=== PATIENT | female | born 1990 | race Caucasian/White ===

== ENCOUNTER 2021-12-31 10:28 | Outpatient (REF) | payer MEDICAID, SELFPAY ==
--- NOTE | ~2021-12-31 | FL_ITS ---
EXAMINATION: FL BARIUM SWALLOW CLINICAL INFORMATION: Nausea, vomiting. Rule out obstruction. COMPARISON: None. TECHNIQUE: Barium swallow examination is performed using fluoroscopic evaluation in addition to multiple fluoroscopic spot views. The patient is imaged both upright and prone and using both thick and thin sulfate along with effervescent granules. Fluoroscopy time: 1.0 minutes. DAP: 6.687 Gy-cm2. Images: 43. FINDINGS: Following oral administration of thick barium and gluten free barium-coated bread, there is slow propagation of bolus from the oral cavity through the pharynx and esophagus. There is diffuse mucosal thickening and irregularity throughout the esophagus consistent with severe esophagitis. It is nonspecific esophagitis. There is no hiatal hernia or reflux seen in upright view. Patient has significant difficulty with swallowing liquids and bread. Nondistended stomach is unremarkable. There is evidence of previous cholecystectomy. FL/FL barium swallow IMPRESSION: Diffuse severe esophagitis. Results were immediately called to Dr. Baldo Arreola by phone at 11:59 AM and he was made aware of the findings.
== END 2021-12-31 10:29 | disposition home or self-care (01) ==
LOC: HO.XRAY 10:28
PROVIDERS: Visit Provider Internal Medicine
DX: R11.2 Nausea with vomiting, unspecified (principal)
CPT/HCPCS: 74220

== ENCOUNTER 2022-12-03 12:46 | Inpatient (IN) | payer MEDICAID, SELFPAY ==
[2022-12-03] VITALS (7 sets, daily range): BP systolic 109–129; BP diastolic 69–84; PULSE 89–126; RESP 14–29; TEMP 36.7–37.2; O2SAT 87–95; BMI 30.7; BMI 30.6
--- NOTE | ~2022-12-03 | CT_ITS ---
EXAMINATION: CT ANGIOGRAM OF THE CHEST WITH AND WITHOUT CONTRAST (CT PULMONARY ANGIOGRAM FOR PE) CLINICAL INFORMATION: Reason for Exam coivd 10 days, hypoxic COMPARISON: None available. TECHNIQUE: Prior to contrast administration, noncontrast localization images were obtained. Subsequently, multidetector volumetric imaging was performed from the thoracic inlet to below the diaphragms following the administration of 65 mL Omnipaque 350 intravenous contrast. No contrast reaction reported Sagittal, coronal, and MIP oblique sagittal reformatted images were obtained on the CT workstation, uploaded to PACS, and reviewed. This CT examination was performed using dose optimization techniques as appropriate, variously including the following: *Automated exposure control *Adjustment of mA and/or kV according to patient size (this includes techniques or standardized protocols for targeted exams where dose is matched to indication/reason for exam; i.e. extremities or head) *Use of iterative reconstruction technique Total exam dose-length product 403 mGy-cm FINDINGS: QUALITY OF STUDY/CONTRAST BOLUS: Satisfactory. PULMONARY ARTERIES: No pulmonary emboli. THORACIC AORTA: No aneurysm. LUNG: Multifocal airspace disease with more confluent consolidation in the lower lobes, right greater than left, with air bronchograms. No suspicious pulmonary nodule. Central airways are patent. PLEURA: No pleural effusion or pneumothorax. MEDIASTINUM: Normal heart size. No pericardial effusion. No hilar or mediastinal lymphadenopathy. No evidence of septal bowing or right heart strain. Diffuse esophageal wall thickening. CORONARY ARTERY CALCIFICATION: None visualized on this study. CHEST WALL/AXILLA: No axillary or internal mammary lymphadenopathy. OSSEOUS STRUCTURES: No destructive bone lesions. UPPER ABDOMEN: Status post cholecystectomy. No reflux of contrast into the hepatic veins to suggest elevated right heart pressures. CT/CT angio chest PE protocol IMPRESSION: No evidence of pulmonary embolus. Multifocal pneumonia likely related to COVID-19 infection. Diffuse esophageal wall thickening. Fluoroscopic evaluation previously showed diffuse severe esophagitis. VTE: negative
--- NOTE | ~2022-12-03 | XR_ITS ---
EXAMINATION: XR CHEST CLINICAL INFORMATION: Shortness of breath. COMPARISON: None available. TECHNIQUE: 2 views of the chest were obtained. FINDINGS: Diffuse hazy attenuation of the lungs with more focal patchy and streaky opacities in the mid and lower lungs. No pleural effusion. No pneumothorax. Normal heart size. No acute osseous findings. Visualized upper abdomen is within normal limits. XR/XR chest 2V IMPRESSION: Diffuse hazy attenuation of the lungs with more focal patchy and streaky opacities in the mid and lower lungs. Findings are indeterminate and could be related with a multifocal atypical pneumonia in the appropriate clinical context. Recommend attention on follow-up and reimaging after treatment to ensure resolution.
--- NOTE | 2022-12-03 12:52 | ED_ITS ---
HPI - General Adult General Chief complaint: Dyspnea Stated complaint: covid + low 02 Time Seen by Provider: 12/03/22 13:41 Source: patient Mode of arrival: ambulatory Limitations: no limitations History of Present Illness HPI narrative: Patient comes to the emergency room complaining of shortness of breath, nausea vomiting and diarrhea. Patient states that on November 23, 9 days ago, she tested positive for COVID-19. Patient states that she has gradually become more short of breath, now even with sitting up in bed, patient feels very short of breath. Patient states that she went to see her primary care physician today, at the PCPs office her oxygen saturation was 85% on room air, patient was asked to come to the emergency room here. On arrival to triage, oxygen saturation 87% on room air. Patient states that she constantly has palpitations, patient states that she is being worked up for Brugada syndrome, patient's baseline heart rate goes between 100-120 while on metoprolol. Without metoprolol, heart rate approximately 160. Patient denies any chest pain. No significant abdominal pain. Patient states that over the last week she has been having fevers but over the last couple of days she has not had fever. Related Data Allergies Allergy/AdvReac Type Severity Reaction Status Date / Time gluten Allergy Unknown Verified 12/03/22 12:50 Sulfa (Sulfonamide Allergy Unknown Verified 12/03/22 12:50 Antibiotics) Steroids AdvReac Severe Other Uncoded 12/03/22 14:08 Review of Systems 2 Review of Systems: Constitutional : No Weight loss, No Fever, No Chills, No Night Sweats, No Fatigue, No Malaise ENT/Mouth : No Hearing loss, No Ear Pain, No Nasal Congestion, No Sinus Pain, No Hoarseness, No sore throat, No Rhinorrhea, No Swallowing Difficulty Eyes: No Eye Pain, No Swelling, No Redness, No Foreign Body, No Discharge, No Vision Changes Cardiovascular : No Chest Pain, complaining of dyspnea on exertion, complaining of chronic palpitations Respiratory : No Cough, No Sputum, No Wheezing, No Smoke Exposure, complaining of constant dyspnea worse with exertion Gastrointestinal : No Nausea, No Vomiting, No Diarrhea, No Constipation, No abdominal Pain, No Hematochezia, No Melena Genitourinary : no irregular bleeding, No Dysuria, No Urinary Frequency, No Hematuria, No Urinary Incontinence, No Urgency, No Flank Pain, No Urinary Flow Changes, No Hesitancy Musculoskeletal : No joint pain, No Myalgias, No Joint Swelling Skin : No Skin Lesions, No rash Neuro : No Weakness, No Numbness, No Paresthesias, No Loss of Consciousness, No Dizziness, No Headache Psych : No Anxiety/Panic, No Depression, No SI/HI/AH/VH, No Social Issues, Heme/Lymph: No Bruising, No Bleeding,No Lymphadenopathy Endocrine : No Polyuria, No Polydipsia, No Temperature Intolerance [facility] Past Medical History Medical History Celiac disease Tachycardia Multiple sclerosis Social History Social History Smoked in Last 30 Days: Yes Advance Directives: No Advance Directives Information Provided: No Physical Exam ED Vital Signs: Vital Signs - 24 hr 12/03/22 12:50 12/03/22 14:03 12/03/22 16:11 Temperature 98.8 F Pulse Rate 126 H 113 H 113 H Respiratory Rate 20 14 24 H Blood Pressure 129/69 120/72 109/78 Pulse Oximetry 87 L 92 95 Oxygen Delivery Method Room Air Nasal Cannula Nasal Cannula Oxygen Flow Rate 3 3 12/03/22 17:14 Temperature 98.1 F Pulse Rate 112 H Respiratory Rate 29 H Blood Pressure 109/73 Pulse Oximetry 95 Oxygen Delivery Method Nasal Cannula Oxygen Flow Rate 4 BMI result Body Mass Index 30.7 Const Other: Appearance: Alert. Oriented X3. No acute distress. Eyes: Pupils equal, round and reactive to light ENT: Pharynx normal. Patient has thrush in the mouth Neck: Normal inspection. Neck supple. No lymph nodes noted. No crepitus CVS: Normal heart rate and rhythm. Pulses normal. Normal S1 and S2 Respiratory: Mild respiratory distress, normal breath sounds, mildly tachypneic in the mid 20s, oxygen saturation dropped to 88% while talking on 2 L Abdomen: Soft and nontender. No rigidity. No distention. Skin: Skin warm and dry. Normal skin color. Normal skin turgor. Extremities: No lower extremity edema. No Lacerations. No Rash Neuro: Oriented X 3. No motor deficit. No sensory deficit. Moving all extremities. No slurred speech. CN 2 through 12 grossly intact Psych: calm, cooperative, normal affect Course Course Course Narrative: RME performed by Mara Thomas PA-C. Patient is a 32 year old assigned female at presenting to the emergency department with shortness of breath and feeling generally unwell. Patient is 9 days post COVID-19. Patient has a history of MS and brugada syndrome. Labs and imaging ordered. Patient placed back in the waiting room pending room availability and results. Medications Administered Discontinued Medications Generic Name Dose Route Start Last Admin Trade Name Freq PRN Reason Stop Dose Admin Piperacillin Sod/Tazobactam 50 mls @ 100 mls/hr 12/03/22 15:11 12/03/22 16:15 Sod 3.375 gm/ Sodium Chloride IV 12/03/22 15:40 100 mls/hr ONCE ONE Administration Sodium Chloride 2,000 mls @ 999 mls/hr 12/03/22 15:13 12/03/22 16:15 Ns IVCONT 12/03/22 17:13 999 mls/hr .Q2H1M ONE Administration Iohexol 100 ml 12/03/22 16:00 12/03/22 16:00 Iohexol 350 Mg/Ml 100 Ml Infus..Btl IV 12/03/22 16:01 65 ml ONCE ONE Administration Medical Decision Making Medical Decision Making [facility] Narrative: -patient requesting to not get any steroids. Patient gets severe esophagitis with steroids -patient is requiring oxygen, 2 L to keep the oxygen around 92. Without oxygen, oxygen saturation 85-87 % while sitting/no exertion. -discussed with the patient that she will be admitted. -all of patient's labs and CT scan pending -15:14, milder patient of chest x-ray: Possible bilateral pneumonia. Patient empirically being treated with IV fluids and antibiotics, fluids being given based on an ideal weight of 59 kg, patient is obese. Sepsis is not suspected -my interpretation of CT scan for pulmonary embolism: No obvious pulmonary embolism Differential Diagnosis Differential Diagnoses: The differential diagnosis associated with the presentation includes (COVID, pneumonia, pulmonary embolism) Admission/Observation Consideration of admission/observation: Escalation of care including admission/observation considered Consult Healthcare Provider Management of the patient was discussed with: Hospitalist Lab Data [facility] Lab Attestation statement: I reviewed the patient's lab results. 12/03/22 14:11 12/03/22 14:11 Labs: Lab Results 12/03/22 12/03/22 12/03/22 Range/Units 14:11 14:11 14:11 WBC 9.2 (4.8-10.8) X10*3/uL RBC 3.65 L (4.20-5.50) X10*6/uL Hgb 11.8 L (12.0-16.0) g/dl Hct 35.1 L (37.0-47.0) % MCV 96.2 (80.0-98.0) fL MCH 32.3 (27.0-33.0) pg MCHC 33.6 (31.0-35.0) g/dl RDW 13.7 (11.0-16.0) % Plt Count 483 H (160-400) X10*3/uL MPV 9.4 (9.4-12.3) fL Immature Gran % (Auto) 0.5 H (0.0-0.4) % Neut % (Auto) 82.4 H (45-73) % Lymph % (Auto) 8.7 L (20-40) % [place] % (Auto) 4.4 (2-11) % Eos % (Auto) 3.5 (0-4) % Baso % (Auto) 0.5 (0-2) % Lymph # (Auto) 0.8 L (1.2-4.9) X10*3/uL [place] # (Auto) 0.4 (0.1-1.2) X10*3/uL Eos # (Auto) 0.3 (0.0-0.4) X10*3/uL Baso # (Auto) 0.1 (0.0-0.2) X10*3/uL Abs Immat Gran (auto) 0.05 H (0.00-0.03) X10*3/uL Absolute Neuts (auto) 7.6 (2.0-8.3) x10*3/uL Absolute Nucleated RBC 0.000 (0.0-0.012) X10*3/uL Nucleated RBC % (auto) 0.0 (0.0-0.2) /100WBC PT 12.9 (11.1-13.3) SEC INR 1.1 (0.9-1.1) D-Dimer High Sensitivty 272 NG/ML VBG pH (7.32-7.43) VBG pCO2 mmHg VBG pO2 mmHg VBG HCO3 (22-26) mmol/L VBG O2 Saturation % VBG Base Excess mmol/L Sodium 136 (135-145) mmol/L Potassium 2.9 L (3.3-5.1) mmol/L Chloride 96 (96-108) mmol/L Carbon Dioxide 27 (22-29) mmol/L Anion Gap 16 (12-20) BUN 11 (9-16) mg/dL Creatinine 0.70 (0.5-1.4) mg/dL Estim Creat Clear Calc 134.0 Estimated GFR > 60 Random Glucose 96 (60-115) mg/dL Lactic Acid 0.8 (0.5-2.0) mmol/L Calcium 9.3 (8.4-10.2) mg/dL Magnesium 2.0 (1.6-2.6) mg/dL Total Bilirubin 0.4 0.4 (0.0-1.0) mg/dL Direct Bilirubin 0.2 (0.0-0.5) mg/dL AST 28 27 (5-31) U/L ALT 17 (0-31) U/L Alkaline Phosphatase (39-117) U/L Troponin I High Sens (<3.5-17.0) ng/L B-Natriuretic Peptide (<100) pg/mL Total Protein (6.5-8.0) g/dL Albumin (3.5-5.0) g/dL 12/03/22 12/03/22 12/03/22 Range/Units 14:11 14:11 14:11 WBC (4.8-10.8) X10*3/uL RBC (4.20-5.50) X10*6/uL Hgb (12.0-16.0) g/dl Hct (37.0-47.0) % MCV (80.0-98.0) fL MCH (27.0-33.0) pg MCHC (31.0-35.0) g/dl RDW (11.0-16.0) % Plt Count (160-400) X10*3/uL MPV (9.4-12.3) fL Immature Gran % (Auto) (0.0-0.4) % Neut % (Auto) (45-73) % Lymph % (Auto) (20-40) % [place] % (Auto) (2-11) % Eos % (Auto) (0-4) % Baso % (Auto) (0-2) % Lymph # (Auto) (1.2-4.9) X10*3/uL [place] # (Auto) (0.1-1.2) X10*3/uL Eos # (Auto) (0.0-0.4) X10*3/uL Baso # (Auto) (0.0-0.2) X10*3/uL Abs Immat Gran (auto) (0.00-0.03) X10*3/uL Absolute Neuts (auto) (2.0-8.3) x10*3/uL Absolute Nucleated RBC (0.0-0.012) X10*3/uL Nucleated RBC % (auto) (0.0-0.2) /100WBC PT (11.1-13.3) SEC INR (0.9-1.1) D-Dimer High Sensitivty NG/ML VBG pH (7.32-7.43) VBG pCO2 mmHg VBG pO2 mmHg VBG HCO3 (22-26) mmol/L VBG O2 Saturation % VBG Base Excess mmol/L Sodium (135-145) mmol/L Potassium (3.3-5.1) mmol/L Chloride (96-108) mmol/L Carbon Dioxide (22-29) mmol/L Anion Gap (12-20) BUN (9-16) mg/dL Creatinine (0.5-1.4) mg/dL Estim Creat Clear Calc Estimated GFR Random Glucose (60-115) mg/dL Lactic Acid (0.5-2.0) mmol/L Calcium (8.4-10.2) mg/dL Magnesium (1.6-2.6) mg/dL Total Bilirubin (0.0-1.0) mg/dL Direct Bilirubin (0.0-0.5) mg/dL AST (5-31) U/L ALT 17 (0-31) U/L Alkaline Phosphatase 113 113 (39-117) U/L Troponin I High Sens < 2.7 (<3.5-17.0) ng/L B-Natriuretic Peptide < 10 (<100) pg/mL Total Protein 8.3 H 8.2 H (6.5-8.0) g/dL Albumin 3.7 (3.5-5.0) g/dL 12/03/22 12/03/22 Range/Units 14:11 14:16 WBC (4.8-10.8) X10*3/uL RBC (4.20-5.50) X10*6/uL Hgb (12.0-16.0) g/dl Hct (37.0-47.0) % MCV (80.0-98.0) fL MCH (27.0-33.0) pg MCHC (31.0-35.0) g/dl RDW (11.0-16.0) % Plt Count (160-400) X10*3/uL MPV (9.4-12.3) fL Immature Gran % (Auto) (0.0-0.4) % Neut % (Auto) (45-73) % Lymph % (Auto) (20-40) % [place] % (Auto) (2-11) % Eos % (Auto) (0-4) % Baso % (Auto) (0-2) % Lymph # (Auto) (1.2-4.9) X10*3/uL [place] # (Auto) (0.1-1.2) X10*3/uL Eos # (Auto) (0.0-0.4) X10*3/uL Baso # (Auto) (0.0-0.2) X10*3/uL Abs Immat Gran (auto) (0.00-0.03) X10*3/uL Absolute Neuts (auto) (2.0-8.3) x10*3/uL Absolute Nucleated RBC (0.0-0.012) X10*3/uL Nucleated RBC % (auto) (0.0-0.2) /100WBC PT (11.1-13.3) SEC INR (0.9-1.1) D-Dimer High Sensitivty NG/ML VBG pH 7.47 H (7.32-7.43) VBG pCO2 42 mmHg VBG pO2 39 mmHg VBG HCO3 31 H (22-26) mmol/L VBG O2 Saturation 53.0 % VBG Base Excess 7.6 mmol/L Sodium (135-145) mmol/L Potassium (3.3-5.1) mmol/L Chloride (96-108) mmol/L Carbon Dioxide (22-29) mmol/L Anion Gap (12-20) BUN (9-16) mg/dL Creatinine (0.5-1.4) mg/dL Estim Creat Clear Calc Estimated GFR Random Glucose (60-115) mg/dL Lactic Acid (0.5-2.0) mmol/L Calcium (8.4-10.2) mg/dL Magnesium (1.6-2.6) mg/dL Total Bilirubin (0.0-1.0) mg/dL Direct Bilirubin (0.0-0.5) mg/dL AST (5-31) U/L ALT (0-31) U/L Alkaline Phosphatase (39-117) U/L Troponin I High Sens (<3.5-17.0) ng/L B-Natriuretic Peptide (<100) pg/mL Total Protein (6.5-8.0) g/dL Albumin 3.6 (3.5-5.0) g/dL Independent Interpretation I performed an independent interpretation of an: CT Scan Radiology Impression Discussion of test interpretation with radiology: I have reviewed the radiologist's reading. Radiologist Impression: FINDINGS: QUALITY OF STUDY/CONTRAST BOLUS: Satisfactory. PULMONARY ARTERIES: No pulmonary emboli. THORACIC AORTA: No aneurysm. LUNG: Multifocal airspace disease with more confluent consolidation in the lower lobes, right greater than left, with air bronchograms. No suspicious pulmonary nodule. Central airways are patent. PLEURA: No pleural effusion or pneumothorax. MEDIASTINUM: Normal heart size. No pericardial effusion. No hilar or mediastinal lymphadenopathy. No evidence of septal bowing or right heart strain. Diffuse esophageal wall thickening. CORONARY ARTERY CALCIFICATION: None visualized on this study. CHEST WALL/AXILLA: No axillary or internal mammary lymphadenopathy. OSSEOUS STRUCTURES: No destructive bone lesions. UPPER ABDOMEN: Status post cholecystectomy. No reflux of contrast into the hepatic veins to suggest elevated right heart pressures. CT/CT angio chest PE protocol IMPRESSION: No evidence of pulmonary embolus. Multifocal pneumonia likely related to COVID-19 infection. Diffuse esophageal wall thickening. Fluoroscopic evaluation previously showed diffuse severe esophagitis. VTE: negative Critical Care Time Critical Care Time Critical Care Time: Yes Total Critical Care Time: 75 Attestation: I have personally provided critical care time. Time includes review of lab data, radiology results, discussion with consultants, and monitoring for potential decompensation. Intervention performed as documented. Discharge Plan Discharge Clinical Impression: Pneumonia Patient Disposition: Admitted As Inpatient
--- NOTE | 2022-12-03 12:53 | ECG_ITS ---
Test Reason : SOB Blood Pressure : / mmHG Vent. Rate : 105 BPM Atrial Rate : 105 BPM P-R Int : 132 ms QRS Dur : 086 ms QT Int : 336 ms P-R-T Axes : 040 025 021 degrees QTc Int : 444 ms Sinus tachycardia Nonspecific T wave abnormality Inferior leads Abnormal ECG When compared with ECG of 03-DEC-2022 13:58, No significant change was found Referred By: Neda Van Electronically Signed By:NIURKA MARIA MD
--- OUTSIDE RECORDS SUMMARY | 2022-12-03 13:31 | XMS_ITS | Continuity of Care Document ---
Author Name Unknown Organization [facility] Address [address] [place] [address]- Care Team Providers Care Mine Administrator Supervisor Name Role Phone Not on Staff, PCP Primary Care Physician Unavail able Encounter [facility] [place] Date(s): 09/09/21 - 10/09/21 [facility] [address] [place], [place] [address] Attending Physician: Asad Scales Admitting Physician: Admtr, Asad Referring Physician: Admtr, Ar8 Allergies, Adverse Reactions, Alerts Substance Reaction Severity Status Glutens Active Medications Valtrex 1 gm oral tablet 1 tablet = 1 Gm, By Mouth, 3 times a day, for 7 days, # 21 tablet, 0 Refills, Acute 10/12/21 11:23:00 EDT, 10/05/21 11:23:00 EDT, Tablet, [id number], Partial fill upon patient request if the prescription is for a schedule II opioid drug. Start Date: 10/05/21 Stop Date: 10/12/21 Status: Ordered Care Team Personnel Name: Not on Staff, PCP
--- OUTSIDE RECORDS SUMMARY | 2022-12-03 13:31 | XMS_ITS | Continuity of Care Document ---
Author Name Unknown Organization [facility] Address [address] [place] [address]- Care Team Providers Care Lining Closer Name Role Phone Not on Staff, PCP Primary Care Physician Unavail able Encounter [facility] Date(s): 10/05/21 - 11/04/21 [facility] [address] [place] [address]- Attending Physician: Admtr Ar8 Admitting Physician: Admtr, Ar8 Referring Physician: Admtr, Ar8 Allergies, Adverse Reactions, Alerts Substance Reaction Severity Status Glutens Active Care Team Personnel Name: Not on Staff, PCP
--- OUTSIDE RECORDS SUMMARY | 2022-12-03 13:31 | XMS_ITS | Continuity of Care Document ---
Author Name Unknown Organization [facility] Address [address] [place], [place] [id number]- Care Team Providers Care Pumping Supervisor Name Role Phone Not on Staff, PCP Primary Care Physician Unavail able Encounter [facility] [id number] Date(s): 05/11/21 - 10/08/21 [facility] [place] [address]- Attending Physician: Edmond Montemayor MD Allergies, Adverse Reactions, Alerts Substance Reaction Severity Status Glutens Active Medications Valtrex 1 gm oral tablet 1 tablet = 1 Gm, By Mouth, 3 times a day, for 7 days, # 21 tablet, 0 Refills, Acute 10/12/21 11:23:00 EDT, 10/05/21 11:23:00 EDT, Tablet, [facility] #[id number], Partial fill upon patient request if the prescription is for a schedule II opioid drug. Start Date: 10/05/21 Stop Date: 10/12/21 Status: Ordered Care Team Personnel Name: Not on Staff, PCP
--- OUTSIDE RECORDS SUMMARY | 2022-12-03 13:31 | XMS_ITS | Patient Health Record ---
Author Name Unknown Organization [facility] Address [address] [place] [id number] Care Team Providers Care Asphalt Mixer Name Role Phone Elba CUETO, Baldo Primary Care Provider Jose E Joya Jr Unavailable ALLERGIES Allergen (clinical drug ingredient) Drug/Non Drug Allergy documented on EMR Reaction Allergy Type Onset Date Status Substance with sulfonamide structure and antibacterial mechanism of action (substance) Sulfa Antibiotics Unknown Drug Allergy Active WHEAT GLUTON (uncoded) Unknown Allergy Active REASON FOR REFERRAL No Information MEDICATIONS Medication SIG (Take, Route, Frequency, Duration) Notes Start Date End Date Status Metoprolol Succinate ER 25 MG TAKE 1 TABLET BY MOUTH EVERY DAY Oral for 90 Active Remeron 30 MG 1 tablet at bedtime Orally Once a day for 30 day(s) Active Ondansetron HCl 4 MG 1 tablet Orally Onc e a day for 30 day(s) 11/26/2021 Active Cymbalta 60 MG 1 capsule Orally Twi ce a day Active Methocarbamol 750 MG TAKE 1 TABLET BY MO UTH EVERY DAY Oral for 90 Active Pantoprazole Sodium 40 MG 1 tablet Orall y Once a day for 30 day(s) 11/26/2021 Active Adderall 20 MG 1 tablet Orally thre e times a day Active IMMUNIZATIONS Vaccine Route Administration Date Status Comme nts Influenza Unknown 11/26/2021 Refused allergies to g luten SOCIAL HISTORY Tobacco Use: Social History Observation Description Date Details (start date - stop date) Former Smoker NA - NA Sex Assigned At : Social History Observation Description Sex Assigned At Unknown Tobacco Use/Smoking Question Answer Notes Patient is a former smoker How long has it been since you last smoked? 5-10 years Alcohol Screen Question Answer Notes Did you have a drink containing alcohol in the p ast year? No Points 0 Interpretation Negative PROBLEMS Problem Type ICD Code Onset Dates Problem Status W/U Status Risk SNOMED Code Notes Problem Celiac disease (K90.0) Active confirmed 642976296 Problem Diarrhea, unspecified type (R19.7) Active confirmed 04288152 Problem Gastroesophageal reflux disease, unspecified whether esophagitis present (K21.9) Active confirmed 705404161 PLAN OF TREATMENT Pending Test Test Name Order Date STOOL WBC 11/26/2021 OVA & PARASITES (O&P) 11/26/2021 CALPROTECTIN, STOOL 11/26/2021 GI PANEL 11/26/2021 Insurance Providers Payer Name Payer Address Payer Phone Subscriber Number Group Number Insured Name Patient Relationship to Insured Coverage Start Date Coverage End Date [facility] [address] [place] [phone] [id number] VANIA Fox NEHA Self - patient is the insured MEDICAL (GENERAL) HISTORY Medical History History ICD Code Celiac disease Migraines GERD Neuropathy EDT 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
--- OUTSIDE RECORDS SUMMARY | 2022-12-03 13:31 | XMS_ITS | Continuity of Care Document ---
Author Name Unknown Organization [facility] Address [address] [place] [address]- Care Team Providers Care Cut Out Machine Operator Name Role Phone Not on Staff, PCP Primary Care Physician Unavail able Encounter [facility] Date(s): 10/05/21 - 10/12/21 [facility] [address] [place] [address]- Encounter Diagnosis Shingles(Discharge Diagnosis) - 10/05/21 Attending Physician: Chris Garcia DO Allergies, Adverse Reactions, Alerts Substance Reaction Severity Status Glutens Active Problem List Diagnosis Diagnosis Type Effective Dates Health Status Clini laura Service Informant Shingles Discharge Diagnosis 10/05/21 Vital Signs Most recent to oldest [Reference Range]: 1 Pulse Rate [55-90 bpm] 120 bpm *H* (10/05/21 11:13 AM) Blood Pressure [90-138/55-84 mm Hg] 125/ 90mm Hg (10/05/21 11:13 AM) Temperature [96.8-100.4 DegF] 97.6 DegF (10/05/21 11:13 AM) Mode of Delivery (Oxygen) Room air (10/05/21 11:13 AM) Blood pressure sites Arm, left (10/05/21 11:13 AM) Temperature Route Temporal (10/05/21 11:13 AM) Care Team Personnel Name: Not on Staff, PCP
--- OUTSIDE RECORDS SUMMARY | 2022-12-03 13:31 | XMS_ITS | Continuity of Care Document ---
Author Name Unknown Organization [facility] Address [address] [place] [address]- Care Team Providers Care Furniture Mover Driver Name Role Phone Not on Staff, PCP Primary Care Physician Unavail able Encounter [facility] [place] Date(s): 07/10/21 - 10/09/21 [facility] [address] [place], [place] [address] Attending Physician: George Porter Allergies, Adverse Reactions, Alerts Substance Reaction Severity Status Glutens Active Medications Valtrex 1 gm oral tablet 1 tablet = 1 Gm, By Mouth, 3 times a day, for 7 days, # 21 tablet, 0 Refills, Acute 10/12/21 11:23:00 EDT, 10/05/21 11:23:00 EDT, Tablet, [facility] #[id number], Partial fill upon patient request if the prescription is for a schedule II opioid drug. Start Date: 10/05/21 Stop Date: 10/12/21 Status: Ordered Care Team Personnel Name: Not on Staff, PCP
--- OUTSIDE RECORDS SUMMARY | 2022-12-03 13:31 | XMS_ITS | Continuity of Care Document ---
Author Name Unknown Organization [facility] Address [address] [place] [address]- Care Team Providers Care Cyber Security Instructor Name Role Phone Not on Staff, PCP Primary Care Physician Unavail able Encounter [facility] Date(s): 07/03/21 - 08/07/21 [facility] [address] [place] [address]- Attending Physician: Galindo CUETO, Charly
--- OUTSIDE RECORDS SUMMARY | 2022-12-03 13:31 | XMS_ITS | Continuity of Care Document ---
Author Name Unknown Organization [facility] Address [address] [place] [address] Care Team Providers Care Director Of Conservation Name Role Phone Not on Staff, PCP Primary Care Physician Unavail able Encounter [facility] [id number] Date(s): 07/07/21 - 08/06/21 [facility] [address] [address]
--- OUTSIDE RECORDS SUMMARY | 2022-12-03 13:31 | XMS_ITS | Continuity of Care Document ---
Author Name Unknown Organization [facility] Address [address] [place] [address]- Care Team Providers Care Counter Weigher Name Role Phone Not on Staff, PCP Primary Care Physician Unavail able [facility]counter [facility] Date(s[facility] 07/10/21 - 08/09/21 [facility] [address] [place], [place] [address]
--- OUTSIDE RECORDS SUMMARY | 2022-12-03 13:31 | XMS_ITS | Continuity of Care Document ---
Author Name Unknown Organization [facility] Address [address] [place] [address]- Care Team Providers Care Automotive Service Director Name Role Phone Not on Staff, PCP Primary Care Physician Unavail able Encounter [facility] Date(s): 07/03/21 - 08/02/21 [facility] [address] [place], [place] [address]
--- NOTE | 2022-12-03 13:43 | ECG_ITS ---
Test Reason : HYPOXIC Blood Pressure : / mmHG Vent. Rate : 112 BPM Atrial Rate : 112 BPM P-R Int : 114 ms QRS Dur : 086 ms QT Int : 330 ms P-R-T Axes : 039 026 016 degrees QTc Int : 450 ms Sinus tachycardia Possible Left atrial enlargement Nonspecific T wave abnormality Inferior leads Abnormal ECG No previous ECGs available Referred By: Neda Van Electronically Signed By:NIURKA MARIA MD
[2022-12-03 14:16] LABS: MANUAL DIFF FLAG NO
[2022-12-03 14:21] LABS: Venous Blood Gas Refer to POC result
[2022-12-03 14:21] LABS: Basophils Absolute Auto 0.1 X10*3/uL (0.0-0.2); Basophils Percent Auto 0.5 % (0-2); Eosinophils Absolute Auto 0.3 X10*3/uL (0.0-0.4); Eosinophils Percent Auto 3.5 % (0-4); Hematocrit 35.1 % (37.0-47.0); Hemoglobin 11.8 g/dl (12.0-16.0); Imm Gran Abs Auto 0.05 X10*3/uL (0.00-0.03); Imm Gran Pct Auto 0.5 % (0.0-0.4); Lymphocytes Absolute Auto 0.8 X10*3/uL (1.2-4.9); Lymphocytes Percent Auto 8.7 % (20-40); Mean Corpuscular HGB Conc 33.6 g/dl (31.0-35.0); Mean Corpuscular Hemoglobin 32.3 pg (27.0-33.0); Mean Corpuscular Volume 96.2 fL (80.0-98.0); Mean Platelet Volume 9.4 fL (9.4-12.3); Monocytes Absolute Auto 0.4 X10*3/uL (0.1-1.2); Monocytes Percent Auto 4.4 % (2-11); Neutrophils Absolute Auto 7.6 x10*3/uL (2.0-8.3); Neutrophils Percent Auto 82.4 % (45-73); Platelet Count 483 X10*3/uL (160-400); Red Blood Count 3.65 X10*6/uL (4.20-5.50); Red Cell Distribution Width 13.7 % (11.0-16.0); White Blood Count 9.2 X10*3/uL (4.8-10.8)
[2022-12-03 14:22] LABS: VBG Base Excess 7.6 mmol/L; VBG HCO3 31 mmol/L (22-26); VBG pCO2 42 mmHg; VBG pH 7.47 (7.32-7.43); VBG pO2 39 mmHg
[2022-12-03 14:27] LABS: INTERNATIONAL NORM RATIO 1.1 (0.9-1.1); Prothrombin Time 12.9 SEC (11.1-13.3)
--- NOTE | 2022-12-03 14:28 | PC.NURSE ---
iv established, labs drawn and sent. pt placed on 2L nasal cannula, reporting improvement in breathing with oxygen. awaiting ct scan at this time, call glass within reach.
[2022-12-03 14:29] LABS: D Dimer High Sensitivity 272 NG/ML; Lactic Acid 0.8 mmol/L (0.5-2.0)
[2022-12-03 14:34] LABS: Alanine Aminotransferase 17 U/L (0-31); Albumin Level 3.7 g/dL (3.5-5.0); Alkaline Phosphatase 113 U/L (39-117); Anion Gap 16 (12-20); Aspartate Amino Transferase 28 U/L (5-31); Bilirubin Total 0.4 mg/dL (0.0-1.0); Blood Urea Nitrogen 11 mg/dL (9-16); Calcium 9.3 mg/dL (8.4-10.2); Carbon Dioxide 27 mmol/L (22-29); Chloride 96 mmol/L (96-108); Estimated Glomerular Filt Rate > 60; Glucose Random 96 mg/dL (60-115); Potassium 2.9 mmol/L (3.3-5.1); Sodium 136 mmol/L (135-145); Total Protein 8.3 g/dL (6.5-8.0)
[2022-12-03 14:35] LABS: Alanine Aminotransferase 17 U/L (0-31); Albumin Level 3.6 g/dL (3.5-5.0); Alkaline Phosphatase 113 U/L (39-117); Aspartate Amino Transferase 27 U/L (5-31); Bilirubin Direct 0.2 mg/dL (0.0-0.5); Bilirubin Total 0.4 mg/dL (0.0-1.0); Total Protein 8.2 g/dL (6.5-8.0)
[2022-12-03 14:40] LABS: B Type Natriuretic Peptide < 10 pg/mL (<100)
[2022-12-03 14:41] LABS: Troponin-I High Sensitivity < 2.7 ng/L (<3.5-17.0)
[2022-12-03] MEDS: iohexoL 350 MG/ML 100 ML INFUS..BTL IV (16:00)
[2022-12-03] MEDS: Piperacillin Sodium/Tazobactam 3.375 GM in 0.9 % Sodium Chloride 50 ML IV (16:15)
[2022-12-03] MEDS: 0.9 % Sodium Chloride 2,000 ML 999 ML IVCONT (16:15)
--- NOTE | 2022-12-03 16:20 | PC.NURSE ---
fluids hung/antibiotics infusing. patient reporting dyspnea - 87-92% on 4L nasal cannula at this time, tachypneic.
--- NOTE | 2022-12-03 17:46 | P.HPHOSP_ITS ---
History of Present Illness Date of Service: 12/03/22 Attending physician on admission: Sharad Plascencia Chief Complaint: shortness of breath this is a 32-year-old female who presents to the emergency department with shortness of breath. Patient states that on November 23 she began feeling short of breath. She tested positive for covid 19 on November 24. She has been having fever up to 103, last fever yesterday. she was seen in the emergency emergency department on TuesdayNovember 29 for ongoing shortness of breath and decreased p.o. intake. She was told during that visit that she was dehydrated but her oxygen level is stable. she has had associated dry cough, decreased p.o. intake. She had follow-up appointment with her PCP today who sent her to the emergency due to shortness of breath and hypoxia in the office. In the ED her initial oxygen saturation was 87% on room air, she was placed on 4 L of supplemental oxygen and is currently saturating in the mid 90s. She continues to report shortness of breath. CTA showed multifocal pneumonia consistent with COVID 19. she was afebrile, lab work revealed no leukocytosis. Chemistries did reveal hypokalemia with a potassium of 2.9. She received IV fluid a dose of nystatin and IV Zosyn and the decision was made to admit her to the hospital for further management of COVID associated pneumonia. Review of Systems 2 Review of Systems: Yes all other systems are reviewed and are negative Constitutional: Constitutional: Denies chills and Denies fever(s) Cardiovascular: Cardiovascular: Denies chest pain, Denies palpitations and Reports dyspnea Respiratory: Respiratory: Reports cough and Reports dyspnea Gastrointestinal: Gastrointestinal: Denies abdominal pain and Reports nausea Endocrine: Endocrine: Denies palpitations [facility] Medical History Vasovagal syncope Esophagitis Celiac disease Tachycardia Multiple sclerosis Functional capacity: independent ambulation Pertinent family history: Two family members being investigated for Brugada syndrome (one cousin in sleep at age 17) Social History (Updated 12/03/22 @ 17:51 by ANTONELLA Crandall) Household Members: Children Household Members Other:: son Housing: Apartment Do you presently have visiting nurse or other home services: No Alcohol intake: former Patient Tobacco Use Status: Former Tobacco user Quit Date: 11/24/2022 Smoked in Last 30 Days: Yes e-Cigarette/Vaping Use: Former Use Patient Interested in Nicotine Replacement: No Patient Given Instructions on How to Stop Smoking: No (pt states she's 'done smoking/vaping') Second Hand Smoke Exposure: No Use of substances other than those prescribed or required for medical reasons: Yes Substance Use Type: Marijuana Last Used Substance Other:: 12/02/22 Currently Displaying Signs/Symptoms of Drug Intoxication Withdrawal: No Have you been hit, kicked, punched, or otherwise hurt by someone within the past year? If so, by whom?: No Do you feel safe in your current relationship?: No Current Relationship Is there a partner from a previous relationship who is making you feel unsafe now?: No Are you made to feel afraid or neglected: No Advance Directives: No Advance Directives Information Provided: No Advance Directives on File: No Do you have thoughts of harming others: None Do you have a plan to hurt others: No Plan Recently lost weight without trying: No How much weight loss: Unsure Eating poorly because of decreased appetite: No Nutrition screen score: 2 Nutrition Risks: No Nutritional Risk Patient : No : No Poor oral hygiene: No service: No Meds Allergies Allergy/AdvReac Type Severity Reaction Status Date / Time gluten Allergy Unknown Verified 12/03/22 12:50 Sulfa (Sulfonamide Allergy Unknown Verified 12/03/22 12:50 Antibiotics) Steroids AdvReac Severe Other Uncoded 12/03/22 14:08 Active Medications: Current Medications Acetaminophen (Acetaminophen 325 Mg Tablet) 650 mg PO Q6H PRN PRN Reason: Pain, Mild (Pain Scale 1-3) Dexamethasone Sodium Phosphate (Dexamethasone Sod Phosphate 4 Mg/Ml Vial) 6 mg IVPUSH DAILY NUBIA Docusate Sodium (Docusate Sodium 100 Mg Capsule) 100 mg PO DAILY PRN PRN Reason: Constipation Enoxaparin Sodium (Enoxaparin Sodium 40 Mg/0.4 Ml Syringe) 40 mg SUBCUT Q24H NUBIA Potassium Chloride (Potassium Chloride/H20) 10 meq in 100 mls @ 100 mls/hr IV ONCE ONE Stop: 12/03/22 18:43 Potassium Chloride (Potassium Chloride Packet 20 Meq Packet) 40 meq PO ONCE ONE Stop: 12/03/22 17:44 Sodium Chloride (0.9 % Sodium Chloride Flush 3 Ml Syringe) 3 ml IVFLUSH QSHIFT [facility] Home Medications Medication Instructions Recorded Confirmed Last Taken Type baclofen 10 mg tablet 10 mg PO TID PRN Spasms 12/03/22 12/03/22 12/03/22 History buspirone 10 mg tablet 10 mg PO BID 12/03/22 12/03/22 12/02/22 History cephalexin 500 mg capsule 500 mg PO DAILY 12/03/22 12/03/22 12/02/22 History dextroamphetamine-amphetamine 30 1 tab PO BID 12/03/22 12/03/22 Unknown History mg tablet duloxetine 60 mg capsule,delayed 60 mg PO BID 12/03/22 12/03/22 12/02/22 History release hydrochlorothiazide 25 mg tablet 25 mg PO DAILY 12/03/22 12/03/22 12/02/22 History metoprolol succinate 50 mg 50 mg PO DAILY 12/03/22 12/03/22 12/03/22 History tablet,extended release 24 hr mirtazapine 30 mg tablet 30 mg PO DAILY 12/03/22 12/03/22 12/02/22 History pantoprazole 40 mg tablet,delayed 40 mg PO DAILY 12/03/22 12/03/22 12/02/22 History release Physical Exam 2 Vital Signs and Narrative: Vital Signs: Last Vital Signs Temp 98.1 F 12/03/22 17:14 Pulse 112 H 12/03/22 17:14 Resp 29 H 12/03/22 17:14 BP 109/73 12/03/22 17:14 Pulse Ox 95 12/03/22 17:14 O2 Del Method Nasal Cannula 12/03/22 17:14 O2 Flow Rate 4 12/03/22 17:14 BMI result Body Mass Index 30.7 Const: General: cooperative, alert and awake Nutritional Appearance: o verweight Orientation/consciousness: patient oriented x3 Resp: Other: tachypnic, speaks in short sentences Cardio: Rate: tachycardic GI: Inspection: No distended Palpation (GI): Soft to palpation and nontender Neuro: General: patient oriented x3, moves all extremities and CN's II-XI intact bilaterally Extrem: General: Yes no pedal edema Results Labs 12/04/22 09:05 12/04/22 09:05 Labs: Laboratory Results - last 24 hr 12/03/22 12/03/22 12/03/22 14:11 14:11 14:11 MCV 96.2 MCH 32.3 MCHC 33.6 RDW 13.7 Plt Count 483 H MPV 9.4 Immature Gran % (Auto) 0.5 H Neut % (Auto) 82.4 H Lymph % (Auto) 8.7 L Mcnairy % (Auto) 4.4 Eos % (Auto) 3.5 Baso % (Auto) 0.5 Lymph # (Auto) 0.8 L Mcnairy # (Auto) 0.4 Eos # (Auto) 0.3 Baso # (Auto) 0.1 Abs Immat Gran (auto) 0.05 H Absolute Neuts (auto) 7.6 Absolute Nucleated RBC 0.000 Nucleated RBC % (auto) 0.0 PT 12.9 INR 1.1 D-Dimer High Sensitivty 272 VBG pH VBG pCO2 VBG pO2 VBG HCO3 VBG O2 Saturation VBG Base Excess Anion Gap 16 Estim Creat Clear Calc 134.0 Estimated GFR > 60 Random Glucose 96 Lactic Acid 0.8 Calcium 9.3 Magnesium 2.0 Total Bilirubin 0.4 0.4 Direct Bilirubin 0.2 AST 28 27 ALT 17 Alkaline Phosphatase B-Natriuretic Peptide Total Protein Albumin 12/03/22 12/03/22 12/03/22 14:11 14:11 14:11 MCV MCH MCHC RDW Plt Count MPV Immature Gran % (Auto) Neut % (Auto) Lymph % (Auto) Mcnairy % (Auto) Eos % (Auto) Baso % (Auto) Lymph # (Auto) Mcnairy # (Auto) Eos # (Auto) Baso # (Auto) Abs Immat Gran (auto) Absolute Neuts (auto) Absolute Nucleated RBC Nucleated RBC % (auto) PT INR D-Dimer High Sensitivty VBG pH VBG pCO2 VBG pO2 VBG HCO3 VBG O2 Saturation VBG Base Excess Anion Gap Estim Creat Clear Calc Estimated GFR Random Glucose Lactic Acid Calcium Magnesium Total Bilirubin Direct Bilirubin AST ALT 17 Alkaline Phosphatase 113 113 B-Natriuretic Peptide < 10 Total Protein 8.3 H 8.2 H Albumin 3.7 12/03/22 12/03/22 14:11 14:16 MCV MCH MCHC RDW Plt Count MPV Immature Gran % (Auto) Neut % (Auto) Lymph % (Auto) Mcnairy % (Auto) Eos % (Auto) Baso % (Auto) Lymph # (Auto) Mcnairy # (Auto) Eos # (Auto) Baso # (Auto) Abs Immat Gran (auto) Absolute Neuts (auto) Absolute Nucleated RBC Nucleated RBC % (auto) PT INR D-Dimer High Sensitivty VBG pH 7.47 H VBG pCO2 42 VBG pO2 39 VBG HCO3 31 H VBG O2 Saturation 53.0 VBG Base Excess 7.6 Anion Gap Estim Creat Clear Calc Estimated GFR Random Glucose Lactic Acid Calcium Magnesium Total Bilirubin Direct Bilirubin AST ALT Alkaline Phosphatase B-Natriuretic Peptide Total Protein Albumin 3.6 Imaging Radiologist's Impressions: Impressions Chest X-Ray 12/03/22 13:50 IMPRESSION: Diffuse hazy attenuation of the lungs with more focal patchy and streaky opacities in the mid and lower lungs. Findings are indeterminate and could be related with a multifocal atypical pneumonia in the appropriate clinical context. Recommend attention on follow-up and reimaging after treatment to ensure resolution. Chest CTA 12/03/22 16:01 IMPRESSION: No evidence of pulmonary embolus. Multifocal pneumonia likely related to COVID-19 infection. Diffuse esophageal wall thickening. Fluoroscopic evaluation previously showed diffuse severe esophagitis. VTE: negative Assessment and Plan (1) COVID-19: Status: Acute Plan This is a 32 year old female with history of MS (not on medication), Celiac disease, vasovagal syncope, being worked up for possible Brugada syndrome, esophagitis who tested positive for COVID 19 on November 24 and presents to the ED with shortness of breath found to have hypoxia and multifocal pneumonia Acute respiratory failure with hypoxia secondary to multifocal pneumonia due to COVID-19 CTA negative for PE not a candidate for remdesivir given onset of symptoms >7days ago -IV decadron, breathing treatments -continue supplemental oxygen, tritrate prn -will check procalcitonin, if elevated will cover with antibiotics -full respiratory pathogen panel pending Hypokalemia replace and follow levels sinus tachycardia pt reports chronic sinus tach with HR 110-120s despite use of betablocker Brugada syndrome states she is being worked up for brugada syndrome but has not had formal diagnosis EKG showing sinus tachycardia MS not on meds celiac dz gluten free diet esophagitis h/o steroid related esophagitis recently started on fluconazole by PCP - will continue med rec pending at the time of admission dvt ppx - lovenox code status - full code attending - dr. plascencia Patient will likely require two midnight stay in the hospital for mangement of respiratory failure/covid 19 pneumonia and hypoxia, Time Spent With Patient Time: Total time managing care of this patient today ____ minutes. Quality Stroke Does the patient have a stroke diagnosis?: No VTE Prior VTE?: No VTE Risk Level:: Medical - moderate - high VTE Device Contraindication: N/A - Device Ordered VTE Drug Contraindication: N/A - Med Ordered
[2022-12-03 18:24] LABS: Procalcitonin 0.07 ng/mL
[2022-12-03] MEDS: Albuterol/Iprat 2.5/0.5MG 3 ML AMPUL.NEB INHALE (19:16)
[2022-12-03] MEDS: Enoxaparin Sodium 40 MG/0.4 ML SYRINGE SUBCUT (19:36)
[2022-12-03] MEDS: Nystatin Oral Susp 500,000 UNIT/5 ML ORAL.SUSP 200000 UNIT BUCCAL (19:36)
[2022-12-03] MEDS: Potassium Chloride/H20 10 MEQ/100 ML PIGGYBACK 100 MEQ IV (19:37)
[2022-12-03] MEDS: Potassium Chloride Packet 20 MEQ PACKET 40 MEQ PO (19:37)
[2022-12-03] MEDS: dexAMETHasone sod phosphate 4 MG/ML VIAL 6 MG IVPUSH (19:37)
--- NOTE | 2022-12-03 20:05 | PHA.MEDREC ---
Pharmacy Consult ? Medication Reconciliation Pharmacy has completed the medication reconciliation. Pt states she no longer takes robaxin
[2022-12-03 20:22] LABS: COVID-19 Test Negative (Negative); IDNOW Serial# 08D9AD1C
[2022-12-03 20:25] LABS: IDNOW Serial# BCCEAD1C; Influenza A Negative (Negative); Influenza B2 Negative (Negative)
--- NOTE | 2022-12-03 20:42 | PC.NURSE ---
Nurse to nurse report given to SAM Aldridge RN. Patient to be transported to [facility] by customer support technician.
[2022-12-03] MEDS: DULoxetine HCl 60 MG CAPSULE.DR PO (23:48)
[2022-12-03] MEDS: Mirtazapine 30 MG TABLET PO (23:48)
[2022-12-03] MEDS: 0.9 % Sodium Chloride Flush 3 ML SYRINGE IVFLUSH (23:48)
[2022-12-03] MEDS: Baclofen 10 MG TABLET PO (23:48)
[2022-12-03] MEDS: busPIRone HCl 10 MG TABLET PO (23:48)
[2022-12-04] VITALS (8 sets, daily range): BP systolic 98–116; BP diastolic 54–74; PULSE 70–88; RESP 16–20; TEMP 36.1–37.1; O2SAT 90–92
[2022-12-04] MEDS: Pantoprazole Sodium 40 MG/10 ML VIAL IVPUSH (06:11)
[2022-12-04] MEDS: 0.9 % Sodium Chloride Flush 3 ML SYRINGE IVFLUSH ×3 (08:45→22:07)
[2022-12-04] MEDS: Metoprolol Succinate ER 50 MG TAB.ER.24H PO (08:45)
[2022-12-04] MEDS: busPIRone HCl 10 MG TABLET PO ×2 (08:45→22:07)
[2022-12-04] MEDS: DULoxetine HCl 60 MG CAPSULE.DR PO ×2 (08:45→22:07)
[2022-12-04] MEDS: Mirtazapine 30 MG TABLET PO ×2 (08:45→22:06)
[2022-12-04] MEDS: dexAMETHasone sod phosphate 4 MG/ML VIAL 6 MG IVPUSH (08:45)
[2022-12-04 09:26] LABS: Hematocrit 33.8 % (37.0-47.0); Mean Corpuscular HGB Conc 32.5 g/dl (31.0-35.0); Mean Corpuscular Hemoglobin 31.3 pg (27.0-33.0); Mean Corpuscular Volume 96.3 fL (80.0-98.0); Mean Platelet Volume 9.3 fL (9.4-12.3); Platelet Count 459 X10*3/uL (160-400); Red Blood Count 3.51 X10*6/uL (4.20-5.50); Red Cell Distribution Width 13.5 % (11.0-16.0); White Blood Count 6.8 X10*3/uL (4.8-10.8)
[2022-12-04 10:02] LABS: Anion Gap 15 (12-20); Blood Urea Nitrogen 11 mg/dL (9-16); Carbon Dioxide 22 mmol/L (22-29); Chloride 105 mmol/L (96-108); Creatinine Clr Calc Pharmacy 146.3; Estimated Glomerular Filt Rate > 60; Glucose Random 141 mg/dL (60-115); Potassium 3.6 mmol/L (3.3-5.1); Sodium 138 mmol/L (135-145)
--- NOTE | 2022-12-04 10:10 | MHC.CM.PN ---
Pt lives at home with her son is self-care. Return home self-care is the goal. Pt will transport herself home (car is in lot). No HCP on file, declines making one at this time. PCP: Dr. Baldo Arreola
--- NOTE | 2022-12-04 11:02 | P.PNIM_ITS ---
Subjective Subjective Date of Service: 12/04/22 Interval History: seen and examined this morning follow up for respiratory failure breathing easier today, feeling better still with sob with movement or ambulation; hasn't been up to bathroom, only to commode denies fever/chills Review of Systems Review of Systems: Yes all other systems are reviewed and are negative Constitutional Constitutional: Denies chills and Denies fever(s) Cardiovascular Cardiovascular: Denies chest pain, Denies palpitations, Reports dyspnea and Reports dyspnea on exertion Respiratory Respiratory: Reports dyspnea and Reports dyspnea on exertion Gastrointestinal Gastrointestinal: Denies abdominal pain Endocrine Endocrine: Denies palpitations Physical Exam 2 Vital Signs: Vital Signs: Last Vital Signs Temp 97.1 F 12/04/22 07:09 Pulse 74 12/04/22 07:09 Resp 20 12/04/22 07:09 BP 103/74 12/04/22 07:09 Pulse Ox 92 12/04/22 07:09 O2 Del Method Nasal Cannula 12/04/22 07:09 O2 Flow Rate 6 12/04/22 07:09 BMI result Body Mass Index 30.6 Const: General: cooperative, comfortable, alert and awake Nutritional Appearance: overweight Orientation/consciousness: patient oriented x3 Resp: Effort & Inspection: normal respiratory effort, able to speak in complete sentences, no respiratory distress and no use of accessory muscles Cardio: Rate: regular rate GI: Inspection: No distended Palpation (GI): Soft to palpation and nontender Neuro: General: patient oriented x3, moves all extremities and CN's II-XI intact bilaterally Extrem: General: Yes no pedal edema Objective Data Active Medications Acetaminophen (Acetaminophen 325 Mg Tablet) 650 mg PO Q6H PRN PRN Reason: Pain, Mild (Pain Scale 1-3) Albuterol Sulfate (Albuterol Sulfate 90 Mcg 8 Gm Inhaler) 2 puff INHALE RQ4H PRN PRN Reason: Shortness of Breath/Wheezing Albuterol/Ipratropium (Albuterol/Iprat 2.5/0.5mg 3 Ml Ampul.Neb) 3 ml INHALE RQ6H WHILE AWAKE [facility] Last Admin: 12/04/22 07:55 Dose: Not Given Documented By: BENI Non-Admin Reason: Patient Asleep Baclofen (Baclofen 10 Mg Tablet) 10 mg PO TID PRN PRN Reason: Spasms Buspirone HCl (Buspirone Hcl 10 Mg Tablet) 10 mg PO BID [facility] Last Admin: 12/04/22 08:45 Dose: 10 mg Documented By: JEIMY Dexamethasone Sodium Phosphate (Dexamethasone Sod Phosphate 4 Mg/Ml Vial) 6 mg IVPUSH DAILY [facility] Last Admin: 12/04/22 08:45 Dose: 6 mg Documented By: JEIMY Docusate Sodium (Docusate Sodium 100 Mg Capsule) 100 mg PO DAILY PRN PRN Reason: Constipation Duloxetine HCl (Duloxetine Hcl 60 Mg Capsule.) 60 mg PO BID [facility] Last Admin: 12/04/22 08:45 Dose: 60 mg Documented By: JEIMY Enoxaparin Sodium (Enoxaparin Sodium 40 Mg/0.4 Ml Syringe) 40 mg SUBCUT Q24H [facility] Last Admin: 12/03/22 19:36 Dose: 40 mg Documented By: VIDHI Metoprolol Succinate (Metoprolol Succinate Er 50 Mg Tab.Er.24h) 50 mg PO DAILY [facility]; Protocol Last Admin: 12/04/22 08:45 Dose: 50 mg Documented By: JEIMY Mirtazapine (Mirtazapine 30 Mg Tablet) 30 mg PO DAILY [facility] Last Admin: 12/04/22 08:45 Dose: 30 mg Documented By: JEIMY Omeprazole (Omeprazole 20 Mg Capsule.) 20 mg PO DAILY@0630 [facility] Sodium Chloride (0.9 % Sodium Chloride Flush 3 Ml Syringe) 3 ml IVFLUSH QSHIFT [facility] Last Admin: 12/04/22 08:45 Dose: 3 ml Documented By: JEIMY Labs 12/04/22 09:05 12/04/22 09:05 Labs: Laboratory Results - last 24 hr 12/03/22 12/03/22 12/03/22 14:11 14:11 14:11 MCV 96.2 MCH 32.3 MCHC 33.6 RDW 13.7 Plt Count 483 H MPV 9.4 Immature Gran % (Auto) 0.5 H Neut % (Auto) 82.4 H Lymph % (Auto) 8.7 L [place] % (Auto) 4.4 Eos % (Auto) 3.5 Baso % (Auto) 0.5 Lymph # (Auto) 0.8 L [place] # (Auto) 0.4 Eos # (Auto) 0.3 Baso # (Auto) 0.1 Abs Immat Gran (auto) 0.05 H Absolute Neuts (auto) 7.6 Absolute Nucleated RBC 0.000 Nucleated RBC % (auto) 0.0 PT 12.9 INR 1.1 D-Dimer High Sensitivty 272 VBG pH VBG pCO2 VBG pO2 VBG HCO3 VBG O2 Saturation VBG Base Excess Anion Gap 16 Estim Creat Clear Calc 134.0 Estimated GFR > 60 Random Glucose 96 Lactic Acid 0.8 Calcium 9.3 Magnesium 2.0 Total Bilirubin 0.4 0.4 Direct Bilirubin 0.2 AST 28 27 ALT 17 Alkaline Phosphatase B-Natriuretic Peptide Total Protein Albumin Procalcitonin COVID-19 ([facility]NANDO) COVID-19 Clin Com Influenza Type A (SAAD) Influenza Type B (SAAD) Influenza A & B Note 12/03/22 12/03/22 12/03/22 14:11 14:11 14:11 MCV MCH MCHC RDW Plt Count MPV Immature Gran % (Auto) Neut % (Auto) Lymph % (Auto) [place] % (Auto) Eos % (Auto) Baso % (Auto) Lymph # (Auto) [place] # (Auto) Eos # (Auto) Baso # (Auto) Abs Immat Gran (auto) Absolute Neuts (auto) Absolute Nucleated RBC Nucleated RBC % (auto) PT INR D-Dimer High Sensitivty VBG pH VBG pCO2 VBG pO2 VBG HCO3 VBG O2 Saturation VBG Base Excess Anion Gap Estim Creat Clear Calc Estimated GFR Random Glucose Lactic Acid Calcium Magnesium Total Bilirubin Direct Bilirubin AST ALT 17 Alkaline Phosphatase 113 113 B-Natriuretic Peptide < 10 Total Protein 8.3 H 8.2 H Albumin 3.7 Procalcitonin COVID-19 ([facility]NDO) COVID-19 Clin Com Influenza Type A (SAAD) Influenza Type B (SAAD) Influenza A & B Note 12/03/22 12/03/22 12/03/22 14:11 14:16 19:58 MCV MCH MCHC RDW Plt Count MPV Immature Gran % (Auto) Neut % (Auto) Lymph % (Auto) [place] % (Auto) Eos % (Auto) Baso % (Auto) Lymph # (Auto) [place] # (Auto) Eos # (Auto) Baso # (Auto) Abs Immat Gran (auto) Absolute Neuts (auto) Absolute Nucleated RBC Nucleated RBC % (auto) PT INR D-Dimer High Sensitivty VBG pH 7.47 H VBG pCO2 42 VBG pO2 39 VBG HCO3 31 H VBG O2 Saturation 53.0 VBG Base Excess 7.6 Anion Gap Estim Creat Clear Calc Estimated GFR Random Glucose Lactic Acid Calcium Magnesium Total Bilirubin Direct Bilirubin AST ALT Alkaline Phosphatase B-Natriuretic Peptide Total Protein Albumin 3.6 Procalcitonin 0.07 COVID-19 (HERNANDO) Negative COVID-19 Clin Com See Note Influenza Type A (SAAD) Negative Influenza Type B (SAAD) Negative Influenza A & B Note See Note 12/04/22 09:05 MCV 96.3 MCH 31.3 MCHC 32.5 RDW 13.5 Plt Count 459 H MPV 9.3 L Immature Gran % (Auto) Neut % (Auto) Lymph % (Auto) [place] % (Auto) Eos % (Auto) Baso % (Auto) Lymph # (Auto) [place] # (Auto) Eos # (Auto) Baso # (Auto) Abs Immat Gran (auto) Absolute Neuts (auto) Absolute Nucleated RBC 0.000 Nucleated RBC % (auto) 0.0 PT INR D-Dimer High Sensitivty VBG pH VBG pCO2 VBG pO2 VBG HCO3 VBG O2 Saturation VBG Base Excess Anion Gap 15 Estim Creat Clear Calc 146.3 Estimated GFR > 60 Random Glucose 141 H Lactic Acid Calcium 9.0 Magnesium Total Bilirubin Direct Bilirubin AST ALT Alkaline Phosphatase B-Natriuretic Peptide Total Protein Albumin Procalcitonin COVID-19 ([facility]NANDO) COVID-19 Clin Com Influenza Type A (SAAD) Influenza Type B (SAAD) Influenza A & B Note Assessment and Plan (1) Pneumonia: Status: Acute (2) COVID-19: Status: Acute Plan This is a 32 year old female with history of MS (not on medication), Celiac disease, vasovagal syncope, being worked up for possible Brugada syndrome, esophagitis who tested positive for COVID 19 on November 24 and presents to the ED with shortness of breath found to have hypoxia and multifocal pneumonia Acute respiratory failure with hypoxia secondary to multifocal pneumonia probably due to COVID-19 tested positive for COVID 19 11/24 CTA negative for PE not a candidate for remdesivir given onset of symptoms >7days ago procalcitonin low 0.07 c/w viral infection -Continue IV decadron, breathing treatments -continue supplemental oxygen, currently on 6L [place] -full respiratory pathogen panel pending Hypokalemia resolved with replacement sinus tachycardia HR improved continue baseline metoprolol HTN bp soft hold HCTZ Mood continue buspirone, duloxetine, mirtazapine Brugada syndrome states she is being worked up for brugada syndrome but has not had formal diagnosis EKG showing sinus tachycardia MS not on meds celiac dz gluten free diet esophagitis h/o steroid related esophagitis recently started on fluconazole by PCP - will continue continue PPI dvt ppx - lovenox code status - full code attending - dr. Rand Requires ongoing inpatient hospitalization for management of respiratory failure/covid 19 pneumonia and hypoxia, Time Spent With Patient Time: Total time managing care of this patient today ____ minutes. Quality Stroke Does the patient have a stroke diagnosis?: No VTE Prior VTE?: No VTE Risk Level:: Medical - moderate - high VTE Device Contraindication: N/A - Device Ordered VTE Drug Contraindication: N/A - Med Ordered
[2022-12-04] MEDS: Fluconazole 100 MG TABLET PO (12:06)
[2022-12-04 13:26] LABS: Adenovirus PCR Not Detected (Not Detect.); Bordetella parapertussis PCR Not Detected (Not Detect.); Bordetella pertussis PCR Not Detected (Not Detect.); Chlamydia pneumoniae PCR Not Detected (Not Detect.); Coronavirus 229E PCR Not Detected (Not Detect.); Coronavirus HKU1 PCR Not Detected (Not Detect.); Coronavirus NL63 PCR Not Detected (Not Detect.); Coronavirus OC43 PCR Not Detected (Not Detect.); Human metapneumovirus PCR Not Detected (Not Detect.); Influenza A PCR Not Detected (Not Detect.); Influenza B PCR Not Detected (Not Detect.); Mycoplasma pneumoniae PCR Not Detected (Not Detect.); Parainfluenza 1 PCR Not Detected (Not Detect.); Parainfluenza 2 PCR Not Detected (Not Detect.); Parainfluenza 3 PCR Not Detected (Not Detect.); Parainfluenza 4 PCR Not Detected (Not Detect.); RSV PCR Not Detected (Not Detect.); Rhino/Enterovirus PCR Not Detected (Not Detect.)
[2022-12-04 13:33] LABS: SARS-CoV-2 PCR Not Detected (Not Detect.)
[2022-12-04] MEDS: Enoxaparin Sodium 40 MG/0.4 ML SYRINGE SUBCUT (17:59)
[2022-12-04] MEDS: Baclofen 10 MG TABLET PO ×2 (18:00→22:07)
[2022-12-04] MEDS: Albuterol/Iprat 2.5/0.5MG 3 ML AMPUL.NEB INHALE (19:33)
[2022-12-05] VITALS (8 sets, daily range): BP systolic 108–133; BP diastolic 61–79; PULSE 78–106; RESP 16–20; TEMP 36–37.1; O2SAT 90–96
[2022-12-05] MEDS: Metoprolol Succinate ER 50 MG TAB.ER.24H PO (10:09)
[2022-12-05] MEDS: busPIRone HCl 10 MG TABLET PO ×2 (10:09→22:27)
[2022-12-05] MEDS: Omeprazole 20 MG CAPSULE.DR PO (10:09)
[2022-12-05] MEDS: 0.9 % Sodium Chloride Flush 3 ML SYRINGE IVFLUSH ×3 (10:09→22:32)
[2022-12-05] MEDS: Fluconazole 100 MG TABLET PO (10:09)
[2022-12-05] MEDS: DULoxetine HCl 60 MG CAPSULE.DR PO ×2 (10:09→22:27)
[2022-12-05] MEDS: dexAMETHasone sod phosphate 4 MG/ML VIAL 6 MG IVPUSH (10:10)
[2022-12-05] MEDS: Baclofen 10 MG TABLET PO ×2 (13:38→22:31)
--- NOTE | 2022-12-05 13:43 | P.PNIM_ITS ---
Subjective Subjective Date of Service: 12/05/22 Interval History: Feeling better this morning denies chest pain, less shortness of breath, no fevers, no chills tolerating diet with no nausea, no vomiting, no abdominal pain no other acute issues overnight currently on 6 L of oxygen finger oximetry 95%. Review of Systems All other system reviewed and negative. Physical Exam 2 Vital Signs: Vital Signs: Last Vital Signs Temp 96.8 F 12/05/22 11:13 Pulse 101 H 12/05/22 11:13 Resp 20 12/05/22 11:13 BP 133/79 12/05/22 11:13 Pulse Ox 95 12/05/22 11:13 O2 Del Method Nasal Cannula 12/05/22 11:13 O2 Flow Rate 6 12/05/22 11:13 BMI result Body Mass Index 30.6 Const: Other: General sitting comfortably in no acute distress. Neck no JVD. CVS regular rate rhythm, Respiratory lungs coarse breath sound, no respiratory distress, no wheeze, no rhonchi. Gastrointestinal abdomen soft, non tender, bowel sounds audible,no guarding , no rigidity. Extremities no edema. Neuro nonfocal Skin no rash Psych appropriate affect Objective Data Active Medications Acetaminophen (Acetaminophen 325 Mg Tablet) 650 mg PO Q6H PRN PRN Reason: Pain, Mild (Pain Scale 1-3) Albuterol Sulfate (Albuterol Sulfate 90 Mcg 8 Gm Inhaler) 2 puff INHALE RQ4H PRN PRN Reason: Shortness of Breath/Wheezing Albuterol/Ipratropium (Albuterol/Iprat 2.5/0.5mg 3 Ml Ampul.Neb) 3 ml INHALE RQ6H WHILE AWAKE [facility] Last Admin: 12/05/22 08:02 Dose: Not Given Documented By: BENI Non-Admin Reason: Patient Asleep Baclofen (Baclofen 10 Mg Tablet) 10 mg PO TID PRN PRN Reason: Spasms Last Admin: 12/05/22 13:38 Dose: 10 mg Documented By: JEIMY Buspirone HCl (Buspirone Hcl 10 Mg Tablet) 10 mg PO BID [facility] Last Admin: 12/05/22 10:09 Dose: 10 mg Documented By: TOM Dexamethasone Sodium Phosphate (Dexamethasone Sod Phosphate 4 Mg/Ml Vial) 6 mg IVPUSH DAILY [facility] Last Admin: 12/05/22 10:10 Dose: 6 mg Documented By: TOM Docusate Sodium (Docusate Sodium 100 Mg Capsule) 100 mg PO DAILY PRN PRN Reason: Constipation Duloxetine HCl (Duloxetine Hcl 60 Mg Capsule.) 60 mg PO BID [facility] Last Admin: 12/05/22 10:09 Dose: 60 mg Documented By: TOM Enoxaparin Sodium (Enoxaparin Sodium 40 Mg/0.4 Ml Syringe) 40 mg SUBCUT Q24H [facility] Last Admin: 12/04/22 17:59 Dose: 40 mg Documented By: TOM Fluconazole (Fluconazole 100 Mg Tablet) 100 mg PO DAILY [facility] Last Admin: 12/05/22 10:09 Dose: 100 mg Documented By: TOM Metoprolol Succinate (Metoprolol Succinate Er 50 Mg Tab.Er.24h) 50 mg PO DAILY [facility]; Protocol Last Admin: 12/05/22 10:09 Dose: 50 mg Documented By: TOM Mirtazapine (Mirtazapine 30 Mg Tablet) 30 mg PO BEDTIME [facility] Last Admin: 12/04/22 22:06 Dose: 30 mg Documented By: SHEREEN Omeprazole (Omeprazole 20 Mg Capsule.) 20 mg PO DAILY@0630 [facility] Last Admin: 12/05/22 10:09 Dose: 20 mg Documented By: TOM Sodium Chloride (0.9 % Sodium Chloride Flush 3 Ml Syringe) 3 ml IVFLUSH QSHIFT [facility] Last Admin: 12/05/22 10:09 Dose: 3 ml Documented By: TOM Labs 12/04/22 09:05 12/04/22 09:05 Microbiology Microbiology Results: Microbiology 12/03/22 14:11 Blood Culture - Preliminary Blood - Venous No growth after 24 hours. 12/03/22 14:10 Blood Culture - Preliminary Blood - Venous No growth after 24 hours. Assessment and Plan (1) Pneumonia: Status: Acute (2) COVID-19: Status: Acute Plan 32 year old female with history of MS (not on medication), Celiac disease, vasovagal syncope, being worked up for possible Brugada syndrome, esophagitis who tested positive for COVID 19 on November 24 and presents to the ED with shortness of breath found to have hypoxia and multifocal pneumonia Acute respiratory failure with hypoxia secondary to multifocal pneumonia probably due to COVID-19 tested positive for COVID 11/24 CTA negative for PE not a candidate for remdesivir given onset of symptoms >7days ago procalcitonin low 0.07 , respiratory viral pathogen negative on IV decadron d3/10, cont.breathing treatments Wean oxygen as tolerated Hypokalemia resolved with replacement sinus tachycardia Likely due to hypoxia continue metoprolol HTN BP stable continue metoprolol and hold hydrochlorothiazide Mood continue buspirone, duloxetine, mirtazapine Brugada syndrome being worked up for brugada syndrome but has not had formal diagnosis, EKG showing sinus tachycardia MS not on meds celiac dz gluten free diet esophagitis h/o steroid related esophagitis recently started on fluconazole by PCP - will continue continue PPI dvt ppx - lovenox code status - full code Requires ongoing inpatient hospitalization for management of respiratory failure/covid 19 pneumonia and hypoxia, Time Spent With Patient Time: Total time managing care of this patient today ____ minutes. Quality Stroke Does the patient have a stroke diagnosis?: No VTE Prior VTE?: No VTE Risk Level:: Medical - moderate - high VTE Device Contraindication: N/A - Device Ordered VTE Drug Contraindication: N/A - Med Ordered
[2022-12-05] MEDS: Albuterol/Iprat 2.5/0.5MG 3 ML AMPUL.NEB INHALE ×2 (15:37→20:35)
[2022-12-05] MEDS: Enoxaparin Sodium 40 MG/0.4 ML SYRINGE SUBCUT (17:59)
[2022-12-05] MEDS: Mirtazapine 30 MG TABLET PO (22:27)
[2022-12-06 03:27] VITALS: BP 114/65; PULSE 84; RESP 16; TEMP 36.1; O2SAT 94
[2022-12-06] MEDS: Omeprazole 20 MG CAPSULE.DR PO (05:55)
[2022-12-06 07:40] VITALS: BP 120/69; PULSE 82; RESP 18; TEMP 36.4; O2SAT 93
[2022-12-06] MEDS: Fluconazole 100 MG TABLET PO (10:20)
[2022-12-06] MEDS: 0.9 % Sodium Chloride Flush 3 ML SYRINGE IVFLUSH (10:20)
[2022-12-06] MEDS: dexAMETHasone sod phosphate 4 MG/ML VIAL 6 MG IVPUSH (10:20)
[2022-12-06] MEDS: busPIRone HCl 10 MG TABLET PO (10:20)
[2022-12-06] MEDS: Metoprolol Succinate ER 50 MG TAB.ER.24H PO (10:20)
[2022-12-06] MEDS: DULoxetine HCl 60 MG CAPSULE.DR PO (10:20)
[2022-12-06] MEDS: Amphetamine Mixed Salts 10 MG TABLET 30 MG PO (11:01)
[2022-12-06 12:00] VITALS: BP 131/83; PULSE 96; RESP 18; TEMP 36.2; O2SAT 94
--- NOTE | 2022-12-06 12:47 | MHC.CM.PN ---
Patient has been medically cleared for dc to home today, self care.
--- NOTE | 2022-12-06 15:00 | PM.DS ---
DS: Providers Provider Date of Service: 12/06/22 Date of admission: 12/03/22 17:38 Primary care physician: Baldo Arreola MD DS: Diagnosis Discharge Diagnosis (1) Pneumonia: Status: Acute (2) COVID-19: Status: Acute DS: Summary Hospital Course Hospital Course: History of presenting illness: Date of Service: 12/03/22 Attending physician on admission: Sharad Plascencia Chief Complaint: shortness of breath this is a 32-year-old female who presents to the emergency department with shortness of breath. Patient states that on November 23 she began feeling short of breath. She tested positive for covid 19 on November 24. She has been having fever up to 103, last fever yesterday. she was seen in the emergency emergency department on TuesdayNovember 29 for ongoing shortness of breath and decreased p.o. intake. She was told during that visit that she was dehydrated but her oxygen level is stable. she has had associated dry cough, decreased p.o. intake. She had follow-up appointment with her PCP today who sent her to the emergency due to shortness of breath and hypoxia in the office. In the ED her initial oxygen saturation was 87% on room air, she was placed on 4 L of supplemental oxygen and is currently saturating in the mid 90s. She continues to report shortness of breath. CTA showed multifocal pneumonia consistent with COVID 19. she was afebrile, lab work revealed no leukocytosis. Chemistries did reveal hypokalemia with a potassium of 2.9. She received IV fluid a dose of nystatin and IV Zosyn and the decision was made to admit her to the hospital for further management of COVID associated pneumonia. Hospital course: 32 year old female with history of MS (not on medication), Celiac disease, vasovagal syncope, being worked up for possible Brugada syndrome, esophagitis who tested positive for COVID 19 on November 24 and presents to the ED with shortness of breath found to have hypoxia and multifocal pneumonia Acute respiratory failure with hypoxia patient admitted to isolation unit in [facility] with a diagnosis of multifocal pneumonia probably due to COVID-19, tested positive for COVID 11/24 CTA negative for PE, not a candidate for remdesivir given onset of symptoms >7days ago ,procalcitonin low 0.07 , respiratory viral pathogen negative, treated with IV Decadron and breathing treatments oxygenation improved currently on room air with stable finger oximetry ambulating with no worsening shortness of breath therefore will discharge home on total 10 days of Decadron recommend to rest drink plenty of fluids. Hypokalemia resolved with replacement sinus tachycardia was likely due to hypoxia, now in normal sinus rhythm continue metoprolol HTN BP soft recommend to continue metoprolol and DC hydrochlorothiazide . Mood continue buspirone, duloxetine, and mirtazapine. Brugada syndrome being worked up for brugada syndrome but has not had formal diagnosis, EKG showing sinus tachycardia MS not on meds celiac dz continue gluten free diet h/o steroid related esophagitis on protonix and recently started on fluconazole by PCP rec.to continue. Time Spent with Patient Time attestation: Total time managing care of this patient today ____ minutes. Discharge coordination time: Greater than 30 minutes Quality: Safe Use of Opioids Does Pt have an Active Cancer Diagnosis on the Problem List?: No Quality: Stroke Does the patient have a stroke diagnosis?: No Physical Exam Vital Signs: Vital Signs: Last Vital Signs Temp 97.2 F 12/06/22 12:00 Pulse 96 12/06/22 12:00 Resp 18 12/06/22 12:00 BP 131/83 12/06/22 12:00 Pulse Ox 94 12/06/22 12:00 O2 Del Method Room Air 12/06/22 12:00 O2 Flow Rate 2 12/05/22 15:02 BMI result Body Mass Index 30.6 Const: Other: General sitting comfortably in no acute distress. Neck no JVD. CVS regular rate rhythm, Respiratory lungs clear to auscultation, few basilar rhonchi, no respiratory distress, no wheeze. Gastrointestinal abdomen soft, non tender, bowel sounds audible,no guarding , no rigidity. Extremities no edema. Neuro non focal Skin no rash Psych appropriate affect DS: Data Data Completed and Pending Labs on day of discharge: Preliminary micro results at discharge 12/03/22 14:11 Blood Culture - Preliminary Blood - Venous No growth after 48 hours. 12/03/22 14:10 Blood Culture - Preliminary Blood - Venous No growth after 48 hours. Discharge Plan Discharge Anticipated Discharge Date/Time: 12/06/22 10:33 Patient Disposition: Home, Self-Care Discharge Diagnosis: Acute hypoxic respiratory failure due to COVID-19 Referrals: Baldo Arreola MD [Primary Care Provider] - 1 Week Discharge Medications: Continued metoprolol succinate 50 mg tablet extended release 24 hr 50 mg PO DAILY baclofen 10 mg tablet 10 mg PO TID PRN (Reason: Spasms) pantoprazole 40 mg tablet,delayed release (DR/EC) 40 mg PO DAILY mirtazapine 30 mg tablet 30 mg PO DAILY buspirone 10 mg tablet 10 mg PO BID duloxetine 60 mg capsule,delayed release(DR/EC) 60 mg PO BID lisdexamfetamine [Vyvanse] 50 mg capsule 50 mg PO DAILY Discontinued cephalexin 500 mg capsule 500 mg PO DAILY hydrochlorothiazide 25 mg tablet 25 mg PO DAILY Discharge Orders: Discharge Order (Routine); Ordered 12/06/22 Ordered By: Annabelle Rand Diet: Advance to usual diet Activity on Discharge: As tolerated Stand Alone Forms: Patient Portal Discharge page, Work/School Release Care Plan Goals: Use mask with coughing and sneezing Take dexamethasone 1 tablet for 6 more days with food Health Concerns: Continue all home medications as before Plan of Treatment: Outpatient follow-up with with primary care physician Assessment: As above Discharge Date/Time: 12/06/22 12:54
== END 2022-12-06 12:54 | disposition home or self-care (01) | DRG 137 ==
LOC: HO.ED 17:25 → HO.EDOVER 18:05 → HO.IMC 19:00
PROVIDERS: Physician Assistant Medical; Admitting Provider Physician Assistant Medical; Emergency Provider Emergency Medicine; PCP Internal Medicine; Visit Provider Hospitalist
DX: U07.1 COVID-19 (principal); J12.82 Pneumonia due to coronavirus disease 2019; E87.6 Hypokalemia; G35 Multiple sclerosis; R00.0 Tachycardia, unspecified; K90.0 Celiac disease; K20.90 Esophagitis, unspecified without bleeding; I49.8 Other specified cardiac arrhythmias; Z87.891 Personal history of nicotine dependence; Z79.899 Other long term (current) drug therapy
CPT/HCPCS: 36415; 71046; 71275; 80048; 80053; 80076; 82803; 83605; 83735; 83880; 84145; 84484; 85025; 85027; 85379; 85610; 87040; 87502; 87633; 87635; 93005; 94640; 99285; J1100; J1650; J2543; Q9967

== ENCOUNTER → 2022-12-03 17:38 | Outpatient (BNV) | payer MEDICAID, SELFPAY | PROVIDERS: Admitting Provider Physician Assistant Medical; Emergency Provider Emergency Medicine; PCP Internal Medicine; Visit Provider Physician Assistant Medical | DX: J18.9 Pneumonia, unspecified organism (principal); U07.1 COVID-19 | CPT/HCPCS: 99222; 99232; 99233; 99239 ==

== ENCOUNTER 2022-12-13 14:11 | Outpatient (REF) | payer MEDICAID, SELFPAY | END 2022-12-13 14:12 | disposition home or self-care (01) | LOC: HO.XRAY 14:11 | PROVIDERS: PCP Internal Medicine; Visit Provider Internal Medicine | DX: Z13.89 Encounter for screening for other disorder (principal) ==

== ENCOUNTER 2022-12-13 14:27 | Inpatient (IN) | payer MEDICAID, SELFPAY ==
[2022-12-13] VITALS (24 sets, daily range): BP systolic 87–115; BP diastolic 52–86; PULSE 75–159; RESP 18–39; TEMP 37.3–37.9; O2SAT 89–99; BMI 31.5; BMI 31.1
--- NOTE | ~2022-12-13 | CT_ITS ---
EXAMINATION: CT CHEST WITHOUT CONTRAST CLINICAL INFORMATION: Persistent hypoxia following Covid pneumonia. COMPARISON: 12/13/2022 TECHNIQUE: Multidetector volumetric CT imaging of the chest was done. Axial MIP volume rendering provided. Sagittal and coronal reformatted images were obtained. This CT examination was performed using dose optimization techniques as appropriate, variously including the following: *Automated exposure control *Adjustment of mA and/or kV according to patient size (this includes techniques or standardized protocols for targeted exams where dose is matched to indication/reason for exam; i.e. extremities or head) *Use of iterative reconstruction technique DLP: 187 mGy-cm FINDINGS: Motion artifact technically degrades image quality. LUNG: Multifocal airspace disease with more confluent consolidation in the lower lobes, right greater than left, with air bronchograms. Increasing consolidation in the lower lobes. Decreased aeration of the right middle lobe and lingula. Mosaic attenuation of the parenchyma most likely represents air trapping. No suspicious pulmonary nodule. Central airways are patent. PLEURA: Trace left pleural effusion. MEDIASTINUM: Normal heart size. No pericardial effusion. No hilar or mediastinal lymphadenopathy. CORONARY ARTERY CALCIFICATION: None visualized on this study. CHEST WALL/AXILLA: No axillary or internal mammary lymphadenopathy. OSSEOUS STRUCTURES: No destructive bone lesions. UPPER ABDOMEN: Status post cholecystectomy. CT/CT chest wo IV con IMPRESSION: Severe COVID-19 pneumonia.
--- NOTE | ~2022-12-13 | XR_ITS ---
EXAMINATION: PORTABLE CHEST 1 VIEW CLINICAL INFORMATION: hypoxia. COMPARISON: 12/03/2022 chest x-ray and 12/13/2022 CT scan. TECHNIQUE: Portable frontal view of the chest was obtained. FINDINGS: The lungs are hypoexpanded. Worsened bilateral dense airspace disease with air bronchograms compared to prior studies. This diffuse process has been seen on prior studies up to the most recent 12/13/2022 CT scan. I do not appreciate any significant effusion although small effusion would be difficult to exclude with such airspace disease. The dense airspace disease limits evaluation of the central vessels and even the heart border. No acute bony abnormality. XR/XR chest 1V IMPRESSION: Worsened significant bilateral airspace disease and air bronchograms obscuring the mediastinal and diaphragmatic surfaces. This diffuse airspace disease could be seen with worsening infectious etiology, ARDS, or significant volume overload. Clinical correlation would be needed for this nonspecific appearance
--- NOTE | ~2022-12-13 | CT_ITS ---
EXAMINATION: CT ABDOMEN AND PELVIS WITH CONTRAST CLINICAL INFORMATION: Tachycardia. Shortness of breath. COMPARISON: None available. TECHNIQUE: Multidetector volumetric images were obtained from the superior aspect of the liver through the pubic symphysis following administration 85 mL of Omnipaque 350 intravenous contrast. Sagittal and coronal reformatted images were obtained on the technologist's workstation. Oral contrast: No This CT examination was performed using dose optimization techniques as appropriate, variously including the following: *Automated exposure control *Adjustment of mA and/or kV according to patient size (this includes techniques or standardized protocols for targeted exams where dose is matched to indication/reason for exam; i.e. extremities or head) *Use of iterative reconstruction technique DLP: 803 mGy-cm FINDINGS: Motion artifact technically degrades image quality. LIVER, GALLBLADDER, AND BILIARY TREE: The liver is normal in size and contour. No focal hepatic lesion or biliary ductal dilatation is present. The gallbladder is surgically absent. PANCREAS: Unremarkable. SPLEEN: Unremarkable. ADRENAL GLANDS: Unremarkable. KIDNEYS AND URETERS: The kidneys are symmetric in size and enhancement. No hydronephrosis or perinephric stranding. BLADDER: Unremarkable. GASTROINTESTINAL TRACT: No small bowel obstruction. Moderate gas and stool in the colon. ABDOMINAL WALL: No significant hernia is appreciated. LYMPH NODES: No bulky abdominal or pelvic adenopathy. VASCULAR: Normal caliber abdominal aorta. PELVIC VISCERA: Unremarkable. Trace free fluid in the pelvis. OSSEOUS STRUCTURES: No destructive bone lesions. CT/CT abdomen pelvis w IV con IMPRESSION: No acute abnormality in the abdomen and pelvis.
--- NOTE | ~2022-12-13 | CT_ITS ---
EXAMINATION: CT ANGIOGRAM OF THE CHEST WITH AND WITHOUT CONTRAST (CT PULMONARY ANGIOGRAM FOR PE) CLINICAL INFORMATION: Reason for Exam shortness of breath COMPARISON: 12/03/2022 TECHNIQUE: Prior to contrast administration, noncontrast localization images were obtained. Subsequently, multidetector volumetric imaging was performed from the thoracic inlet to below the diaphragms following the administration of 85 mL Omnipaque 350 intravenous contrast. No contrast reaction reported Sagittal, coronal, and MIP oblique sagittal reformatted images were obtained on the CT workstation, uploaded to PACS, and reviewed. This CT examination was performed using dose optimization techniques as appropriate, variously including the following: *Automated exposure control *Adjustment of mA and/or kV according to patient size (this includes techniques or standardized protocols for targeted exams where dose is matched to indication/reason for exam; i.e. extremities or head) *Use of iterative reconstruction technique Total exam dose-length product 1104 mGy-cm FINDINGS: QUALITY OF STUDY/CONTRAST BOLUS: Satisfactory. PULMONARY ARTERIES: No pulmonary emboli. THORACIC AORTA: No aneurysm. LUNG: Progressive multifocal airspace disease with more confluent consolidation in the lower lobes, right greater than left, with air bronchograms. Increasing peribronchial consolidation in the lower lobes. Mosaic attenuation of the parenchyma most likely represents air trapping. No suspicious pulmonary nodule. Central airways are patent. PLEURA: No pleural effusion or pneumothorax. MEDIASTINUM: Normal heart size. No pericardial effusion. No hilar or mediastinal lymphadenopathy. No evidence of septal bowing or right heart strain. Diffuse esophageal wall thickening. CORONARY ARTERY CALCIFICATION: None visualized on this study. CHEST WALL/AXILLA: No axillary or internal mammary lymphadenopathy. OSSEOUS STRUCTURES: No destructive bone lesions. UPPER ABDOMEN: Status post cholecystectomy. No reflux of contrast into the hepatic veins to suggest elevated right heart pressures. CT/CT angio chest PE protocol IMPRESSION: No evidence of pulmonary embolus. Worsening severe pneumonia likely related to COVID-19 infection. Diffuse esophageal wall thickening. Fluoroscopic evaluation previously showed diffuse severe esophagitis. VTE: negative
--- NOTE | 2022-12-13 14:38 | ECG_ITS ---
Test Reason : TACHYCARDIA Blood Pressure : / mmHG Vent. Rate : 148 BPM Atrial Rate : 148 BPM P-R Int : 128 ms QRS Dur : 080 ms QT Int : 264 ms P-R-T Axes : 042 014 004 degrees QTc Int : 414 ms Sinus tachycardia Nonspecific T wave abnormality Abnormal ECG When compared with ECG of 03-DEC-2022 17:03, Heart rate has increased Referred By: Angela Harvey Electronically Signed By:NIURKA MARIA MD
[2022-12-13 14:51] LABS: Glucose, Whole Blood 194 mg/dL (60-115)
--- NOTE | 2022-12-13 14:51 | ED_ITS ---
HPI - General Adult General Chief complaint: General Medical Stated complaint: near syncope Time Seen by Provider: 12/13/22 14:33 Source: patient, RN notes reviewed and old records reviewed Mode of arrival: wheelchair History of Present Illness HPI narrative: 32-year-old female with a past medical history of MS not currently on medication, celiac disease, vasovagal syncope, esophagitis, COVID-19 positive on 11/24, recently discharged from our facility on 12/06 due to acute respiratory failure with hypoxia from multifocal pneumonia related to COVID-19, presenting to the ED today complaining of SOB since yesterday with cough and chest pain. Reports decreased p.o. intake with nausea. Denies pedal edema/calf tenderness, recent travel, fever, sick contacts Onset (ago): day(s) Related Data Home Medications Medication Instructions Recorded Confirmed baclofen 10 mg tablet 10 mg PO TID PRN Spasms 12/03/22 12/03/22 buspirone 10 mg tablet 10 mg PO BID 12/03/22 12/03/22 dextroamphetamine-amphetamine 30 1 tab PO BID 12/03/22 12/03/22 mg tablet duloxetine 60 mg capsule,delayed 60 mg PO BID 12/03/22 12/03/22 release metoprolol succinate 50 mg 50 mg PO DAILY 12/03/22 12/03/22 tablet,extended release 24 hr mirtazapine 30 mg tablet 30 mg PO DAILY 12/03/22 12/03/22 pantoprazole 40 mg tablet,delayed 40 mg PO DAILY 12/03/22 12/03/22 release Previous Rx's Medication Instructions Recorded dexamethasone 6 mg tablet 6 mg PO DAILY #6 tabs 12/06/22 Allergies Allergy/AdvReac Type Severity Reaction Status Date / Time gluten Allergy Unknown Verified 12/03/22 12:50 Sulfa (Sulfonamide Allergy Unknown Verified 12/03/22 12:50 Antibiotics) Steroids AdvReac Severe Other Uncoded 12/03/22 14:08 Review of Systems 2 Review of Systems: Constitutional: No Fever, No Chills, No Fatigue, No Malaise ENT/Mouth: No Ear Pain, No Nasal Congestion, No sore throat, No Rhinorrhea, No Swallowing Difficulty Eyes: No Eye Pain, No Swelling, No Redness,No Vision Changes Cardiovascular: + Chest Pain, + SOB, No Dyspnea on Exertion, No Orthopnea, No Edema, No Palpitations Respiratory: + Cough, No Sputum, No Wheezing, + Dyspnea Gastrointestinal: + Nausea, No Vomiting, No Diarrhea, No Constipation, No Abdominal pain Genitourinary: No Dysuria, No Urinary Frequency, No Hematuria Musculoskeletal: No joint pain, No Myalgias, No Joint Swelling Skin: No Skin Lesions, No rash Neuro: No Weakness, No Loss of Consciousness, No Dizziness, No Headache Yes all other systems are reviewed and are negative Constitutional: Constitutional: Reports as per [facility] Past Medical History Attestation statement: The following information was validated with the patient. Source: old records reviewed Medical History Vasovagal syncope Esophagitis Celiac disease Tachycardia Multiple sclerosis Social History Social History Household Members: Children Household Members Other:: son Housing: Apartment Do you presently have visiting nurse or other home services: No Alcohol intake: never Patient Tobacco Use Status: Former Tobacco user Quit Date: 11/24/2022 Smoked in Last 30 Days: No e-Cigarette/Vaping Use: Former Use Second Hand Smoke Exposure: No Substance Use Type: Marijuana Advance Directives: No service: No Physical Exam ED Vital Signs: Vital Signs - 24 hr 12/13/22 14:28 12/13/22 14:48 12/13/22 15:45 Temperature 99.6 F 99.6 F Pulse Rate 159 H 150 H Respiratory Rate 18 18 18 Blood Pressure 115/56 L Pulse Oximetry Oxygen Delivery Method 12/13/22 16:00 12/13/22 16:24 Temperature Pulse Rate 130 H 128 H Respiratory Rate 18 20 Blood Pressure 109/71 108/78 Pulse Oximetry 99 99 Oxygen Delivery Method High Flow Nasal Cannula High Flow Nasal Cannula BMI result Body Mass Index 31.5 Const General: alert and ill appearing Orientation/consciousness: patient oriented x3 Limitations: no limitations HENMT Head: Yes normal to inspection and Yes atraumatic Ears: hearing grossly normal bilaterally General nose exam: Normal external nose present Face and sinus: Yes normal facial exam Mouth: moist mucous membranes abnormal (dry, cracked lips) Eyes General: appearance normal, both eyes and all related structures EOM: EOMs intact bilaterally Neck Neck: Yes normal visual inspection and Yes no meningeal signs Resp Effort & Inspection: no respiratory distress, no stridor and tachypneic Auscultation: no wheezes and diminished lung sounds Cardio Rate: regular rate and tachycardic Heart sounds: S1 normal heart sound present and S2 normal heart sound present GI Inspection: Yes normal to inspection Palpation (GI): Soft to palpation, nontender, no guarding and not rigid Skin Rashes: no rashes Wounds: no wounds Neuro General: patient oriented x3, tone normal and no meningeal signs Cranial nerves: Yes CN's II-XII intact bilaterally Gait exam (Neuro): Normal gait present Extrem General: Yes normal to inspection, Yes no pedal edema and Yes no calf tenderness Course Course Course Narrative: -ABG with O2 77, CO2 24, bicarb 19 -1522-- lactic acid elevated to 6.8 > likely from hypoxia, d/w Dr. Harvey & reccommended holding on Abx at this time. Still low suspicion for severe sepsis. -1540-- leukocytosis of 16.5 > likely from current dexamethasone use. Glucose 208 > history of diabetes, likely also from steroids. -1543-- Troponin 100.7 > likely demand. Low suspicion for NSTEMI -1610-- case discussed with railroad detective, Dr. Montano, he will evaluate patient in the ED >> patient accepted to the ICU Medications Administered Discontinued Medications Generic Name Dose Route Start Last Admin Trade Name Freq PRN Reason Stop Dose Admin Sodium Chloride 1,000 mls @ 999 mls/hr 12/13/22 15:15 12/13/22 16:27 Ns IV 12/13/22 16:15 Infused .Q1H1M NUBIA Infusion Lactated Ringer's 500 mls @ 999 mls/hr 12/13/22 15:45 12/13/22 16:27 Lr IV 12/13/22 16:15 Infused .Q31M NUBIA Infusion Iohexol 65 ml 12/13/22 15:45 12/13/22 15:46 Iohexol 350 Mg/Ml 100 Ml Infus..Btl IV 12/13/22 15:46 65 ml ONCE ONE Administration Medical Decision Making Medical Decision Making MDM Narrative: 32-year-old female with a past medical history of MS not currently on medication, celiac disease, vasovagal syncope, esophagitis, COVID-19 positive on 10/11, recently discharged from our facility on 12/06 due to acute respiratory failure with hypoxia from multifocal pneumonia related to COVID-19, presenting to the ED today complaining of SOB since yesterday with cough and chest pain. on exam tachypneic, tachycardic, hypoxic initially 50% on RA > 99% on non- rebreather, low-grade temp 99.6 degrees, diminished lung sounds throughout, no pedal edema/calf tenderness. Dry, pale. Concern for pulmonary embolism vs continued COVID-19 pneumonia vs ACS. for suspicion for CHF or dissection. Case discussed with ED attending Dr. Harvey who also evaluated patient Plan: EKG, labs, viral testing, lactic/ blood cultures, IVF, CTA, anticipated admission Low suspicion for severe sepsis at this time as known viral etiology. Please refer to course for remaining clinical decision making, interpretation of labs/imaging results, and discussions with consultants and/or family members. Differential Diagnosis Differential Diagnoses: The differential diagnosis associated with the presentation includes As above Admission/Observation Consideration of admission/observation: Escalation of care including admission/observation considered Consult Healthcare Provider Management of the patient was discussed with: Hospitalist Lab Data MDM Lab Attestation statement: I reviewed the patient's lab results. 12/13/22 14:43 12/13/22 14:43 Labs: Lab Results 12/13/22 12/13/22 12/13/22 Range/Units 14:42 14:43 14:43 WBC 16.5 H (4.8-10.8) X10*3/uL RBC 3.48 L (4.20-5.50) X10*6/uL Hgb 11.0 L (12.0-16.0) g/dl Hct 33.5 L (37.0-47.0) % MCV 96.3 (80.0-98.0) fL MCH 31.6 (27.0-33.0) pg MCHC 32.8 (31.0-35.0) g/dl RDW 15.3 (11.0-16.0) % Plt Count 486 H (160-400) X10*3/uL MPV 9.3 L (9.4-12.3) fL Immature Gran % (Auto) 0.7 H (0.0-0.4) % Neut % (Auto) 91.3 H (45-73) % Lymph % (Auto) 6.5 L (20-40) % Coffee % (Auto) 1.2 L (2-11) % Eos % (Auto) 0.1 (0-4) % Baso % (Auto) 0.2 (0-2) % Lymph # (Auto) 1.1 L (1.2-4.9) X10*3/uL Coffee # (Auto) 0.2 (0.1-1.2) X10*3/uL Eos # (Auto) 0.0 (0.0-0.4) X10*3/uL Baso # (Auto) 0.0 (0.0-0.2) X10*3/uL Abs Immat Gran (auto) 0.11 H (0.00-0.03) X10*3/uL Absolute Neuts (auto) 15.1 H (2.0-8.3) x10*3/uL Absolute Nucleated RBC 0.030 H (0.0-0.012) X10*3/uL Nucleated RBC % (auto) 0.2 (0.0-0.2) /100WBC Smear Tech's Comments VERIFIED PT 16.3 H D (11.1-13.3) SEC INR 1.3 H (0.9-1.1) O2 Saturation % ABG pH at Pt Temp (7.35-7.45) ABG pCO2 at Pt Temp (32-45) mmHg ABG pO2 at Pt Temp (83-108) mmHg ABG HCO3 (22-26) mmol/L ABG Base Excess (Actual) mmol/L Sodium 135 (135-145) mmol/L Potassium 3.6 (3.3-5.1) mmol/L Chloride 101 (96-108) mmol/L Carbon Dioxide 18 L (22-29) mmol/L Anion Gap 20 (12-20) BUN 13 (9-16) mg/dL Creatinine 0.95 (0.5-1.4) mg/dL Estim Creat Clear Calc 100.0 Estimated GFR > 60 POC Glucose 194 H (60-115) mg/dL Random Glucose 208 H (60-115) mg/dL Lactic Acid 6.8 H* (0.5-2.0) mmol/L Calcium 8.8 (8.4-10.2) mg/dL Total Bilirubin 0.6 (0.0-1.0) mg/dL AST 27 (5-31) U/L ALT 18 (0-31) U/L Alkaline Phosphatase 96 (39-117) U/L Troponin I High Sens 100.7 H* D (<3.5-17.0) ng/L B-Natriuretic Peptide 146 H (<100) pg/mL Total Protein 7.4 (6.5-8.0) g/dL Albumin 3.3 L (3.5-5.0) g/dL Beta HCG, Quant < 2 Cancelled mIU/mL Hold Green Top See Note Hold Yellow Top See Note Influenza Type A (PCR) (Negative) Influenza Type B (PCR) (Negative) RSV RNA Qual (PCR) (Negative) SARS-CoV-2 RNA (RT-PCR) (Negative) 12/13/22 12/13/22 Range/Units 14:59 15:17 WBC (4.8-10.8) X10*3/uL RBC (4.20-5.50) X10*6/uL Hgb (12.0-16.0) g/dl Hct (37.0-47.0) % MCV (80.0-98.0) fL MCH (27.0-33.0) pg MCHC (31.0-35.0) g/dl RDW (11.0-16.0) % Plt Count (160-400) X10*3/uL MPV (9.4-12.3) fL Immature Gran % (Auto) (0.0-0.4) % Neut % (Auto) (45-73) % Lymph % (Auto) (20-40) % Coffee % (Auto) (2-11) % Eos % (Auto) (0-4) % Baso % (Auto) (0-2) % Lymph # (Auto) (1.2-4.9) X10*3/uL Coffee # (Auto) (0.1-1.2) X10*3/uL Eos # (Auto) (0.0-0.4) X10*3/uL Baso # (Auto) (0.0-0.2) X10*3/uL Abs Immat Gran (auto) (0.00-0.03) X10*3/uL Absolute Neuts (auto) (2.0-8.3) x10*3/uL Absolute Nucleated RBC (0.0-0.012) X10*3/uL Nucleated RBC % (auto) (0.0-0.2) /100WBC Smear Tech's Comments PT (11.1-13.3) SEC INR (0.9-1.1) O2 Saturation 96.0 % ABG pH at Pt Temp 7.51 H (7.35-7.45) ABG pCO2 at Pt Temp 24 L (32-45) mmHg ABG pO2 at Pt Temp 77 L (83-108) mmHg ABG HCO3 19 L (22-26) mmol/L ABG Base Excess (Actual) -1.7 mmol/L Sodium (135-145) mmol/L Potassium (3.3-5.1) mmol/L Chloride (96-108) mmol/L Carbon Dioxide (22-29) mmol/L Anion Gap (12-20) BUN (9-16) mg/dL Creatinine (0.5-1.4) mg/dL Estim Creat Clear Calc Estimated GFR POC Glucose (60-115) mg/dL Random Glucose (60-115) mg/dL Lactic Acid (0.5-2.0) mmol/L Calcium (8.4-10.2) mg/dL Total Bilirubin (0.0-1.0) mg/dL AST (5-31) U/L ALT (0-31) U/L Alkaline Phosphatase (39-117) U/L Troponin I High Sens (<3.5-17.0) ng/L B-Natriuretic Peptide (<100) pg/mL Total Protein (6.5-8.0) g/dL Albumin (3.5-5.0) g/dL Beta HCG, Quant mIU/mL Hold Green Top Hold Yellow Top Influenza Type A (PCR) NEGATIVE (Negative) Influenza Type B (PCR) NEGATIVE (Negative) RSV RNA Qual (PCR) NEGATIVE (Negative) SARS-CoV-2 RNA (RT-PCR) NEGATIVE (Negative) Independent Interpretation I performed an independent interpretation of an: EKG ( My interpretation: EKG sinus tachycardia at a rate of 148. TN interval 128. QTC 414. No STEMI. No significant change when compared to prior) Radiology Impression Discussion of test interpretation with radiology: I have reviewed the radiologist's reading. External Record Review External record reviewed: Inpatient record, Office record, Outpatient record, Prior outpatient labs, Prior outpatient radiology, Primary care record and Outside ED record Tests considered The following testing was considered but not selected: As above Prescription Management I considered prescription management with: Antiviral and Antibiotic Critical Care Time Critical Care Time Critical Care Time: Yes Total Critical Care Time: 60 Attestation: I have personally provided critical care time exclusive of time spent on separately billable procedures. Time includes review of lab data, radiology results, discussion with consultants, and monitoring for potential decompensation. Intervention performed as documented. Discharge Plan Discharge Clinical Impression: Shortness of breath, Hypoxia, Acute lactic acidosis Patient Disposition: Admitted As Inpatient
--- NOTE | 2022-12-13 14:59 | PC.NURSE ---
Patient arrived to ED after an outpatient response. Patient reports has not been able to breath for the last few days and was here to have a chest x ray and lab work. Patient reports walked across parking lot and became dizzy and lightheaded thinking she was going to pass out. Patient reports was lowered into wheelchair by staff and brought to ED. Patient using accessory muscle to breath, unable to obtain 02 sat. Respiratory called. Sinus tachy at 160 on monitor. Patient placed on non rebreath at 15l with improvement to 100%. Lab work obtained per order. Patients mouth dry with crusted lips, stating she has been unable to eat or drink .
[2022-12-13 15:02] LABS: Basophils Percent Auto 0.2 % (0-2); Eosinophils Percent Auto 0.1 % (0-4); Hematocrit 33.5 % (37.0-47.0); Imm Gran Abs Auto 0.11 X10*3/uL (0.00-0.03); Imm Gran Pct Auto 0.7 % (0.0-0.4); Lymphocytes Absolute Auto 1.1 X10*3/uL (1.2-4.9); Lymphocytes Percent Auto 6.5 % (20-40); MANUAL DIFF FLAG SCAN; Mean Corpuscular HGB Conc 32.8 g/dl (31.0-35.0); Mean Corpuscular Hemoglobin 31.6 pg (27.0-33.0); Mean Corpuscular Volume 96.3 fL (80.0-98.0); Mean Platelet Volume 9.3 fL (9.4-12.3); Monocytes Absolute Auto 0.2 X10*3/uL (0.1-1.2); Monocytes Percent Auto 1.2 % (2-11); NRBC Pct Auto 0.2 /100WBC (0.0-0.2); Neutrophils Absolute Auto 15.1 x10*3/uL (2.0-8.3); Neutrophils Percent Auto 91.3 % (45-73); Platelet Count 486 X10*3/uL (160-400); Red Blood Count 3.48 X10*6/uL (4.20-5.50); Red Cell Distribution Width 15.3 % (11.0-16.0); SCAN SMEAR FLAG 1; White Blood Count 16.5 X10*3/uL (4.8-10.8)
[2022-12-13 15:08] LABS: ABG Refer to POC result
[2022-12-13 15:08] LABS: ABG Base Excess -1.7 mmol/L; ABG HCO3 19 mmol/L (22-26); ABG pCO2 24 mmHg (32-45); ABG pH 7.51 (7.35-7.45); ABG pO2 77 mmHg (83-108)
[2022-12-13] MEDS: 0.9 % Sodium Chloride 1,000 ML 999 ML IV (15:10)
[2022-12-13 15:12] LABS: INTERNATIONAL NORM RATIO 1.3 (0.9-1.1); Prothrombin Time 16.3 SEC (11.1-13.3)
[2022-12-13 15:21] LABS: Lactic Acid 6.8 mmol/L (0.5-2.0)
[2022-12-13 15:29] LABS: SLIDE REVIEW VERIFIED
[2022-12-13 15:36] LABS: Alanine Aminotransferase 18 U/L (0-31); Albumin Level 3.3 g/dL (3.5-5.0); Alkaline Phosphatase 96 U/L (39-117); Anion Gap 20 (12-20); Aspartate Amino Transferase 27 U/L (5-31); Bilirubin Total 0.6 mg/dL (0.0-1.0); Blood Urea Nitrogen 13 mg/dL (9-16); Calcium 8.8 mg/dL (8.4-10.2); Carbon Dioxide 18 mmol/L (22-29); Chloride 101 mmol/L (96-108); Estimated Glomerular Filt Rate > 60; Glucose Random 208 mg/dL (60-115); HCG Quantitative < 2 mIU/mL; Potassium 3.6 mmol/L (3.3-5.1); Sodium 135 mmol/L (135-145); Total Protein 7.4 g/dL (6.5-8.0)
[2022-12-13 15:38] LABS: B Type Natriuretic Peptide 146 pg/mL (<100)
[2022-12-13 15:43] LABS: Troponin-I High Sensitivity 100.7 ng/L (<3.5-17.0)
[2022-12-13] MEDS: iohexoL 350 MG/ML 100 ML INFUS..BTL 65 ML IV (15:46)
--- NOTE | 2022-12-13 16:05 | PC.NURSE ---
Patient sating 99% on high flow NC. Reports improvement in breathing.Sinus tacy on monitor pulse down to 130. Fluids running per order
[2022-12-13] MEDS: Lactated Ringers 500 ML 999 ML IV (16:07)
[2022-12-13 16:37] LABS: Influenza A PCR NEGATIVE (Negative); Influenza B PCR NEGATIVE (Negative); Resp Syncy Virus RNA Qual PCR NEGATIVE (Negative); SARS COV2 PCR INHOUSE NEGATIVE (Negative)
[2022-12-13 16:51] LABS: Reflex Lactate? Lactic Acid Added
[2022-12-13 16:56] LABS: ABG Base Excess -0.4 mmol/L; ABG HCO3 21 mmol/L (22-26); ABG pCO2 28 mmHg (32-45); ABG pH 7.48 (7.35-7.45); ABG pO2 89 mmHg (83-108)
--- NOTE | 2022-12-13 16:58 | PHA.MEDREC ---
Pharmacy Consult ? Medication Reconciliation Pharmacy has completed the medication reconciliation. Patient now on Vyvanse instead of Adderal, reported she does not need Vyvanse while inpatient as she only needs it for work. Patient confirmed she finished the course of dexamethasone. Rina Tapia, PharmD
[2022-12-13] MEDS: Furosemide 20 MG/2 ML VIAL IVPUSH (17:03)
[2022-12-13] MEDS: Piperacillin Sodium/Tazobactam 4.5 GM in 0.9 % Sodium Chloride 100 ML IV (17:03)
[2022-12-13 17:17] LABS: ABG Refer to POC result
--- NOTE | 2022-12-13 17:22 | PC.NURSE ---
Patient with elevated temp 99.8, provider notified, no new orders at this time
--- NOTE | 2022-12-13 17:38 | MHC.EDTECH ---
Patient repositioned and bed linen changed
--- NOTE | 2022-12-13 17:50 | PC.NURSE ---
Patient oob to use commode, iv dislodged, new iv started in top of left hand. Patient de sating tp upper 80`s, respiratory notified
[2022-12-13 17:54] LABS: Appearance Urine Clear; Color Urine Yellow; Glucose Urine UA Negative (Negative); Leukocyte Esterase Urine Negative (Negative); Nitrite Urine Negative (Negative); Specific Gravity - Urine >= 1.030 (1.005-1.025); UMIC TRIGGER UACC YES; Urine Blood Negative (Negative); Urine Ketones Negative (Negative); Urine Protein 30 (1+) mg/dL (Neg-Trace)
[2022-12-13 17:56] LABS: Bacteria Urine None Seen (None Seen); Hyaline Casts Urine 0-2 /LPF (0-2); RBC Urine 0-2 /HPF (0-2); Squamous Epithelial Cell Urine 0-2 /HPF (0-2); WBC Urine 0-5 /HPF (0-5)
[2022-12-13] MEDS: Albumin Human 25 % 100 ML IV (17:57)
--- NOTE | 2022-12-13 18:12 | PC.NURSE ---
Report given to ICU
[2022-12-13 18:18] LABS: ~Lactic Acid-LAB USE ONLY 1.5 mmol/L (0.5-2.0)
--- NOTE | 2022-12-13 18:20 | PC.NURSE ---
mouth care provided, patient sitting up in bed, reports breathing easier. 92% on 10liters NC, sinus tacy on monitor, respiratory called to transport patient to icu
--- NOTE | 2022-12-13 18:36 | PC.NURSE ---
Patient transferred to ICU
[2022-12-13] MEDS: Heparin Sodium,Porcine 5,000 UNIT/ML VIAL 5000 UNIT SUBCUT (18:45)
--- NOTE | 2022-12-13 20:11 | PM.CCHP ---
History of Present Illness Date of Service: 12/13/22 Attending physician on admission: Kristian Montano Chief Complaint: dyspnea The patient is a? 32-year-old female with a past medical history of multiple sclerosis, celiac disease,? esophagitis? with recent COVID-19 positive infection 11/24/22? and recent admission to hospital medicine? for acute respiratory further from multifocal pneumonia related to COVID-19 infection from 12/03/2022-12/06/22? who presented today with worsening shortness of breath since yesterday.? Patient reports since being home,? her shortness of breath was controlled by yesterday it worsened.? ? Today in the emergency room,? patient was tachycardic to 150s,? hypoxic requiring high flow,? tachypnea to 30s? and hypotensive.? ? Laboratory data significant for those BC of 16.5,? hemoglobin 11, ? lymphocytes 6.5, platelets 486,? serum bicarb 18, lactic 6.8, BNP 146,? albumin 3.3 AVBgs? 7./ IMAGING CHEST CTA- ? no PE was noted,? above worsening bilateral pneumonia consistent with ARDS vs? pulmonary edema noted ABD CT-? no acute findings Review of Systems Constitutional: Constitutional: Reports body ache(s), Reports chills, Denies headache(s) and Reports lethargy ENT: Denies headache(s) Cardiovascular: Cardiovascular: Reports chest pain, Denies syncope, Denies rapid heart rate, Denies edema and Reports dyspnea Respiratory: Respiratory: Reports cough, Reports dyspnea and Denies wheezing Gastrointestinal: Gastrointestinal: Denies abdominal pain, Denies nausea and Denies vomiting Genitourinary: Genitourinary: Denies urinary urgency Musculoskeletal: Musculoskeletal: Denies back pain Neurologic: Denies confusion, Denies syncope and Denies headache(s) Psychiatric: Psychiatric: Denies confusion Allergic/Immunologic: Allergic/Immunologic: Denies wheezing PMFSH Past Medical History Medical History Vasovagal syncope Esophagitis Celiac disease Tachycardia Multiple sclerosis Social History Social History Household Members: Children Household Members Other:: son Housing: Apartment Do you presently have visiting nurse or other home services: No Alcohol intake: never Patient Tobacco Use Status: Former Tobacco user Quit Date: 11/24/2022 Smoked in Last 30 Days: No e-Cigarette/Vaping Use: Former Use Second Hand Smoke Exposure: No Use of substances other than those prescribed or required for medical reasons: No Substance Use Type: Marijuana Currently Displaying Signs/Symptoms of Drug Intoxication Withdrawal: No Have you been hit, kicked, punched, or otherwise hurt by someone within the past year? If so, by whom?: No Do you feel safe in your current relationship?: No Current Relationship Is there a partner from a previous relationship who is making you feel unsafe now?: No Are you made to feel afraid or neglected: No Advance Directives: No Do you have thoughts of harming others: None Do you have a plan to hurt others: No Plan Recently lost weight without trying: Yes How much weight loss: 2-13 pounds Eating poorly because of decreased appetite: Yes Nutrition screen score: 4 Nutrition Risks: No Nutritional Risk Patient : No : No Poor oral hygiene: No service: No Meds Allergies Allergy/AdvReac Type Severity Reaction Status Date / Time gluten Allergy Unknown Verified 12/03/22 12:50 Sulfa (Sulfonamide Allergy Unknown Verified 12/03/22 12:50 Antibiotics) Steroids AdvReac Severe Other Uncoded 12/03/22 14:08 Active Medications: Current Medications Heparin Sodium (Porcine) (Heparin Sodium,Porcine 5,000 Unit/Ml Vial) 5,000 unit SUBCUT Q8H [facility] Last Admin: 12/13/22 18:45 Dose: 5,000 unit Piperacillin Sod/Tazobactam (Sod 4.5 gm/ Sodium Chloride) 100 mls @ 200 mls/hr IV Q6H [facility] Vancomycin HCl (Vancomycin/Ns) 2,000 mg in 500 mls @ 250 mls/hr IV ONCE ONE Stop: 12/13/22 21:59 Pharmacy Consult (Consult Rx Vancomycin Dosing) 1 each MISCELLANE DAILY PRN PRN Reason: Consult order Home Medications Medication Instructions Recorded Confirmed Last Taken Type baclofen 10 mg tablet 10 mg PO TID PRN Spasms 12/03/22 12/13/22 12/03/22 History buspirone 10 mg tablet 10 mg PO BID 12/03/22 12/13/22 12/13/22 History duloxetine 60 mg capsule,delayed 60 mg PO BID 12/03/22 12/13/22 12/13/22 History release metoprolol succinate 50 mg 50 mg PO DAILY 12/03/22 12/13/22 12/13/22 History tablet,extended release 24 hr mirtazapine 30 mg tablet 30 mg PO DAILY 12/03/22 12/13/22 12/13/22 History pantoprazole 40 mg tablet,delayed 40 mg PO DAILY 12/03/22 12/13/22 12/13/22 History release lisdexamfetamine 50 mg capsule 50 mg PO DAILY 12/13/22 12/13/22 Unknown History (Raul) Physical Exam Vital Signs: Vital Signs: Last Vital Signs Temp 99.7 F 12/13/22 19:58 Pulse 105 H 12/13/22 19:58 Resp 36 H 12/13/22 19:58 BP 91/55 L 12/13/22 19:58 Pulse Ox 90 L 12/13/22 19:58 O2 Del Method High Flow Nasal C annula 12/13/22 19:58 O2 Flow Rate 35 12/13/22 19:58 FiO2 95 12/13/22 19:58 BMI result Body Mass Index 31.5 focused assessment performed on a 0 ?General:? Alert oriented x3 in mild respiratory distress. Only able to respond in short sentences. ?HEENT:? Head is normocephalic, atraumatic, pupils equal round reactive to light accommodation bilaterally.? Extraocular movements appear intact.? Buccal mucosa is dry, Neck is supple without lymphadenopathy. ?Cardiac:? sinus rhythm, Clear S1-S2, no murmurs rubs or gallops. normal capillary refill ?Pulmonary:? lungs diminished throughout. no wheezing. satting 86% on high-flow. ?Abdomen:? ?Abdomen soft, non-tender, non-distended. Normal bowel sounds. No pulsatile mass. No hepatosplenomegaly. ?Musculoskeletal:?Moving all 4 extremities upon request a major joints, there is no crepitus or tenderness.? The strength is 5/5 bilaterally and throughout all 4 extremities.? Gait not assessed at this point. ?Neurologic:? cranial nerves 2-12 are grossly intact.? No focal deficits noted.Motor strength as above.?? ?Skin:? Intact, no lesions, edema, erythema, clubbing or cyanosis.? No ulcers. Vascular:? 2+ pulses upper and lower extremities distally.? Const: General: No confusion Orientation/consciousness: No confusion Neuro: General: No confusion Results Labs 12/14/22 04:22 12/14/22 04:22 Labs: Laboratory Results - last 24 hr 12/13/22 12/13/22 12/13/22 14:42 14:43 14:43 MCV 96.3 MCH 31.6 MCHC 32.8 RDW 15.3 Plt Count 486 H MPV 9.3 L Immature Gran % (Auto) 0.7 H Neut % (Auto) 91.3 H Lymph % (Auto) 6.5 L [place] % (Auto) 1.2 L Eos % (Auto) 0.1 Baso % (Auto) 0.2 Lymph # (Auto) 1.1 L [place] # (Auto) 0.2 Eos # (Auto) 0.0 Baso # (Auto) 0.0 Abs Immat Gran (auto) 0.11 H Absolute Neuts (auto) 15.1 H Absolute Nucleated RBC 0.030 H Nucleated RBC % (auto) 0.2 Smear Tech's Comments VERIFIED PT 16.3 H D INR 1.3 H O2 Saturation ABG pH at Pt Temp ABG pCO2 at Pt Temp ABG pO2 at Pt Temp ABG HCO3 ABG Base Excess (Actual) Anion Gap 20 Estim Creat Clear Calc 100.0 Estimated GFR > 60 POC Glucose 194 H Random Glucose 208 H Lactic Acid 6.8 H* Lactic Acid F/U @ 2Hr Calcium 8.8 Total Bilirubin 0.6 AST 27 ALT 18 Alkaline Phosphatase 96 B-Natriuretic Peptide 146 H Total Protein 7.4 Albumin 3.3 L Beta HCG, Quant < 2 Cancelled Hold Green Top See Note Hold Yellow Top See Note Urine Color Urine Appearance Urine pH Ur Specific [place] Urine Protein Urine Glucose (UA) Urine Ketones Urine Blood Urine Nitrite Ur Leukocyte Esterase Urine RBC Urine WBC Ur Squamous Epith Cells Urine Bacteria Hyaline Casts Influenza Type A (PCR) Influenza Type B (PCR) RSV RNA Qual (PCR) SARS-CoV-2 RNA (RT-PCR) 12/13/22 12/13/22 12/13/22 14:59 15:17 16:50 MCV MCH MCHC RDW Plt Count MPV Immature Gran % (Auto) Neut % (Auto) Lymph % (Auto) [place] % (Auto) Eos % (Auto) Baso % (Auto) Lymph # (Auto) [place] # (Auto) Eos # (Auto) Baso # (Auto) Abs Immat Gran (auto) Absolute Neuts (auto) Absolute Nucleated RBC Nucleated RBC % (auto) Smear Tech's Comments PT INR O2 Saturation 96.0 99.0 ABG pH at Pt Temp 7.51 H 7.48 H ABG pCO2 at Pt Temp 24 L 28 L ABG pO2 at Pt Temp 77 L 89 ABG HCO3 19 L 21 L ABG Base Excess (Actual) -1.7 -0.4 Anion Gap Estim Creat Clear Calc Estimated GFR POC Glucose Random Glucose Lactic Acid Lactic Acid F/U @ 2Hr Calcium Total Bilirubin AST ALT Alkaline Phosphatase B-Natriuretic Peptide Total Protein Albumin Beta HCG, Quant Hold Green Top Hold Yellow Top Urine Color Urine Appearance Urine pH Ur Specific [place] Urine Protein Urine Glucose (UA) Urine Ketones Urine Blood Urine Nitrite Ur Leukocyte Esterase Urine RBC Urine WBC Ur Squamous Epith Cells Urine Bacteria Hyaline Casts Influenza Type A (PCR) NEGATIVE Influenza Type B (PCR) NEGATIVE RSV RNA Qual (PCR) NEGATIVE SARS-CoV-2 RNA (RT-PCR) NEGATIVE 12/13/22 17:42 MCV MCH MCHC RDW Plt Count MPV Immature Gran % (Auto) Neut % (Auto) Lymph % (Auto) [place] % (Auto) Eos % (Auto) Baso % (Auto) Lymph # (Auto) [place] # (Auto) Eos # (Auto) Baso # (Auto) Abs Immat Gran (auto) Absolute Neuts (auto) Absolute Nucleated RBC Nucleated RBC % (auto) Smear Tech's Comments PT INR O2 Saturation ABG pH at Pt Temp ABG pCO2 at Pt Temp ABG pO2 at Pt Temp ABG HCO3 ABG Base Excess (Actual) Anion Gap Estim Creat Clear Calc Estimated GFR POC Glucose Random Glucose Lactic Acid Lactic Acid F/U @ 2Hr 1.5 Calcium Total Bilirubin AST ALT Alkaline Phosphatase B-Natriuretic Peptide Total Protein Albumin Beta HCG, Quant Hold Green Top Hold Yellow Top Urine Color Yellow Urine Appearance Clear Urine pH 7.0 Ur Specific [place] >= 1.030 H Urine Protein 30 (1+) H Urine Glucose (UA) Negative Urine Ketones Negative Urine Blood Negative Urine Nitrite Negative Ur Leukocyte Esterase Negative Urine RBC 0-2 Urine WBC 0-5 Ur Squamous Epith Cells 0-2 Urine Bacteria None Seen Hyaline Casts 0-2 Influenza Type A (PCR) Influenza Type B (PCR) RSV RNA Qual (PCR) SARS-CoV-2 RNA (RT-PCR) Imaging Radiologist's Impressions: Impressions Abdomen/Pelvis CT 12/13/22 15:55 IMPRESSION: No acute abnormality in the abdomen and pelvis. Chest CTA 12/13/22 15:55 IMPRESSION: No evidence of pulmonary embolus. Worsening severe pneumonia likely related to COVID-19 infection. Diffuse esophageal wall thickening. Fluoroscopic evaluation previously showed diffuse severe esophagitis. VTE: negative Assessment and Plan (1) Septic shock: Status: Acute (2) ARDS (adult respiratory distress syndrome): Status: Acute (3) Pneumonia: Qualifiers: Pneumonia type: due to COVID-19 virus Qualified Code(s): U07.1 - COVID-19; J12.82 - Pneumonia due to coronavirus disease 2019 Status: Acute (4) COVID-19: Status: Acute (5) Pulmonary edema: Qualifiers: Chronicity: acute Qualified Code(s): J81.0 - Acute pulmonary edema Status: Acute Plan Neuro: no acute issues Cardiac:? ??Septic shock-? patient lactate elevated to 6.8,? source is likely? COVID infection with ARDS.? received based on ideal body weight in emergency room.? And was initiated on Zosyn.? Will broaden coverage with vancomycin. ?Pulmonary edema-? ARDS vs pulmonary edema,? elevated BNP,? receive 20 of IV Lasix in the emergency room. ? Will obtain an echo in the morning.?? Pulmonary:? ?COVID infection-? multifocal pneumonia.? Likely ARDS from COVID infection.? Presented with severe hypoxia requiring high-flow. ? Patient has continued to have significant work of breathing. Will initiate BiPAP.? Renal:?? No Acute findings GI:?? ?No acute findings Endo:?? ?No acute findings Heme/Onc:? ?No acute? issues ID:? ?Septic shock,? respiratory? likely the cause. Blood cultures are pending.? Will send MRSA swab and? broaden antibiotic coverage with vanco. Cont? Zosyn Psych:? No acute issues. Misc:? ?I spoke with patient regarding? advanced directive /goals of care.? Patient is ,? has a son but he is only 12 years old.? Patient would like? Martin Barrera (friend)? to be the person of contact if she is not able make decisions for herself. ? Martin was added to the chart Diet: NPO while on BIPAP? Prophylaxis:? ? SUBQ? heparin Code? status: ? ? FULL CODE.?? Critical care time: x 90 min of critical care time? Time Spent With Patient Time: Total time managing care of this patient today ____ minutes.
[2022-12-13] MEDS: fentaNYL citrate/PF 100 MCG/2 ML VIAL 25 MCG IVPUSH (20:24)
[2022-12-13] MEDS: vancomycin/NS 2,000 MG/500 ML PLAST..BAG 250 MG IV (20:25)
--- NOTE | 2022-12-13 21:00 | PHA.PROG ---
Admission Date/Time: December 13, 2022 17:46 Indication: RESP Weight in k.8 kg Adjusted body weight in K.46 [place] body weight in Kg: Obesity Dosing Indication % IBW: Serum Creatinine - Last 168 Hours 12/13/22 14:43 Creatinine 0.95 Estimated CrCl and GFR - Last 168 Hours 12/13/22 14:43 Estim Creat Clear Calc 100.0 Estimated GFR > 60 Vancomycin Loading Dose: 2000 MG Current Vancomycin Dosing Regimen: 1250MG Q12H Vancomycin Monitoring using AUC goal of 400 - 600 range with trough as surrogate marker: AUC 537, TROUGH 16.9 Date and Time for next Vancomycin Level to be drawn: 12/15 @0600 Pharmacist Comments on Vancomycin Plan: Vancomycin dosing will take advantage of Qui[employer]lt as a clinical decision support tool that uses Bayesian modeling to calculate individual patient's pharmacokinetic parameters and forecast the patient's drug concentration time course with the target goal AUC 24 range of 400 - 600 mg/L/hr.
[2022-12-13 21:49] LABS: ABG Base Excess 1.5 mmol/L; ABG HCO3 25 mmol/L (22-26); ABG pCO2 36 mmHg (32-45); ABG pH 7.44 (7.35-7.45); ABG pO2 76 mmHg (83-108)
[2022-12-13 23:29] LABS: ABG Refer to POC result
[2022-12-14] VITALS (31 sets, daily range): BP systolic 90–118; BP diastolic 48–77; PULSE 100–135; RESP 22–40; TEMP 37–39.2; O2SAT 86–99; BMI 31.0
[2022-12-14] MEDS: Piperacillin Sodium/Tazobactam 4.5 GM in 0.9 % Sodium Chloride 100 ML IV ×4 (00:15→17:36)
[2022-12-14] MEDS: Heparin Sodium,Porcine 5,000 UNIT/ML VIAL 5000 UNIT SUBCUT ×3 (02:07→17:35)
[2022-12-14] MEDS: Morphine Sulfate 2 MG/ML CARTRIDGE 1 MG IVPUSH ×3 (03:15→19:50)
[2022-12-14 04:31] LABS: VBG Base Excess 2.7 mmol/L; VBG HCO3 26 mmol/L (22-26); VBG pCO2 35 mmHg; VBG pH 7.47 (7.32-7.43); VBG pO2 54 mmHg
[2022-12-14] MEDS: Furosemide 20 MG/2 ML VIAL IVPUSH (04:33)
[2022-12-14 04:44] LABS: Venous Blood Gas Refer to POC result
[2022-12-14 04:50] LABS: Basophils Percent Auto 0.1 % (0-2); Eosinophils Absolute Auto 0.1 X10*3/uL (0.0-0.4); Eosinophils Percent Auto 1.1 % (0-4); Hematocrit 28.9 % (37.0-47.0); Hemoglobin 9.3 g/dl (12.0-16.0); Imm Gran Abs Auto 0.07 X10*3/uL (0.00-0.03); Imm Gran Pct Auto 0.6 % (0.0-0.4); Lymphocytes Absolute Auto 0.6 X10*3/uL (1.2-4.9); Lymphocytes Percent Auto 5.3 % (20-40); MANUAL DIFF FLAG SCAN; Mean Corpuscular HGB Conc 32.2 g/dl (31.0-35.0); Mean Corpuscular Hemoglobin 31.2 pg (27.0-33.0); Mean Platelet Volume 9.2 fL (9.4-12.3); Monocytes Absolute Auto 0.1 X10*3/uL (0.1-1.2); Monocytes Percent Auto 0.9 % (2-11); Neutrophils Absolute Auto 10.1 x10*3/uL (2.0-8.3); Platelet Count 362 X10*3/uL (160-400); Red Blood Count 2.98 X10*6/uL (4.20-5.50); Red Cell Distribution Width 15.3 % (11.0-16.0); SCAN SMEAR FLAG 1; White Blood Count 10.9 X10*3/uL (4.8-10.8)
[2022-12-14] MEDS: Acetaminophen 325 MG TABLET 650 MG PO (05:05)
[2022-12-14 05:14] LABS: SLIDE REVIEW VERIFIED
[2022-12-14 05:16] LABS: Alanine Aminotransferase 14 U/L (0-31); Albumin Level 3.1 g/dL (3.5-5.0); Alkaline Phosphatase 79 U/L (39-117); Anion Gap 15 (12-20); Aspartate Amino Transferase 23 U/L (5-31); Bilirubin Total 0.7 mg/dL (0.0-1.0); Blood Urea Nitrogen 11 mg/dL (9-16); Calcium 8.3 mg/dL (8.4-10.2); Carbon Dioxide 21 mmol/L (22-29); Chloride 106 mmol/L (96-108); Creatinine Clr Calc Pharmacy 136.9; Estimated Glomerular Filt Rate > 60; Glucose Random 96 mg/dL (60-115); Potassium 3.5 mmol/L (3.3-5.1); Sodium 138 mmol/L (135-145); Total Protein 6.6 g/dL (6.5-8.0)
[2022-12-14] MEDS: Potassium Phosphate/NS 15 MMOL/250 ML PLAST..BAG 62.5 MMOL IV (06:07)
--- NOTE | 2022-12-14 07:00 | CA_ITS ---
Transthoracic Echocardiogram Patient (Last, First, Middle): Linda Lopez, Gender: Female Date of : 1990 Age: 32 Procedure Date: 12/14/2022 Procedure Type: Transthoracic Echocardiogram Location: ICU Height: 172.72 cm Weight: 92.53 kg BSA: 2.06 m2 Heart Rate: 112 bpm BP: 101 / 60 mmHg Outboard System Operator: FRANSISCA Ramos MD: Dk Young NP Symptoms: ARDS/ pulm edema Study Quality: Fair ECG Rhythm: Tachycardia Conclusions: - Normal left ventricular size and systolic function. There is mildly increased left ventricular wall thickness. The visually estimated ejection fraction is between 55-60%. There is no evidence of regional wall motion abnormalities. Diastolic function is normal for age. - Normal right ventricular cavity size and systolic function. - The inferior vena cava is collapsed, consistent with reduced intravascular volume and collapses greater than 50% with inspiration. Findings Left Ventricle Normal left ventricular size and systolic function. There is mildly increased left ventricular wall thickness. The visually estimated ejection fraction is between 55-60%. There is no evidence of regional wall motion abnormalities. Diastolic function is normal for age. Right Ventricle Normal right ventricular cavity size and systolic function. Atria The left atrium is normal in size. The right atrium is normal in size. Aortic Valve Normal aortic valve structure and function. There is no aortic valve stenosis. There is no aortic valve regurgitation. Mitral Valve The mitral valve appears normal. There is no mitral valve regurgitation. There is no mitral valve stenosis. Pulmonic Valve Normal pulmonic valve structure and function. Tricuspid Valve Normal tricuspid valve structure. There is mild to moderate tricuspid valve regurgitation. Low right atrial pressure. There is no evidence of pulmonary hypertension. Great Vessels All visible segments of the aorta are normal in size. The visualized portions of the pulmonary artery and branches are normal. Venous The inferior vena cava is collapsed, consistent with reduced intravascular volume and collapses greater than 50% with inspiration. Pericardium/Pleural There is no evidence of pericardial effusion. Prior Study Comparison No prior study available for comparison. Measurements 2D Linear Measurements IVSd: 1.10 0.6-0.9/0.6-1.0 cm LVIDd: 4.70 3.9-5.3/4.2-5.9 cm LVIDd Index: 2.28 2.4-3.2/2.2-3.1 cm/m2 LVIDs: 2.70 2.0-3.6 cm LVPWd: 1.00 0.7-1.1 cm LA Diam: 3.50 2.7-3.8/3.0-4.0 cm LAIDs Index: 1.70 1.5-2.3 cm/m2 LV Mass: 219.03 67-162/88-224 g LV Mass Index: 106.33 43-95/49-115 g/m2 LVOT Diam: 2.00 3.0+(-)1.3 cm 2D Systolic Function EF 4C: 59.20 >55% EF 2C: 59.10 >55% EF BiP: 56.70 >55% Mitral Valve MV Pk E: 0.91 MV PK A: 0.85 MV Decel Time: 167.00 E/A: 1.10 E'Lateral: 10.00 E'Medial: 9.46 E/E' Med: 9.70 E/E' Lat: 9.10 PHT: 49.00 MVA PHT: 4.49 Decel Benson: 5.46 Aortic Valve AoV Pk Al: 1.53 AoV Mn Al: 1.14 AoV VTI: 0.29 AoV Pk Grad: 9.00 Aov Mn Grad: 6.00 CECILIA Cont.VTI: 2.25 LVOT LVOT Pk Al: 1.22 LVOT Mn Al: 0.87 LVOT VTI: 0.20 LVOT Pk Grad: 6.00 LVOT Mn Grad: 3.00 LVOT Diam: 2.00 LVOT Area: 3.14 Diastolic Function MV Pk E: 0.91 MV Pk A: 0.85 E/A: 1.10 E'Medial: 9.46 E/E' Med: 9.70 E' Laterial: 10.00 E/E' Lat: 9.10 Right Ventricle TAPSE (mm): 20.00 TVS' Al: 9.90 Tricuspid Valve TR Pk Al: 2.26 TR Pk Grad: 20.00 RA Press: 3.00 RVSP: 23.00 Great Vessels Aorta Sinus of Valsalva: 3.10 2.0-3.5 cm Ao Asc: 3.20 2.1-3.4 cm Pulmonary Valve PV Pk Al: 1.14 Peak PV Grad: 5.00 Updated in Other Vendor System with Status of Final Rubens Gilbert MD electronically signed on 12/14/2022 1:56:31 PM with status of Final
[2022-12-14] MEDS: vancomycin HCL 1,250 MG in 0.9 % Sodium Chloride 250 ML 166.67 MG IV ×2 (08:03→19:34)
[2022-12-14] MEDS: Albumin Human 25 % 100 ML IV ×3 (08:03→19:37)
--- NOTE | 2022-12-14 09:54 | MHC.CM.PN ---
Pt receiving care in ICU for bilateral worsening pna in post COVID setting. Attempted to meet w/pt to discuss d/c planning needs however, pt extremely SOB and on high flow O2. Pt was able to complete a HCP naming her s.o. Martin Barrera - copy in chart. Discussed pt w/MD - there is a high liklihood she may require intubation. CM to follow for completion of d/c planning when pt is more stable. EMR notes pt is independent, has no services or DME. CM to follow.
[2022-12-14 10:56] LABS: MRSA Nasal PCR NEGATIVE (Negative); SA Nasal PCR POSITIVE (Negative)
[2022-12-14] MEDS: Furosemide 40 MG/4 ML VIAL IVPUSH (11:04)
[2022-12-14] MEDS: Baclofen 10 MG TABLET PO (11:18)
--- NOTE | 2022-12-14 15:07 | P.PNCC_ITS ---
Subjective Subjective Date of Service: 12/14/22 Interval History: 32-year-old lady with underlying history of multiple sclerosis iliac disease, though for GI does, recent COVID-19 infection, positive on 11/24/2022, requiring brief admission to [facility] on 12/03/2022 through 12/06/2022, readmitted on 12/13/2022 with worsening dyspnea and hypoxia. Requiring high- flow nasal cannula/BiPAP support. CT chest demonstrating bilateral ARDS. Elevated BNP. Patient started on empiric antibiotics and diuretic and admitted to the intensive care unit. Overnight resting on BiPAP, now tolerating high-flow nasal cannula at 75%. Critical Care Time (minutes): 45 Physical Exam 2 Vital Signs: Vital Signs: Last Vital Signs Temp 101.5 F H 12/14/22 14:00 Pulse 122 H 12/14/22 14:00 Resp 36 H 12/14/22 14:00 BP 99/67 12/14/22 14:00 Pulse Ox 89 L 12/14/22 14:00 O2 Del Method Mechanical Ventil ation 12/14/22 14:00 O2 Flow Rate 45 12/14/22 10:00 FiO2 45 12/14/22 14:00 BMI result Body Mass Index 31.0 Const: General: no acute distress and alert HEENT: Head: Yes atraumatic Eyes: General: appearance normal, both eyes and all related structures S clerae: sclerae normal EOM: EOMs intact bilaterally Neck: Neck: Yes supple Lymphatic: no lymphadenopathy noted Resp: Effort & Inspection: normal respiratory effort ( on high-flow) and no use of accessory muscles Auscultation: clear to auscultation bilaterally and crackles ( Diffuse bilateral) Cardio: Rate: tachycardic Rhythm: regular rhythm Heart sounds: no gallops, no murmurs and no rubs Skin: General skin exam: other ( warm) Extrem: General: No clubbing, No cyanosis and Yes edema ( trace bilateral) Objective Data Labs 12/14/22 04:22 12/14/22 04:22 Labs: Laboratory Results - last 24 hr 12/13/22 12/13/22 12/13/22 14:43 14:43 14:59 WBC 16.5 H RBC 3.48 L Hgb 11.0 L Hct 33.5 L MCV 96.3 MCH 31.6 MCHC 32.8 RDW 15.3 Plt Count 486 H MPV 9.3 L Immature Gran % (Auto) 0.7 H Neut % (Auto) 91.3 H Lymph % (Auto) 6.5 L [place] % (Auto) 1.2 L Eos % (Auto) 0.1 Baso % (Auto) 0.2 Lymph # (Auto) 1.1 L [place] # (Auto) 0.2 Eos # (Auto) 0.0 Baso # (Auto) 0.0 Abs Immat Gran (auto) 0.11 H Absolute Neuts (auto) 15.1 H Absolute Nucleated RBC 0.030 H Nucleated RBC % (auto) 0.2 Smear Tech's Comments VERIFIED PT 16.3 H D INR 1.3 H O2 Saturation 96.0 ABG pH at Pt Temp 7.51 H ABG pCO2 at Pt Temp 24 L ABG pO2 at Pt Temp 77 L ABG HCO3 19 L ABG Base Excess (Actual) -1.7 VBG pH VBG pCO2 VBG pO2 VBG HCO3 VBG O2 Saturation VBG Base Excess Sodium 135 Potassium 3.6 Chloride 101 Carbon Dioxide 18 L Anion Gap 20 BUN 13 Creatinine 0.95 Estim Creat Clear Calc 100.0 Estimated GFR > 60 Random Glucose 208 H Lactic Acid 6.8 H* Lactic Acid F/U @ 2Hr Calcium 8.8 Phosphorus Magnesium Total Bilirubin 0.6 AST 27 ALT 18 Alkaline Phosphatase 96 Troponin I High Sens 100.7 H* D B-Natriuretic Peptide 146 H Total Protein 7.4 Albumin 3.3 L Beta HCG, Quant < 2 Cancelled Urine Color Urine Appearance Urine pH Ur Specific [place] Urine Protein Urine Glucose (UA) Urine Ketones Urine Blood Urine Nitrite Ur Leukocyte Esterase Urine RBC Urine WBC Ur Squamous Epith Cells Urine Bacteria Hyaline Casts Nasal Screen MRSA (PCR) Nasal S. aureus Screen Nasal MRSA/S.aureus Interp Influenza Type A (PCR) Influenza Type B (PCR) RSV RNA Qual (PCR) SARS-CoV-2 RNA (RT-PCR) 12/13/22 12/13/22 12/13/22 15:17 16:50 17:42 WBC RBC Hgb Hct MCV MCH MCHC RDW Plt Count MPV Immature Gran % (Auto) Neut % (Auto) Lymph % (Auto) [place] % (Auto) Eos % (Auto) Baso % (Auto) Lymph # (Auto) [place] # (Auto) Eos # (Auto) Baso # (Auto) Abs Immat Gran (auto) Absolute Neuts (auto) Absolute Nucleated RBC Nucleated RBC % (auto) Smear Tech's Comments PT INR O2 Saturation 99.0 ABG pH at Pt Temp 7.48 H ABG pCO2 at Pt Temp 28 L ABG pO2 at Pt Temp 89 ABG HCO3 21 L ABG Base Excess (Actual) -0.4 VBG pH VBG pCO2 VBG pO2 VBG HCO3 VBG O2 Saturation VBG Base Excess Sodium Potassium Chloride Carbon Dioxide Anion Gap BUN Creatinine Estim Creat Clear Calc Estimated GFR Random Glucose Lactic Acid Lactic Acid F/U @ 2Hr 1.5 Calcium Phosphorus Magnesium Total Bilirubin AST ALT Alkaline Phosphatase Troponin I High Sens B-Natriuretic Peptide Total Protein Albumin Beta HCG, Quant Urine Color Yellow Urine Appearance Clear Urine pH 7.0 Ur Specific [place] >= 1.030 H Urine Protein 30 (1+) H Urine Glucose (UA) Negative Urine Ketones Negative Urine Blood Negative Urine Nitrite Negative Ur Leukocyte Esterase Negative Urine RBC 0-2 Urine WBC 0-5 Ur Squamous Epith Cells 0-2 Urine Bacteria None Seen Hyaline Casts 0-2 Nasal Screen MRSA (PCR) Nasal S. aureus Screen Nasal MRSA/S.aureus Interp Influenza Type A (PCR) NEGATIVE Influenza Type B (PCR) NEGATIVE RSV RNA Qual (PCR) NEGATIVE SARS-CoV-2 RNA (RT-PCR) NEGATIVE 12/13/22 12/13/22 12/14/22 20:06 21:43 04:22 WBC 10.9 H RBC 2.98 L Hgb 9.3 L Hct 28.9 L MCV 97.0 MCH 31.2 MCHC 32.2 RDW 15.3 Plt Count 362 D MPV 9.2 L Immature Gran % (Auto) 0.6 H Neut % (Auto) 92.0 H Lymph % (Auto) 5.3 L [place] % (Auto) 0.9 L Eos % (Auto) 1.1 Baso % (Auto) 0.1 Lymph # (Auto) 0.6 L [place] # (Auto) 0.1 Eos # (Auto) 0.1 Baso # (Auto) 0.0 Abs Immat Gran (auto) 0.07 H Absolute Neuts (auto) 10.1 H Absolute Nucleated RBC 0.000 Nucleated RBC % (auto) 0.0 Smear Tech's Comments VERIFIED PT INR O2 Saturation 94.0 ABG pH at Pt Temp 7.44 ABG pCO2 at Pt Temp 36 ABG pO2 at Pt Temp 76 L ABG HCO3 25 ABG Base Excess (Actual) 1.5 VBG pH VBG pCO2 VBG pO2 VBG HCO3 VBG O2 Saturation VBG Base Excess Sodium 138 Potassium 3.5 Chloride 106 Carbon Dioxide 21 L Anion Gap 15 BUN 11 Creatinine 0.69 Estim Creat Clear Calc 136.9 Estimated GFR > 60 Random Glucose 96 Lactic Acid Lactic Acid F/U @ 2Hr Calcium 8.3 L Phosphorus 2.0 L Magnesium 2.0 Total Bilirubin 0.7 AST 23 ALT 14 Alkaline Phosphatase 79 Troponin I High Sens B-Natriuretic Peptide Total Protein 6.6 Albumin 3.1 L Beta HCG, Quant Urine Color Urine Appearance Urine pH Ur Specific [place] Urine Protein Urine Glucose (UA) Urine Ketones Urine Blood Urine Nitrite Ur Leukocyte Esterase Urine RBC Urine WBC Ur Squamous Epith Cells Urine Bacteria Hyaline Casts Nasal Screen MRSA (PCR) NEGATIVE Nasal S. aureus Screen POSITIVE A Nasal MRSA/S.aureus Interp SEE NOTE Influenza Type A (PCR) Influenza Type B (PCR) RSV RNA Qual (PCR) SARS-CoV-2 RNA (RT-PCR) 12/14/22 04:25 WBC RBC Hgb Hct MCV MCH MCHC RDW Plt Count MPV Immature Gran % (Auto) Neut % (Auto) Lymph % (Auto) [place] % (Auto) Eos % (Auto) Baso % (Auto) Lymph # (Auto) [place] # (Auto) Eos # (Auto) Baso # (Auto) Abs Immat Gran (auto) Absolute Neuts (auto) Absolute Nucleated RBC Nucleated RBC % (auto) Smear Tech's Comments PT INR O2 Saturation ABG pH at Pt Temp ABG pCO2 at Pt Temp ABG pO2 at Pt Temp ABG HCO3 ABG Base Excess (Actual) VBG pH 7.47 H VBG pCO2 35 VBG pO2 54 VBG HCO3 26 VBG O2 Saturation 84.0 VBG Base Excess 2.7 Sodium Potassium Chloride Carbon Dioxide Anion Gap BUN Creatinine Estim Creat Clear Calc Estimated GFR Random Glucose Lactic Acid Lactic Acid F/U @ 2Hr Calcium Phosphorus Magnesium Total Bilirubin AST ALT Alkaline Phosphatase Troponin I High Sens B-Natriuretic Peptide Total Protein Albumin Beta HCG, Quant Urine Color Urine Appearance Urine pH Ur Specific [place] Urine Protein Urine Glucose (UA) Urine Ketones Urine Blood Urine Nitrite Ur Leukocyte Esterase Urine RBC Urine WBC Ur Squamous Epith Cells Urine Bacteria Hyaline Casts Nasal Screen MRSA (PCR) Nasal S. aureus Screen Nasal MRSA/S.aureus Interp Influenza Type A (PCR) Influenza Type B (PCR) RSV RNA Qual (PCR) SARS-CoV-2 RNA (RT-PCR) Progress Note: A&P Assessment and plan (1) ARDS (adult respiratory distress syndrome): Status: Acute (2) Acute respiratory failure with hypoxia: Status: Acute Plan Assessment: 32-year-old lady admitted with acute hypoxic respiratory failure on the background of recent COVID-19 infection and possible superinfection with bacterial pneumonia, now requiring noninvasive positive pressure ventilatory support Plan: Neuro: No acute issues. Cardiac: elevated BNP. 2D echocardiogram is pending. Pulmonary edema improving with diuretic. 2D echocardiogram is pending. Pulmonary: Acute respiratory failure with hypoxia, ARDS like picture, unclear if from COVID or bacterial superinfection. Continue to titrate of supplemental oxygen as tolerated. Renal: No acute issues. Endo: No acute issues. GI: No acute issues. ID: Empirically covered with broad-spectrum antibiotics. Cultures are pending. Heme/Onc: No acute issues. Psych: No acute issues. Miscellaneous: No acute issues. Prophylaxis: Heparin Diet: regular Critical care time spent: 45 minutes Quality Stroke Does the patient have a stroke diagnosis?: No VTE Prior VTE?: No VTE Risk Level:: Medical - moderate - high VTE Device Contraindication: Treatment Not Indicated VTE Drug Contraindication: N/A - Med Ordered
[2022-12-14] MEDS: Acetaminophen 1,000 MG/100 ML PIGGYBACK 400 MG IV (18:03)
[2022-12-14] MEDS: LORazepam 2 MG/ML VIAL 0.5 MG IVPUSH (23:16)
[2022-12-15] VITALS (34 sets, daily range): BP systolic 103–127; BP diastolic 56–86; PULSE 92–131; RESP 22–42; TEMP 36.9–38.5; O2SAT 84–97; BMI 31.2
[2022-12-15] MEDS: Piperacillin Sodium/Tazobactam 4.5 GM in 0.9 % Sodium Chloride 100 ML IV ×5 (00:14→23:41)
[2022-12-15] MEDS: Heparin Sodium,Porcine 5,000 UNIT/ML VIAL 5000 UNIT SUBCUT ×3 (01:21→18:33)
[2022-12-15] MEDS: Albumin Human 25 % 100 ML IV (01:22)
[2022-12-15] MEDS: Morphine Sulfate 2 MG/ML CARTRIDGE 1 MG IVPUSH ×4 (02:14→22:14)
[2022-12-15] MEDS: LORazepam 2 MG/ML VIAL 0.5 MG IVPUSH ×2 (03:49→20:28)
[2022-12-15] MEDS: Acetaminophen 1,000 MG/100 ML PIGGYBACK 400 MG IV (06:05)
[2022-12-15 06:09] LABS: VBG Base Excess 3.7 mmol/L; VBG HCO3 26 mmol/L (22-26); VBG pCO2 33 mmHg; VBG pO2 95 mmHg
[2022-12-15 06:21] LABS: MANUAL DIFF FLAG NO
[2022-12-15 06:24] LABS: Basophils Percent Auto 0.1 % (0-2); Eosinophils Absolute Auto 0.4 X10*3/uL (0.0-0.4); Eosinophils Percent Auto 4.9 % (0-4); Hematocrit 26.3 % (37.0-47.0); Hemoglobin 8.5 g/dl (12.0-16.0); Imm Gran Abs Auto 0.03 X10*3/uL (0.00-0.03); Imm Gran Pct Auto 0.4 % (0.0-0.4); Lymphocytes Absolute Auto 0.4 X10*3/uL (1.2-4.9); Lymphocytes Percent Auto 5.2 % (20-40); Mean Corpuscular HGB Conc 32.3 g/dl (31.0-35.0); Mean Corpuscular Hemoglobin 31.1 pg (27.0-33.0); Mean Corpuscular Volume 96.3 fL (80.0-98.0); Mean Platelet Volume 9.3 fL (9.4-12.3); Monocytes Absolute Auto 0.1 X10*3/uL (0.1-1.2); Monocytes Percent Auto 1.1 % (2-11); Neutrophils Absolute Auto 6.4 x10*3/uL (2.0-8.3); Neutrophils Percent Auto 88.3 % (45-73); Platelet Count 301 X10*3/uL (160-400); Red Blood Count 2.73 X10*6/uL (4.20-5.50); Red Cell Distribution Width 14.9 % (11.0-16.0); White Blood Count 7.3 X10*3/uL (4.8-10.8)
[2022-12-15 06:42] LABS: Vancomycin Trough 13.2 mcg/mL (10.0-20.0)
[2022-12-15 06:45] LABS: Alanine Aminotransferase 9 U/L (0-31); Albumin Level 3.9 g/dL (3.5-5.0); Alkaline Phosphatase 99 U/L (39-117); Anion Gap 16 (12-20); Aspartate Amino Transferase 18 U/L (5-31); Blood Urea Nitrogen 10 mg/dL (9-16); Calcium 8.5 mg/dL (8.4-10.2); Carbon Dioxide 22 mmol/L (22-29); Chloride 104 mmol/L (96-108); Creatinine Clr Calc Pharmacy 121.2; Estimated Glomerular Filt Rate > 60; Glucose Random 99 mg/dL (60-115); Magnesium 2.2 mg/dL (1.6-2.6); Phosphorus 1.8 mg/dL (2.7-4.5); Potassium 2.9 mmol/L (3.3-5.1); Sodium 139 mmol/L (135-145); Total Protein 7.1 g/dL (6.5-8.0)
--- NOTE | 2022-12-15 07:08 | HE.PHANOTE ---
Addendum entered by Haroon Angeles RPh 12/15/22 07:14: BECAUSE THE DOSE IS MORE AGGRESSIVE, WILL GET A LEVEL AFTER TWO DOSES, DUE 12/16 @0600 Original Note: RE VANCO TROUGH WAS 13.2 TODAY. WILL INCREASE DOSE TO 1500MG Q12H WITH AN AUC OF 536, TROUGH 15.8 JESUS
[2022-12-15 07:09] LABS: Venous Blood Gas Refer to POC result
[2022-12-15] MEDS: vancomycin HCL 1,500 MG in 0.9 % Sodium Chloride 500 ML 333.33 MG IV ×2 (07:48→19:54)
[2022-12-15] MEDS: methylPREDNISolone Sod Succ 40 MG/ML VIAL IVPUSH (08:31)
[2022-12-15] MEDS: Potassium Phosphate/NS 15 MMOL/250 ML PLAST..BAG 62.5 MMOL IV ×2 (08:32→12:35)
--- NOTE | 2022-12-15 11:07 | PM.CCPN ---
Subjective Subjective Date of Service: 12/15/22 Interval History: 32-year-old lady with underlying history of multiple sclerosis iliac disease, though for GI does, recent COVID-19 infection, positive on 11/24/2022, requiring brief admission to [facility] on 12/03/2022 through 12/06/2022, readmitted on 12/13/2022 with worsening dyspnea and hypoxia. Requiring high-flow nasal cannula/BiPAP support. CT chest demonstrating bilateral ARDS. Elevated BNP. Patient started on empiric antibiotics and diuretic and admitted to the intensive care unit. Overnight resting on BiPAP, now tolerating high-flow nasal cannula at 65%. Critical Care Time (minutes): 30 Physical Exam Vital Signs: Vital Signs: Last Vital Signs Temp 99.5 F 12/15/22 10:00 Pulse 113 H 12/15/22 10:00 Resp 29 H 12/15/22 10:00 BP 114/67 12/15/22 10:00 Pulse Ox 90 L 12/15/22 10:00 O2 Del Method BiPAP 12/15/22 10:00 O2 Flow Rate 55 12/15/22 08:00 FiO2 65 12/15/22 10:00 BMI result Body Mass Index 31.2 Const: General: no acute distress, alert and awake Eyes: Sclerae: sclerae normal EOM: EOMs intact bilaterally Neck: Neck: Yes no lymphadenopathy, Yes trachea midline and Yes supple Resp: Effort & Inspection: normal respiratory effort and no respiratory distress Auscultation: crackles ( Diffuse bilateral) Cardio: Rate: regular rate Rhythm: regular rhythm Heart sounds: no gallops, no murmurs and no rubs GI: Palpation (GI): Soft to palpation and Other GI palpation findings present ( Nontender) Auscultation: normal bowel sounds Extrem: General: Yes no pedal edema, No clubbing and No cyanosis Objective Data Labs 12/15/22 06:00 12/15/22 06:00 Labs: Laboratory Results - last 24 hr 12/15/22 12/15/22 06:00 06:02 WBC 7.3 RBC 2.73 L Hgb 8.5 L Hct 26.3 L MCV 96.3 MCH 31.1 MCHC 32.3 RDW 14.9 Plt Count 301 MPV 9.3 L Immature Gran % (Auto) 0.4 Neut % (Auto) 88.3 H Lymph % (Auto) 5.2 L [place] % (Auto) 1.1 L Eos % (Auto) 4.9 H Baso % (Auto) 0.1 Lymph # (Auto) 0.4 L [place] # (Auto) 0.1 Eos # (Auto) 0.4 Baso # (Auto) 0.0 Abs Immat Gran (auto) 0.03 Absolute Neuts (auto) 6.4 Absolute Nucleated RBC 0.000 Nucleated RBC % (auto) 0.0 VBG pH 7.50 H VBG pCO2 33 VBG pO2 95 VBG HCO3 26 VBG O2 Saturation 99.0 VBG Base Excess 3.7 Sodium 139 Potassium 2.9 L Chloride 104 Carbon Dioxide 22 Anion Gap 16 BUN 10 Creatinine 0.78 Estim Creat Clear Calc 121.2 Estimated GFR > 60 Random Glucose 99 Calcium 8.5 Phosphorus 1.8 L Magnesium 2.2 Total Bilirubin 1.0 AST 18 ALT 9 Alkaline Phosphatase 99 Total Protein 7.1 Albumin 3.9 Vancomycin Trough 13.2 Microbiology Microbiology Results: Microbiology 12/13/22 14:58 Blood - Venous Blood Culture - Preliminary No growth after 24 hours. 12/13/22 14:47 Blood - Venous Blood Culture - Preliminary No growth after 24 hours. Progress Note: A&P Assessment and plan (1) Acute respiratory failure with hypoxia: Status: Acute (2) ARDS (adult respiratory distress syndrome): Status: Acute Plan Assessment: 32-year-old lady admitted with acute hypoxic respiratory failure on the background of recent COVID-19 infection and possible superinfection with bacterial pneumonia, now requiring noninvasive positive pressure ventilatory support Plan: Neuro: No acute issues. Cardiac: elevated BNP. 2D echocardiogram is pending. Pulmonary edema resolved with diuretic. 2D echocardiogram is essentially normal. Pulmonary: Acute respiratory failure with hypoxia, ARDS like picture, unclear if from COVID or bacterial superinfection. Continue to titrate of supplemental oxygen as tolerated. Renal: No acute issues. Endo: No acute issues. GI: No acute issues. ID: Empirically covered with broad-spectrum antibiotics. Cultures are pending. Heme/Onc: No acute issues. Psych: No acute issues. Miscellaneous: No acute issues. Prophylaxis: Heparin Diet: regular Critical care time spent: 30 minutes Quality Stroke Does the patient have a stroke diagnosis?: No VTE Prior VTE?: No VTE Risk Level:: Medical - moderate - high VTE Device Contraindication: Treatment Not Indicated VTE Drug Contraindication: N/A - Med Ordered
--- NOTE | 2022-12-15 13:07 | MHC.CM.PN ---
EMR REVIEWED AND PER MD ROUNDS, PT NOT MEDICALLY CLEARED FOR DC (HYPOXIA REQUIRING HF02 AND BIPAP SUPPORT) CM WILL CONTINUE TO FOLLOW FOR DC NEEDS/PLAN.
[2022-12-15] MEDS: Baclofen 10 MG TABLET PO (20:34)
[2022-12-16] VITALS (33 sets, daily range): BP systolic 110–133; BP diastolic 66–94; PULSE 87–120; RESP 19–39; TEMP 36.4–37.3; O2SAT 88–97; BMI 30.5
[2022-12-16] MEDS: Heparin Sodium,Porcine 5,000 UNIT/ML VIAL 5000 UNIT SUBCUT ×3 (02:55→17:08)
[2022-12-16] MEDS: Piperacillin Sodium/Tazobactam 4.5 GM in 0.9 % Sodium Chloride 100 ML IV ×4 (05:41→23:24)
[2022-12-16 06:13] LABS: VBG Base Excess 2.3 mmol/L; VBG HCO3 25 mmol/L (22-26); VBG pCO2 33 mmHg; VBG pH 7.48 (7.32-7.43); VBG pO2 96 mmHg
[2022-12-16 06:14] LABS: MANUAL DIFF FLAG NO
[2022-12-16 06:17] LABS: Eosinophils Percent Auto 0.1 % (0-4); Hematocrit 27.1 % (37.0-47.0); Hemoglobin 8.8 g/dl (12.0-16.0); Imm Gran Abs Auto 0.04 X10*3/uL (0.00-0.03); Imm Gran Pct Auto 0.6 % (0.0-0.4); Lymphocytes Absolute Auto 0.6 X10*3/uL (1.2-4.9); Lymphocytes Percent Auto 8.8 % (20-40); Mean Corpuscular HGB Conc 32.5 g/dl (31.0-35.0); Mean Corpuscular Hemoglobin 31.7 pg (27.0-33.0); Mean Corpuscular Volume 97.5 fL (80.0-98.0); Mean Platelet Volume 9.6 fL (9.4-12.3); Monocytes Absolute Auto 0.2 X10*3/uL (0.1-1.2); Monocytes Percent Auto 3.4 % (2-11); Neutrophils Percent Auto 87.1 % (45-73); Platelet Count 309 X10*3/uL (160-400); Red Blood Count 2.78 X10*6/uL (4.20-5.50); Red Cell Distribution Width 14.6 % (11.0-16.0); White Blood Count 6.8 X10*3/uL (4.8-10.8)
[2022-12-16 06:35] LABS: Creatinine Clr Calc Pharmacy 121.5; Estimated Glomerular Filt Rate > 60
[2022-12-16 06:38] LABS: Alanine Aminotransferase 7 U/L (0-31); Albumin Level 2.9 g/dL (3.5-5.0); Alkaline Phosphatase 99 U/L (39-117); Anion Gap 12 (12-20); Aspartate Amino Transferase 13 U/L (5-31); Bilirubin Total 0.4 mg/dL (0.0-1.0); Blood Urea Nitrogen 14 mg/dL (9-16); Calcium 8.7 mg/dL (8.4-10.2); Carbon Dioxide 24 mmol/L (22-29); Chloride 109 mmol/L (96-108); Creatinine Clr Calc Pharmacy 124.7; Estimated Glomerular Filt Rate > 60; Glucose Random 134 mg/dL (60-115); Magnesium 2.4 mg/dL (1.6-2.6); Phosphorus 2.7 mg/dL (2.7-4.5); Potassium 3.3 mmol/L (3.3-5.1); Sodium 142 mmol/L (135-145); Total Protein 6.7 g/dL (6.5-8.0)
[2022-12-16 06:39] LABS: Vancomycin Random 16.7 mcg/mL (15-20)
--- NOTE | 2022-12-16 06:44 | HE.PHANOTE ---
Addendum entered by Maya Puckett RPh 12/17/22 07:15: Trough missed, next pull 12/17 @1800 Original Note: RE: VANCO Patients level came back this am at 16.7. [employer] predicted a lower trough, patient running slightly higher than prediction. However, patient has respiratory infection and would benefit from a trough/ AUC in the upper limit. Will continue this dose of 1500 mg Q12H x 2 more doses to see where AUC and trough land. Next level 12/17 @0600. Predicted AUC 538
[2022-12-16 06:54] LABS: Venous Blood Gas Refer to POC result
[2022-12-16] MEDS: Albumin Human 25 % 100 ML IV ×3 (07:45→19:33)
[2022-12-16] MEDS: methylPREDNISolone Sod Succ 40 MG/ML VIAL IVPUSH (07:45)
[2022-12-16] MEDS: vancomycin HCL 1,500 MG in 0.9 % Sodium Chloride 500 ML 333.33 MG IV ×2 (07:45→19:29)
[2022-12-16] MEDS: Potassium Chloride Packet 20 MEQ PACKET 40 MEQ PO (07:46)
[2022-12-16] MEDS: Morphine Sulfate 2 MG/ML CARTRIDGE 1 MG IVPUSH ×3 (10:12→22:15)
--- NOTE | 2022-12-16 10:32 | MHC.CM.PN ---
Pt continues care in ICU on high flow O2 for post covid PNA. D/C planning ongoing but likely a return to home without service needs.
[2022-12-16] MEDS: LORazepam 2 MG/ML VIAL 0.5 MG IVPUSH ×2 (11:42→19:39)
--- NOTE | 2022-12-16 12:20 | PM.CCPN ---
Subjective Subjective Date of Service: 12/16/22 Interval History: 32-year-old lady with underlying history of multiple sclerosis iliac disease, though for GI does, recent COVID-19 infection, positive on 11/24/2022, requiring brief admission to [facility] on 12/03/2022 through 12/06/2022, readmitted on 12/13/2022 with worsening dyspnea and hypoxia. Requiring high-flow nasal cannula/BiPAP support. CT chest demonstrating bilateral ARDS. Elevated BNP. Patient started on empiric antibiotics and diuretic and admitted to the intensive care unit. No events overnight. Critical Care Time (minutes): 30 Physical Exam Vital Signs: Vital Signs: Last Vital Signs Temp 98.8 F 12/16/22 12:00 Pulse 116 H 12/16/22 12:00 Resp 32 H 12/16/22 12:00 BP 124/82 12/16/22 12:00 Pulse Ox 90 L 12/16/22 12:00 O2 Del Method BiPAP 12/16/22 12:00 O2 Flow Rate 50 12/16/22 10:59 FiO2 50 12/16/22 12:00 BMI result Body Mass Index 30.5 Const: General: no acute distress, alert and awake Eyes: Sclerae: sclerae normal EOM: EOMs intact bilaterally Neck: Neck: Yes no lymphadenopathy, Yes trachea midline and Yes supple Resp: Effort & Inspection: normal respiratory effort and no respiratory distress Auscultation: crackles (Bilateral) Cardio: Rate: tachycardic Rhythm: regular rhythm Heart sounds: no gallops, no murmurs and no rubs GI: Palpation (GI): Soft to palpation and Other GI palpation findings present ( Nontender) Auscultation: normal bowel sounds Extrem: General: Yes no pedal edema, No clubbing and No cyanosis Objective Data Labs 12/16/22 06:05 12/16/22 06:05 Labs: Laboratory Results - last 24 hr 12/16/22 12/16/22 12/16/22 06:05 06:05 06:05 WBC 6.8 RBC 2.78 L Hgb 8.8 L Hct 27.1 L MCV 97.5 MCH 31.7 MCHC 32.5 RDW 14.6 Plt Count 309 MPV 9.6 Immature Gran % (Auto) 0.6 H Neut % (Auto) 87.1 H Lymph % (Auto) 8.8 L [place] % (Auto) 3.4 Eos % (Auto) 0.1 Baso % (Auto) 0.0 Lymph # (Auto) 0.6 L [place] # (Auto) 0.2 Eos # (Auto) 0.0 Baso # (Auto) 0.0 Abs Immat Gran (auto) 0.04 H Absolute Neuts (auto) 6.0 Absolute Nucleated RBC 0.000 Nucleated RBC % (auto) 0.0 VBG pH VBG pCO2 VBG pO2 VBG HCO3 VBG O2 Saturation VBG Base Excess Sodium 142 Potassium 3.3 Chloride 109 H Carbon Dioxide 24 Anion Gap 12 BUN 14 Creatinine 0.75 0.77 Estim Creat Clear Calc 124.7 121.5 Estimated GFR > 60 Random Glucose Calcium Phosphorus Magnesium Total Bilirubin AST ALT Alkaline Phosphatase Total Protein Albumin Random Vancomycin 12/16/22 12/16/22 06:05 06:07 WBC RBC Hgb Hct MCV MCH MCHC RDW Plt Count MPV Immature Gran % (Auto) Neut % (Auto) Lymph % (Auto) [place] % (Auto) Eos % (Auto) Baso % (Auto) Lymph # (Auto) [place] # (Auto) Eos # (Auto) Baso # (Auto) Abs Immat Gran (auto) Absolute Neuts (auto) Absolute Nucleated RBC Nucleated RBC % (auto) VBG pH 7.48 H VBG pCO2 33 VBG pO2 96 VBG HCO3 25 VBG O2 Saturation 99.0 VBG Base Excess 2.3 Sodium Potassium Chloride Carbon Dioxide Anion Gap BUN Creatinine Estim Creat Clear Calc Estimated GFR > 60 Random Glucose 134 H Calcium 8.7 Phosphorus 2.7 Magnesium 2.4 Total Bilirubin 0.4 AST 13 ALT 7 Alkaline Phosphatase 99 Total Protein 6.7 Albumin 2.9 L Random Vancomycin 16.7 Microbiology Microbiology Results: Microbiology 12/13/22 14:58 Blood - Venous Blood Culture - Preliminary No growth after 48 hours. 12/13/22 14:47 Blood - Venous Blood Culture - Preliminary No growth after 48 hours. Progress Note: A&P Assessment and plan (1) Acute respiratory failure with hypoxia: Status: Acute (2) ARDS (adult respiratory distress syndrome): Status: Acute (3) Pulmonary edema: Status: Acute Plan Assessment: 32-year-old lady admitted with acute hypoxic respiratory failure on the background of recent COVID-19 infection and possible superinfection with bacterial pneumonia, now requiring noninvasive positive pressure ventilatory support Plan: Neuro: No acute issues. Cardiac: No acute issues. Pulmonary edema resolved with diuretic. 2D echocardiogram is essentially normal. Pulmonary: Acute respiratory failure with hypoxia, ARDS like picture, unclear if from COVID or bacterial superinfection. Continue to titrate off supplemental oxygen as tolerated. Renal: No acute issues. Endo: No acute issues. GI: No acute issues. ID: Empirically covered with broad-spectrum antibiotics. Cultures are negative to date. Heme/Onc: No acute issues. Psych: No acute issues. Miscellaneous: No acute issues. Prophylaxis: Heparin Diet: regular Critical care time spent: 30 minutes Quality Stroke Does the patient have a stroke diagnosis?: No VTE Prior VTE?: No VTE Risk Level:: Medical - moderate - high VTE Device Contraindication: Treatment Not Indicated VTE Drug Contraindication: N/A - Med Ordered
[2022-12-16] MEDS: Furosemide 40 MG/4 ML VIAL IVPUSH (12:31)
[2022-12-16] MEDS: Potassium Chloride Packet 20 MEQ PACKET 60 MEQ PO (12:31)
[2022-12-17] VITALS (32 sets, daily range): BP systolic 103–140; BP diastolic 51–97; PULSE 95–137; RESP 21–42; TEMP 36.1–40.1; O2SAT 88–100; BMI 30.9
[2022-12-17] MEDS: LORazepam 2 MG/ML VIAL 0.5 MG IVPUSH ×3 (02:12→20:03)
[2022-12-17] MEDS: Heparin Sodium,Porcine 5,000 UNIT/ML VIAL 5000 UNIT SUBCUT ×3 (02:15→17:47)
[2022-12-17] MEDS: Albumin Human 25 % 100 ML IV (02:15)
[2022-12-17] MEDS: Acetaminophen 1,000 MG/100 ML PIGGYBACK 400 MG IV ×2 (02:47→21:47)
[2022-12-17 04:59] LABS: VBG Base Excess 3.4 mmol/L; VBG HCO3 26 mmol/L (22-26); VBG pCO2 33 mmHg; VBG pO2 87 mmHg
[2022-12-17 05:00] LABS: Venous Blood Gas Refer to POC result
[2022-12-17 05:08] LABS: MANUAL DIFF FLAG NO
[2022-12-17 05:12] LABS: Basophils Percent Auto 0.1 % (0-2); Eosinophils Absolute Auto 0.2 X10*3/uL (0.0-0.4); Eosinophils Percent Auto 2.2 % (0-4); Hematocrit 25.5 % (37.0-47.0); Hemoglobin 8.3 g/dl (12.0-16.0); Imm Gran Abs Auto 0.07 X10*3/uL (0.00-0.03); Imm Gran Pct Auto 0.8 % (0.0-0.4); Lymphocytes Absolute Auto 0.8 X10*3/uL (1.2-4.9); Lymphocytes Percent Auto 8.5 % (20-40); Mean Corpuscular HGB Conc 32.5 g/dl (31.0-35.0); Mean Corpuscular Hemoglobin 31.7 pg (27.0-33.0); Mean Corpuscular Volume 97.3 fL (80.0-98.0); Mean Platelet Volume 9.6 fL (9.4-12.3); Monocytes Absolute Auto 0.2 X10*3/uL (0.1-1.2); Monocytes Percent Auto 1.9 % (2-11); Neutrophils Absolute Auto 7.7 x10*3/uL (2.0-8.3); Neutrophils Percent Auto 86.5 % (45-73); Platelet Count 302 X10*3/uL (160-400); Red Blood Count 2.62 X10*6/uL (4.20-5.50); Red Cell Distribution Width 14.7 % (11.0-16.0); White Blood Count 8.9 X10*3/uL (4.8-10.8)
[2022-12-17] MEDS: Piperacillin Sodium/Tazobactam 4.5 GM in 0.9 % Sodium Chloride 100 ML IV ×3 (05:31→17:48)
[2022-12-17 05:32] LABS: Albumin Level 4.1 g/dL (3.5-5.0); Anion Gap 14 (12-20); Blood Urea Nitrogen 12 mg/dL (9-16); Calcium 8.9 mg/dL (8.4-10.2); Carbon Dioxide 25 mmol/L (22-29); Chloride 103 mmol/L (96-108); Creatinine Clr Calc Pharmacy 98.4; Estimated Glomerular Filt Rate > 60; Glucose Random 99 mg/dL (60-115); Magnesium 1.8 mg/dL (1.6-2.6); Phosphorus 1.5 mg/dL (2.7-4.5); Potassium 2.6 mmol/L (3.3-5.1); Sodium 139 mmol/L (135-145)
[2022-12-17] MEDS: Potassium Chloride Packet 20 MEQ PACKET 40 MEQ PO (05:51)
[2022-12-17] MEDS: Potassium Phosphate/NS 15 MMOL/250 ML PLAST..BAG 62.5 MMOL IV ×2 (05:52→10:30)
[2022-12-17] MEDS: methylPREDNISolone Sod Succ 40 MG/ML VIAL IVPUSH (08:22)
[2022-12-17] MEDS: Morphine Sulfate 2 MG/ML CARTRIDGE 1 MG IVPUSH ×3 (08:27→21:40)
[2022-12-17 09:06] LABS: Vancomycin Random 20.2 mcg/mL (15-20)
--- NOTE | 2022-12-17 09:28 | HE.PHANOTE ---
RE: SHIRLEY Patients level came back this morning at 20.2. Will decrease patients dose to 1250 mg Q12H and get a level after two doses. Dosing interval was also pushed back by two hours. Predicted AUC 560.
[2022-12-17] MEDS: Acetaminophen 325 MG TABLET 975 MG PO (10:08)
[2022-12-17] MEDS: vancomycin HCL 1,250 MG in 0.9 % Sodium Chloride 250 ML 166.67 MG IV ×2 (10:13→22:07)
--- NOTE | 2022-12-17 11:28 | P.PNCC_ITS ---
Subjective Subjective Date of Service: 12/17/22 Interval History: 32-year-old lady with underlying history of multiple sclerosis iliac disease, though for GI does, recent COVID-19 infection, positive on 11/24/2022, requiring brief admission to [facility] on 12/03/2022 through 12/06/2022, readmitted on 12/13/2022 with worsening dyspnea and hypoxia. Requiring high- flow nasal cannula/BiPAP support. CT chest demonstrating bilateral ARDS. Elevated BNP. Patient started on empiric antibiotics and diuretic and admitted to the intensive care unit. With significant FiO2 requirements high-flow during the day with BiPAP at night. No events overnight. febrile this a.m. blood cultures repeated. Critical Care Time (minutes): 30 Physical Exam 2 Vital Signs: Vital Signs: Last Vital Signs Temp 102.0 F H 12/17/22 11:00 Pulse 123 H 12/17/22 11:00 Resp 39 H 12/17/22 11:00 BP 140/79 H 12/17/22 11:00 Pulse Ox 96 12/17/22 11:00 O2 Del Method High Flow Nasal C annula 12/17/22 11:00 O2 Flow Rate 50 12/17/22 11:00 FiO2 80 12/17/22 11:00 BMI result Body Mass Index 30.9 Const: General: no acute distress, alert and awake Eyes: Sclerae: sclerae normal EOM: EOMs intact bilaterally Neck: Neck: Yes no lymphadenopathy, Yes trachea midline and Yes supple Resp: Effort & Inspection: normal respiratory effort and no respiratory distress Auscultation: crackles ( Bilateral) Cardio: Rate: tachycardic Rhythm: regular rhythm Heart sounds: no gallops, no murmurs and no rubs GI: Palpation (GI): Soft to palpation and Other GI palpation findings present ( Nontender) Auscultation: normal bowel sounds Extrem: General: Yes no pedal edema, No clubbing and No cyanosis Objective Data Labs 12/17/22 04:48 12/17/22 04:48 Labs: Laboratory Results - last 24 hr 12/17/22 12/17/22 12/17/22 04:48 04:54 08:11 WBC 8.9 RBC 2.62 L Hgb 8.3 L Hct 25.5 L MCV 97.3 MCH 31.7 MCHC 32.5 RDW 14.7 Plt Count 302 MPV 9.6 Immature Gran % (Auto) 0.8 H Neut % (Auto) 86.5 H Lymph % (Auto) 8.5 L [place] % (Auto) 1.9 L Eos % (Auto) 2.2 Baso % (Auto) 0.1 Lymph # (Auto) 0.8 L [place] # (Auto) 0.2 Eos # (Auto) 0.2 Baso # (Auto) 0.0 Abs Immat Gran (auto) 0.07 H Absolute Neuts (auto) 7.7 Absolute Nucleated RBC 0.000 Nucleated RBC % (auto) 0.0 VBG pH 7.50 H VBG pCO2 33 VBG pO2 87 VBG HCO3 26 VBG O2 Saturation 98.0 VBG Base Excess 3.4 Sodium 139 Potassium 2.6 L D Chloride 103 Carbon Dioxide 25 Anion Gap 14 BUN 12 Creatinine 0.95 Estim Creat Clear Calc 98.4 Estimated GFR > 60 Random Glucose 99 Calcium 8.9 Phosphorus 1.5 L Magnesium 1.8 Albumin 4.1 Random Vancomycin 20.2 H Microbiology Microbiology Results: Microbiology 12/13/22 14:58 Blood - Venous Blood Culture - Preliminary No growth after 48 hours. 12/13/22 14:47 Blood - Venous Blood Culture - Preliminary No growth after 48 hours. Progress Note: A&P Assessment and plan (1) Acute respiratory failure with hypoxia: Status: Acute (2) ARDS (adult respiratory distress syndrome): Status: Acute Plan Assessment: 32-year-old lady admitted with acute hypoxic respiratory failure on the background of recent COVID-19 infection and possible superinfection with bacterial pneumonia, now requiring noninvasive positive pressure ventilatory support Plan: Neuro: No acute issues. Cardiac: No acute issues. Pulmonary edema resolved with diuretic. 2D echocardiogram is essentially normal. Pulmonary: Acute respiratory failure with hypoxia, ARDS like picture, unclear if from COVID or bacterial superinfection. Continue to titrate off supplemental oxygen as tolerated. Renal: No acute issues. Endo: No acute issues. GI: No acute issues. ID: Empirically covered with broad-spectrum antibiotics. Cultures are negative to date. Heme/Onc: No acute issues. Psych: No acute issues. Miscellaneous: No acute issues. Prophylaxis: Heparin Diet: regular Critical care time spent: 30 minutes Quality Stroke Does the patient have a stroke diagnosis?: No VTE Prior VTE?: No VTE Risk Level:: Medical - moderate - high VTE Device Contraindication: Treatment Not Indicated VTE Drug Contraindication: N/A - Med Ordered
--- NOTE | 2022-12-17 11:31 | P.CDIM_ITS ---
PROVIDER RESPONSE TEXT: To clarify, the appropriate diagnosis supported by the clinical indicators: Acute QUERY TEXT: PHYSICIAN'S DOCUMENTATION REQUEST Date of Query: 12/17/2022 10:04 AM EDT Patient Name: NEHA FITZPATRICK Admit Date: 12/13/2022 Dear Kristian Montaon, A review of the medical record indicates additional documentation may be needed. Please review below and update the documentation accordingly. Clinical Indicators: Per Critical Care Progress Note 12/15/22: Pulmonary edema resolved with diuretic. 2D echocardiogram is essentially normal. Clarify which of the following accurately represents the acuity of the Pulmonary edema. Possible options might include: Acute Acute on chronic Compensated Chronic stable condition Remission Other (explain)Clinically unable to determine (explain)Thank you, Wendy Curry RN Use of terms such as suspected, likely, concern for, or probable (associated with a specific diagnosi s that is being evaluated, monitored, or treated as if it exists) are acceptable and can be coded in the inpatient se tting, when documented at the time of discharge. Please use your independent medical judgment in providing your response. THIS QUERY IS PART OF THE PERMANENT MEDICAL RECORD
--- NOTE | 2022-12-17 12:17 | MHC.CM.PN ---
Pt continues care in ICU: on high O2 support: still febrile on ATB. MD to consider re culture: No plans for d/c. Original plan for a return to home w/family support - this will be revisited once pt is clinically stable.
[2022-12-18] VITALS (33 sets, daily range): BP systolic 103–140; BP diastolic 51–91; PULSE 80–133; RESP 28–102; TEMP 37–39.4; O2SAT 86–96; BMI 32.2
[2022-12-18] MEDS: LORazepam 2 MG/ML VIAL 0.5 MG IVPUSH ×2 (00:15→23:03)
[2022-12-18] MEDS: Piperacillin Sodium/Tazobactam 4.5 GM in 0.9 % Sodium Chloride 100 ML IV ×4 (00:16→18:09)
[2022-12-18] MEDS: Heparin Sodium,Porcine 5,000 UNIT/ML VIAL 5000 UNIT SUBCUT ×3 (01:48→18:05)
[2022-12-18] MEDS: Morphine Sulfate 2 MG/ML CARTRIDGE 1 MG IVPUSH ×2 (03:42→19:27)
[2022-12-18] MEDS: Acetaminophen 1,000 MG/100 ML PIGGYBACK 400 MG IV (04:12)
[2022-12-18 05:24] LABS: VBG Base Excess 1.4 mmol/L; VBG HCO3 22 mmol/L (22-26); VBG pCO2 26 mmHg; VBG pH 7.54 (7.32-7.43); VBG pO2 88 mmHg
[2022-12-18 05:59] LABS: Basophils Percent Auto 0.2 % (0-2); Eosinophils Absolute Auto 0.1 X10*3/uL (0.0-0.4); Eosinophils Percent Auto 1.6 % (0-4); Hematocrit 26.5 % (37.0-47.0); Hemoglobin 8.4 g/dl (12.0-16.0); Imm Gran Abs Auto 0.08 X10*3/uL (0.00-0.03); Lymphocytes Absolute Auto 0.4 X10*3/uL (1.2-4.9); Mean Corpuscular HGB Conc 31.7 g/dl (31.0-35.0); Mean Corpuscular Hemoglobin 30.8 pg (27.0-33.0); Mean Corpuscular Volume 97.1 fL (80.0-98.0); Mean Platelet Volume 9.9 fL (9.4-12.3); Monocytes Absolute Auto 0.1 X10*3/uL (0.1-1.2); Monocytes Percent Auto 1.2 % (2-11); Neutrophils Absolute Auto 7.5 x10*3/uL (2.0-8.3); Platelet Count 302 X10*3/uL (160-400); Red Blood Count 2.73 X10*6/uL (4.20-5.50); Red Cell Distribution Width 15.1 % (11.0-16.0); SCAN SMEAR FLAG 1; White Blood Count 8.3 X10*3/uL (4.8-10.8)
[2022-12-18 06:01] LABS: MANUAL DIFF FLAG SCAN
[2022-12-18 06:06] LABS: Albumin Level 3.5 g/dL (3.5-5.0); Anion Gap 18 (12-20); Blood Urea Nitrogen 12 mg/dL (9-16); Calcium 8.4 mg/dL (8.4-10.2); Carbon Dioxide 17 mmol/L (22-29); Chloride 103 mmol/L (96-108); Creatinine Clr Calc Pharmacy 72.4; Estimated Glomerular Filt Rate 47; Glucose Random 133 mg/dL (60-115); Magnesium 1.8 mg/dL (1.6-2.6); Phosphorus 2.5 mg/dL (2.7-4.5); Potassium 3.8 mmol/L (3.3-5.1); Sodium 134 mmol/L (135-145)
[2022-12-18 06:14] LABS: Venous Blood Gas Refer to POC result
[2022-12-18 06:25] LABS: SLIDE REVIEW VERIFIED
[2022-12-18] MEDS: Sodium,Potassium Phosphates POWD.PACK 1 PACKET PO (07:35)
[2022-12-18] MEDS: methylPREDNISolone Sod Succ 40 MG/ML VIAL IVPUSH (07:36)
[2022-12-18 08:33] LABS: Creatinine Clr Calc Pharmacy 63.6; Estimated Glomerular Filt Rate 39
[2022-12-18 09:06] LABS: Vancomycin Random 27.6 mcg/mL (15-20)
[2022-12-18 10:20] LABS: Acetaminophen LAB 3 mcg/mL (<30)
[2022-12-18 10:25] LABS: C Reactive Protein 11.49 mg/dL (< or = 0.50)
--- NOTE | 2022-12-18 10:40 | P.PNCC_ITS ---
Subjective Subjective Date of Service: 12/18/22 Interval History: 32-year-old lady with underlying history of multiple sclerosis iliac disease, though for GI does, recent COVID-19 infection, positive on 11/24/2022, requiring brief admission to [facility] on 12/03/2022 through 12/06/2022, readmitted on 12/13/2022 with worsening dyspnea and hypoxia. Requiring high- flow nasal cannula/BiPAP support. CT chest demonstrating bilateral ARDS. Elevated BNP. Patient started on empiric antibiotics and diuretic and admitted to the intensive care unit. With significant FiO2 requirements high-flow during the day with BiPAP at night. No events overnight. Continues with recurrent nocturnal fevers. Critical Care Time (minutes): 30 Physical Exam 2 Vital Signs: Vital Signs: Last Vital Signs Temp 102.0 F H 12/18/22 10:00 Pulse 122 H 12/18/22 10:00 Resp 53 H 12/18/22 10:00 BP 128/85 12/18/22 10:00 Pulse Ox 94 12/18/22 10:00 O2 Del Method High Flow Nasal C annula, Non-Rebrea ther Mask 12/18/22 10:00 O2 Flow Rate 55 12/18/22 10:00 FiO2 85 12/18/22 10:00 BMI result Body Mass Index 32.2 Const: General: no acute distress, alert and awake Eyes: Sclerae: sclerae normal EOM: EOMs intact bilaterally Neck: Neck: Yes no lymphadenopathy, Yes trachea midline and Yes supple Resp: Effort & Inspection: normal respiratory effort and no respiratory distress Auscultation: crackles ( Bilateral) Cardio: Rate: tachycardic Rhythm: regular rhythm Heart sounds: no gallops, no murmurs and no rubs GI: Palpation (GI): Soft to palpation and Other GI palpation findings present ( Nontender) Auscultation: normal bowel sounds Extrem: General: Yes no pedal edema, No clubbing and No cyanosis Objective Data Labs 12/18/22 05:53 12/18/22 08:10 Labs: Laboratory Results - last 24 hr 12/17/22 12/18/22 12/18/22 22:07 05:06 05:18 WBC RBC Hgb Hct MCV MCH MCHC RDW Plt Count MPV Immature Gran % (Auto) Neut % (Auto) Lymph % (Auto) Weber % (Auto) Eos % (Auto) Baso % (Auto) Lymph # (Auto) Weber # (Auto) Eos # (Auto) Baso # (Auto) Abs Immat Gran (auto) Absolute Neuts (auto) Absolute Nucleated RBC Nucleated RBC % (auto) Smear Tech's Comments VBG pH 7.54 H VBG pCO2 26 VBG pO2 88 VBG HCO3 22 VBG O2 Saturation 98.0 VBG Base Excess 1.4 Sodium 134 L Potassium 3.8 D Chloride 103 Carbon Dioxide 17 L Anion Gap 18 BUN 12 Creatinine 1.30 Estim Creat Clear Calc 72.4 Estimated GFR 47 Random Glucose 133 H Lactic Acid 2.0 Calcium 8.4 Phosphorus 2.5 L Magnesium 1.8 C-Reactive Protein Albumin 3.5 Random Vancomycin Acetaminophen 12/18/22 12/18/22 12/18/22 05:53 08:10 09:38 WBC 8.3 RBC 2.73 L Hgb 8.4 L Hct 26.5 L MCV 97.1 MCH 30.8 MCHC 31.7 RDW 15.1 Plt Count 302 MPV 9.9 Immature Gran % (Auto) 1.0 H Neut % (Auto) 91.0 H Lymph % (Auto) 5.0 L Weber % (Auto) 1.2 L Eos % (Auto) 1.6 Baso % (Auto) 0.2 Lymph # (Auto) 0.4 L Weber # (Auto) 0.1 Eos # (Auto) 0.1 Baso # (Auto) 0.0 Abs Immat Gran (auto) 0.08 H Absolute Neuts (auto) 7.5 Absolute Nucleated RBC 0.000 Nucleated RBC % (auto) 0.0 Smear Tech's Comments VERIFIED VBG pH VBG pCO2 VBG pO2 VBG HCO3 VBG O2 Saturation VBG Base Excess Sodium Potassium Chloride Carbon Dioxide Anion Gap BUN Creatinine 1.51 H Estim Creat Clear Calc 63.6 Estimated GFR 39 Random Glucose Lactic Acid Calcium Phosphorus Magnesium C-Reactive Protein 11.49 H Albumin Random Vancomycin 27.6 H* Acetaminophen 3 Microbiology Microbiology Results: Microbiology 12/13/22 14:58 Blood - Venous Blood Culture - Preliminary No growth after 48 hours. 12/13/22 14:47 Blood - Venous Blood Culture - Preliminary No growth after 48 hours. Progress Note: A&P Assessment and plan (1) Acute respiratory failure with hypoxia: Status: Acute (2) ARDS (adult respiratory distress syndrome): Status: Acute Plan Assessment: 32-year-old lady admitted with acute hypoxic respiratory failure on the background of recent COVID-19 infection and possible superinfection with bacterial pneumonia, now requiring noninvasive positive pressure ventilatory support Plan: Neuro: No acute issues. Cardiac: No acute issues. Pulmonary edema resolved with diuretic. 2D echocardiogram is essentially normal. Pulmonary: Acute respiratory failure with hypoxia, ARDS like picture, unclear if from COVID or bacterial superinfection. Continue to titrate off supplemental oxygen as tolerated. Renal: No acute issues. Endo: No acute issues. GI: No acute issues. ID: Empirically covered with broad-spectrum antibiotics. Cultures are negative to date. Rheumatologic workup is pending. Heme/Onc: No acute issues. Psych: No acute issues. Miscellaneous: No acute issues. Prophylaxis: Heparin Diet: regular Critical care time spent: 30 minutes Quality Stroke Does the patient have a stroke diagnosis?: No VTE Prior VTE?: No VTE Risk Level:: Medical - moderate - high VTE Device Contraindication: Treatment Not Indicated VTE Drug Contraindication: N/A - Med Ordered
[2022-12-18 10:41] LABS: Procalcitonin 2.75 ng/mL
[2022-12-18] MEDS: Fluconazole 100 MG TABLET PO (13:34)
[2022-12-18] MEDS: Acetaminophen 325 MG TABLET 975 MG PO (18:05)
[2022-12-18] MEDS: dexmedeTOMIDidine HCL/NS 400 MCG/100 ML INFUS..BTL 24 MCG IVCONT (20:29)
[2022-12-19] VITALS (33 sets, daily range): BP systolic 89–147; BP diastolic 51–84; PULSE 75–108; RESP 18–51; TEMP 36.1–39.7; O2SAT 84–99; BMI 32.5
[2022-12-19] MEDS: dexmedeTOMIDidine HCL/NS 400 MCG/100 ML INFUS..BTL 19.2 MCG IVCONT (00:24)
[2022-12-19] MEDS: Piperacillin Sodium/Tazobactam 4.5 GM in 0.9 % Sodium Chloride 100 ML IV ×5 (00:26→23:46)
[2022-12-19] MEDS: Heparin Sodium,Porcine 5,000 UNIT/ML VIAL 5000 UNIT SUBCUT ×3 (01:07→17:48)
[2022-12-19] MEDS: Acetaminophen 1,000 MG/100 ML PIGGYBACK 400 MG IV (01:07)
[2022-12-19] MEDS: LORazepam 2 MG/ML VIAL 0.5 MG IVPUSH ×2 (01:28→06:35)
[2022-12-19] MEDS: dexmedeTOMIDidine HCL/NS 400 MCG/100 ML INFUS..BTL 24 MCG IVCONT (02:54)
[2022-12-19] MEDS: dexmedeTOMIDidine HCL/NS 400 MCG/100 ML INFUS..BTL 36 MCG IVCONT ×2 (05:40→08:33)
[2022-12-19] MEDS: Morphine Sulfate 2 MG/ML CARTRIDGE 1 MG IVPUSH ×3 (06:04→22:44)
[2022-12-19] MEDS: Acetaminophen 325 MG TABLET 975 MG PO (06:10)
[2022-12-19 07:33] LABS: Baso%MD 0.1 %; Eos%MD 5.6 %; Hematocrit 28.1 % (37.0-47.0); Hemoglobin 9.1 g/dl (12.0-16.0); IG%MD 1.2 %; Lymph%MD 6.9 %; Mean Corpuscular HGB Conc 32.4 g/dl (31.0-35.0); Mean Corpuscular Volume 95.6 fL (80.0-98.0); Mean Platelet Volume 9.7 fL (9.4-12.3); Mono%MD 0.7 %; Neut%MD 85.5 %; Platelet Count 316 X10*3/uL (160-400); Red Blood Count 2.94 X10*6/uL (4.20-5.50); Red Cell Distribution Width 14.9 % (11.0-16.0); White Blood Count 9.3 X10*3/uL (4.8-10.8)
[2022-12-19 07:33] LABS: VBG Base Excess 2.3 mmol/L; VBG HCO3 25 mmol/L (22-26); VBG pCO2 34 mmHg; VBG pH 7.47 (7.32-7.43); VBG pO2 48 mmHg
[2022-12-19 07:54] LABS: Albumin Level 3.4 g/dL (3.5-5.0); Anion Gap 15 (12-20); Blood Urea Nitrogen 17 mg/dL (9-16); Carbon Dioxide 22 mmol/L (22-29); Chloride 103 mmol/L (96-108); Creatinine Clr Calc Pharmacy 51.9; Estimated Glomerular Filt Rate 31; Glucose Random 131 mg/dL (60-115); Magnesium 1.8 mg/dL (1.6-2.6); Phosphorus 2.6 mg/dL (2.7-4.5); Potassium 3.7 mmol/L (3.3-5.1); Sodium 136 mmol/L (135-145)
[2022-12-19] MEDS: Fluconazole 100 MG TABLET PO (07:58)
[2022-12-19] MEDS: methylPREDNISolone Sod Succ 40 MG/ML VIAL IVPUSH (07:58)
[2022-12-19] MEDS: LORazepam 2 MG/ML VIAL 1 MG IVPUSH ×2 (08:01→22:44)
[2022-12-19 08:08] LABS: Vancomycin Random 10.9 mcg/mL (15-20)
[2022-12-19 08:47] LABS: Band Neutrophils Percent 1 % (3-5); Eosinophils Absolute Manual 0.4 X10*3/uL (0.0-0.4); Eosinophils Percent Manual 4 % (0-4); Lymphocytes Absolute Manual 0.4 X10*3/uL (1.2-4.9); Lymphocytes Percent Manual 4 % (20-40); Neutrophils Absolute Manual 8.6 X10*3/uL (2.0-8.3); Neutrophils Percent Manual 91 % (45-73)
[2022-12-19 08:48] LABS: Ovalocytes 1+ (5-14) /OIF; Platelet Estimate NORMAL (NORMAL); Platelet Morphology Comment NORMAL; RBC Morphology NOTED
[2022-12-19] MEDS: Furosemide 40 MG/4 ML VIAL IVPUSH (09:24)
--- NOTE | 2022-12-19 10:15 | PM.CCPN ---
Subjective Subjective Date of Service: 12/19/22 Interval History: 32-year-old lady with underlying history of multiple sclerosis iliac disease, though for GI does, recent COVID-19 infection, positive on 11/24/2022, requiring brief admission to [facility] on 12/03/2022 through 12/06/2022, readmitted on 12/13/2022 with worsening dyspnea and hypoxia. Requiring high-flow nasal cannula/BiPAP support. CT chest demonstrating bilateral ARDS. Elevated BNP. Patient started on empiric antibiotics and diuretic and admitted to the intensive care unit. With significant FiO2 requirements high-flow during the day with BiPAP at night. No events overnight.Requirements remain high. Does have significant anxiety component. Critical Care Time (minutes): 45 Physical Exam Vital Signs: Vital Signs: Last Vital Signs Temp 100.8 F H 12/19/22 10:00 Pulse 92 12/19/22 10:00 Resp 40 H 12/19/22 10:00 BP 104/60 12/19/22 10:00 Pulse Ox 91 L 12/19/22 10:00 O2 Del Method High Flow Nasal C annula, Simple Mas k 12/19/22 10:00 O2 Flow Rate 55 12/19/22 10:00 FiO2 100 12/19/22 10:00 BMI result Body Mass Index 32.5 Const: General: no acute distress, alert and awake Eyes: Sclerae: sclerae normal EOM: EOMs intact bilaterally Neck: Neck: Yes no lymphadenopathy, Yes trachea midline and Yes supple Resp: Effort & Inspection: tachypneic Auscultation: crackles bilateral Cardio: Rate: regular rate Rhythm: regular rhythm Heart sounds: no gallops, no murmurs and no rubs GI: Palpation (GI): Soft to palpation and Other GI palpation findings present ( Nontender) Auscultation: normal bowel sounds Extrem: General: Yes no pedal edema, No clubbing and No cyanosis Objective Data Labs 12/19/22 07:20 12/19/22 07:20 Labs: Laboratory Results - last 24 hr 12/19/22 12/19/22 07:20 07:27 WBC 9.3 RBC 2.94 L Hgb 9.1 L Hct 28.1 L MCV 95.6 MCH 31.0 MCHC 32.4 RDW 14.9 Plt Count 316 MPV 9.7 Absolute Nucleated RBC 0.000 Nucleated RBC % (auto) 0.0 Neutrophils % (Manual) 91 H Band Neutrophils % 1 L Lymphocytes % (Manual) 4 L Eosinophils % (Manual) 4 Abs Neuts (Manual) 8.6 H Lymphocytes # (Manual) 0.4 L Eosinophils # (Manual) 0.4 Platelet Estimate NORMAL Plt Morphology Comment NORMAL RBC Morphology NOTED Ovalocytes 1+ (5-14) VBG pH 7.47 H VBG pCO2 34 VBG pO2 48 VBG HCO3 25 VBG O2 Saturation 77.0 VBG Base Excess 2.3 Sodium 136 Potassium 3.7 Chloride 103 Carbon Dioxide 22 Anion Gap 15 BUN 17 H Creatinine 1.86 H Estim Creat Clear Calc 51.9 Estimated GFR 31 Random Glucose 131 H Calcium 9.0 D Phosphorus 2.6 L Magnesium 1.8 Albumin 3.4 L Random Vancomycin 10.9 L Microbiology Microbiology Results: Microbiology 12/17/22 22:07 Blood - Venous Blood Culture - Preliminary No growth after 24 hours. 12/17/22 22:07 Blood - Venous Blood Culture - Preliminary No growth after 24 hours. 12/13/22 14:58 Blood - Venous Blood Culture - Final No growth after 5 days. 12/13/22 14:47 Blood - Venous Blood Culture - Final No growth after 5 days. 12/17/22 10:00 Blood - Venous Blood Culture - Preliminary No growth after 24 hours. 12/17/22 10:00 Blood - Venous Blood Culture - Preliminary No growth after 24 hours. Progress Note: A&P Assessment and plan (1) Acute respiratory failure with hypoxia: Status: Acute (2) Acute kidney injury: Status: Acute (3) ARDS (adult respiratory distress syndrome): Status: Acute Plan Assessment: 32-year-old lady admitted with acute hypoxic respiratory failure on the background of recent COVID-19 infection and possible superinfection with bacterial pneumonia, now requiring noninvasive positive pressure ventilatory support Plan: Neuro: No acute issues. Cardiac: No acute issues. Pulmonary edema resolved with diuretic. 2D echocardiogram is essentially normal. Pulmonary: Acute respiratory failure with hypoxia, ARDS like picture, unclear if from COVID or bacterial superinfection. Continue to titrate off supplemental oxygen as tolerated. Renal: acute kidney injury, non oliguric. Continue to monitor renal indices and urine output. Nephrology evaluation requested. Endo: No acute issues. GI: No acute issues. ID: Empirically covered with broad-spectrum antibiotics. Cultures are negative to date. Rheumatologic workup is pending. Heme/Onc: No acute issues. Psych: No acute issues. Miscellaneous: No acute issues. Prophylaxis: Heparin Diet: regular Critical care time spent: 30 minutes Quality Stroke Does the patient have a stroke diagnosis?: No VTE Prior VTE?: No VTE Risk Level:: Medical - moderate - high VTE Device Contraindication: Treatment Not Indicated VTE Drug Contraindication: N/A - Med Ordered
--- NOTE | 2022-12-19 11:25 | PM.EVENT ---
Event Note Date of Service: 12/19/22 Event Note: Events noted Chart reveiwed 32 yr old woman with MS, recent COVID-19 , Pneumonia with baseline normal renal function with a creatinine of 0.8 has sustained SOFIYA Vanco level was elevated at 27. IV contrast on 12/13 but creatinine has been stable until 12/17/22 making BRUNO less likely Urine on 12/13 was reported bland with a high SG -suggestive of volume depletion Suggest Repeat UA Urine Pro: cr Avoid nephrotoxins including Vanco Continue to avoid hypotension Watch Urine output and Keep I > O No indication for dialysis Full consult to follow Thank you Available by Alexys Time Spent With Patient Time: Total time managing care of this patient today ____ minutes.
[2022-12-19] MEDS: methylPREDNISolone Sod Succ 125 MG/2 ML VIAL 250 MG IVPUSH ×3 (11:43→22:26)
[2022-12-19 12:51] LABS: Appearance Urine Clear; Color Urine Yellow; Glucose Urine UA Negative (Negative); Leukocyte Esterase Urine Negative (Negative); Nitrite Urine Negative (Negative); PH 5.5 (5.0-9.0); Specific Gravity - Urine 1.015 (1.005-1.025); UMIC TRIGGER UA YES; Urine Blood Trace (Negative); Urine Ketones Negative (Negative); Urine Protein 30 (1+) mg/dL (Neg-Trace)
[2022-12-19 13:09] LABS: Bacteria Urine None Seen (None Seen); Squamous Epithelial Cell Urine 0-2 /HPF (0-2); WBC Urine 0-5 /HPF (0-5)
[2022-12-19 13:22] LABS: Venous Blood Gas Refer to POC result
[2022-12-19 22:01] LABS: Total Protein Urine Random 41 mg/dL (<12)
[2022-12-19] MEDS: OLANZapine 2.5 MG TABLET PO (22:45)
[2022-12-20] VITALS (31 sets, daily range): BP systolic 121–146; BP diastolic 60–98; PULSE 90–120; RESP 25–48; TEMP 36.4–37.2; O2SAT 86–97; BMI 31.9
[2022-12-20] MEDS: OLANZapine 2.5 MG TABLET PO (00:10)
[2022-12-20] MEDS: Heparin Sodium,Porcine 5,000 UNIT/ML VIAL 5000 UNIT SUBCUT ×3 (02:11→16:49)
[2022-12-20 04:48] LABS: VBG Base Excess 1.4 mmol/L; VBG HCO3 24 mmol/L (22-26); VBG pCO2 34 mmHg; VBG pH 7.46 (7.32-7.43); VBG pO2 74 mmHg
[2022-12-20 04:54] LABS: Venous Blood Gas Refer to POC result
[2022-12-20 04:55] LABS: Basophils Percent Auto 0.1 % (0-2); Eosinophils Percent Auto 0.1 % (0-4); Hematocrit 27.3 % (37.0-47.0); Hemoglobin 8.8 g/dl (12.0-16.0); Imm Gran Abs Auto 0.19 X10*3/uL (0.00-0.03); Imm Gran Pct Auto 1.3 % (0.0-0.4); Lymphocytes Absolute Auto 0.7 X10*3/uL (1.2-4.9); Lymphocytes Percent Auto 4.7 % (20-40); MANUAL DIFF FLAG SCAN; Mean Corpuscular HGB Conc 32.2 g/dl (31.0-35.0); Mean Corpuscular Hemoglobin 30.3 pg (27.0-33.0); Mean Corpuscular Volume 94.1 fL (80.0-98.0); Mean Platelet Volume 9.9 fL (9.4-12.3); Monocytes Absolute Auto 0.2 X10*3/uL (0.1-1.2); Monocytes Percent Auto 1.3 % (2-11); Neutrophils Absolute Auto 13.5 x10*3/uL (2.0-8.3); Neutrophils Percent Auto 92.5 % (45-73); Platelet Count 334 X10*3/uL (160-400); Red Cell Distribution Width 14.6 % (11.0-16.0); SCAN SMEAR FLAG 1; White Blood Count 14.6 X10*3/uL (4.8-10.8)
[2022-12-20] MEDS: Piperacillin Sodium/Tazobactam 4.5 GM in 0.9 % Sodium Chloride 100 ML IV ×4 (05:03→23:00)
[2022-12-20] MEDS: methylPREDNISolone Sod Succ 125 MG/2 ML VIAL 250 MG IVPUSH ×4 (05:04→22:06)
[2022-12-20] MEDS: Morphine Sulfate 2 MG/ML CARTRIDGE 1 MG IVPUSH ×4 (05:10→22:55)
[2022-12-20 05:11] LABS: Albumin Level 3.5 g/dL (3.5-5.0); Anion Gap 15 (12-20); Blood Urea Nitrogen 22 mg/dL (9-16); Calcium 9.4 mg/dL (8.4-10.2); Carbon Dioxide 23 mmol/L (22-29); Chloride 103 mmol/L (96-108); Creatinine Clr Calc Pharmacy 51.9; Estimated Glomerular Filt Rate 31; Glucose Random 162 mg/dL (60-115); Phosphorus 4.6 mg/dL (2.7-4.5); Potassium 3.4 mmol/L (3.3-5.1); Sodium 138 mmol/L (135-145)
[2022-12-20 05:48] LABS: SLIDE REVIEW VERIFIED
--- NOTE | 2022-12-20 07:20 | PM.CCPN ---
Subjective Subjective Date of Service: 12/20/22 Critical Care Time (minutes): 90 Physical Exam Vital Signs: Vital Signs: Last Vital Signs Temp 98.6 F 12/20/22 07:00 Pulse 96 12/20/22 07:00 Resp 27 H 12/20/22 07:00 BP 121/78 12/20/22 07:00 Pulse Ox 95 12/20/22 07:00 O2 Del Method High Flow Nasal C annula, Simple Mas k 12/20/22 07:00 O2 Flow Rate 55 12/20/22 07:00 FiO2 90 12/20/22 07:00 BMI result Body Mass Index 31.9 Objective Data Labs 12/20/22 04:39 12/20/22 04:39 Labs: Laboratory Results - last 24 hr 12/19/22 12/19/22 12/19/22 07:20 07:27 12:42 WBC 9.3 RBC 2.94 L Hgb 9.1 L Hct 28.1 L MCV 95.6 MCH 31.0 MCHC 32.4 RDW 14.9 Plt Count 316 MPV 9.7 Immature Gran % (Auto) Neut % (Auto) Lymph % (Auto) Holmes % (Auto) Eos % (Auto) Baso % (Auto) Lymph # (Auto) Holmes # (Auto) Eos # (Auto) Baso # (Auto) Abs Immat Gran (auto) Absolute Neuts (auto) Absolute Nucleated RBC 0.000 Nucleated RBC % (auto) 0.0 Neutrophils % (Manual) 91 H Band Neutrophils % 1 L Lymphocytes % (Manual) 4 L Eosinophils % (Manual) 4 Abs Neuts (Manual) 8.6 H Lymphocytes # (Manual) 0.4 L Eosinophils # (Manual) 0.4 Platelet Estimate NORMAL Plt Morphology Comment NORMAL RBC Morphology NOTED Ovalocytes 1+ (5-14) Smear Tech's Comments VBG pH 7.47 H VBG pCO2 34 VBG pO2 48 VBG HCO3 25 VBG O2 Saturation 77.0 VBG Base Excess 2.3 Sodium 136 Potassium 3.7 Chloride 103 Carbon Dioxide 22 Anion Gap 15 BUN 17 H Creatinine 1.86 H Estim Creat Clear Calc 51.9 Estimated GFR 31 Random Glucose 131 H Calcium 9.0 D Phosphorus 2.6 L Magnesium 1.8 Albumin 3.4 L Urine Color Yellow Urine Appearance Clear Urine pH 5.5 Ur Specific [place] 1.015 Urine Protein 30 (1+) H Urine Glucose (UA) Negative Urine Ketones Negative Urine Blood Trace H Urine Nitrite Negative Ur Leukocyte Esterase Negative Urine RBC 6-10 H Urine WBC 0-5 Ur Squamous Epith Cells 0-2 Urine Bacteria None Seen Hyaline Casts 3-5 U Random Total Protein 41 H Ur Random Sodium 72.0 Urine Creatinine 48.40 Random Vancomycin 10.9 L 12/20/22 12/20/22 04:39 04:42 WBC 14.6 H RBC 2.90 L Hgb 8.8 L Hct 27.3 L MCV 94.1 MCH 30.3 MCHC 32.2 RDW 14.6 Plt Count 334 MPV 9.9 Immature Gran % (Auto) 1.3 H Neut % (Auto) 92.5 H Lymph % (Auto) 4.7 L Holmes % (Auto) 1.3 L Eos % (Auto) 0.1 Baso % (Auto) 0.1 Lymph # (Auto) 0.7 L Holmes # (Auto) 0.2 Eos # (Auto) 0.0 Baso # (Auto) 0.0 Abs Immat Gran (auto) 0.19 H Absolute Neuts (auto) 13.5 H Absolute Nucleated RBC 0.000 Nucleated RBC % (auto) 0.0 Neutrophils % (Manual) Band Neutrophils % Lymphocytes % (Manual) Eosinophils % (Manual) Abs Neuts (Manual) Lymphocytes # (Manual) Eosinophils # (Manual) Platelet Estimate Plt Morphology Comment RBC Morphology Ovalocytes Smear Tech's Comments VERIFIED VBG pH 7.46 H VBG pCO2 34 VBG pO2 74 VBG HCO3 24 VBG O2 Saturation 94.0 VBG Base Excess 1.4 Sodium 138 Potassium 3.4 Chloride 103 Carbon Dioxide 23 Anion Gap 15 BUN 22 H Creatinine 1.86 H Estim Creat Clear Calc 51.9 Estimated GFR 31 Random Glucose 162 H Calcium 9.4 Phosphorus 4.6 H Magnesium 2.0 Albumin 3.5 Urine Color Urine Appearance Urine pH Ur Specific [place] Urine Protein Urine Glucose (UA) Urine Ketones Urine Blood Urine Nitrite Ur Leukocyte Esterase Urine RBC Urine WBC Ur Squamous Epith Cells Urine Bacteria Hyaline Casts U Random Total Protein Ur Random Sodium Urine Creatinine Random Vancomycin Microbiology Microbiology Results: Microbiology 12/17/22 22:07 Blood - Venous Blood Culture - Preliminary No growth after 48 hours. 12/17/22 22:07 Blood - Venous Blood Culture - Preliminary No growth after 48 hours. 12/17/22 10:00 Blood - Venous Blood Culture - Preliminary No growth after 48 hours. 12/17/22 10:00 Blood - Venous Blood Culture - Preliminary No growth after 48 hours. 12/13/22 14:58 Blood - Venous Blood Culture - Final No growth after 5 days. 12/13/22 14:47 Blood - Venous Blood Culture - Final No growth after 5 days. Progress Note: A&P Assessment and plan (1) Acute respiratory failure with hypoxia: Status: Acute Plan Patient is a 32 Y F with multiple sclerosis, recent COVID-19 infection on 11/24/2022, necessitating admission , readmitted 12/13 d/t worsening pneumonia; hospital course c/b ARDS, c/f superimposed bacterial infection, on HFNC AM, BiPAP PM N: no acute issues CV: no acute issues R: COVID pneumonia, c/b superimposed bacterial infection, ARDS; also c/f rheumatological etiolog of respiratory failure; on HFNC AM, BiPAP PM; wean as tolerated GI: no acute issues; diet as tolerated : non-oligouric SOFIYA; appreciate nephrology recommendations H: no acute issues ID: COVID pneumonia, c/b superimposed bacterial infection; on empiric vancomycin, zosyn P: anxiety; previously on dexmedetomidine gtt; resolved Quality Stroke Does the patient have a stroke diagnosis?: No VTE Prior VTE?: No VTE Risk Level:: Medical - moderate - high VTE Device Contraindication: Treatment Not Indicated VTE Drug Contraindication: N/A - Med Ordered
[2022-12-20] MEDS: LORazepam 2 MG/ML VIAL 1 MG IVPUSH ×4 (08:26→22:55)
[2022-12-20] MEDS: Fluconazole 100 MG TABLET PO (08:26)
[2022-12-20 09:19] LABS: Procalcitonin 5.77 ng/mL
--- NOTE | 2022-12-20 18:41 | P.CONNP_ITS ---
History of Present Illness Reason for Consult Consult date: 12/20/22 Reason for consult: SOFIYA Chief Complaint Chief complaint: Acute hypoxic respiratory failure History of Present Illness Narrative: 32-year-old female with history of multiple sclerosis and recent COVID-19 positive infection 11/24/22?. She recently had admission to hospital medicine? for acute respiratory further from multifocal pneumonia related to COVID-19 infection from 12/03/2022-12/06/22?. She presented to hospital again with worsening shortness of breath. In the emergency room,? patient was tachycardic to 150s,? hypoxic requiring high flow,? tachypnea to 30s? and hypotensive.. She was not known to have renal dysfunction. During the course of hospital stay, currently in ICU, she developed SOFIYA. Nephrology has been consulted to assist in her clinical care during her current hospital stay.? Review of Systems Review of Systems Yes all other systems are reviewed and are negative PMFSH Past Medical History Medical History Vasovagal syncope Esophagitis Celiac disease Tachycardia Multiple sclerosis Social History Social History Household Members: Children Household Members Other:: son Housing: Apartment Do you presently have visiting nurse or other home services: No Alcohol intake: never Patient Tobacco Use Status: Former Tobacco user Quit Date: 11/24/2022 Smoked in Last 30 Days: No e-Cigarette/Vaping Use: Former Use Second Hand Smoke Exposure: No Use of substances other than those prescribed or required for medical reasons: No Substance Use Type: Marijuana Currently Displaying Signs/Symptoms of Drug Intoxication Withdrawal: No Have you been hit, kicked, punched, or otherwise hurt by someone within the past year? If so, by whom?: No Do you feel safe in your current relationship?: No Current Relationship Is there a partner from a previous relationship who is making you feel unsafe now?: No Are you made to feel afraid or neglected: No Advance Directives: No Do you have thoughts of harming others: None Do you have a plan to hurt others: No Plan Recently lost weight without trying: Yes How much weight loss: 2-13 pounds Eating poorly because of decreased appetite: Yes Nutrition screen score: 4 Nutrition Risks: No Nutritional Risk Patient : No : No Poor oral hygiene: No service: No Meds Allergies Allergy/AdvReac Type Severity Reaction Status Date / Time gluten Allergy Unknown Verified 12/03/22 12:50 Sulfa (Sulfonamide Allergy Unknown Verified 12/03/22 12:50 Antibiotics) Steroids AdvReac Severe Other Uncoded 12/03/22 14:08 Active Medications: Current Medications Acetaminophen (Acetaminophen 325 Mg Tablet) 975 mg PO Q6H PRN PRN Reason: fever >103F Last Admin: 12/19/22 06:10 Dose: 975 mg Baclofen (Baclofen 10 Mg Tablet) 10 mg PO TID PRN PRN Reason: muscle spasm Last Admin: 12/15/22 20:34 Dose: 10 mg Heparin Sodium (Porcine) (Heparin Sodium,Porcine 5,000 Unit/Ml Vial) 5,000 unit SUBCUT Q8H [facility] Last Admin: 12/20/22 16:49 Dose: 5,000 unit Piperacillin Sod/Tazobactam (Sod 4.5 gm/ Sodium Chloride) 100 mls @ 200 mls/hr IV Q6H [facility] Last Infusion: 12/20/22 17:37 Dose: Infused Lorazepam (Lorazepam 2 Mg/Ml Vial) 1 mg IVPUSH TID PRN PRN Reason: Anxiety Last Admin: 12/20/22 18:28 Dose: 1 mg Methylprednisolone Sodium Succinate (Methylprednisolone Sod Succ 125 Mg/2 Ml Vial) 250 mg IVPUSH Q6H [facility] Stop: 12/22/22 10:59 Last Admin: 12/20/22 16:49 Dose: 250 mg Morphine Sulfate (Morphine Sulfate 2 Mg/Ml Cartridge) 1 mg IVPUSH Q6H PRN; Protocol PRN Reason: Pain, Severe (Pain Scale 7-10) Last Admin: 12/20/22 17:14 Dose: 1 mg Olanzapine (Olanzapine 2.5 Mg Tablet) 2.5 mg PO BEDTIME [facility] Home Medications Medication Instructions Recorded Confirmed Last Taken Type baclofen 10 mg tablet 10 mg PO TID PRN Spasms 12/03/22 12/13/22 12/03/22 History buspirone 10 mg tablet 10 mg PO BID 12/03/22 12/13/22 12/13/22 History duloxetine 60 mg capsule,delayed 60 mg PO BID 12/03/22 12/13/22 12/13/22 History release metoprolol succinate 50 mg 50 mg PO DAILY 12/03/22 12/13/22 12/13/22 History tablet,extended release 24 hr mirtazapine 30 mg tablet 30 mg PO DAILY 12/03/22 12/13/22 12/13/22 History pantoprazole 40 mg tablet,delayed 40 mg PO DAILY 12/03/22 12/13/22 12/13/22 History release lisdexamfetamine 50 mg capsule 50 mg PO DAILY 12/13/22 12/13/22 Unknown History (Raul) Physical Exam Vital Signs: Last Vital Signs Temp 97.5 F 12/20/22 12:00 Pulse 36 L 12/20/22 18:00 Resp 39 H 12/20/22 18:00 BP 134/76 12/20/22 18:00 Pulse Ox 92 12/20/22 18:00 O2 Del Method High Flow Nasal Cannula 12/20/22 18:00 O2 Flow Rate 45 12/20/22 18:00 FiO2 80 12/20/22 18:00 BMI result Body Mass Index 31.9 Const General: no acute distress Orientation/consciousness: patient oriented x3 HEENT Head: Yes normocephalic Mouth: moist mucous membranes Eyes EOM: EOMs intact bilaterally Neck Neck: Yes supple Resp Auscultation: diminished lung sounds Cardio Jugular venous distension: no JVD Rate: regular rate GI Palpation (GI): Soft to palpation Skin General skin exam: no rashes or lesions noted Neuro General: patient oriented x3 and moves all extremities Extrem General: Yes no pedal edema Results Lab Results 12/20/22 04:39 12/20/22 04:39 Lab results: Chemistry 12/18/22 12/18/22 12/19/22 05:06 08:10 07:20 Sodium 134 L 136 Potassium 3.8 D 3.7 Carbon Dioxide 17 L 22 BUN 12 17 H Creatinine 1.30 1.51 H 1.86 H Calcium 8.4 9.0 D Phosphorus 2.5 L 2.6 L 12/20/22 04:39 Sodium 138 Potassium 3.4 Carbon Dioxide 23 BUN 22 H Creatinine 1.86 H Calcium 9.4 Phosphorus 4.6 H Hematology 12/18/22 12/19/22 12/20/22 05:53 07:20 04:39 WBC 8.3 9.3 14.6 H Hgb 8.4 L 9.1 L 8.8 L Plt Count 302 316 334 Urinalysis 12/19/22 12:42 Urine Color Yellow Urine Appearance Clear Urine pH 5.5 Ur Specific [place] 1.015 Urine Protein 30 (1+) H Urine Glucose (UA) Negative Urine Ketones Negative Urine Blood Trace H Urine Nitrite Negative Ur Leukocyte Esterase Negative Urine RBC 6-10 H Urine WBC 0-5 Ur Squamous Epith Cells 0-2 Hyaline Casts 3-5 Urine Studies 12/19/22 12:42 Urine Creatinine 48.40 Assessment and Plan (1) Acute kidney injury: Status: Acute Plan SOFIYA due to tubular injury Non oliguric. Hemodynamics better Serum creatinine plateauing Has proteinuria- needs eval once current acute issues are resolved No reason to suspect obstructive uropathy/AIN/GN Shall check C3/C4 if creatinine rises along with ANCA C/W current supportive care for now; Labs AM; Shall F/U closely Procedures Date of Service Date of Service: 12/20/22
[2022-12-20] MEDS: OLANZapine 5 MG TABLET PO (22:06)
[2022-12-21] VITALS (32 sets, daily range): BP systolic 110–141; BP diastolic 70–96; PULSE 79–106; RESP 21–44; TEMP 36.8–36.9; O2SAT 87–97; BMI 31.7
[2022-12-21] MEDS: Heparin Sodium,Porcine 5,000 UNIT/ML VIAL 5000 UNIT SUBCUT ×3 (02:22→17:14)
[2022-12-21 04:42] LABS: VBG Base Excess 0.9 mmol/L; VBG HCO3 23 mmol/L (22-26); VBG pCO2 32 mmHg; VBG pH 7.47 (7.32-7.43); VBG pO2 90 mmHg
[2022-12-21 04:49] LABS: Venous Blood Gas Refer to POC result
[2022-12-21 05:06] LABS: Basophils Percent Auto 0.1 % (0-2); Hematocrit 26.3 % (37.0-47.0); Hemoglobin 8.4 g/dl (12.0-16.0); Imm Gran Abs Auto 0.18 X10*3/uL (0.00-0.03); Imm Gran Pct Auto 1.3 % (0.0-0.4); Lymphocytes Absolute Auto 0.8 X10*3/uL (1.2-4.9); Lymphocytes Percent Auto 5.6 % (20-40); MANUAL DIFF FLAG SCAN; Mean Corpuscular HGB Conc 31.9 g/dl (31.0-35.0); Mean Corpuscular Hemoglobin 29.9 pg (27.0-33.0); Mean Corpuscular Volume 93.6 fL (80.0-98.0); Monocytes Absolute Auto 0.2 X10*3/uL (0.1-1.2); Monocytes Percent Auto 1.4 % (2-11); Neutrophils Absolute Auto 12.7 x10*3/uL (2.0-8.3); Neutrophils Percent Auto 91.6 % (45-73); Platelet Count 366 X10*3/uL (160-400); Red Blood Count 2.81 X10*6/uL (4.20-5.50); Red Cell Distribution Width 14.7 % (11.0-16.0); SCAN SMEAR FLAG 1; White Blood Count 13.8 X10*3/uL (4.8-10.8)
[2022-12-21] MEDS: methylPREDNISolone Sod Succ 125 MG/2 ML VIAL 250 MG IVPUSH ×4 (05:07→23:13)
[2022-12-21] MEDS: Morphine Sulfate 2 MG/ML CARTRIDGE 1 MG IVPUSH ×4 (05:07→23:21)
[2022-12-21 05:22] LABS: Alanine Aminotransferase 12 U/L (0-31); Albumin Level 3.3 g/dL (3.5-5.0); Alkaline Phosphatase 83 U/L (39-117); Anion Gap 16 (12-20); Aspartate Amino Transferase 12 U/L (5-31); Bilirubin Total 0.2 mg/dL (0.0-1.0); Blood Urea Nitrogen 29 mg/dL (9-16); Calcium 9.2 mg/dL (8.4-10.2); Carbon Dioxide 23 mmol/L (22-29); Chloride 105 mmol/L (96-108); Estimated Glomerular Filt Rate 41; Glucose Random 173 mg/dL (60-115); Magnesium 2.3 mg/dL (1.6-2.6); Phosphorus 3.8 mg/dL (2.7-4.5); Potassium 3.4 mmol/L (3.3-5.1); Sodium 141 mmol/L (135-145); Total Protein 6.5 g/dL (6.5-8.0)
[2022-12-21] MEDS: Piperacillin Sodium/Tazobactam 4.5 GM in 0.9 % Sodium Chloride 100 ML IV ×4 (05:27→23:14)
[2022-12-21 05:29] LABS: SLIDE REVIEW VERIFIED
--- NOTE | 2022-12-21 07:21 | P.PNCC_ITS ---
Subjective Subjective Date of Service: 12/21/22 Interval History: no significant overnight events Critical Care Time (minutes): 60 Physical Exam 2 Vital Signs: Vital Signs: Last Vital Signs Temp 98.2 F 12/21/22 05:00 Pulse 90 12/21/22 07:00 Resp 22 H 12/21/22 07:00 BP 125/81 12/21/22 07:00 Pulse Ox 95 12/21/22 07:00 O2 Del Method High Flow Nasal C annula 12/21/22 07:00 O2 Flow Rate 50 12/21/22 07:00 FiO2 90 12/21/22 07:00 BMI result Body Mass Index 31.7 Const: General: cooperative, comfortable, no acute distress, alert, awake and Physically active Orientation/consciousness: patient oriented x3 HEENT: Head: Yes normal to inspection, Yes normocephalic and Yes atraumatic Eyes: General: appearance normal, both eyes and all related structures Neck: Neck: Yes normal visual inspection and Yes supple Chest: Chest palpation & inspection: normal inspection of the chest Resp: Other: appreciable mild rales L lower lung field; no appreciable overt rhonchi, wheezing Cardio: Rate: regular rate Rhythm: regular rhythm GI: Inspection: Yes normal to inspection, No Abdominal wall edema and No distended Palpation (GI): Soft to palpation, not firm, nontender, no guarding and not rigid Skin: General skin exam: no rashes or lesions noted Neuro: General: patient oriented x3 and moves all extremities Extrem: General: Yes normal to inspection, Yes capillary refill normal and Yes no clubbing, cyanosis or edema Psych: Appearance: grossly normal Objective Data Labs 12/21/22 04:31 12/21/22 04:31 Labs: Laboratory Results - last 24 hr 12/19/22 12/20/22 12/21/22 07:20 08:35 04:31 WBC 13.8 H RBC 2.81 L Hgb 8.4 L Hct 26.3 L MCV 93.6 MCH 29.9 MCHC 31.9 RDW 14.7 Plt Count 366 MPV 10.0 Immature Gran % (Auto) 1.3 H Neut % (Auto) 91.6 H Lymph % (Auto) 5.6 L [place] % (Auto) 1.4 L Eos % (Auto) 0.0 Baso % (Auto) 0.1 Lymph # (Auto) 0.8 L [place] # (Auto) 0.2 Eos # (Auto) 0.0 Baso # (Auto) 0.0 Abs Immat Gran (auto) 0.18 H Absolute Neuts (auto) 12.7 H Absolute Nucleated RBC 0.000 Nucleated RBC % (auto) 0.0 Smear Tech's Comments VERIFIED VBG pH VBG pCO2 VBG pO2 VBG HCO3 VBG O2 Saturation VBG Base Excess Sodium 141 Potassium 3.4 Chloride 105 Carbon Dioxide 23 Anion Gap 16 BUN 29 H Creatinine 1.47 H Estim Creat Clear Calc 65.0 Estimated GFR 41 Random Glucose 173 H Calcium 9.2 Phosphorus 3.8 Magnesium 2.3 Total Bilirubin 0.2 AST 12 ALT 12 Alkaline Phosphatase 83 Total Protein 6.5 Albumin 3.3 L Procalcitonin 5.77 Malaria/Babesia Smear SEE NOTE 12/21/22 04:36 WBC RBC Hgb Hct MCV MCH MCHC RDW Plt Count MPV Immature Gran % (Auto) Neut % (Auto) Lymph % (Auto) [place] % (Auto) Eos % (Auto) Baso % (Auto) Lymph # (Auto) [place] # (Auto) Eos # (Auto) Baso # (Auto) Abs Immat Gran (auto) Absolute Neuts (auto) Absolute Nucleated RBC Nucleated RBC % (auto) Smear Tech's Comments VBG pH 7.47 H VBG pCO2 32 VBG pO2 90 VBG HCO3 23 VBG O2 Saturation 98.0 VBG Base Excess 0.9 Sodium Potassium Chloride Carbon Dioxide Anion Gap BUN Creatinine Estim Creat Clear Calc Estimated GFR Random Glucose Calcium Phosphorus Magnesium Total Bilirubin AST ALT Alkaline Phosphatase Total Protein Albumin Procalcitonin Malaria/Babesia Smear Microbiology Microbiology Results: Microbiology 12/17/22 22:07 Blood - Venous Blood Culture - Preliminary No growth after 48 hours. 12/17/22 22:07 Blood - Venous Blood Culture - Preliminary No growth after 48 hours. 12/17/22 10:00 Blood - Venous Blood Culture - Preliminary No growth after 48 hours. 12/17/22 10:00 Blood - Venous Blood Culture - Preliminary No growth after 48 hours. 12/13/22 14:58 Blood - Venous Blood Culture - Final No growth after 5 days. 12/13/22 14:47 Blood - Venous Blood Culture - Final No growth after 5 days. Progress Note: A&P Assessment and plan (1) Acute kidney injury: Status: Acute (2) Acute respiratory failure with hypoxia: Status: Acute Plan Patient is a 32 Y F with multiple sclerosis, recent COVID-19 infection on 11/24/2022, necessitating admission 12/03-, readmitted 12/13 d/t worsening pneumonia; hospital course c/b ARDS, c/f superimposed bacterial infection, on HFNC AM, BiPAP PM N: no acute issues CV: no acute issues R: COVID pneumonia, c/b superimposed bacterial infection, ARDS; also c/f rheumatological etiology of respiratory failure given patient age and cyclic nature of fever, on pulse-dose steroids x3 days; on HFNC AM, BiPAP PM; wean as tolerated GI: no acute issues; diet as tolerated : non-oligouric SOFIYA, improving; appreciate nephrology recommendations H: no acute issues ID: COVID pneumonia, c/b superimposed bacterial infection; on empiric vancomycin, zosyn P: anxiety, well-controlled w/ olanzapine QHS Quality Stroke Does the patient have a stroke diagnosis?: No VTE Prior VTE?: No VTE Risk Level:: Medical - moderate - high VTE Device Contraindication: Treatment Not Indicated VTE Drug Contraindication: N/A - Med Ordered
[2022-12-21] MEDS: Nystatin Oral Susp 500,000 UNIT/5 ML ORAL.SUSP 200000 UNIT BUCCAL ×4 (09:28→20:18)
[2022-12-21] MEDS: Pantoprazole Sodium 40 MG/10 ML VIAL IVPUSH (13:32)
[2022-12-21] MEDS: Baclofen 10 MG TABLET PO (15:16)
--- NOTE | 2022-12-21 19:29 | PM.PNNEP ---
Subjective Subjective Date of Service: 12/21/22 Interval history: No significant overnight events Physical Exam Vital Signs: Vital Signs: Last Vital Signs Temp 98.5 F 12/21/22 12:00 Pulse 95 12/21/22 18:00 Resp 39 H 12/21/22 19:24 BP 125/72 12/21/22 18:00 Pulse Ox 92 12/21/22 18:00 O2 Del Method High Flow Nasal C annula 12/21/22 18:00 O2 Flow Rate 50 12/21/22 18:00 FiO2 75 12/21/22 18:00 BMI result Body Mass Index 31.7 Const: General: cooperative Orientation/consciousness: patient oriented x3 HEENT: Head: Yes normocephalic Eyes: EOM: EOMs intact bilaterally Neck: Neck: Yes supple Resp: Auscultation: diminished lung sounds Cardio: Jugular venous distension: no JVD Rate: regular rate GI: Palpation (GI): Soft to palpation Skin: General skin exam: no rashes or lesions noted Neuro: General: patient oriented x3 and moves all extremities Extrem: General: Yes no pedal edema Objective Data Labs 12/21/22 04:31 12/21/22 04:31 Labs: Laboratory Results - last 24 hr 12/21/22 12/21/22 04:31 04:36 WBC 13.8 H RBC 2.81 L Hgb 8.4 L Hct 26.3 L MCV 93.6 MCH 29.9 MCHC 31.9 RDW 14.7 Plt Count 366 MPV 10.0 Immature Gran % (Auto) 1.3 H Neut % (Auto) 91.6 H Lymph % (Auto) 5.6 L [place] % (Auto) 1.4 L Eos % (Auto) 0.0 Baso % (Auto) 0.1 Lymph # (Auto) 0.8 L [place] # (Auto) 0.2 Eos # (Auto) 0.0 Baso # (Auto) 0.0 Abs Immat Gran (auto) 0.18 H Absolute Neuts (auto) 12.7 H Absolute Nucleated RBC 0.000 Nucleated RBC % (auto) 0.0 Smear Tech's Comments VERIFIED VBG pH 7.47 H VBG pCO2 32 VBG pO2 90 VBG HCO3 23 VBG O2 Saturation 98.0 VBG Base Excess 0.9 Sodium 141 Potassium 3.4 Chloride 105 Carbon Dioxide 23 Anion Gap 16 BUN 29 H Creatinine 1.47 H Estim Creat Clear Calc 65.0 Estimated GFR 41 Random Glucose 173 H Calcium 9.2 Phosphorus 3.8 Magnesium 2.3 Total Bilirubin 0.2 AST 12 ALT 12 Alkaline Phosphatase 83 Total Protein 6.5 Albumin 3.3 L Microbiology Microbiology Results: Microbiology 12/17/22 22:07 Blood - Venous Blood Culture - Preliminary No growth after 48 hours. 12/17/22 22:07 Blood - Venous Blood Culture - Preliminary No growth after 48 hours. 12/17/22 10:00 Blood - Venous Blood Culture - Preliminary No growth after 48 hours. 12/17/22 10:00 Blood - Venous Blood Culture - Preliminary No growth after 48 hours. 12/13/22 14:58 Blood - Venous Blood Culture - Final No growth after 5 days. 12/13/22 14:47 Blood - Venous Blood Culture - Final No growth after 5 days. Procedures Date of Service Date of Service: 12/21/22 Assessment & Plan Assessment and plan (1) Acute kidney injury: Status: Acute Assessment and Plan: SOFIYA due to tubular injury Non oliguric. Hemodynamics better Serum creatinine imprved Has proteinuria- needs eval once current acute issues are resolved No reason to suspect obstructive uropathy/AIN/GN C/W current supportive care for now; Labs AM; Shall F/U closely Time Spent With Patient Time: . Progress Note: Quality Stroke Does the patient have a stroke diagnosis?: No
[2022-12-21] MEDS: OLANZapine 5 MG TABLET PO (20:18)
[2022-12-21] MEDS: LORazepam 2 MG/ML VIAL 1 MG IVPUSH (21:11)
[2022-12-22] VITALS (32 sets, daily range): BP systolic 102–136; BP diastolic 49–91; PULSE 60–113; RESP 16–38; TEMP 36.4–36.9; O2SAT 88–98; BMI 31.8
[2022-12-22] MEDS: Heparin Sodium,Porcine 5,000 UNIT/ML VIAL 5000 UNIT SUBCUT ×3 (01:48→18:44)
[2022-12-22 05:18] LABS: VBG Base Excess -1.9 mmol/L; VBG HCO3 21 mmol/L (22-26); VBG pCO2 30 mmHg; VBG pH 7.44 (7.32-7.43); VBG pO2 107 mmHg
[2022-12-22 05:36] LABS: Venous Blood Gas Refer to POC result
[2022-12-22 06:13] LABS: Basophils Percent Auto 0.2 % (0-2); Hematocrit 26.7 % (37.0-47.0); Hemoglobin 8.5 g/dl (12.0-16.0); Imm Gran Abs Auto 0.18 X10*3/uL (0.00-0.03); Imm Gran Pct Auto 1.7 % (0.0-0.4); Lymphocytes Absolute Auto 0.6 X10*3/uL (1.2-4.9); Lymphocytes Percent Auto 5.1 % (20-40); MANUAL DIFF FLAG SCAN; Mean Corpuscular HGB Conc 31.8 g/dl (31.0-35.0); Mean Corpuscular Hemoglobin 30.2 pg (27.0-33.0); Mean Platelet Volume 10.6 fL (9.4-12.3); Monocytes Absolute Auto 0.2 X10*3/uL (0.1-1.2); Monocytes Percent Auto 1.6 % (2-11); Neutrophils Absolute Auto 9.8 x10*3/uL (2.0-8.3); Neutrophils Percent Auto 91.4 % (45-73); Platelet Count 383 X10*3/uL (160-400); Red Blood Count 2.81 X10*6/uL (4.20-5.50); Red Cell Distribution Width 14.6 % (11.0-16.0); SCAN SMEAR FLAG 1; White Blood Count 10.8 X10*3/uL (4.8-10.8)
[2022-12-22] MEDS: methylPREDNISolone Sod Succ 125 MG/2 ML VIAL 250 MG IVPUSH (06:20)
[2022-12-22] MEDS: Piperacillin Sodium/Tazobactam 4.5 GM in 0.9 % Sodium Chloride 100 ML IV ×4 (06:20→23:37)
[2022-12-22] MEDS: Pantoprazole Sodium 40 MG/10 ML VIAL IVPUSH (06:20)
[2022-12-22 06:31] LABS: Albumin Level 3.1 g/dL (3.5-5.0); Anion Gap 18 (12-20); Blood Urea Nitrogen 33 mg/dL (9-16); Calcium 8.7 mg/dL (8.4-10.2); Carbon Dioxide 21 mmol/L (22-29); Chloride 103 mmol/L (96-108); Creatinine Clr Calc Pharmacy 63.1; Estimated Glomerular Filt Rate 39; Glucose Random 252 mg/dL (60-115); Phosphorus 3.2 mg/dL (2.7-4.5); Sodium 139 mmol/L (135-145)
[2022-12-22 07:42] LABS: SLIDE REVIEW VERIFIED
[2022-12-22] MEDS: Nystatin Oral Susp 500,000 UNIT/5 ML ORAL.SUSP 200000 UNIT BUCCAL ×4 (08:19→20:25)
[2022-12-22] MEDS: Morphine Sulfate 2 MG/ML CARTRIDGE 1 MG IVPUSH ×2 (08:20→16:11)
[2022-12-22] MEDS: Baclofen 10 MG TABLET PO ×2 (08:21→16:06)
--- NOTE | 2022-12-22 08:56 | P.PNCC_ITS ---
Subjective Subjective Date of Service: 12/22/22 Interval History: no significant overnight events Critical Care Time (minutes): 60 Physical Exam 2 Vital Signs: Vital Signs: Last Vital Signs Temp 98.3 F 12/22/22 08:00 Pulse 113 H 12/22/22 08:00 Resp 31 H 12/22/22 08:00 BP 127/80 12/22/22 08:00 Pulse Ox 89 L 12/22/22 08:00 O2 Del Method High Flow Nasal C annula 12/22/22 08:00 O2 Flow Rate 50 12/22/22 08:00 FiO2 75 12/22/22 08:00 BMI result Body Mass Index 31.8 Const: General: cooperative, healthy appearing, comfortable, no acute distress, alert, awake and Physically active Orientation/consciousness: p atient oriented x3 HEENT: Head: Yes normal to inspection, Yes normocephalic and Yes atraumatic Eyes: General: appearance normal, both eyes and all related structures Neck: Neck: Yes normal visual inspection, Yes no meningeal signs and Yes supple Chest: Chest palpation & inspection: normal inspection of the chest Resp: Other: no overt rales, rhonchi, wheezing Effort & Inspection: able to speak in complete sentences Cardio: Rate: regular rate Rhythm: regular rhythm GI: Inspection: Yes normal to inspection, No Abdominal wall edema and No distended Palpation (GI): Soft to palpation, not firm, nontender, no guarding and not rigid Skin: General skin exam: no rashes or lesions noted Neuro: General: patient oriented x3, moves all extremities, no meningeal signs and no focal motor deficits Extrem: General: Yes normal to inspection, Yes capillary refill normal and Yes no clubbing, cyanosis or edema Psych: Appearance: grossly normal Objective Data Labs 12/22/22 05:07 12/22/22 05:07 Labs: Laboratory Results - last 24 hr 12/22/22 12/22/22 05:07 05:12 WBC 10.8 RBC 2.81 L Hgb 8.5 L Hct 26.7 L MCV 95.0 MCH 30.2 MCHC 31.8 RDW 14.6 Plt Count 383 MPV 10.6 Immature Gran % (Auto) 1.7 H Neut % (Auto) 91.4 H Lymph % (Auto) 5.1 L [place] % (Auto) 1.6 L Eos % (Auto) 0.0 Baso % (Auto) 0.2 Lymph # (Auto) 0.6 L [place] # (Auto) 0.2 Eos # (Auto) 0.0 Baso # (Auto) 0.0 Abs Immat Gran (auto) 0.18 H Absolute Neuts (auto) 9.8 H Absolute Nucleated RBC 0.000 Nucleated RBC % (auto) 0.0 Smear Tech's Comments VERIFIED VBG pH 7.44 H VBG pCO2 30 VBG pO2 107 VBG HCO3 21 L VBG O2 Saturation 99.0 VBG Base Excess -1.9 Sodium 139 Potassium 3.0 L Chloride 103 Carbon Dioxide 21 L Anion Gap 18 BUN 33 H Creatinine 1.51 H Estim Creat Clear Calc 63.1 Estimated GFR 39 Random Glucose 252 H Calcium 8.7 Phosphorus 3.2 Magnesium 2.0 Albumin 3.1 L Microbiology Microbiology Results: Microbiology 12/17/22 22:07 Blood - Venous Blood Culture - Preliminary No growth after 48 hours. 12/17/22 22:07 Blood - Venous Blood Culture - Preliminary No growth after 48 hours. 12/17/22 10:00 Blood - Venous Blood Culture - Preliminary No growth after 48 hours. 12/17/22 10:00 Blood - Venous Blood Culture - Preliminary No growth after 48 hours. 12/13/22 14:58 Blood - Venous Blood Culture - Final No growth after 5 days. 12/13/22 14:47 Blood - Venous Blood Culture - Final No growth after 5 days. Progress Note: A&P Assessment and plan (1) Acute kidney injury: Status: Acute (2) Acute respiratory failure with hypoxia: Status: Acute Plan Patient is a 32 Y F with multiple sclerosis, recent COVID-19 infection on 11/24/2022, necessitating admission , readmitted 12/13 d/t worsening pneumonia; hospital course c/b ARDS, c/f superimposed bacterial infection, on HFNC AM, BiPAP PM N: no acute issues CV: no acute issues R: COVID pneumonia, c/b superimposed bacterial infection, ARDS; also c/f rheumatological etiology of respiratory failure given patient age and cyclic nature of fever, on pulse-dose steroids x3 days; on HFNC AM, BiPAP PM; wean as tolerated; to perform CT chest today; if no significant clinical improvement, to consider initiating transfer request to lung transplant center GI: no acute issues; diet as tolerated : non-oligouric SOFIYA, improving; appreciate nephrology recommendations H: no acute issues ID: COVID pneumonia, c/b superimposed bacterial infection; on empiric vancomycin, zosyn P: anxiety, well-controlled w/ olanzapine QHS Quality Stroke Does the patient have a stroke diagnosis?: No VTE Prior VTE?: No VTE Risk Level:: Medical - moderate - high VTE Device Contraindication: Treatment Not Indicated VTE Drug Contraindication: N/A - Med Ordered
[2022-12-22] MEDS: Furosemide 20 MG/2 ML VIAL 10 MG IVPUSH (09:49)
[2022-12-22] MEDS: LORazepam 2 MG/ML VIAL 1 MG IVPUSH ×2 (09:49→16:06)
[2022-12-22] MEDS: Potassium Chloride/H20 40 MEQ/100 ML PIGGYBACK 100 MEQ IV (09:51)
[2022-12-22 13:43] LABS: Myeloperoxidase Antibody <1.0 AI; Proteinase 3 PR3 Antibodies <1.0 AI
[2022-12-22 14:06] LABS: HIV AB/AG Reactive (Nonreactive)
--- NOTE | 2022-12-22 14:28 | PM.EVENT ---
Event Note Date of Service: 12/22/22 Event Note: Ms. Lopez gave verbal consent for HIV testing. The initial testing was reactive. Ms. Lopez was made aware of these results, and that definitive tests are pending.
[2022-12-22 17:24] LABS: Anti Glomerular Basement Memb <1.0 AI
[2022-12-22] MEDS: OLANZapine 5 MG TABLET PO (20:25)
--- NOTE | 2022-12-22 20:52 | PM.PNNEP ---
Subjective Subjective Date of Service: 12/22/22 Interval history: No significant overnight events Physical Exam Vital Signs: Vital Signs: Last Vital Signs Temp 98.3 F 12/22/22 20:00 Pulse 86 12/22/22 20:00 Resp 22 H 12/22/22 20:00 BP 132/66 12/22/22 20:00 Pulse Ox 89 L 12/22/22 20:00 O2 Del Method High Flow Nasal C annula 12/22/22 20:00 O2 Flow Rate 50 12/22/22 20:00 FiO2 65 12/22/22 20:00 BMI result Body Mass Index 31.8 Const: General: cooperative Orientation/consciousness: patient oriented x3 HEENT: Head: Yes normocephalic Mouth: moist mucous membranes Eyes: EOM: EOMs intact bilaterally Neck: Neck: Yes supple Resp: Auscultation: diminished lung sounds Cardio: Rate: regular rate GI: Palpation (GI): Soft to palpation Auscultation: normal bowel sounds Neuro: General: patient oriented x3 and moves all extremities Extrem: General: Yes no pedal edema Objective Data Labs 12/22/22 05:07 12/22/22 05:07 Labs: Laboratory Results - last 24 hr 12/18/22 12/19/22 12/22/22 09:38 11:04 05:07 WBC 10.8 RBC 2.81 L Hgb 8.5 L Hct 26.7 L MCV 95.0 MCH 30.2 MCHC 31.8 RDW 14.6 Plt Count 383 MPV 10.6 Immature Gran % (Auto) 1.7 H Neut % (Auto) 91.4 H Lymph % (Auto) 5.1 L [place] % (Auto) 1.6 L Eos % (Auto) 0.0 Baso % (Auto) 0.2 Lymph # (Auto) 0.6 L [place] # (Auto) 0.2 Eos # (Auto) 0.0 Baso # (Auto) 0.0 Abs Immat Gran (auto) 0.18 H Absolute Neuts (auto) 9.8 H Absolute Nucleated RBC 0.000 Nucleated RBC % (auto) 0.0 Smear Tech's Comments VERIFIED VBG pH VBG pCO2 VBG pO2 VBG HCO3 VBG O2 Saturation VBG Base Excess Sodium 139 Potassium 3.0 L Chloride 103 Carbon Dioxide 21 L Anion Gap 18 BUN 33 H Creatinine 1.51 H Estim Creat Clear Calc 63.1 Estimated GFR 39 Random Glucose 252 H Calcium 8.7 Phosphorus 3.2 Magnesium 2.0 Albumin 3.1 L Proteinase 3 (PR3) Ab <1.0 Myeloperoxidase Ab <1.0 Glomerular Base Memb Ab <1.0 HIV 1&2 Ab/P24 Ag 4thGn 12/22/22 12/22/22 05:12 12:23 WBC RBC Hgb Hct MCV MCH MCHC RDW Plt Count MPV Immature Gran % (Auto) Neut % (Auto) Lymph % (Auto) [place] % (Auto) Eos % (Auto) Baso % (Auto) Lymph # (Auto) [place] # (Auto) Eos # (Auto) Baso # (Auto) Abs Immat Gran (auto) Absolute Neuts (auto) Absolute Nucleated RBC Nucleated RBC % (auto) Smear Tech's Comments VBG pH 7.44 H VBG pCO2 30 VBG pO2 107 VBG HCO3 21 L VBG O2 Saturation 99.0 VBG Base Excess -1.9 Sodium Potassium Chloride Carbon Dioxide Anion Gap BUN Creatinine Estim Creat Clear Calc Estimated GFR Random Glucose Calcium Phosphorus Magnesium Albumin Proteinase 3 (PR3) Ab Myeloperoxidase Ab Glomerular Base Memb Ab HIV 1&2 Ab/P24 Ag 4thGn Reactive H Microbiology Microbiology Results: Microbiology 12/17/22 10:00 Blood - Venous Blood Culture - Final No growth after 5 days. 12/17/22 10:00 Blood - Venous Blood Culture - Final No growth after 5 days. 12/17/22 22:07 Blood - Venous Blood Culture - Preliminary No growth after 48 hours. 12/17/22 22:07 Blood - Venous Blood Culture - Preliminary No growth after 48 hours. 12/13/22 14:58 Blood - Venous Blood Culture - Final No growth after 5 days. 12/13/22 14:47 Blood - Venous Blood Culture - Final No growth after 5 days. Procedures Date of Service Date of Service: 12/22/22 Assessment & Plan Assessment and plan (1) Acute kidney injury: Status: Acute Plan SOFIYA due to tubular injury Non oliguric. Hemodynamics stable Serum creatinine fairly stable Had proteinuria- needs eval once current acute issues are resolved No reason to suspect obstructive uropathy/AIN/GN C/W current supportive care for now; Labs AM; Shall F/U closely Progress Note: Quality Stroke Does the patient have a stroke diagnosis?: No
[2022-12-22 21:08] LABS: TS Negative Control Passed; TS Panel A 0; TS Panel B 0; TS Positive Control Passed; TSpotTB Negative (Negative)
[2022-12-23] VITALS (34 sets, daily range): BP systolic 114–145; BP diastolic 66–90; PULSE 74–127; RESP 17–48; TEMP 36.1–38.8; O2SAT 89–100; BMI 31.8
[2022-12-23] MEDS: Morphine Sulfate 2 MG/ML CARTRIDGE 1 MG IVPUSH ×5 (01:07→21:31)
[2022-12-23] MEDS: Heparin Sodium,Porcine 5,000 UNIT/ML VIAL 5000 UNIT SUBCUT ×3 (01:07→16:56)
[2022-12-23] MEDS: Baclofen 10 MG TABLET PO ×3 (05:13→19:38)
[2022-12-23] MEDS: LORazepam 2 MG/ML VIAL 1 MG IVPUSH ×3 (05:14→21:31)
[2022-12-23] MEDS: Piperacillin Sodium/Tazobactam 4.5 GM in 0.9 % Sodium Chloride 100 ML IV ×4 (05:16→23:04)
[2022-12-23] MEDS: Pantoprazole Sodium 40 MG/10 ML VIAL IVPUSH (05:20)
[2022-12-23 05:27] LABS: VBG Base Excess -0.2 mmol/L; VBG HCO3 23 mmol/L (22-26); VBG pCO2 35 mmHg; VBG pH 7.43 (7.32-7.43); VBG pO2 50 mmHg
[2022-12-23 05:28] LABS: Venous Blood Gas Refer to POC result
[2022-12-23 06:01] LABS: MANUAL DIFF FLAG NO
[2022-12-23 06:18] LABS: Basophils Percent Auto 0.3 % (0-2); Eosinophils Percent Auto 0.2 % (0-4); Hematocrit 29.2 % (37.0-47.0); Hemoglobin 9.2 g/dl (12.0-16.0); Imm Gran Abs Auto 0.54 X10*3/uL (0.00-0.03); Imm Gran Pct Auto 4.5 % (0.0-0.4); Lymphocytes Absolute Auto 0.9 X10*3/uL (1.2-4.9); Lymphocytes Percent Auto 7.3 % (20-40); Mean Corpuscular HGB Conc 31.5 g/dl (31.0-35.0); Mean Corpuscular Volume 95.1 fL (80.0-98.0); Mean Platelet Volume 10.4 fL (9.4-12.3); Monocytes Absolute Auto 0.4 X10*3/uL (0.1-1.2); Neutrophils Absolute Auto 10.2 x10*3/uL (2.0-8.3); Neutrophils Percent Auto 84.7 % (45-73); Platelet Count 468 X10*3/uL (160-400); Red Blood Count 3.07 X10*6/uL (4.20-5.50); Red Cell Distribution Width 14.8 % (11.0-16.0)
[2022-12-23 06:22] LABS: Anion Gap 15 (12-20); Blood Urea Nitrogen 30 mg/dL (9-16); Calcium 8.8 mg/dL (8.4-10.2); Carbon Dioxide 23 mmol/L (22-29); Chloride 107 mmol/L (96-108); Creatinine Clr Calc Pharmacy 65.4; Estimated Glomerular Filt Rate 41; Glucose Random 163 mg/dL (60-115); Magnesium 2.1 mg/dL (1.6-2.6); Phosphorus 2.2 mg/dL (2.7-4.5); Potassium 2.6 mmol/L (3.3-5.1); Sodium 142 mmol/L (135-145)
[2022-12-23] MEDS: Potassium Chloride Packet 20 MEQ PACKET 40 MEQ PO ×2 (07:54→22:03)
[2022-12-23] MEDS: Nystatin Oral Susp 500,000 UNIT/5 ML ORAL.SUSP 200000 UNIT BUCCAL ×3 (07:54→16:56)
[2022-12-23] MEDS: Potassium Phosphate/NS 15 MMOL/250 ML PLAST..BAG 62.5 MMOL IV ×2 (07:55→22:05)
--- NOTE | 2022-12-23 08:10 | PM.CCPN ---
Subjective Subjective Date of Service: 12/23/22 Interval History: no significant overnight events Critical Care Time (minutes): 60 Physical Exam Vital Signs: Vital Signs: Last Vital Signs Temp 97.9 F 12/23/22 07:00 Pulse 86 12/23/22 08:00 Resp 29 H 12/23/22 08:00 BP 114/71 12/23/22 08:00 Pulse Ox 100 12/23/22 08:00 O2 Del Method High Flow Nasal C annula 12/23/22 08:00 O2 Flow Rate 50 12/23/22 08:00 FiO2 80 12/23/22 08:00 BMI result Body Mass Index 31.8 Const: General: cooperative, healthy appearing, comfortable, no acute distress, well developed, alert, awake and Physically active Orientation/consciousness: patient oriented x3 HEENT: Head: Yes normal to inspection, Yes normocephalic and Yes atraumatic Eyes: General: appearance normal, both eyes and all related structures Neck: Neck: Yes normal visual inspection, Yes full ROM and Yes supple Chest: Chest palpation & inspection: normal inspection of the chest Resp: Other: no appreciable overt rales, rhonchi, wheezing; some general increased respiratory effort Cardio: Rate: regular rate Rhythm: regular rhythm GI: Inspection: Yes normal to inspection Palpation (GI): Soft to palpation, not firm, nontender, no guarding and not rigid Skin: General skin exam: no rashes or lesions noted Neuro: General: patient oriented x3, moves all extremities and no focal motor deficits Extrem: General: Yes normal to inspection, Yes capillary refill normal and Yes no clubbing, cyanosis or edema Psych: Appearance: grossly normal Objective Data Labs 12/23/22 05:21 12/23/22 05:21 Labs: Laboratory Results - last 24 hr 12/18/22 12/19/22 12/20/22 09:38 11:04 04:39 WBC RBC Hgb Hct MCV MCH MCHC RDW Plt Count MPV Immature Gran % (Auto) Neut % (Auto) Lymph % (Auto) [place] % (Auto) Eos % (Auto) Baso % (Auto) Lymph # (Auto) [place] # (Auto) Eos # (Auto) Baso # (Auto) Abs Immat Gran (auto) Absolute Neuts (auto) Absolute Nucleated RBC Nucleated RBC % (auto) VBG pH VBG pCO2 VBG pO2 VBG HCO3 VBG O2 Saturation VBG Base Excess Sodium Potassium Chloride Carbon Dioxide Anion Gap BUN Creatinine Estim Creat Clear Calc Estimated GFR Random Glucose Calcium Phosphorus Magnesium Proteinase 3 (PR3) Ab <1.0 Myeloperoxidase Ab <1.0 Glomerular Base Memb Ab <1.0 HIV 1&2 Ab/P24 Ag 4thGn TB Test (T-Spot) Com Negative TB Test Nil Control Passed TB Test Panel A 0 TB Test Panel B 0 TB Test Positive Cntrl Passed 12/22/22 12/23/22 12:23 05:21 WBC 12.0 H RBC 3.07 L Hgb 9.2 L Hct 29.2 L MCV 95.1 MCH 30.0 MCHC 31.5 RDW 14.8 Plt Count 468 H MPV 10.4 Immature Gran % (Auto) 4.5 H Neut % (Auto) 84.7 H Lymph % (Auto) 7.3 L [place] % (Auto) 3.0 Eos % (Auto) 0.2 Baso % (Auto) 0.3 Lymph # (Auto) 0.9 L [place] # (Auto) 0.4 Eos # (Auto) 0.0 Baso # (Auto) 0.0 Abs Immat Gran (auto) 0.54 H Absolute Neuts (auto) 10.2 H Absolute Nucleated RBC 0.000 Nucleated RBC % (auto) 0.0 VBG pH 7.43 VBG pCO2 35 VBG pO2 50 VBG HCO3 23 VBG O2 Saturation 81.0 VBG Base Excess -0.2 Sodium 142 Potassium 2.6 L Chloride 107 Carbon Dioxide 23 Anion Gap 15 BUN 30 H Creatinine 1.46 H Estim Creat Clear Calc 65.4 Estimated GFR 41 Random Glucose 163 H Calcium 8.8 Phosphorus 2.2 L Magnesium 2.1 Proteinase 3 (PR3) Ab Myeloperoxidase Ab Glomerular Base Memb Ab HIV 1&2 Ab/P24 Ag 4thGn Reactive H TB Test (T-Spot) Com TB Test Nil Control TB Test Panel A TB Test Panel B TB Test Positive Cntrl Microbiology Microbiology Results: Microbiology 12/17/22 22:07 Blood - Venous Blood Culture - Final No growth after 5 days. 12/17/22 22:07 Blood - Venous Blood Culture - Final No growth after 5 days. 12/17/22 10:00 Blood - Venous Blood Culture - Final No growth after 5 days. 12/17/22 10:00 Blood - Venous Blood Culture - Final No growth after 5 days. 12/13/22 14:58 Blood - Venous Blood Culture - Final No growth after 5 days. 12/13/22 14:47 Blood - Venous Blood Culture - Final No growth after 5 days. Progress Note: A&P Assessment and plan (1) Acute kidney injury: Status: Acute (2) Acute respiratory failure with hypoxia: Status: Acute Plan Patient is a 32 Y F with multiple sclerosis, recent COVID-19 infection on 11/24/2022, necessitating admission , readmitted 12/13 d/t worsening pneumonia; hospital course c/b ARDS, c/f superimposed bacterial infection, on HFNC AM, BiPAP PM N: no acute issues CV: no acute issues R: COVID pneumonia, c/b superimposed bacterial infection, ARDS; also c/f rheumatological etiology of respiratory failure given patient age and cyclic nature of fever, s/p pulse-dose steroids x3 days; on HFNC AM, BiPAP PM; wean as tolerated; no significant clinical improvement, to consider initiating transfer request to lung transplant center GI: no acute issues; diet as tolerated : non-oligouric SOFIYA, improving; appreciate nephrology recommendations H: no acute issues ID: COVID pneumonia, c/b superimposed bacterial infection; on empiric vancomycin, zosyn P: anxiety, well-controlled w/ olanzapine QHS Quality Stroke Does the patient have a stroke diagnosis?: No VTE Prior VTE?: No VTE Risk Level:: Medical - moderate - high VTE Device Contraindication: Treatment Not Indicated VTE Drug Contraindication: N/A - Med Ordered
--- NOTE | 2022-12-23 12:02 | MHC.CM.PN ---
Pt continues care in ICU: on high O2 needs with little improvement: pt has severe post COVID PNA: on pulse steroids and being followed by renal. Pt remains in serious/guarded condition with no plans for d/c. CM to follow.
--- NOTE | 2022-12-23 13:29 | P.PNNP_ITS ---
Subjective Subjective Date of Service: 12/23/22 Interval history: No significant overnight events Physical Exam 2 Vital Signs: Vital Signs: Last Vital Signs Temp 98.5 F 12/23/22 12:00 Pulse 110 H 12/23/22 13:00 Resp 48 H 12/23/22 13:00 BP 140/88 H 12/23/22 13:00 Pulse Ox 93 12/23/22 13:00 O2 Del Method High Flow Nasal C annula 12/23/22 13:00 O2 Flow Rate 50 12/23/22 13:00 FiO2 80 12/23/22 13:00 BMI result Body Mass Index 31.8 Const: Orientation/consciousness: patient oriented x3 Eyes: EOM: EOMs intact bilaterally Resp: Auscultation: diminished lung sounds Cardio: Rate: regular rate GI: Palpation (GI): Soft to palpation Neuro: General: patient oriented x3 and moves all extremities Objective Data Labs 12/23/22 05:21 12/23/22 05:21 Labs: Laboratory Results - last 24 hr 12/18/22 12/19/22 12/20/22 09:38 11:04 04:39 WBC RBC Hgb Hct MCV MCH MCHC RDW Plt Count MPV Immature Gran % (Auto) Neut % (Auto) Lymph % (Auto) [place] % (Auto) Eos % (Auto) Baso % (Auto) Lymph # (Auto) [place] # (Auto) Eos # (Auto) Baso # (Auto) Abs Immat Gran (auto) Absolute Neuts (auto) Absolute Nucleated RBC Nucleated RBC % (auto) VBG pH VBG pCO2 VBG pO2 VBG HCO3 VBG O2 Saturation VBG Base Excess Sodium Potassium Chloride Carbon Dioxide Anion Gap BUN Creatinine Estim Creat Clear Calc Estimated GFR Random Glucose Calcium Phosphorus Magnesium Proteinase 3 (PR3) Ab <1.0 Myeloperoxidase Ab <1.0 Glomerular Base Memb Ab <1.0 HIV 1&2 Ab/P24 Ag 4thGn TB Test (T-Spot) Com Negative TB Test Nil Control Passed TB Test Panel A 0 TB Test Panel B 0 TB Test Positive Cntrl Passed 12/22/22 12/23/22 12:23 05:21 WBC 12.0 H RBC 3.07 L Hgb 9.2 L Hct 29.2 L MCV 95.1 MCH 30.0 MCHC 31.5 RDW 14.8 Plt Count 468 H MPV 10.4 Immature Gran % (Auto) 4.5 H Neut % (Auto) 84.7 H Lymph % (Auto) 7.3 L [place] % (Auto) 3.0 Eos % (Auto) 0.2 Baso % (Auto) 0.3 Lymph # (Auto) 0.9 L [place] # (Auto) 0.4 Eos # (Auto) 0.0 Baso # (Auto) 0.0 Abs Immat Gran (auto) 0.54 H Absolute Neuts (auto) 10.2 H Absolute Nucleated RBC 0.000 Nucleated RBC % (auto) 0.0 VBG pH 7.43 VBG pCO2 35 VBG pO2 50 VBG HCO3 23 VBG O2 Saturation 81.0 VBG Base Excess -0.2 Sodium 142 Potassium 2.6 L Chloride 107 Carbon Dioxide 23 Anion Gap 15 BUN 30 H Creatinine 1.46 H Estim Creat Clear Calc 65.4 Estimated GFR 41 Random Glucose 163 H Calcium 8.8 Phosphorus 2.2 L Magnesium 2.1 Proteinase 3 (PR3) Ab Myeloperoxidase Ab Glomerular Base Memb Ab HIV 1&2 Ab/P24 Ag 4thGn Reactive H TB Test (T-Spot) Com TB Test Nil Control TB Test Panel A TB Test Panel B TB Test Positive [facility] Microbiology Microbiology Results: Microbiology 12/17/22 22:07 Blood - Venous Blood Culture - Final No growth after 5 days. 12/17/22 22:07 Blood - Venous Blood Culture - Final No growth after 5 days. 12/17/22 10:00 Blood - Venous Blood Culture - Final No growth after 5 days. 12/17/22 10:00 Blood - Venous Blood Culture - Final No growth after 5 days. 12/13/22 14:58 Blood - Venous Blood Culture - Final No growth after 5 days. 12/13/22 14:47 Blood - Venous Blood Culture - Final No growth after 5 days. Procedures Date of Service Date of Service: 12/23/22 Assessment & Plan Assessment and plan (1) Acute kidney injury: Status: Acute Assessment and Plan: SOFIYA due to tubular injury Non oliguric. Hemodynamics stable Serum creatinine fairly stable/better Had proteinuria- needs eval once current acute issues are resolved No reason to suspect obstructive uropathy/AIN/GN C/W current supportive care for now; Labs AM; Shall F/U closely Progress Note: Quality Stroke Does the patient have a stroke diagnosis?: No
[2022-12-23] MEDS: Acetaminophen 325 MG TABLET 975 MG PO (16:04)
[2022-12-23] MEDS: OLANZapine 5 MG TABLET PO (21:30)
[2022-12-23 21:35] LABS: Anion Gap 14 (12-20); Blood Urea Nitrogen 22 mg/dL (9-16); Calcium 8.3 mg/dL (8.4-10.2); Carbon Dioxide 23 mmol/L (22-29); Chloride 107 mmol/L (96-108); Creatinine Clr Calc Pharmacy 58.9; Estimated Glomerular Filt Rate 36; Glucose Random 154 mg/dL (60-115); Magnesium 1.8 mg/dL (1.6-2.6); Potassium 2.5 mmol/L (3.3-5.1); Sodium 141 mmol/L (135-145)
[2022-12-24] VITALS (51 sets, daily range): BP systolic 82–155; BP diastolic 35–91; PULSE 18–158; RESP 16–59; TEMP 36.8–40.1; O2SAT 87–100; BMI 32.2
[2022-12-24] MEDS: Heparin Sodium,Porcine 5,000 UNIT/ML VIAL 5000 UNIT SUBCUT ×3 (02:04→17:42)
[2022-12-24] MEDS: Potassium Phosphate/NS 15 MMOL/250 ML PLAST..BAG 62.5 MMOL IV (02:06)
[2022-12-24] MEDS: LORazepam 2 MG/ML VIAL 1 MG IVPUSH ×2 (02:54→05:23)
[2022-12-24] MEDS: Morphine Sulfate 2 MG/ML CARTRIDGE 1 MG IVPUSH ×2 (03:00→16:19)
[2022-12-24] MEDS: Furosemide 20 MG/2 ML VIAL IVPUSH ×2 (03:10→17:43)
--- NOTE | 2022-12-24 03:15 | PC.NURSE ---
Addendum entered by Narciso St RN 12/24/22 06:42: PURWIK CATHETER COLLECTED 800ml URINE...PATIENT INCREASINGLY RESTLESS/AGITATED...HR/RR ELEVATED...BIPAP TITRATED TO 14/6 AND 100%...ANXIOUS/AGITATED WITH URGES TO VOID AND DESAURATES...ATIVAN 1MG IV X1 GIVEN PER STATION INSTALLER AND REPAIRER W/O EFFECT...TEMPERATURE MCPHERSON INSERTED PER STATION INSTALLER AND REPAIRER...600ml DILUTE URINE OBTAINED ON INSERTION...TEMP VIA MCPHERSON MAX 103.8...TYLENOL 1000MG IV X1 GIVEN...PRECIDEX DRIP INITIATED FOR AGITATION/RESTLESSNES...ZOSYN RE-ORDERED BY STATION INSTALLER AND REPAIRER....GRADUAL RESTFUL EFFECT WITH PRECIDEX...MCPHERSON CONTINUES TO DRAIN DILUTE YELLOW URINE...CURRENTLY HR DECREASED TO 115...TEMP 102.2...BP STABLE Original Note: CARE ASSUMED 19:00....AWAKE...ALERT..ORIENTED X3...INTERMITTANTLY ANXIOUS...HI FLOW CANNULA 80% FIO2 AND 50 L/M...SAO2 92-94%....MARKEDLY HOLLIS WHEN OOB TO COMMODE TO VOID...PROLONGED RECOVERY OF WORK OF BREATHING AFTER BACK TO BED...REQUESTED PRN BACLOFEN/MORPHINE AND ATIVAN PER MAR PRIOR TO HS NOCTURNAL BIPAP....BIPAP 12/5 AND 70% FIO2...RESTFUL INITIALLY ON BIPAP...RR 20-24...Ve 11-13 l/m and sao2 96%...3am awake...anxious...rr 40...severe sob...sao2 85-86%...prn morphine and ativan given per mar per [facility] r[facility]...hr 150-160...lungs diffuse fine crackles...2nd bag kpo4 infusing...lasix 20mg iv x1 per [facility] inpatient [facility] rn...purwik catheter in place..collecting yellow urine at present...bipap fio2 titrated to 100% for work
[2022-12-24] MEDS: Acetaminophen 1,000 MG/100 ML PIGGYBACK 400 MG IV ×2 (05:09→18:18)
[2022-12-24] MEDS: dexmedeTOMIDidine HCL/NS 400 MCG/100 ML INFUS..BTL 19 MCG IVCONT (05:24)
[2022-12-24 05:33] LABS: Hemoglobin 9.6 g/dl (12.0-16.0); Mean Corpuscular Hemoglobin 29.9 pg (27.0-33.0); Mean Corpuscular Volume 93.5 fL (80.0-98.0); Mean Platelet Volume 9.9 fL (9.4-12.3); NRBC Pct Auto 0.2 /100WBC (0.0-0.2); Platelet Count 545 X10*3/uL (160-400); Red Blood Count 3.21 X10*6/uL (4.20-5.50); Red Cell Distribution Width 15.2 % (11.0-16.0); White Blood Count 18.6 X10*3/uL (4.8-10.8)
[2022-12-24] MEDS: Piperacillin Sodium/Tazobactam 4.5 GM in 0.9 % Sodium Chloride 100 ML IV ×3 (05:45→17:43)
[2022-12-24 05:53] LABS: Anion Gap 13 (12-20); Blood Urea Nitrogen 20 mg/dL (9-16); Calcium 8.9 mg/dL (8.4-10.2); Carbon Dioxide 27 mmol/L (22-29); Chloride 108 mmol/L (96-108); Estimated Glomerular Filt Rate 33; Glucose Random 119 mg/dL (60-115); Magnesium 1.9 mg/dL (1.6-2.6); Phosphorus 3.9 mg/dL (2.7-4.5); Potassium 3.3 mmol/L (3.3-5.1); Sodium 145 mmol/L (135-145)
[2022-12-24 06:04] LABS: Atypical Lymph Absolute Manual 0.2 x10*3/uL; Atypical Lymphs Percent Manual 1 % (0-6); Band Neutrophils Percent 3 % (3-5); Eosinophils Absolute Manual 0.7 X10*3/uL (0.0-0.4); Eosinophils Percent Manual 4 % (0-4); Lymphocytes Percent Manual 11 % (20-40); Myelocytes Absolute 0.2 X10*/uL; Myelocytes Percent 1 %; Neutrophils Absolute Manual 15.4 X10*3/uL (2.0-8.3); Neutrophils Percent Manual 80 % (45-73); Nucleated Red Blood Cells 1 /100WBC (0-0)
[2022-12-24 06:10] LABS: Large Platelet PRESENT; Macrocytosis 1+ (5-14) /OIF; Microcytosis 1+ (5-14) /OIF; Ovalocytes 1+ (5-14) /OIF; Platelet Estimate SLIGHTLY INCREASED (NORMAL); Platelet Morphology Comment NORMAL; RBC Morphology NOTED
[2022-12-24 06:11] LABS: Basophilic Stippling 1+ (0-2) /OIF; Howell Jolly Bodies PRESENT; Polychromasia 1+ (0-2) /OIF; Smudge Cells PRESENT; Spherocytes 1+ (0-2) /OIF; Toxic Vacuolation PRESENT
[2022-12-24] MEDS: Pantoprazole Sodium 40 MG/10 ML VIAL IVPUSH (06:32)
[2022-12-24] MEDS: Potassium Chloride/H20 10 MEQ/100 ML PIGGYBACK 100 MEQ IV ×4 (06:35→09:57)
[2022-12-24 06:55] LABS: Venous Blood Gas Refer to POC result
[2022-12-24] MEDS: Norepinephrine Bitartrate/D5W 8 MG/250 ML PLAST..BAG 9.01 MG IV (07:42)
--- NOTE | 2022-12-24 07:44 | PM.CCPN ---
Subjective Subjective Date of Service: 12/24/22 Interval History: fevers, antibiotics extended; anxiety overnight, started on dexmedetomidine gtt; found to be hypotensive this AM, started on norepinephrine gtt Critical Care Time (minutes): 60 Physical Exam Vital Signs: Vital Signs: Last Vital Signs Temp 101.7 F H 12/24/22 07:00 Pulse 96 12/24/22 07:42 Resp 20 12/24/22 07:11 BP 82/35 L 12/24/22 07:42 Pulse Ox 98 12/24/22 07:00 O2 Del Method BiPAP 12/24/22 07:00 O2 Flow Rate 50 12/23/22 22:55 FiO2 100 12/24/22 07:00 BMI result Body Mass Index 32.2 Const: Other: somnolent, though arousable to noxious stimulus; no overt acute distress HEENT: Head: Yes normal to inspection, Yes normocephalic and Yes atraumatic Eyes: General: appearance normal, both eyes and all related structures Neck: Neck: Yes normal visual inspection, Yes full ROM and Yes supple Chest: Chest palpation & inspection: normal inspection of the chest Cardio: Rate: regular rate Rhythm: regular rhythm Skin: General skin exam: no rashes or lesions noted Neuro: Other: somnolent, though arousable with noxious stimulus General: no focal motor deficits Extrem: General: Yes normal to inspection, Yes capillary refill normal and Yes no clubbing, cyanosis or edema Objective Data Labs 12/24/22 05:20 12/24/22 05:15 Labs: Laboratory Results - last 24 hr 12/23/22 12/24/22 12/24/22 20:55 05:15 05:20 WBC 18.6 H RBC 3.21 L Hgb 9.6 L Hct 30.0 L MCV 93.5 MCH 29.9 MCHC 32.0 RDW 15.2 Plt Count 545 H MPV 9.9 Immature Gran % (Auto) Cancelled Neut % (Auto) Cancelled Lymph % (Auto) Cancelled [place] % (Auto) Cancelled Eos % (Auto) Cancelled Baso % (Auto) Cancelled Lymph # (Auto) Cancelled [place] # (Auto) Cancelled Eos # (Auto) Cancelled Baso # (Auto) Cancelled Abs Immat Gran (auto) Cancelled Absolute Neuts (auto) Cancelled Absolute Nucleated RBC 0.040 H Nucleated RBC % (auto) 0.2 Neutrophils % (Manual) 80 H Band Neutrophils % 3 Lymphocytes % (Manual) 11 L Atypical Lymphs % (Man) 1 Eosinophils % (Manual) 4 Myelocytes % 1 Abs Neuts (Manual) 15.4 H Lymphocytes # (Manual) 2.0 Atyp Lymphs # (Manual) 0.2 Eosinophils # (Manual) 0.7 H Myelocytes # 0.2 Nucleated RBCs 1 H Smudge Cells PRESENT Toxic Vacuolation PRESENT Platelet Estimate SLIGHTLY INCREASED Large Platelets PRESENT Plt Morphology Comment NORMAL RBC Morphology NOTED Polychromasia 1+ (0-2) Basophilic Stippling 1+ (0-2) Microcytosis 1+ (5-14) Macrocytosis 1+ (5-14) Spherocytes 1+ (0-2) Ovalocytes 1+ (5-14) [place] Bodies PRESENT Sodium 141 145 Potassium 2.5 L* 3.3 D Chloride 107 108 Carbon Dioxide 23 27 Anion Gap 14 13 BUN 22 H 20 H Creatinine 1.62 H 1.78 H Estim Creat Clear Calc 58.9 54.0 Estimated GFR 36 33 Random Glucose 154 H 119 H Calcium 8.3 L 8.9 D Phosphorus 2.0 L 3.9 Magnesium 1.8 1.9 Microbiology Microbiology Results: Microbiology 12/17/22 22:07 Blood - Venous Blood Culture - Final No growth after 5 days. 12/17/22 22:07 Blood - Venous Blood Culture - Final No growth after 5 days. 12/17/22 10:00 Blood - Venous Blood Culture - Final No growth after 5 days. 12/17/22 10:00 Blood - Venous Blood Culture - Final No growth after 5 days. 12/13/22 14:58 Blood - Venous Blood Culture - Final No growth after 5 days. 12/13/22 14:47 Blood - Venous Blood Culture - Final No growth after 5 days. Progress Note: A&P Assessment and plan (1) Acute respiratory failure with hypoxia: Status: Acute (2) Acute kidney injury: Status: Acute (3) Hypotension: Status: Acute Plan Patient is a 32 Y F with multiple sclerosis, recent COVID-19 infection on 11/24/2022, necessitating admission , readmitted 12/13 d/t worsening pneumonia; hospital course c/b ARDS, c/f superimposed bacterial infection, on HFNC AM, BiPAP PM N: no acute issues CV: hypotension, norepinephrine gtt as needed; c/f infectious etiology, antibiotics extended R: COVID pneumonia, c/b superimposed bacterial infection, ARDS; also c/f rheumatological etiology of respiratory failure given patient age and cyclic nature of fever, s/p pulse-dose steroids x3 days; on HFNC AM, BiPAP PM; wean as tolerated; no significant clinical improvement, to consider initiating transfer request to lung transplant center GI: no acute issues; diet as tolerated : non-oligouric SOFIYA, improving; appreciate nephrology recommendations H: no acute issues ID: COVID pneumonia, c/b superimposed bacterial infection; on empiric vancomycin, zosyn; follow-up repeat blood cultures P: anxiety, on dexmedetomidine gtt Quality Stroke Does the patient have a stroke diagnosis?: No VTE Prior VTE?: No VTE Risk Level:: Medical - moderate - high VTE Device Contraindication: Treatment Not Indicated VTE Drug Contraindication: N/A - Med Ordered
[2022-12-24 07:48] LABS: VBG Base Excess 3.1 mmol/L; VBG HCO3 27 mmol/L (22-26); VBG pCO2 44 mmHg; VBG pO2 46 mmHg
[2022-12-24] MEDS: vancomycin/NS 2,000 MG/500 ML PLAST..BAG 250 MG IV (08:27)
[2022-12-24 08:43] LABS: VBG Base Excess 2.5 mmol/L; VBG HCO3 27 mmol/L (22-26); VBG pCO2 41 mmHg; VBG pH 7.42 (7.32-7.43); VBG pO2 163 mmHg
[2022-12-24 08:46] LABS: Venous Blood Gas Refer to POC result
[2022-12-24 08:58] LABS: Lactic Acid 1.8 mmol/L (0.5-2.0)
--- NOTE | 2022-12-24 09:22 | PHA.PROG ---
Admission Date/Time: December 13, 2022 17:46 Indication: OTHER Weight in k.1 kg Adjusted body weight in K.78 [place] body weight in K.9 Obesity Dosing Indication % IBW: 32.2 Serum Creatinine - Last 168 Hours 12/18/22 12/18/22 12/19/22 05:06 08:10 07:20 Creatinine 1.30 1.51 H 1.86 H 12/20/22 12/21/22 12/22/22 04:39 04:31 05:07 Creatinine 1.86 H 1.47 H 1.51 H 12/23/22 12/23/22 12/24/22 05:21 20:55 05:15 Creatinine 1.46 H 1.62 H 1.78 H Estimated CrCl and GFR - Last 168 Hours 12/18/22 12/18/22 12/19/22 05:06 08:10 07:20 Estim Creat Clear Calc 72.4 63.6 51.9 Estimated GFR 47 39 31 12/20/22 12/21/22 12/22/22 04:39 04:31 05:07 Estim Creat Clear Calc 51.9 65.0 63.1 Estimated GFR 31 41 39 12/23/22 12/23/22 12/24/22 05:21 20:55 05:15 Estim Creat Clear Calc 65.4 58.9 54.0 Estimated GFR 41 36 33 Vancomycin Loading Dose: 2000 Current Vancomycin Dosing Regimen: 1250 Q24 Vancomycin Monitoring using AUC goal of 400 - 600 range with trough as surrogate marker: 507/16.7 Date and Time for next Vancomycin Level to be drawn: 12/25/22 @0600 Vancomycin Trough 13.2 mcg/mL (10.0-20.0) 12/15/22 06:00 Pharmacist Comments on Vancomycin Plan: Pt has been on vanco recently from 12/13 to 12/17 and was restarted today. She was stable at 1250 q12 on 12/17 but her renal function has significantly declined with her scr on 12/17 0.95 and today it is 1.78. Proceeding cautiously due to changes in renal function. Will get level before first maintenance dose and after load to see if dosing frequency needs adjustment. Vancomycin dosing will take advantage of [employer] as a clinical decision support tool that uses Bayesian modeling to calculate individual patient's pharmacokinetic parameters and forecast the patient's drug concentration time course with the target goal AUC 24 range of 400 - 600 mg/L/hr.
[2022-12-24] MEDS: Nystatin Oral Susp 500,000 UNIT/5 ML ORAL.SUSP 200000 UNIT BUCCAL ×4 (09:58→20:20)
[2022-12-24 10:28] LABS: Appearance Urine Clear; Color Urine Yellow; Glucose Urine UA Negative (Negative); Leukocyte Esterase Urine Small (1+) (Negative); Nitrite Urine Negative (Negative); PH 5.5 (5.0-9.0); Specific Gravity - Urine 1.015 (1.005-1.025); UMIC TRIGGER UACC YES; Urine Blood Moderate (2+) (Negative); Urine Ketones Negative (Negative); Urine Protein 30 (1+) mg/dL (Neg-Trace)
[2022-12-24 10:31] LABS: Bacteria Urine None Seen (None Seen); Squamous Epithelial Cell Urine 0-2 /HPF (0-2); UACC Culture Trigger YES; WBC Urine 21-50 /HPF (0-5)
--- NOTE | 2022-12-24 11:19 | P.EN_ITS ---
Event Note Date of Service: 12/24/22 Event Note: given no interval improvement of hypoxic respiratory failure, transfer request initiated to [facility]
[2022-12-24] MEDS: Acetaminophen 325 MG TABLET 975 MG PO (12:52)
--- NOTE | 2022-12-24 13:20 | P.DS_ITS ---
DS: Providers Provider Date of Service: 12/26/22 Date of admission: 12/13/22 17:46 Primary care physician: Baldo Arreola MD Attending physician on admission: Kristian Montano Attending physician on discharge: Lucrecia Obrien DS: Transfer Hospital Acceptance Reason for Transfer: COVID Pneumonia, Hypoxic Respiratory Failure Name of Facility: [facility] Accepting Provider: Kieran Montanez MD DS: Diagnosis Discharge Diagnosis (1) Pneumonia due to COVID-19 virus: Status: Acute (2) Acute respiratory failure with hypoxia: Status: Acute (3) Acute kidney injury: Status: Acute DS: Summary Hospital Course Hospital Course: Patient is a 32 Y F with multiple sclerosis and celiac disease, diagnosed with COVID on 11/24/2022 outpatient, p/t [facility] w/ dyspnea on 12/03, CT angiogram chest performed during that admission without PE, but demonstrated multifocal pneumonia, during admission did not receive remdesivir, but treated w/ dexamethasone; discharged on 12/06; re-presented to [facility] on 12/13 with worsening dyspnea, found to be in acute hypoxic respiratory failure, placed on HFNC, admitted to ICU; repeat CT angiogram chest again without PE, but demonstrated worsening multifocal pneumonia; since, patient w/ persistent hypoxic respiratory failure, on HFNC AM and BiPAP PRN and PM for increased work of breathing; CT chest on 12/22 unchanged; procalcitonin elevated, and due to concern for bacterial superinfection, treated empirically w/ vancomycin and zosyn; given age and autoimmune diseases, rheumatological work-up initiated including proteinase 3, myloperoxidase, and GMB antibodies, which were all negative; patient also given methylprednisolone 1 g daily for 3 days; negative for TB; initial HIV screen is reactive and follow-up studies pending; otherwise ICU course c/b non-oligouric SOFIYA, and anxiety, well-controlled on dexmedetomidine gtt Status at Discharge Functional status at discharge: independent ambulation Time Attestation Total time managing care of this patient today: 60 mintues. Discharge coordination time: Less than 30 minutes Quality: Safe Use of Opioids Does Pt have an Active Cancer Diagnosis on the Problem List?: No Quality: Stroke Does the patient have a stroke diagnosis?: No Physical Exam Vital Signs: Vital Signs: Last Vital Signs Temp 98.6 F 12/24/22 11:59 Pulse 139 H 12/24/22 12:55 Resp 18 12/24/22 11:59 BP 133/67 12/24/22 12:55 Pulse Ox 99 12/24/22 11:59 O2 Del Method BiPAP 12/24/22 11:59 O2 Flow Rate 50 12/23/22 22:55 FiO2 100 12/24/22 11:59 BMI result Body Mass Index 32.2 Const: General: cooperative, healthy appearing, alert, awake and Physically active Orientation/consciousness: patient oriented x3 HEENT: Head: Yes normal to inspection, Yes normocephalic and Yes atraumatic Eyes: General: appearance normal, both eyes and all related structures Neck: Neck: Yes normal visual inspection and Yes supple Chest: Other: some appreciable rhonchi; no appreciable rales, wheezing Chest palpation & inspection: normal inspection of the chest Resp: Other: increased respiratory effort characterized by tachypnea and accessory muscle use, though able to speak in complete sentences; no nasal flaring, retractions Cardio: Rate: regular rate Rhythm: regular rhythm GI: Inspection: No Abdominal wall edema and No distended Palpation (GI): Soft to palpation, not firm, nontender, no guarding and not rigid Skin: General skin exam: no rashes or lesions noted Neuro: General: patient oriented x3, moves all extremities and no focal motor deficits Extrem: General: Yes normal to inspection, Yes capillary refill normal and Yes no clubbing, cyanosis or edema Psych: Other: intermittent anxiety Appearance: grossly normal DS: Data Data Completed and Pending Pending studies at discharge: HIV definitive testing, CD4 counts Labs on day of discharge: Laboratory Results - last 24 hr 12/23/22 12/24/22 12/24/22 20:55 05:15 05:20 WBC 18.6 H RBC 3.21 L Hgb 9.6 L Hct 30.0 L MCV 93.5 MCH 29.9 MCHC 32.0 RDW 15.2 Plt Count 545 H MPV 9.9 Immature Gran % (Auto) Cancelled Neut % (Auto) Cancelled Lymph % (Auto) Cancelled [place] % (Auto) Cancelled Eos % (Auto) Cancelled Baso % (Auto) Cancelled Lymph # (Auto) Cancelled [place] # (Auto) Cancelled Eos # (Auto) Cancelled Baso # (Auto) Cancelled Abs Immat Gran (auto) Cancelled Absolute Neuts (auto) Cancelled Absolute Nucleated RBC 0.040 H Nucleated RBC % (auto) 0.2 Neutrophils % (Manual) 80 H Band Neutrophils % 3 Lymphocytes % (Manual) 11 L Atypical Lymphs % (Man) 1 Eosinophils % (Manual) 4 Myelocytes % 1 Abs Neuts (Manual) 15.4 H Lymphocytes # (Manual) 2.0 Atyp Lymphs # (Manual) 0.2 Eosinophils # (Manual) 0.7 H Myelocytes # 0.2 Nucleated RBCs 1 H Smudge Cells PRESENT Toxic Vacuolation PRESENT Platelet Estimate SLIGHTLY INCREASED Large Platelets PRESENT Plt Morphology Comment NORMAL RBC Morphology NOTED Polychromasia 1+ (0-2) Basophilic Stippling 1+ (0-2) Microcytosis 1+ (5-14) Macrocytosis 1+ (5-14) Spherocytes 1+ (0-2) Ovalocytes 1+ (5-14) [place] Bodies PRESENT Hold Purple Top VBG pH 7.40 VBG pCO2 44 VBG pO2 46 VBG HCO3 27 H VBG O2 Saturation 76.0 VBG Base Excess 3.1 Sodium 141 145 Potassium 2.5 L* 3.3 D Chloride 107 108 Carbon Dioxide 23 27 Anion Gap 14 13 BUN 22 H 20 H Creatinine 1.62 H 1.78 H Estim Creat Clear Calc 58.9 54.0 Estimated GFR 36 33 Random Glucose 154 H 119 H Lactic Acid Calcium 8.3 L 8.9 D Phosphorus 2.0 L 3.9 Magnesium 1.8 1.9 Hold Yellow Top Urine Color Urine Appearance Urine pH Ur Specific [place] Urine Protein Urine Glucose (UA) Urine Ketones Urine Blood Urine Nitrite Ur Leukocyte Esterase Urine RBC Urine WBC Ur Squamous Epith Cells Urine Bacteria Hyaline Casts 12/24/22 12/24/22 12/24/22 08:22 08:36 10:15 WBC RBC Hgb Hct MCV MCH MCHC RDW Plt Count MPV Immature Gran % (Auto) Neut % (Auto) Lymph % (Auto) [place] % (Auto) Eos % (Auto) Baso % (Auto) Lymph # (Auto) [place] # (Auto) Eos # (Auto) Baso # (Auto) Abs Immat Gran (auto) Absolute Neuts (auto) Absolute Nucleated RBC Nucleated RBC % (auto) Neutrophils % (Manual) Band Neutrophils % Lymphocytes % (Manual) Atypical Lymphs % (Man) Eosinophils % (Manual) Myelocytes % Abs Neuts (Manual) Lymphocytes # (Manual) Atyp Lymphs # (Manual) Eosinophils # (Manual) Myelocytes # Nucleated RBCs Smudge Cells Toxic Vacuolation Platelet Estimate Large Platelets Plt Morphology Comment RBC Morphology Polychromasia Basophilic Stippling Microcytosis Macrocytosis Spherocytes Ovalocytes [place] Bodies Hold Purple Top SEE NOTE VBG pH 7.42 VBG pCO2 41 VBG pO2 163 VBG HCO3 27 H VBG O2 Saturation 99.0 VBG Base Excess 2.5 Sodium Potassium Chloride Carbon Dioxide Anion Gap BUN Creatinine Estim Creat Clear Calc Estimated GFR Random Glucose Lactic Acid 1.8 Calcium Phosphorus Magnesium Hold Yellow Top See Note Urine Color Yellow Urine Appearance Clear Urine pH 5.5 Ur Specific [place] 1.015 Urine Protein 30 (1+) H Urine Glucose (UA) Negative Urine Ketones Negative Urine Blood Moderate (2+) H Urine Nitrite Negative Ur Leukocyte Esterase Small (1+) H Urine RBC 11-20 H Urine WBC 21-50 H Ur Squamous Epith Cells 0-2 Urine Bacteria None Seen Hyaline Casts 3-[address] scan - chest: Radiologist's impression: ITS Impressions Abdomen/Pelvis CT 12/13/22 15:55 IMPRESSION: No acute abnormality in the abdomen and pelvis. Chest CTA 12/13/22 15:55 IMPRESSION: No evidence of pulmonary embolus. Worsening severe pneumonia likely related to COVID-19 infection. Diffuse esophageal wall thickening. Fluoroscopic evaluation previously showed diffuse severe esophagitis. VTE: negative Chest X-Ray 12/18/22 10:17 IMPRESSION: Worsened significant bilateral airspace disease and air bronchograms obscuring the mediastinal and diaphragmatic surfaces. This diffuse airspace disease could be seen with worsening infectious etiology, ARDS, or significant volume overload. Clinical correlation would be needed for this nonspecific appearance Chest CT 12/22/22 13:45 IMPRESSION: Severe COVID-19 pneumonia. Discharge Plan Discharge Anticipated Discharge Date/Time: 12/25/22 00:00 Patient Disposition: [facility] Acute Care Hospital Discharge Diagnosis: COVID Pneumonia, Acute Hypoxic Respiratory Failure Referrals: Baldo Arreola MD [Primary Care Provider] - 1 Week Discharge Medications: Continued metoprolol succinate 50 mg tablet extended release 24 hr 50 mg PO DAILY baclofen 10 mg tablet 10 mg PO TID PRN (Reason: Spasms) pantoprazole 40 mg tablet,delayed release (DR/EC) 40 mg PO DAILY mirtazapine 30 mg tablet 30 mg PO DAILY buspirone 10 mg tablet 10 mg PO BID duloxetine 60 mg capsule,delayed release(DR/EC) 60 mg PO BID lisdexamfetamine [Vyvanse] 50 mg capsule 50 mg PO DAILY Discharge Orders: Discharge Order (Routine); Ordered 12/26/22 Ordered By: Lucrecia Obrien Activity on Discharge: As tolerated Stand Alone Forms: Patient Portal Discharge page Care Plan Goals: Continued Work-Up of Acute Hypoxic Respiratory Failure at Acute Care Facility Health Concerns: Plan of Treatment: Continued Work-Up of Acute Hypoxic Respiratory Failure at Acute Care Facility Assessment:
--- NOTE | 2022-12-24 14:40 | MHC.CM.PN ---
Pt continues care in ICU: not making clinical progress - [facility] - Jeanette: time to be determined. HCP Martin updated by ICU staff on plan.
[2022-12-24] MEDS: Lidocaine 4 % Patch ADH..PATCH 2 PATCH TRANSDERMA (16:22)
--- NOTE | 2022-12-24 16:53 | P.PNNP_ITS ---
Subjective Subjective Date of Service: 12/24/22 Interval history: fevers, antibiotics extended; anxiety overnight, started on dexmedetomidine gtt; found to be hypotensive this AM, started on norepinephrine gtt Physical Exam 2 Vital Signs: Vital Signs: Last Vital Signs Temp 100.6 F H 12/24/22 14:00 Pulse 112 H 12/24/22 15:00 Resp 44 H 12/24/22 16:17 BP 94/56 L 12/24/22 15:00 Pulse Ox 98 12/24/22 15:00 O2 Del Method High Flow Nasal C annula 12/24/22 15:00 O2 Flow Rate 45 12/24/22 14:00 FiO2 100 12/24/22 15:00 BMI result Body Mass Index 32.2 Const: General: no acute distress Orientation/consciousness: patient oriented x3 Eyes: EOM: EOMs intact bilaterally Resp: Auscultation: diminished lung sounds Cardio: Rate: regular rate GI: Palpation (GI): Soft to palpation Auscultation: normal bowel sounds Neuro: General: patient oriented x3 Objective Data Labs 12/24/22 05:20 12/24/22 05:15 Labs: Laboratory Results - last 24 hr 12/23/22 12/24/22 12/24/22 20:55 05:15 05:20 WBC 18.6 H RBC 3.21 L Hgb 9.6 L Hct 30.0 L MCV 93.5 MCH 29.9 MCHC 32.0 RDW 15.2 Plt Count 545 H MPV 9.9 Immature Gran % (Auto) Cancelled Neut % (Auto) Cancelled Lymph % (Auto) Cancelled [place] % (Auto) Cancelled Eos % (Auto) Cancelled Baso % (Auto) Cancelled Lymph # (Auto) Cancelled [place] # (Auto) Cancelled Eos # (Auto) Cancelled Baso # (Auto) Cancelled Abs Immat Gran (auto) Cancelled Absolute Neuts (auto) Cancelled Absolute Nucleated RBC 0.040 H Nucleated RBC % (auto) 0.2 Neutrophils % (Manual) 80 H Band Neutrophils % 3 Lymphocytes % (Manual) 11 L Atypical Lymphs % (Man) 1 Eosinophils % (Manual) 4 Myelocytes % 1 Abs Neuts (Manual) 15.4 H Lymphocytes # (Manual) 2.0 Atyp Lymphs # (Manual) 0.2 Eosinophils # (Manual) 0.7 H Myelocytes # 0.2 Nucleated RBCs 1 H Smudge Cells PRESENT Toxic Vacuolation PRESENT Platelet Estimate SLIGHTLY INCREASED Large Platelets PRESENT Plt Morphology Comment NORMAL RBC Morphology NOTED Polychromasia 1+ (0-2) Basophilic Stippling 1+ (0-2) Microcytosis 1+ (5-14) Macrocytosis 1+ (5-14) Spherocytes 1+ (0-2) Ovalocytes 1+ (5-14) [place] Bodies PRESENT Hold Purple Top VBG pH 7.40 VBG pCO2 44 VBG pO2 46 VBG HCO3 27 H VBG O2 Saturation 76.0 VBG Base Excess 3.1 Sodium 141 145 Potassium 2.5 L* 3.3 D Chloride 107 108 Carbon Dioxide 23 27 Anion Gap 14 13 BUN 22 H 20 H Creatinine 1.62 H 1.78 H Estim Creat Clear Calc 58.9 54.0 Estimated GFR 36 33 Random Glucose 154 H 119 H Lactic Acid Calcium 8.3 L 8.9 D Phosphorus 2.0 L 3.9 Magnesium 1.8 1.9 Hold Yellow Top Urine Color Urine Appearance Urine pH Ur Specific [place] Urine Protein Urine Glucose (UA) Urine Ketones Urine Blood Urine Nitrite Ur Leukocyte Esterase Urine RBC Urine WBC Ur Squamous Epith Cells Urine Bacteria Hyaline Casts 12/24/22 12/24/22 12/24/22 08:22 08:36 10:15 WBC RBC Hgb Hct MCV MCH MCHC RDW Plt Count MPV Immature Gran % (Auto) Neut % (Auto) Lymph % (Auto) [place] % (Auto) Eos % (Auto) Baso % (Auto) Lymph # (Auto) [place] # (Auto) Eos # (Auto) Baso # (Auto) Abs Immat Gran (auto) Absolute Neuts (auto) Absolute Nucleated RBC Nucleated RBC % (auto) Neutrophils % (Manual) Band Neutrophils % Lymphocytes % (Manual) Atypical Lymphs % (Man) Eosinophils % (Manual) Myelocytes % Abs Neuts (Manual) Lymphocytes # (Manual) Atyp Lymphs # (Manual) Eosinophils # (Manual) Myelocytes # Nucleated RBCs Smudge Cells Toxic Vacuolation Platelet Estimate Large Platelets Plt Morphology Comment RBC Morphology Polychromasia Basophilic Stippling Microcytosis Macrocytosis Spherocytes Ovalocytes [place] Bodies Hold Purple Top SEE NOTE VBG pH 7.42 VBG pCO2 41 VBG pO2 163 VBG HCO3 27 H VBG O2 Saturation 99.0 VBG Base Excess 2.5 Sodium Potassium Chloride Carbon Dioxide Anion Gap BUN Creatinine Estim Creat Clear Calc Estimated GFR Random Glucose Lactic Acid 1.8 Calcium Phosphorus Magnesium Hold Yellow Top See Note Urine Color Yellow Urine Appearance Clear Urine pH 5.5 Ur Specific [place] 1.015 Urine Protein 30 (1+) H Urine Glucose (UA) Negative Urine Ketones Negative Urine Blood Moderate (2+) H Urine Nitrite Negative Ur Leukocyte Esterase Small (1+) H Urine RBC 11-20 H Urine WBC 21-50 H Ur Squamous Epith Cells 0-2 Urine Bacteria None Seen Hyaline Casts 3-5 Microbiology Microbiology Results: Microbiology 12/17/22 22:07 Blood - Venous Blood Culture - Final No growth after 5 days. 12/17/22 22:07 Blood - Venous Blood Culture - Final No growth after 5 days. 12/17/22 10:00 Blood - Venous Blood Culture - Final No growth after 5 days. 12/17/22 10:00 Blood - Venous Blood Culture - Final No growth after 5 days. 12/13/22 14:58 Blood - Venous Blood Culture - Final No growth after 5 days. 12/13/22 14:47 Blood - Venous Blood Culture - Final No growth after 5 days. Procedures Date of Service Date of Service: 12/24/22 Assessment & Plan Assessment and plan (1) Acute kidney injury: Status: Acute Plan SOFIYA due to tubular injury Non oliguric. Hemodynamics stable Serum creatinine fairly stable Had proteinuria- needs eval once current acute issues are resolved No reason to suspect obstructive uropathy/AIN/GN C/W current supportive care for now; Labs AM; Shall F/U closely Progress Note: Quality Stroke Does the patient have a stroke diagnosis?: No
[2022-12-24] MEDS: Furosemide 20 MG/2 ML VIAL 10 MG IVPUSH (17:01)
[2022-12-24 18:57] LABS: VBG Base Excess -0.4 mmol/L; VBG HCO3 21 mmol/L (22-26); VBG pCO2 27 mmHg; VBG pO2 71 mmHg
[2022-12-24] MEDS: Sulfamethox/Trimeth 800/160 TABLET 1 TAB PO (20:20)
[2022-12-24] MEDS: OLANZapine 5 MG TABLET PO (20:20)
[2022-12-24] MEDS: methylPREDNISolone Sod Succ 125 MG/2 ML VIAL 250 MG IVPUSH (20:20)
[2022-12-24 20:48] LABS: Anion Gap 13 (12-20); Blood Urea Nitrogen 20 mg/dL (9-16); Calcium 8.4 mg/dL (8.4-10.2); Carbon Dioxide 25 mmol/L (22-29); Chloride 105 mmol/L (96-108); Creatinine Clr Calc Pharmacy 55.8; Estimated Glomerular Filt Rate 34; Glucose Random 128 mg/dL (60-115); Magnesium 1.8 mg/dL (1.6-2.6); Phosphorus 3.4 mg/dL (2.7-4.5); Sodium 140 mmol/L (135-145)
[2022-12-24 20:59] LABS: Venous Blood Gas Refer to POC result
[2022-12-24] MEDS: dexmedeTOMIDidine HCL/NS 400 MCG/100 ML INFUS..BTL 9.5 MCG IVCONT (21:30)
[2022-12-25] VITALS (34 sets, daily range): BP systolic 92–135; BP diastolic 45–88; PULSE 70–110; RESP 16–35; TEMP 35.7–37.2; O2SAT 92–100; BMI 31.9
[2022-12-25] MEDS: Potassium Chloride Packet 20 MEQ PACKET 40 MEQ PO (00:12)
[2022-12-25] MEDS: Piperacillin Sodium/Tazobactam 4.5 GM in 0.9 % Sodium Chloride 100 ML IV ×5 (00:21→23:03)
[2022-12-25 00:32] LABS: VBG Base Excess 5.8 mmol/L; VBG HCO3 29 mmol/L (22-26); VBG pCO2 37 mmHg; VBG pO2 215 mmHg
[2022-12-25] MEDS: Acetaminophen 1,000 MG/100 ML PIGGYBACK 400 MG IV ×3 (00:35→11:53)
[2022-12-25 00:38] LABS: Venous Blood Gas Refer to POC result
[2022-12-25] MEDS: Heparin Sodium,Porcine 5,000 UNIT/ML VIAL 5000 UNIT SUBCUT ×3 (01:27→17:42)
[2022-12-25] MEDS: methylPREDNISolone Sod Succ 125 MG/2 ML VIAL 250 MG IVPUSH ×4 (01:29→20:11)
--- NOTE | 2022-12-25 04:40 | PC.NURSE ---
ASSUMED CARE OF PT AT 1900. PT ON PRECEDEX DRIP WITH GOOD EFFECT. SHE IS CALM AND COOPERATIVE, ORIENTED X3. BIPAP FACEMASK ON. VBG'S DRAWN AT 0030 AND PO2 215 THUS FIO2 DECREASED FROM 100%TO 80%. FREQUENT MOUTH CARE GIVEN DUE TO DRY MOUTH. ORAL CAVITY/LIP MOISTURIZER USED. PT GETS VERY SHORT OF BREATH WHEN MASK IS OFF AND SATS START TO DROP TO 80'S. MASK ONLY OFF FOR 30-60 SECONDS, ENOUGH TIME FOR PT TO TAKE A DRINK OR HAVE MOUTH SWABBED. BP STABLE, PRESENTLY 111/75. MONITOR SHOWS NSR, RATE 60'S-80'S. U/O GOOD VIA [place] CATH, SEE I/O FLOWSHEET. PT RECEIVING IV ACETAMINOPHEN. TEMP WAS 104. PT WAS DIAPHORETIC AND TEMP NOW NORMAL.
[2022-12-25 05:34] LABS: VBG Base Excess 3.2 mmol/L; VBG HCO3 27 mmol/L (22-26); VBG pCO2 40 mmHg; VBG pH 7.44 (7.32-7.43); VBG pO2 54 mmHg
[2022-12-25 05:36] LABS: Venous Blood Gas Refer to POC result
[2022-12-25 05:45] LABS: Basophils Percent Auto 0.2 % (0-2); Eosinophils Absolute Auto 0.1 X10*3/uL (0.0-0.4); Eosinophils Percent Auto 1.1 % (0-4); Hematocrit 27.5 % (37.0-47.0); Hemoglobin 8.7 g/dl (12.0-16.0); Imm Gran Abs Auto 0.54 X10*3/uL (0.00-0.03); Imm Gran Pct Auto 4.4 % (0.0-0.4); Lymphocytes Absolute Auto 0.4 X10*3/uL (1.2-4.9); Lymphocytes Percent Auto 3.3 % (20-40); MANUAL DIFF FLAG SCAN; Mean Corpuscular HGB Conc 31.6 g/dl (31.0-35.0); Mean Corpuscular Hemoglobin 29.6 pg (27.0-33.0); Mean Corpuscular Volume 93.5 fL (80.0-98.0); Mean Platelet Volume 10.2 fL (9.4-12.3); Monocytes Absolute Auto 0.1 X10*3/uL (0.1-1.2); Monocytes Percent Auto 0.6 % (2-11); Neutrophils Absolute Auto 11.1 x10*3/uL (2.0-8.3); Neutrophils Percent Auto 90.4 % (45-73); Platelet Count 419 X10*3/uL (160-400); Red Blood Count 2.94 X10*6/uL (4.20-5.50); Red Cell Distribution Width 15.6 % (11.0-16.0); SCAN SMEAR FLAG 1; White Blood Count 12.3 X10*3/uL (4.8-10.8)
[2022-12-25] MEDS: Pantoprazole Sodium 40 MG/10 ML VIAL IVPUSH (05:50)
[2022-12-25 05:53] LABS: SLIDE REVIEW VERIFIED; Vancomycin Random 14.2 mcg/mL (15-20)
[2022-12-25 06:01] LABS: Anion Gap 16 (12-20); Blood Urea Nitrogen 25 mg/dL (9-16); Calcium 8.6 mg/dL (8.4-10.2); Carbon Dioxide 24 mmol/L (22-29); Chloride 104 mmol/L (96-108); Creatinine Clr Calc Pharmacy 57.3; Estimated Glomerular Filt Rate 37; Glucose Random 236 mg/dL (60-115); Magnesium 2.1 mg/dL (1.6-2.6); Phosphorus 4.1 mg/dL (2.7-4.5); Potassium 4.5 mmol/L (3.3-5.1); Sodium 139 mmol/L (135-145)
--- NOTE | 2022-12-25 06:26 | HE.PHANOTE ---
RE VANCO DOSING: AFTER LOAD VANCO LEVEL IS 14.2. RENAL FUNCTION VERY SLIGHTLY IMPROVED WITH SCR TODAY 1.61. CONTINUE CURRENT REGIMEN OF 1250 Q24 AND OBTAIN DAILY SCR TO MONITOR RENAL FUNCTION AND NEXT LEVEL ON 12/27 @0600.
--- NOTE | 2022-12-25 07:32 | PM.CCPN ---
Subjective Subjective Date of Service: 12/25/22 Interval History: anxiety improved on dexmedetomidine gtt; tolerated BiPAP Critical Care Time (minutes): 60 Physical Exam Vital Signs: Vital Signs: Last Vital Signs Temp 96.4 F L 12/25/22 06:00 Pulse 74 12/25/22 07:00 Resp 17 12/25/22 07:00 BP 98/57 L 12/25/22 07:00 Pulse Ox 98 12/25/22 07:00 O2 Del Method High Flow Nasal C annula 12/25/22 07:00 O2 Flow Rate 50 12/25/22 07:00 FiO2 75 12/25/22 07:00 BMI result Body Mass Index 31.9 Const: General: cooperative, healthy appearing, no acute distress, alert and awake Orientation/consciousness: patient oriented x3 HEENT: Head: Yes normal to inspection, Yes normocephalic and Yes atraumatic Eyes: General: appearance normal, both eyes and all related structures Neck: Neck: Yes normal visual inspection, Yes full ROM and Yes supple Chest: Chest palpation & inspection: normal inspection of the chest Resp: Other: some rhonchi; no overt rales, wheezing; improved work of breathing today Cardio: Rate: regular rate Rhythm: regular rhythm GI: Inspection: Yes normal to inspection, No Abdominal wall edema and No distended Palpation (GI): Soft to palpation, not firm, nontender, no guarding and not rigid Skin: General skin exam: no rashes or lesions noted Neuro: General: patient oriented x3, moves all extremities and no focal motor deficits Extrem: Other: 1+ pitting edema bilateral shins General: Yes normal to inspection and Yes capillary refill normal Psych: Appearance: grossly normal Objective Data Labs 12/25/22 05:24 12/25/22 05:24 Labs: Laboratory Results - last 24 hr 12/24/22 12/24/22 12/24/22 05:20 08:22 08:36 WBC RBC Hgb Hct MCV MCH MCHC RDW Plt Count MPV Immature Gran % (Auto) Neut % (Auto) Lymph % (Auto) [place] % (Auto) Eos % (Auto) Baso % (Auto) Lymph # (Auto) [place] # (Auto) Eos # (Auto) Baso # (Auto) Abs Immat Gran (auto) Absolute Neuts (auto) Absolute Nucleated RBC Nucleated RBC % (auto) Smear Tech's Comments Hold Purple Top SEE NOTE VBG pH 7.40 7.42 VBG pCO2 44 41 VBG pO2 46 163 VBG HCO3 27 H 27 H VBG O2 Saturation 76.0 99.0 VBG Base Excess 3.1 2.5 Sodium Potassium Chloride Carbon Dioxide Anion Gap BUN Creatinine Estim Creat Clear Calc Estimated GFR Random Glucose Lactic Acid 1.8 Calcium Phosphorus Magnesium Hold Yellow Top See Note Urine Color Urine Appearance Urine pH Ur Specific [place] Urine Protein Urine Glucose (UA) Urine Ketones Urine Blood Urine Nitrite Ur Leukocyte Esterase Urine RBC Urine WBC Ur Squamous Epith Cells Urine Bacteria Hyaline Casts Random Vancomycin 12/24/22 12/24/22 12/24/22 10:15 18:52 20:19 WBC RBC Hgb Hct MCV MCH MCHC RDW Plt Count MPV Immature Gran % (Auto) Neut % (Auto) Lymph % (Auto) [place] % (Auto) Eos % (Auto) Baso % (Auto) Lymph # (Auto) [place] # (Auto) Eos # (Auto) Baso # (Auto) Abs Immat Gran (auto) Absolute Neuts (auto) Absolute Nucleated RBC Nucleated RBC % (auto) Smear Tech's Comments Hold Purple Top VBG pH 7.50 H VBG pCO2 27 VBG pO2 71 VBG HCO3 21 L VBG O2 Saturation 96.0 VBG Base Excess -0.4 Sodium 140 Potassium 3.0 L Chloride 105 Carbon Dioxide 25 Anion Gap 13 BUN 20 H Creatinine 1.72 H Estim Creat Clear Calc 55.8 Estimated GFR 34 Random Glucose 128 H Lactic Acid Calcium 8.4 Phosphorus 3.4 Magnesium 1.8 Hold Yellow Top Urine Color Yellow Urine Appearance Clear Urine pH 5.5 Ur Specific [place] 1.015 Urine Protein 30 (1+) H Urine Glucose (UA) Negative Urine Ketones Negative Urine Blood Moderate (2+) H Urine Nitrite Negative Ur Leukocyte Esterase Small (1+) H Urine RBC 11-20 H Urine WBC 21-50 H Ur Squamous Epith Cells 0-2 Urine Bacteria None Seen Hyaline Casts 3-5 Random Vancomycin 12/25/22 12/25/22 12/25/22 00:26 05:24 05:29 WBC 12.3 H RBC 2.94 L Hgb 8.7 L Hct 27.5 L MCV 93.5 MCH 29.6 MCHC 31.6 RDW 15.6 Plt Count 419 H MPV 10.2 Immature Gran % (Auto) 4.4 H Neut % (Auto) 90.4 H Lymph % (Auto) 3.3 L [place] % (Auto) 0.6 L Eos % (Auto) 1.1 Baso % (Auto) 0.2 Lymph # (Auto) 0.4 L [place] # (Auto) 0.1 Eos # (Auto) 0.1 Baso # (Auto) 0.0 Abs Immat Gran (auto) 0.54 H Absolute Neuts (auto) 11.1 H Absolute Nucleated RBC 0.000 Nucleated RBC % (auto) 0.0 Smear Tech's Comments VERIFIED Hold Purple Top VBG pH 7.50 H 7.44 H VBG pCO2 37 40 VBG pO2 215 54 VBG HCO3 29 H 27 H VBG O2 Saturation 100.0 84.0 VBG Base Excess 5.8 3.2 Sodium 139 Potassium 4.5 D Chloride 104 Carbon Dioxide 24 Anion Gap 16 BUN 25 H Creatinine 1.61 H Estim Creat Clear Calc 57.3 Estimated GFR 37 Random Glucose 236 H Lactic Acid Calcium 8.6 Phosphorus 4.1 Magnesium 2.1 Hold Yellow Top Urine Color Urine Appearance Urine pH Ur Specific [place] Urine Protein Urine Glucose (UA) Urine Ketones Urine Blood Urine Nitrite Ur Leukocyte Esterase Urine RBC Urine WBC Ur Squamous Epith Cells Urine Bacteria Hyaline Casts Random Vancomycin 14.2 L Microbiology Microbiology Results: Microbiology 12/17/22 22:07 Blood - Venous Blood Culture - Final No growth after 5 days. 12/17/22 22:07 Blood - Venous Blood Culture - Final No growth after 5 days. 12/17/22 10:00 Blood - Venous Blood Culture - Final No growth after 5 days. 12/17/22 10:00 Blood - Venous Blood Culture - Final No growth after 5 days. 12/13/22 14:58 Blood - Venous Blood Culture - Final No growth after 5 days. 12/13/22 14:47 Blood - Venous Blood Culture - Final No growth after 5 days. Progress Note: A&P Assessment and plan (1) Pneumonia due to COVID-19 virus: Status: Acute (2) Acute kidney injury: Status: Acute (3) Acute respiratory failure with hypoxia: Status: Acute Plan Patient is a 32 Y F with multiple sclerosis, recent COVID-19 infection on 11/24/2022, necessitating admission , readmitted 12/13 d/t worsening pneumonia; hospital course c/b ARDS, c/f superimposed bacterial infection, on HFNC AM, BiPAP PM N: no acute issues CV: hypotension, appears to be associated w/ dexmedetomidine gtt, sleeping; however, c/f infectious etiology, antibiotics extended R: COVID pneumonia, c/f superimposed bacterial infection, and c/b ARDS; also c/f rheumatological etiology of respiratory failure given patient age and cyclic nature of fever, s/p pulse-dose steroids x3 days w/ improvement; on 12/24 developed worsening hypoxia, may be d/t worsening anxiety, but decision made to extend pulse-dose steroids; on HFNC AM, BiPAP PM; wean as tolerated; given no significant clinical improvement, transfer request initiated 12/24, [facility] GI: no acute issues; diet as tolerated : non-oligouric SOFIYA, improving; appreciate nephrology recommendations H: no acute issues ID: COVID pneumonia, c/f superimposed bacterial infection; on empiric vancomycin, zosyn; follow-up repeat blood cultures; of note, initial HIV screen reactive, awaiting definitive testing; TB testing negative P: anxiety, significantly improved on dexmedetomidine gtt Quality Stroke Does the patient have a stroke diagnosis?: No VTE Prior VTE?: No VTE Risk Level:: Medical - moderate - high VTE Device Contraindication: Treatment Not Indicated VTE Drug Contraindication: N/A - Med Ordered
[2022-12-25 07:41] LABS: Glucose, Whole Blood 188 mg/dL (60-115)
[2022-12-25] MEDS: dexmedeTOMIDidine HCL/NS 400 MCG/100 ML INFUS..BTL 9.5 MCG IVCONT ×2 (08:09→18:34)
[2022-12-25] MEDS: Insulin Lispro 100 UNIT/ML 3 ML VIAL SUBCUT ×4 (08:10→23:01)
[2022-12-25] MEDS: Sulfamethox/Trimeth 800/160 TABLET 1 TAB PO ×2 (08:10→20:13)
[2022-12-25] MEDS: Furosemide 20 MG/2 ML VIAL IVPUSH ×2 (08:11→17:42)
[2022-12-25] MEDS: Lidocaine 4 % Patch ADH..PATCH 2 PATCH TRANSDERMA (08:11)
[2022-12-25] MEDS: vancomycin HCL 1,250 MG in 0.9 % Sodium Chloride 250 ML 166.67 MG IV (08:11)
[2022-12-25] MEDS: Nystatin Oral Susp 500,000 UNIT/5 ML ORAL.SUSP 200000 UNIT BUCCAL ×4 (08:12→20:14)
[2022-12-25] MEDS: Morphine Sulfate 2 MG/ML CARTRIDGE 1 MG IVPUSH ×3 (08:25→20:19)
[2022-12-25 11:46] LABS: Glucose, Whole Blood 240 mg/dL (60-115)
[2022-12-25] MEDS: Baclofen 10 MG TABLET PO ×2 (11:48→17:42)
[2022-12-25] MEDS: Fluconazole in NaCl,Iso-Osm 200 MG/100 ML PIGGYBACK 100 MG IV (12:35)
[2022-12-25 17:29] LABS: Glucose, Whole Blood 232 mg/dL (60-115)
[2022-12-25] MEDS: OLANZapine 5 MG TABLET PO (20:21)
[2022-12-25 21:19] LABS: Glucose, Whole Blood 307 mg/dL (60-115)
[2022-12-26] VITALS (21 sets, daily range): BP systolic 115–158; BP diastolic 62–96; PULSE 72–109; RESP 16–31; TEMP 36.3–37.4; O2SAT 88–100; BMI 32.1
[2022-12-26] MEDS: Morphine Sulfate 2 MG/ML CARTRIDGE 1 MG IVPUSH ×3 (02:12→15:02)
[2022-12-26] MEDS: Heparin Sodium,Porcine 5,000 UNIT/ML VIAL 5000 UNIT SUBCUT ×3 (03:10→17:26)
[2022-12-26] MEDS: methylPREDNISolone Sod Succ 125 MG/2 ML VIAL 250 MG IVPUSH ×3 (03:11→13:47)
[2022-12-26] MEDS: dexmedeTOMIDidine HCL/NS 400 MCG/100 ML INFUS..BTL 9.5 MCG IVCONT ×2 (05:14→15:16)
[2022-12-26] MEDS: Piperacillin Sodium/Tazobactam 4.5 GM in 0.9 % Sodium Chloride 100 ML IV ×2 (05:19→11:30)
[2022-12-26] MEDS: Baclofen 10 MG TABLET PO ×2 (05:42→11:14)
[2022-12-26] MEDS: Pantoprazole Sodium 40 MG/10 ML VIAL IVPUSH (05:43)
[2022-12-26 05:46] LABS: VBG Base Excess 4.6 mmol/L; VBG HCO3 27 mmol/L (22-26); VBG pCO2 31 mmHg; VBG pH 7.53 (7.32-7.43); VBG pO2 69 mmHg
[2022-12-26 05:47] LABS: MANUAL DIFF FLAG NO
[2022-12-26 05:54] LABS: Basophils Percent Auto 0.1 % (0-2); Hemoglobin 8.6 g/dl (12.0-16.0); Imm Gran Abs Auto 0.59 X10*3/uL (0.00-0.03); Imm Gran Pct Auto 2.8 % (0.0-0.4); Lymphocytes Absolute Auto 0.8 X10*3/uL (1.2-4.9); Lymphocytes Percent Auto 3.6 % (20-40); Mean Corpuscular HGB Conc 33.1 g/dl (31.0-35.0); Mean Corpuscular Hemoglobin 30.7 pg (27.0-33.0); Mean Corpuscular Volume 92.9 fL (80.0-98.0); Mean Platelet Volume 10.6 fL (9.4-12.3); Monocytes Absolute Auto 0.3 X10*3/uL (0.1-1.2); Monocytes Percent Auto 1.4 % (2-11); Neutrophils Absolute Auto 19.1 x10*3/uL (2.0-8.3); Neutrophils Percent Auto 92.1 % (45-73); Platelet Count 484 X10*3/uL (160-400); Red Cell Distribution Width 15.2 % (11.0-16.0); SCAN SMEAR FLAG 1; White Blood Count 20.8 X10*3/uL (4.8-10.8)
[2022-12-26 05:56] LABS: Venous Blood Gas Refer to POC result
[2022-12-26 06:06] LABS: Anion Gap 15 (12-20); Blood Urea Nitrogen 28 mg/dL (9-16); Calcium 8.6 mg/dL (8.4-10.2); Carbon Dioxide 27 mmol/L (22-29); Chloride 102 mmol/L (96-108); Creatinine Clr Calc Pharmacy 70.5; Estimated Glomerular Filt Rate 45; Glucose Random 181 mg/dL (60-115); Magnesium 2.1 mg/dL (1.6-2.6); Phosphorus 3.1 mg/dL (2.7-4.5); Potassium 3.6 mmol/L (3.3-5.1); Sodium 140 mmol/L (135-145)
[2022-12-26 07:32] LABS: Glucose, Whole Blood 286 mg/dL (60-115)
--- NOTE | 2022-12-26 07:46 | PM.CCPN ---
Subjective Subjective Date of Service: 12/26/22 Interval History: no significant overnight events Critical Care Time (minutes): 60 Physical Exam Vital Signs: Vital Signs: Last Vital Signs Temp 98.4 F 12/26/22 07:00 Pulse 99 12/26/22 07:00 Resp 26 H 12/26/22 07:16 BP 117/76 12/26/22 07:00 Pulse Ox 95 12/26/22 07:00 O2 Del Method High Flow Nasal C annula 12/26/22 07:00 O2 Flow Rate 45 12/26/22 07:00 FiO2 60 12/26/22 07:00 BMI result Body Mass Index 32.1 Const: General: cooperative, healthy appearing, comfortable, no acute distress, alert, awake and Physically active Orientation/consciousness: patient oriented x3 HEENT: Head: Yes normal to inspection, Yes normocephalic and Yes atraumatic Eyes: General: appearance normal, both eyes and all related structures Neck: Neck: Yes normal visual inspection, Yes full ROM, Yes no meningeal signs and Yes supple Chest: Chest palpation & inspection: normal inspection of the chest Resp: Other: some rhonchi; no overt rales, wheezing; persistent increased work of breathing Cardio: Rate: tachycardic Rhythm: regular rhythm GI: Inspection: Yes normal to inspection, No Abdominal wall edema and No distended Palpation (GI): Soft to palpation, not firm, nontender, no guarding and not rigid Skin: General skin exam: no rashes or lesions noted Neuro: General: patient oriented x3, moves all extremities, no meningeal signs and no focal motor deficits Extrem: General: Yes normal to inspection, Yes capillary refill normal and Yes no clubbing, cyanosis or edema Psych: Appearance: grossly normal Objective Data Labs 12/26/22 05:32 12/26/22 05:32 Labs: Laboratory Results - last 24 hr 12/25/22 12/25/22 12/25/22 11:43 17:25 21:14 WBC RBC Hgb Hct MCV MCH MCHC RDW Plt Count MPV Immature Gran % (Auto) Neut % (Auto) Lymph % (Auto) [place] % (Auto) Eos % (Auto) Baso % (Auto) Lymph # (Auto) [place] # (Auto) Eos # (Auto) Baso # (Auto) Abs Immat Gran (auto) Absolute Neuts (auto) Absolute Nucleated RBC Nucleated RBC % (auto) VBG pH VBG pCO2 VBG pO2 VBG HCO3 VBG O2 Saturation VBG Base Excess Sodium Potassium Chloride Carbon Dioxide Anion Gap BUN Creatinine Estim Creat Clear Calc Estimated GFR POC Glucose 240 H 232 H 307 H Random Glucose Calcium Phosphorus Magnesium 12/26/22 12/26/22 12/26/22 05:32 05:36 07:29 WBC 20.8 H RBC 2.80 L Hgb 8.6 L Hct 26.0 L MCV 92.9 MCH 30.7 MCHC 33.1 RDW 15.2 Plt Count 484 H MPV 10.6 Immature Gran % (Auto) 2.8 H Neut % (Auto) 92.1 H Lymph % (Auto) 3.6 L [place] % (Auto) 1.4 L Eos % (Auto) 0.0 Baso % (Auto) 0.1 Lymph # (Auto) 0.8 L [place] # (Auto) 0.3 Eos # (Auto) 0.0 Baso # (Auto) 0.0 Abs Immat Gran (auto) 0.59 H Absolute Neuts (auto) 19.1 H Absolute Nucleated RBC 0.000 Nucleated RBC % (auto) 0.0 VBG pH 7.53 H VBG pCO2 31 VBG pO2 69 VBG HCO3 27 H VBG O2 Saturation Not Reportable VBG Base Excess 4.6 Sodium 140 Potassium 3.6 Chloride 102 Carbon Dioxide 27 Anion Gap 15 BUN 28 H Creatinine 1.36 Estim Creat Clear Calc 70.5 Estimated GFR 45 POC Glucose 286 H Random Glucose 181 H Calcium 8.6 Phosphorus 3.1 Magnesium 2.1 Microbiology Microbiology Results: Microbiology 12/24/22 Unknown Urine Catheterized - Rausch Catheter Urine Culture - Final No growth. 12/24/22 08:52 Blood - Venous Blood Culture - Preliminary No growth after 24 hours. 12/24/22 08:22 Blood - Venous Blood Culture - Preliminary No growth after 24 hours. 12/17/22 22:07 Blood - Venous Blood Culture - Final No growth after 5 days. 12/17/22 22:07 Blood - Venous Blood Culture - Final No growth after 5 days. 12/17/22 10:00 Blood - Venous Blood Culture - Final No growth after 5 days. 12/17/22 10:00 Blood - Venous Blood Culture - Final No growth after 5 days. 12/13/22 14:58 Blood - Venous Blood Culture - Final No growth after 5 days. 12/13/22 14:47 Blood - Venous Blood Culture - Final No growth after 5 days. Progress Note: A&P Assessment and plan (1) Acute respiratory failure with hypoxia: Status: Acute (2) Acute kidney injury: Status: Acute Plan Patient is a 32 Y F with multiple sclerosis, recent COVID-19 infection on 11/24/2022, necessitating admission , readmitted 12/13 d/t worsening pneumonia; hospital course c/b ARDS, c/f superimposed bacterial infection, on HFNC AM, BiPAP PM N: no acute issues CV: no acute issues R: COVID pneumonia, c/f superimposed bacterial infection, and c/b ARDS; also c/f rheumatological etiology of respiratory failure given patient age and cyclic nature of fever, s/p pulse-dose steroids x3 days w/ improvement; on 12/24 developed worsening hypoxia, may be d/t worsening anxiety, but decision made to re-dose pulse-dose steroids; on HFNC AM, BiPAP PM; wean as tolerated; given no significant clinical improvement, transfer request initiated 12/24, accepted to [facility] available bed GI: no acute issues; diet as tolerated : non-oligouric SOFIYA, improving; appreciate nephrology recommendations H: no acute issues ID: COVID pneumonia, c/f superimposed bacterial infection; on empiric vancomycin, zosyn; follow-up repeat blood cultures; of note, initial HIV screen reactive, awaiting definitive testing; given possible HIV positive, bactrim initiated; TB testing negative P: intermittent anxiety, significantly improved on dexmedetomidine gtt Quality Stroke Does the patient have a stroke diagnosis?: No VTE Prior VTE?: No VTE Risk Level:: Medical - moderate - high VTE Device Contraindication: Treatment Not Indicated VTE Drug Contraindication: N/A - Med Ordered
[2022-12-26] MEDS: Insulin Lispro 100 UNIT/ML 3 ML VIAL SUBCUT ×3 (08:13→17:25)
[2022-12-26] MEDS: Nystatin Oral Susp 500,000 UNIT/5 ML ORAL.SUSP 200000 UNIT BUCCAL ×3 (08:14→17:26)
[2022-12-26] MEDS: vancomycin HCL 1,250 MG in 0.9 % Sodium Chloride 250 ML 166.67 MG IV (08:14)
[2022-12-26] MEDS: Sulfamethox/Trimeth 800/160 TABLET 1 TAB PO (08:14)
[2022-12-26] MEDS: Furosemide 20 MG/2 ML VIAL IVPUSH ×2 (08:15→17:27)
[2022-12-26] MEDS: Lidocaine 4 % Patch ADH..PATCH 2 PATCH TRANSDERMA (08:15)
[2022-12-26 11:20] LABS: Glucose, Whole Blood 244 mg/dL (60-115)
[2022-12-26 17:17] LABS: Glucose, Whole Blood 263 mg/dL (60-115)
[2022-12-26] MEDS: LORazepam 2 MG/ML VIAL 1 MG IVPUSH (17:27)
--- NOTE | 2022-12-26 18:16 | PC.RT ---
Pt being trans to [facility], RT veifiecd current bipap settings with EMS, RN present.
--- NOTE | 2022-12-26 18:23 | PC.NURSE ---
Patient accepted by [facility], room assigned. Report given to QUIANA Rojas on [place] 11C unit at 1430. ALS transport scheduled via [place], EMS arrives at 1540. Patient on Precedex gtt per EMAR, given IVP Ativan for transport. Patient transitioned to bipap by EMS. VS remained stable. Patient left unit accompanied by EMS at 1817.
[2022-12-28 04:28] LABS: Legionella Ag Urine Not Detected (Not Detected)
[2022-12-28 10:18] LABS: Absolute CD3 Count 310 cells/uL (840-3060); Absolute CD4 Count 113 cells/uL (490-1740); Absolute CD8 Count 197 cells/uL (180-1170); Absolute Lymphocytes 394 cells/uL (850-3900); CD4 CD8 Ratio 0.57 (0.86-5.00); Percent CD3 Cells 79 % (57-85); Percent CD4 Cells 29 % (30-61); Percent CD8 Cells 50 % (12-42)
[2022-12-31 08:32] LABS: HIV 2 Antibody NEGATIVE
[2022-12-31 08:33] LABS: HIV 1 Antibody POSITIVE (Abnormal)
--- NOTE | 2023-01-10 09:42 | P.CDIM_ITS ---
PROVIDER RESPONSE TEXT: To clarify, the appropriate diagnosis supported by the clinical indicators: Sepsis is/was present and is a clinical diagnosis based on QUERY TEXT: PHYSICIAN'S DOCUMENTATION REQUEST Date of Query: 01/03/2023 02:04 PM EST Patient Name: NEHA FITZPATRICK Admit Date: 12/13/2022 Dear Lucrecia Obrien, A review of the medical record indicates additional documentation may be needed. Please review below and update the documentation accordingly. Documentation on the H&P dated 12/13/22 included the diagnosis of septic shock, source likely COVID i nfection The patient's infectious clinical indicators include: WBC 16.5 Lactic acid 6.8 Treated with IV Vancomycin and IV Zosyn Sepsis is not documented in the Discharge Summary dated 12/24/22 Recognized standard criteria for this condition and other infectious definitions includes: Bacteremia Abnormal laboratory test - does not indicate a clinically ill patient Sepsis Systemic manifestations of infection, with 2 or more SIRS criteria which include: Fever > 100.4?F or hypothermia < 96.8?F Leukocytosis - WBC > 12,000 or leukopenia, WBC < 4,000, or > 10% bands Tachycardia- > 90 beats/minute Tachypnea- RR > 20 breaths/minute or PaCO2 < 32mmHg Source: [employer]ck Manual 2013 Documentation should include the known or suspected organism, and the underlying infection, such as U TI or pneumonia Severe Sepsis Sepsis with associated acute organ dysfunction, such as renal or respiratory failure Documentation should indicate the association between the sepsis and the organ dysfunction Septic Shock Severe sepsis with associated with circulatory failure, evidenced by hypotension and hypoperfusion Based on the above information and the recognized standard for sepsis, could you please clarify if th is diagnoses is still accurate and reflective of the patient's condition to ensure quality of the medical record. Sepsis is/was present and is a clinical diagnosis based on After study, Sepsis has been ruled out Other (explain) Clinically unable to determine (explain) Thank you, Wendy Curry RN Use of terms such as suspected, likely, concern for, or probable (associated with a specific diagnosi s that is being evaluated, monitored, or treated as if it exists) are acceptable and can be coded in the inpatient se tting, when documented at the time of discharge. Please use your independent medical judgment in providing your response. THIS QUERY IS PART OF THE PERMANENT MEDICAL RECORD
== END 2022-12-26 18:17 | disposition short-term general hospital (02) | DRG 720 ==
LOC: HO.ED 17:22 → HO.EDOVER 17:47 → HO.ICU 17:49
PROVIDERS: Internal Medicine Critical Care Medicine; Internal Medicine Hypertension Specialist; Nurse Practitioner Family; Physician Assistant; Registered Nurse Community Health; Admitting Provider Internal Medicine Pulmonary Disease; Emergency Provider Student in an Organized Health Care Education/Training Program; PCP Internal Medicine; Visit Provider Internal Medicine Pulmonary Disease
DX: A41.9 Sepsis, unspecified organism (principal); J80 Acute respiratory distress syndrome; J12.82 Pneumonia due to coronavirus disease 2019; N17.0 Acute kidney failure with tubular necrosis; R65.21 Severe sepsis with septic shock; J81.0 Acute pulmonary edema; U07.1 COVID-19; E87.21 Acute metabolic acidosis; F41.9 Anxiety disorder, unspecified; J15.9 Unspecified bacterial pneumonia; R75 Inconclusive laboratory evidence of human immunodeficiency virus [HIV]; I95.2 Hypotension due to drugs; T42.6X5A Adverse effect of other antiepileptic and sedative-hypnotic drugs, initial encounter; G35 Multiple sclerosis; K90.0 Celiac disease; Z20.822 Contact with and (suspected) exposure to COVID-19; Z87.891 Personal history of nicotine dependence; Z79.899 Other long term (current) drug therapy
CPT/HCPCS: 0241U; 36415; 36600; 71045; 71250; 71275; 74177; 80048; 80053; 80143; 80202; 81001; 81003; 82040; 82565; 82570; 82803; 82947; 83520; 83605; 83735; 83880; 84100; 84145; 84156; 84300; 84484; 84702; 85007; 85025; 85027; 85610; 86021; 86140; 86359; 86360; 86481; 86701; 86702; 87040; 87086; 87207; 87389; 87449; 87640; 87641; 93005; 93306; 94660; 94799; 99285; C1758; C9113; J0131; J1450; J1643; J1940; J2060; J2270; J2543; J2920; J2930; J3010; J3370; J3371; J3480; P9047; Q9967

== ENCOUNTER 2022-12-13 17:46 | Outpatient (BNV) | payer MEDICAID, SELFPAY | END 2022-12-14 07:00 | PROVIDERS: Admitting Provider Internal Medicine Pulmonary Disease; Emergency Provider Student in an Organized Health Care Education/Training Program; PCP Internal Medicine; Visit Provider Internal Medicine Cardiovascular Disease | DX: I36.1 Nonrheumatic tricuspid (valve) insufficiency (principal) | CPT/HCPCS: 93306 ==

== ENCOUNTER → 2022-12-13 17:46 | Outpatient (BNV) | payer MEDICAID, SELFPAY | PROVIDERS: Admitting Provider Internal Medicine Pulmonary Disease; Emergency Provider Student in an Organized Health Care Education/Training Program; PCP Internal Medicine; Visit Provider Registered Nurse Community Health | DX: J96.01 Acute respiratory failure with hypoxia (principal); N17.9 Acute kidney failure, unspecified; I95.9 Hypotension, unspecified | CPT/HCPCS: 99291; 99499 ==

== ENCOUNTER → 2022-12-13 17:46 | Outpatient (BNV) | payer MEDICAID, SELFPAY | PROVIDERS: Admitting Provider Internal Medicine Pulmonary Disease; Emergency Provider Student in an Organized Health Care Education/Training Program; PCP Internal Medicine; Visit Provider Internal Medicine Hypertension Specialist | DX: N17.9 Acute kidney failure, unspecified (principal) | CPT/HCPCS: 99222; 99232; 99499 ==

== ENCOUNTER → 2022-12-13 17:46 | Outpatient (BNV) | payer MEDICAID, SELFPAY | PROVIDERS: Admitting Provider Internal Medicine Pulmonary Disease; Emergency Provider Student in an Organized Health Care Education/Training Program; PCP Internal Medicine; Visit Provider Internal Medicine Pulmonary Disease | DX: J80 Acute respiratory distress syndrome (principal); N17.9 Acute kidney failure, unspecified; Z86.16 Personal history of COVID-19 | CPT/HCPCS: 99291 ==

== ENCOUNTER 2023-01-11 15:03 | Outpatient (REF) | payer MEDICAID, SELFPAY ==
--- NOTE | ~2023-01-11 | XR_ITS ---
EXAMINATION: XR CHEST CLINICAL INFORMATION: Follow-up pneumonia COMPARISON: 12/18/2022 chest radiograph 12/22/[address] TECHNIQUE: 2 views of the chest were obtained. FINDINGS: Since the prior study, there is been a dramatic improvement in appearance with near resolution of the extensive airspace disease seen previously. Some minimal remaining opacities are present. Heart size normal. No evidence of CHF. No pleural effusions. Surgical clips are present in the gallbladder fossa. XR/XR chest 2V IMPRESSION: Marked improvement in appearances with near resolution of extensive airspace disease.
== END 2023-01-11 15:04 | disposition home or self-care (01) ==
LOC: HO.HMGCX 15:03
PROVIDERS: PCP Internal Medicine; Visit Provider Internal Medicine
DX: Z87.01 Personal history of pneumonia (recurrent) (principal)
CPT/HCPCS: 71046

== ENCOUNTER 2023-01-18 13:01 | Outpatient (REF) | payer MEDICAID, SELFPAY ==
--- NOTE | ~2023-01-18 | XR_ITS ---
EXAMINATION: XR CHEST 2 VIEW CLINICAL INFORMATION: Shortness of breath and fatigue post Covid, pneumonia COMPARISON: 01/11/2023 TECHNIQUE: PA and lateral views of the chest obtained. FINDINGS: There are reticular and groundglass opacities in the right mid and upper lung zone and the left mid and upper lung zone, worse than on 01/11/2023, but less severe than on 12/18/2022. No pleural effusions are evident. The cardiomediastinal silhouette is stable. Right upper paratracheal prominence may reflect adenopathy. XR/XR chest 2V IMPRESSION: 1. Bilateral mid and upper lung zone airspace opacities, worse than on 01/11/2023. 2. Increasing right upper paratracheal soft tissue, suggestive of adenopathy.
[2023-01-18 16:18] LABS: Hematocrit 25.9 % (37.0-47.0); Hemoglobin 8.4 g/dl (12.0-16.0); Mean Corpuscular HGB Conc 32.4 g/dl (31.0-35.0); Mean Corpuscular Hemoglobin 30.2 pg (27.0-33.0); Mean Corpuscular Volume 93.2 fL (80.0-98.0); Platelet Count 168 X10*3/uL (160-400); Red Blood Count 2.78 X10*6/uL (4.20-5.50); Red Cell Distribution Width 19.1 % (11.0-16.0)
[2023-01-18 16:26] LABS: Anion Gap 17 (12-20); Blood Urea Nitrogen 15 mg/dL (9-16); Calcium 9.2 mg/dL (8.4-10.2); Carbon Dioxide 22 mmol/L (22-29); Chloride 97 mmol/L (96-108); Estimated Glomerular Filt Rate 41; Glucose Random 177 mg/dL (60-115); Potassium 4.5 mmol/L (3.3-5.1); Sodium 131 mmol/L (135-145)
[2023-01-18 17:07] LABS: Band Neutrophils Percent 0 % (3-5); Basophils Percent Manual 1 % (0-2); Eosinophils Percent Manual 7 % (0-4); Lymphocytes Percent Manual 11 % (20-40); Metamyelocytes Percent 6 %; Monocytes Percent Manual 5 % (2-11); Neutrophils Percent Manual 67 % (45-73); Platelet Estimate NORMAL (NORMAL); Platelet Morphology Comment NORMAL; Promyelocytes Percent 3 %; RBC Morphology NORMAL
[2023-01-18 17:10] LABS: Eosinophils Absolute Manual 0.2 X10*3/uL (0.0-0.4); Lymphocytes Absolute Manual 0.3 X10*3/uL (1.2-4.9); Metamyelocytes Absolute 0.1 X10*3/uL; Monocytes Absolute Manual 0.1 X10*3/uL (0.1-1.2); Neutrophils Absolute Manual 1.6 X10*3/uL (2.0-8.3); Promyelocytes Absolute 0.1 X10*3/uL; White Blood Count 2.4 X10*3/uL (4.8-10.8)
== END 2023-01-18 13:02 | disposition home or self-care (01) ==
LOC: HO.HMGCX 13:01
PROVIDERS: PCP Internal Medicine; Visit Provider Internal Medicine
DX: B20 Human immunodeficiency virus [HIV] disease (principal); R06.02 Shortness of breath; R53.83 Other fatigue; J18.9 Pneumonia, unspecified organism; Z86.16 Personal history of COVID-19
CPT/HCPCS: 36415; 71046; 80048; 85007; 85027

== ENCOUNTER 2023-01-18 15:58 | Inpatient (IN) | payer MEDICAID, SELFPAY ==
--- NOTE | ~2023-01-18 | XR_ITS ---
EXAMINATION: XR CHEST CLINICAL INFORMATION: Status post biopsy COMPARISON: Chest radiograph from 01/19/2020 TECHNIQUE: Frontal view of the chest was obtained. FINDINGS: When compared to the previous study there is more prominent reticular pattern in both upper lobes consistent with no opportunistic infection associated with HIV. No evidence of pneumothorax. Cardiomediastinal silhouette is normal. XR/XR chest 1V IMPRESSION: Interstitial lung disease bilaterally more prominent than on the previous study
--- NOTE | ~2023-01-18 | NM_ITS ---
EXAMINATION: NM LUNG IMAGE PERFUSION CLINICAL INFORMATION: Tachycardia COMPARISON: Abnormal chest x-ray and CT chest 01/18/2023. TECHNIQUE: Following intravenous administration of 4 mCi of 99m technetium MAA, imaging of both lungs were obtained multiple projections. Ventilation study was not performed. FINDINGS: There is normal perfusion seen in both lower lobe, right middle lobe and lingular segments. Relatively there is diminished perfusion in both upper lobes concordant with CT chest findings of reticular nodular disease bilaterally. There is patchy infiltrates in both upper lobes on CT. NM/NM pul perfusion IMPRESSION: Bilateral upper lobe decreased perfusion but no focal segmental defects seen. Probability of PE is very low. Grossly abnormal CT chest involving reticulonodular interstitial changes with focal infiltrates in both upper lobes. There is some involvement of both lower lobe superior segments. Differential diagnoses in immunocompromised patient includes atypical viral, bacterial, miliary disease or sarcoidosis.
--- NOTE | ~2023-01-18 | XR_ITS ---
EXAMINATION: XR CHEST CLINICAL INFORMATION: Question pneumonia COMPARISON: Previous chest x-ray from earlier the same day and chest a December TECHNIQUE: 2 views of the chest were obtained. FINDINGS: The cardiac and mediastinal contours are normal. There are increased reticular nodular markings in both upper lobes. This is similar to chest x-ray from earlier the same day and increased from most recent chest x-ray 01/11/2023. Differential would include pneumonia and pneumoconiosis. No pleural effusion or pneumothorax. Bony structures are unremarkable. XR/XR chest 2V IMPRESSION: Increased reticular nodular markings in both upper lobes. Differential would include pneumonia and pneumoconiosis.
--- NOTE | ~2023-01-18 | CT_ITS ---
EXAMINATION: CT HEAD WITHOUT CONTRAST CLINICAL INFORMATION: Assess for toxoplasmosis. COMPARISON: There are no prior studies available for comparison. TECHNIQUE: Multidetector CT imaging of the head was obtained without the use of intravenous contrast. Coronal and sagittal reformatted images were generated at the technologist workstation. This CT examination was performed using dose optimization techniques as appropriate, variously including the following: *Automated exposure control *Adjustment of mA and/or kV according to patient size (this includes techniques or standardized protocols for targeted exams where dose is matched to indication/reason for exam; i.e. extremities or head) *Use of iterative reconstruction technique DLP: 699 mGy-cm. FINDINGS: There is no evidence of acute intracranial hemorrhage or territorial infarction. No abnormal mass-effect or midline shift is seen. Donahue to white matter differentiation is well preserved. No extra-axial fluid collections are identified. The ventricles and sulci are normal in size. There is no abnormal attenuation within the brain parenchyma. There are no parenchymal calcifications. The osseous structures and soft tissues are normal. The visualized mastoid air cells and paranasal sinuses are well aerated. CT/CT head/brain w IV con IMPRESSION: There are no acute bleeds or territorial infarcts. No masses are demonstrated. There are no parenchymal calcifications.
--- NOTE | ~2023-01-18 | CT_ITS ---
EXAMINATION: CT CHEST WITHOUT CONTRAST CLINICAL INFORMATION: Shortness of breath and fever with AIDS COMPARISON: Chest radiograph earlier today, CT chest 12/22/2022 TECHNIQUE: Multidetector volumetric CT imaging of the chest was done. Axial MIP volume rendering provided. Sagittal and coronal reformatted images were obtained. This CT examination was performed using dose optimization techniques as appropriate, variously including the following: *Automated exposure control *Adjustment of mA and/or kV according to patient size (this includes techniques or standardized protocols for targeted exams where dose is matched to indication/reason for exam; i.e. extremities or head) *Use of iterative reconstruction technique DLP: 283 mGy-cm FINDINGS: LUNGS: At the time of the 12/22/2022 study, more confluent airspace disease and groundglass changes were present in the upper lobes. The pattern of disease has now changed and is now more reticulonodular, almost miliary in appearance, with diffuse interstitial infiltrates. In some areas, there are larger tree-in-bud type nodules. MEDIASTINUM: Some small mediastinal lymph nodes have increased in size, most likely reactive. No gross mediastinal or hilar lymphadenopathy. CORONARY ARTERY CALCIFICATION: None visualized on this study. PLEURA: There is no pleural effusion. No pleural mass or thickening. AXILLA: No lymphadenopathy. UPPER ABDOMEN: Status post cholecystectomy. OSSEOUS STRUCTURES: Unremarkable. CT/CT chest wo IV con IMPRESSION: The pattern of disease has now changed and is now more reticulonodular, almost miliary in appearance, with diffuse interstitial infiltrates. Differential diagnosis in this immunocompromise patient with AIDS would include atypical infections, including miliary TB Fleischner guidelines were followed.
--- NOTE | 2023-01-18 16:27 | ED.GENADULT ---
HPI - General Adult General Chief complaint: General Medical Stated complaint: CHEST XRAY/PHEMONIA/HEART RATE RAPID Time Seen by Provider: 01/18/23 18:38 Source: patient Mode of arrival: ambulatory History of Present Illness HPI narrative: 32-year-old female presents with increasing shortness of breath over the past week, states her physical therapy has been going well and although she was discharged on supplemental oxygen from [facility] she reports that she was able to go almost the entire day without her supplemental oxygen but starting on Tuesday of last week she progressively was requiring more and more oxygen and was noting that she was beginning to have fevers between 4-5p in the afternoon but no other time of the day, also noted increased coughing. Related Data Home Medications Medication Instructions Recorded Confirmed baclofen 10 mg tablet 10 mg PO TID PRN Spasms 12/03/22 12/13/22 buspirone 10 mg tablet 10 mg PO BID 12/03/22 12/13/22 duloxetine 60 mg capsule,delayed 60 mg PO BID 12/03/22 12/13/22 release metoprolol succinate 50 mg 50 mg PO DAILY 12/03/22 12/13/22 tablet,extended release 24 hr mirtazapine 30 mg tablet 30 mg PO DAILY 12/03/22 12/13/22 pantoprazole 40 mg tablet,delayed 40 mg PO DAILY 12/03/22 12/13/22 release lisdexamfetamine 50 mg capsule 50 mg PO DAILY 12/13/22 12/13/22 (Vyvanse) Allergies Allergy/AdvReac Type Severity Reaction Status Date / Time gluten Allergy Unknown Verified 12/03/22 12:50 Review of Systems Review of Systems: Pertinent positives and negatives as stated in HPI [facility] Past Medical History Source: nursing notes reviewed Medical History Vasovagal syncope Esophagitis Celiac disease Tachycardia Multiple sclerosis Social History Social History Household Members: Children Household Members Other:: son Housing: Apartment Do you presently have visiting nurse or other home services: No Alcohol intake: never Patient Tobacco Use Status: Former Tobacco user Quit Date: 11/24/2022 Smoked in Last 30 Days: No e-Cigarette/Vaping Use: Former Use Second Hand Smoke Exposure: No Use of substances other than those prescribed or required for medical reasons: No Substance Use Type: Marijuana Advance Directives: Yes Advance Directives on File: Yes Advance Directives Date on File: 12/28/22 Patient : No service: No Physical Exam ED Vital Signs: Vital Signs - 24 hr 01/18/23 16:28 01/18/23 18:29 01/18/23 18:52 Temperature 98.8 F 98.9 F 98.9 F Pulse Rate 128 H 119 H 111 H Respiratory Rate 20 19 22 H Blood Pressure 135/53 L 160/94 H Pulse Oximetry 97 99 2 L Oxygen Delivery Method Nasal Cannula Nasal Cannula Room Air Oxygen Flow Rate 2 97 BMI result Body Mass Index 30.0 VITAL SIGNS: Reviewed. GENERAL: Well developed, well nourished, in no acute distress. HEAD: Normocephalic/atraumatic EYES: PERRLA, EOMI EARS: Ext canals without abnormality NOSE: Nares patent bilateral OROPHARYNX: no oral lesions noted, posterior pharynx clear NECK: Supple, no adenopathy LUNGS: Decreased breath sounds, tachypnea is present. SpO2<99> 2 L via nasal cannula CARDIOVASCULAR: Sinus tachycardia rate and rhythm without noted murmurs, no JVD or lower extremity edema. ABDOMEN: Soft, non-tender, non-distended with bowel sounds. MUSCULOSKELETAL: No tenderness, deformities, or effusions noted on gross inspection. EXTREMITIES: No cyanosis, clubbing or edema. SKIN: Inspection of the skin reveals no rashes NEUROLOGIC: Alert and oriented x 4. Strength and sensation to light touch were grossly intact x 4. Course Course Course Narrative: This is a rapid medical exam: Additional HPI, ROS, PE not included below will be deferred to primary provider. Patient is a 32-year-old female with history of MS, recent Covid infection, esophagitis, celiac disease presenting to the emergency department with complaint of fever, cough and shortness of breath. She was recently admitted here for ARDS then transferred to [facility], total inpatient stay of 24 days. Tachycardic in triage. On O2 2lpm at baseline. States she had an appointment with PCP today, and CXR showed recurrence of pna. Also complains of 5/10 chest pain as well and nausea, vomiting, and some diarrhea. Plan: EKG, labs including cultures and lactic, CXR, UA Medications Administered Generic Name Dose Route Start Last Admin Trade Name Freq PRN Reason Stop Dose Admin Sodium Chloride 1,000 mls @ 999 mls/hr 01/18/23 19:30 01/18/23 19:27 Ns IV 01/18/23 20:30 999 mls/hr .Q1H1M NUBIA Administration Discontinued Medications Generic Name Dose Route Start Last Admin Trade Name Freq PRN Reason Stop Dose Admin Cefepime HCl 1 gm/ Sodium 50 mls @ 100 mls/hr 01/18/23 18:57 01/18/23 19:27 Chloride IV 01/18/23 19:26 100 mls/hr ONCE ONE Administration Medical Decision Making Medical Decision Making MDM Narrative: 1839: Patient brought back from waiting room. On arrival to the main ED, patient will receive antibiotics. 1856: 32-year-old female who is immunocompromised and recent diagnosis HIV and suspect course of Bactrim is secondary to low CD4 on 12/25 CD4 count-113. I reviewed all investigations which demonstrates a leukopenia in comparison to prior lab values on 12/26. Patient has a stable normocytic anemia and at this time has a mild thrombocytopenia. Chemistry indices significant for new SOFIYA and with low sodium and chloride suspect a component of dehydration. Lactic acid 3.6 and she will receive 1 L of IV fluids but does not meet criteria for ED sepsis bolus. Otherwise liver enzymes/electrolytes are within normal limits and high sensitivity troponin is detectable mildly elevated but consistent with prior values and likely a reflection of SOIFYA as opposed to primary cardiac etiology. 1917: Consulted Infectious Disease, Dr. Pinto who recommends ceftriaxone and doxycycline but did communicate that patient has already received cefepime and will add doxycycline. Also, recommending MRSA screen which was ordered. 1945: I discussed the case with inpatient hospitalist who accepts admission. Differential Diagnosis Differential Diagnoses: The differential diagnosis associated with the presentation includes Please see the discussion above Admission/Observation Consideration of admission/observation: Escalation of care including admission/observation considered Please see the discussion above Consult Healthcare Provider Management of the patient was discussed with: Hospitalist and Orientor Please see the discussion above Lab Data [facility] Lab Attestation statement: I reviewed the patient's lab results. Please see the discussion above 01/18/23 16:46 01/18/23 16:46 Labs: Lab Results 01/18/23 01/18/23 Range/Units 16:46 19:10 WBC 2.4 L (4.8-10.8) X10*3/uL RBC 2.67 L (4.20-5.50) X10*6/uL Hgb 8.1 L (12.0-16.0) g/dl Hct 24.9 L (37.0-47.0) % MCV 93.3 (80.0-98.0) fL MCH 30.3 (27.0-33.0) pg MCHC 32.5 (31.0-35.0) g/dl RDW 18.9 H (11.0-16.0) % Plt Count 145 L (160-400) X10*3/uL MPV 10.3 (9.4-12.3) fL Immature Gran % (Auto) Cancelled Neut % (Auto) Cancelled Lymph % (Auto) Cancelled [place] % (Auto) Cancelled Eos % (Auto) Cancelled Baso % (Auto) Cancelled Lymph # (Auto) Cancelled [place] # (Auto) Cancelled Eos # (Auto) Cancelled Baso # (Auto) Cancelled Abs Immat Gran (auto) Cancelled Absolute Neuts (auto) Cancelled Absolute Nucleated RBC 0.000 (0.0-0.012) X10*3/uL Nucleated RBC % (auto) 0.0 (0.0-0.2) /100WBC Neutrophils % (Manual) Not Reportable Abs Neuts (Manual) Not Reportable Platelet Estimate Not Reportable Plt Morphology Comment Not Reportable RBC Morphology Not Reportable Sodium 131 L (135-145) mmol/L Potassium 4.8 (3.3-5.1) mmol/L Chloride 99 (96-108) mmol/L Carbon Dioxide 21 L (22-29) mmol/L Anion Gap 16 (12-20) BUN 19 H (9-16) mg/dL Creatinine 1.55 H (0.5-1.4) mg/dL Estim Creat Clear Calc 59.8 Estimated GFR 38 Random Glucose 151 H (60-115) mg/dL Lactic Acid 3.6 H* (0.5-2.0) mmol/L Lactic Acid F/U @ 2Hr 1.6 (0.5-2.0) mmol/L Calcium 9.4 (8.4-10.2) mg/dL Total Bilirubin 0.1 (0.0-1.0) mg/dL AST 14 (5-31) U/L ALT 26 (0-31) U/L Alkaline Phosphatase 111 (39-117) U/L Troponin I High Sens 12.2 D (<3.5-17.0) ng/L Total Protein 7.0 (6.5-8.0) g/dL Albumin 3.6 (3.5-5.0) g/dL Independent Interpretation I performed an independent interpretation of an: EKG Interpretation: Sinus tachycardia, HR-118, no STEMI, MI/QRS/QTC is within normal limits. Radiology Impression Discussion of test interpretation with radiology: I have reviewed the radiologist's reading. Radiologist Impression: Please see the discussion above External Record Review External record reviewed: Inpatient record, Outpatient record, Prior outpatient labs, Prior outpatient radiology and Other I have also requested records from [facility] Patient?s care impacted by: Other AIDS Critical Care Time Critical Care Time Critical Care Time: Yes Total Critical Care Time: 60 Attestation: I personally attest to this time spent taking care of the patient. Discharge Plan Discharge Clinical Impression: AIDS, SOFIYA (acute kidney injury), Pneumonia Patient Disposition: Admitted As Inpatient
[2023-01-18 16:28] VITALS: BP 135/53; PULSE 128; RESP 20; TEMP 37.1; O2SAT 97
--- NOTE | 2023-01-18 16:32 | ECG_ITS ---
Test Reason : CHEST PAIN Blood Pressure : / mmHG Vent. Rate : 118 BPM Atrial Rate : 118 BPM P-R Int : 116 ms QRS Dur : 080 ms QT Int : 300 ms P-R-T Axes : 042 027 035 degrees QTc Int : 420 ms Sinus tachycardia Possible Left atrial enlargement Borderline ECG When compared with ECG of 13-DEC-2022 14:44, Nonspecific T wave abnormality has replaced inverted T waves in Inferior leads T wave amplitude has increased in Anterior leads Referred By: Erin Valdez Electronically Signed By:ROBB ROWLAND
[2023-01-18 16:56] LABS: Hematocrit 24.9 % (37.0-47.0); Hemoglobin 8.1 g/dl (12.0-16.0); Mean Corpuscular HGB Conc 32.5 g/dl (31.0-35.0); Mean Corpuscular Hemoglobin 30.3 pg (27.0-33.0); Mean Corpuscular Volume 93.3 fL (80.0-98.0); Mean Platelet Volume 10.3 fL (9.4-12.3); Platelet Count 145 X10*3/uL (160-400); Red Blood Count 2.67 X10*6/uL (4.20-5.50); Red Cell Distribution Width 18.9 % (11.0-16.0)
[2023-01-18 17:08] LABS: White Blood Count 2.4 X10*3/uL (4.8-10.8)
[2023-01-18 17:11] LABS: Alanine Aminotransferase 26 U/L (0-31); Albumin Level 3.6 g/dL (3.5-5.0); Alkaline Phosphatase 111 U/L (39-117); Anion Gap 16 (12-20); Aspartate Amino Transferase 14 U/L (5-31); Bilirubin Total 0.1 mg/dL (0.0-1.0); Blood Urea Nitrogen 19 mg/dL (9-16); Calcium 9.4 mg/dL (8.4-10.2); Carbon Dioxide 21 mmol/L (22-29); Chloride 99 mmol/L (96-108); Creatinine Clr Calc Pharmacy 59.8; Estimated Glomerular Filt Rate 38; Glucose Random 151 mg/dL (60-115); Lactic Acid 3.6 mmol/L (0.5-2.0); Potassium 4.8 mmol/L (3.3-5.1); Sodium 131 mmol/L (135-145)
[2023-01-18 17:18] LABS: Troponin-I High Sensitivity 12.2 ng/L (<3.5-17.0)
[2023-01-18 18:29] VITALS: BP 160/94; PULSE 119; RESP 19; TEMP 37.2; O2SAT 99
[2023-01-18 18:52] VITALS: PULSE 111; RESP 22; TEMP 37.2; O2SAT 2
[2023-01-18 18:52] LABS: Reflex Lactate? Lactic Acid Added
--- NOTE | 2023-01-18 19:00 | PC.NURSE ---
a&ox3. tachycardic and tachypneic at this time. sinus tachy on the monitoring analyst. pt has extensive hx of being hospitalized recently. pt's chief complaint is chest pain produced w/ inspiration/worsens w/ deep cough/inspiration. pt also verbalizes n/v/fever/chills recently. pt currently afebrile. pt on 2L via NC at this time. baseline 1-2L since last hospitalization. respirations even/slightly labored. productive cough noted. pt speaking w/ ED provider at this time. call glass placed within reach.
[2023-01-18 19:27] LABS: ~Lactic Acid-LAB USE ONLY 1.6 mmol/L (0.5-2.0)
[2023-01-18] MEDS: 0.9 % Sodium Chloride 1,000 ML 999 ML IV (19:27)
[2023-01-18] MEDS: cefEPime HCl 1 GM in 0.9 % Sodium Chloride 50 ML IV (19:27)
--- NOTE | 2023-01-18 19:27 | PC.NURSE ---
20gIV placed in the left AC w/o difficulty - labs drawn and sent to lab. medication administered per provider order.
[2023-01-18 19:52] VITALS: BP 128/82; PULSE 107; RESP 24; TEMP 36.9; O2SAT 98
--- NOTE | 2023-01-18 20:00 | PHA.MEDREC ---
Pharmacy Consult ? Medication Reconciliation Pharmacy has completed the medication reconciliation. Patient had discharge summary from [facility] with updated medications. Rina Tapia, BhavikD
--- NOTE | 2023-01-18 20:02 | MHC.EDTECH ---
This tech assumed care of patient at 1900,hourly rounds and vitals completed. Patient ambulated to bathroom with a steady gait, Urine was collected and MRSA swab obtained and sent to lab.Call glass within reach
[2023-01-18] MEDS: Doxycycline Hyclate 100 MG in 0.9 % Sodium Chloride 250 ML 166.67 MG IV (20:10)
--- NOTE | 2023-01-18 20:12 | MHC.EDTECH ---
Belonging list completed for admission and copy placed in chart.
--- NOTE | 2023-01-18 20:14 | PC.NURSE ---
medication administered per provider order. tech obtaining labs/sending at this time.
[2023-01-18 20:34] LABS: Appearance Urine Clear; Color Urine Yellow; Glucose Urine UA Negative (Negative); Leukocyte Esterase Urine Trace (Negative); Nitrite Urine Negative (Negative); Specific Gravity - Urine 1.025 (1.005-1.025); UMIC TRIGGER UACC YES; Urine Blood Trace (Negative); Urine Ketones Trace mg/dL (Negative); Urine Protein 100 (2+) mg/dL (Neg-Trace)
--- NOTE | 2023-01-18 20:59 | P.HPHOSP_ITS ---
History of Present Illness Date of Service: 01/18/23 Attending physician on admission: Iain Remy Chief Complaint: sob, cough 32-year-old female with history of multiple sclerosis not currently on treatment, history of esophagitis, celiac disease, recently diagnosed HIV/aids on Biktarvy presented to the ED earlier today from PCP office for further evaluation of pneumonia. The patient has had multiple admissions in the last 2 months for pneumonia. She was admitted 12/03- 12/06 for pneumonia associated with COVID-19 and acute hypoxic respiratory failure. She was then again admitted to ICU from 12/13-12/25 for multifocal pneumonia with ARDS requiring HFNC and prn bipap. During admission, was tested fgor HIV given worsening pneumonia which was found to be reactive. TB negative. CD4 count ultimately resulted at 113 (results after dc). She was ultimately transferred to [facility] for further treatment (records requested). There she completed course of antibiotics and was started on bactrim for PCP prophylaxis. She was also treated empirically with an antifungal medication. She was seen by ID and was started on Biktarvy. She was discharged home on Bactrim and fluconazole. Ultimately cultures did reveal a fungal pneumonia. She has follow up with Dr. Nicole in ID at [facility] on Sunday 01/21. Per the patient, following discharge, she was feeling much better. She was discharged on 1-2 L supplemental O2. However, about 6 days ago began developing nocturnal fevers up to 101.4 with associated chills/rigors. There is associated productive cough with yellow sputum production and nausea/vomiting. She reports intermittent shortness of breath palpitations as well as pleuritic chest pain. She reports no issues with p.o. intake. Denies any known sick contacts. He reports compliance with her Biktarvy. On arrival, patient afebrile but tachycardic to 128. She was continued on 2 L supplemental O2 maintaining oximetry around 97%. No hypotension. She has been intermittently tachypneic to 24. She is leukopenic a 2.4. Differential unavailable at this time. Creatinine 1.55, baseline around 1.36, BUN 19. Sodium 131, electrolytes otherwise normal. Glucose 151. Initial lactic acid 3.6, repeat 1.6. Hepatic function within normal limits. Troponin 12.2. Procalcitonin pending. Urinalysis unremarkable. Nasal MRSA screen pending CXR shows increased reticular nodular markings in the bilateral upper lobes, differential to include pneumonia versus pneumoconiosis. In the ED, received 100 mg IV doxycycline, 1 g cefepime, and 1 L IV NS. Case was discussed by ED provider with ID recommending admission with IV ceftriaxone, doxycycline, and Bactrim dose at 15-20 milligrams/kilogram per day. Review of Systems 2 Review of Systems: General: No fevers, malaise, unintentional weight loss HEENT: No blurred vision, diplopia. No sore throat, nasal congestion, rhinorrhea, sinus pain, ear pain Cardiovascular: No chest pressure, palpitations, or leg edema Respiratory: +sob, +cough. No wheezing GI: +nausea, +vomiting. No abdominal pain, diarrhea : No dysuria, hematuria, increased urinary frequency MSK: No myalgia, back pain. +pleuritic chest pain Neuro: No headaches, weakness, paresthesias Skin: No rashes or lesions [facility] Medical History HIV (human immunodeficiency virus infection) AIDS Vasovagal syncope Esophagitis Celiac disease Tachycardia Multiple sclerosis Social History Household Members: Children Household Members Other:: son Housing: Apartment Do you presently have visiting nurse or other home services: No Alcohol intake: never Patient Tobacco Use Status: Former Tobacco user Quit Date: 11/24/2022 Smoked in Last 30 Days: No e-Cigarette/Vaping Use: Former Use Second Hand Smoke Exposure: No Use of substances other than those prescribed or required for medical reasons: No Substance Use Type: Marijuana Advance Directives: Yes Advance Directives on File: Yes Advance Directives Date on File: 12/28/22 Patient : No service: No Meds Allergies Allergy/AdvReac Type Severity Reaction Status Date / Time gluten Allergy Unknown Verified 12/03/22 12:50 Active Medications: Current Medications Acetaminophen (Acetaminophen 325 Mg Tablet) 650 mg PO Q6H PRN PRN Reason: Pain, Mild (Pain Scale 1-3) Enoxaparin Sodium (Enoxaparin Sodium 40 Mg/0.4 Ml Syringe) 40 mg SUBCUT Q24H NUBIA Doxycycline Hyclate 100 mg/ (Sodium Chloride) 250 mls @ 166.67 mls/hr IV ONCE ONE Stop: 01/18/23 21:16 Last Admin: 01/18/23 20:10 Dose: 166.67 mls/hr Melatonin (Melatonin 3 Mg Tablet) 3 mg PO BEDTIME PRN PRN Reason: Insomnia Ondansetron HCl (Ondansetron Hcl 4 Mg/2 Ml Vial) 4 mg IVPUSH Q8H PRN PRN Reason: Nausea and Vomiting Senna (Sennosides 8.6 Mg Tablet) 17.2 mg PO BEDTIME PRN PRN Reason: Constipation Sodium Chloride (0.9 % Sodium Chloride Flush 3 Ml Syringe) 3 ml IVFLUSH QSHIFT [facility] Home Medications Medication Instructions Recorded Confirmed Last Taken Type baclofen 10 mg tablet 10 mg PO BEDTIME Spasms 12/03/22 01/18/23 01/17/23 History buspirone 10 mg tablet 10 mg PO BID 12/03/22 01/18/23 01/18/23 History duloxetine 60 mg capsule,delayed 60 mg PO BID 12/03/22 01/18/23 01/18/23 History release metoprolol succinate 50 mg 50 mg PO BID 12/03/22 01/18/23 01/18/23 History tablet,extended release 24 hr mirtazapine 30 mg tablet 30 mg PO BEDTIME 12/03/22 01/18/23 01/17/23 History pantoprazole 40 mg tablet,delayed 40 mg PO BID 12/03/22 01/18/23 01/18/23 History release lisdexamfetamine 50 mg capsule 50 mg PO DAILY PRN ADHD 12/13/22 01/18/23 Unknown History (Raul) baclofen 10 mg tablet 10 mg PO BID PRN Muscle Spasm 01/18/23 01/18/23 Unknown History bictegravir 50 mg-emtricitabine 1 tab PO DAILY 01/18/23 01/18/23 01/18/23 History 200 mg-tenofovir alafenam 25 mg tablet (Biktarvy) ergocalciferol (vitamin D2) 1,250 1,250 mcg PO TH 01/18/23 01/18/23 01/13/23 History mcg (50,000 unit) capsule fluconazole 200 mg tablet 200 mg PO DAILY 01/18/23 01/18/23 01/18/23 History prednisone 20 mg tablet 20 mg PO DAILY 01/18/23 01/18/23 01/18/23 History sulfamethoxazole 400 1 tab PO DAILY 01/18/23 01/18/23 01/18/23 History mg-trimethoprim 80 mg tablet (Bactrim) Physical Exam 2 Vital Signs and Narrative: Vital Signs: Last Vital Signs Temp 98.5 F 01/18/23 19:52 Pulse 107 H 01/18/23 19:52 Resp 24 H 01/18/23 19:52 BP 128/82 01/18/23 19:52 Pulse Ox 98 01/18/23 19:52 O2 Del Method Nasal Cannula 01/18/23 19:52 O2 Flow Rate 2 01/18/23 19:52 Oxygen Flow Rate 1 01/18/23 16:28 BMI result Body Mass Index 30.0 Constitutional - Awake and Alert, weak appearing, No apparent distress Eyes - PERRLA, EOMI Cardiovascular - S1S2, RRR, No edema Respiratory - Normal lung expansion, Normal respiratory effort, No respiratory distress on 2L supplemental O2, CTA bilaterally Gastrointestinal - NT / ND; +BS; No rebound or guarding Extremities - no calf tenderness bilaterally, no swelling Skin - Warm/Dry Neurological - Alert & oriented x3 Psychological - Appropriate affect Results Labs 01/18/23 16:46 01/18/23 16:46 Labs: Laboratory Results - last 24 hr 01/18/23 01/18/23 01/18/23 16:46 19:10 20:07 MCV 93.3 MCH 30.3 MCHC 32.5 RDW 18.9 H Plt Count 145 L MPV 10.3 Immature Gran % (Auto) Cancelled Neut % (Auto) Cancelled Lymph % (Auto) Cancelled [place] % (Auto) Cancelled Eos % (Auto) Cancelled Baso % (Auto) Cancelled Lymph # (Auto) Cancelled [place] # (Auto) Cancelled Eos # (Auto) Cancelled Baso # (Auto) Cancelled Abs Immat Gran (auto) Cancelled Absolute Neuts (auto) Cancelled Absolute Nucleated RBC 0.000 Nucleated RBC % (auto) 0.0 Neutrophils % (Manual) Not Reportable Abs Neuts (Manual) Not Reportable Platelet Estimate Not Reportable Plt Morphology Comment Not Reportable RBC Morphology Not Reportable Anion Gap 16 Estim Creat Clear Calc 59.8 Estimated GFR 38 Random Glucose 151 H Lactic Acid 3.6 H* Lactic Acid F/U @ 2Hr 1.6 Calcium 9.4 Total Bilirubin 0.1 AST 14 ALT 26 Alkaline Phosphatase 111 Total Protein 7.0 Albumin 3.6 Urine Color Yellow Urine Appearance Clear Urine pH 7.0 Ur Specific [place] 1.025 Urine Protein 100 (2+) H Urine Glucose (UA) Negative Urine Ketones Trace Urine Blood Trace H Urine Nitrite Negative Ur Leukocyte Esterase Trace H Imaging Radiologist's Impressions: Impressions Chest X-Ray 01/18/23 17:10 IMPRESSION: Increased reticular nodular markings in both upper lobes. Differential would include pneumonia and pneumoconiosis. Assessment and Plan (1) Severe sepsis: Status: Acute (2) AIDS: Status: Acute (3) Pneumonia: Status: Acute (4) Acute respiratory failure with hypoxia: Status: Acute Plan 32-year-old female with history of multiple sclerosis not currently on treatment, history of esophagitis, celiac disease, recently diagnosed HIV/aids on Biktarvy admitted for pneumonia with severe sepsis in immunocompromised patient. Pt with multiple admissions for pneumonia resulting in ARDS with recent discharge from [facility] for fungal pneumonia. Also found positive for HIV/AIDS. #Acute pneumonia with severe sepsis -leukopenia 2.4, tachycardic, tachypneic, lactic acid 3.6. No hypotension or other end-organ damage. Lactic acidosis resolved following IVF with repeat 1.6 -CXR showing reticular nodular markings in the bilateral upper lobes. Chest CT pending for further characterization -IV ceftriaxone and doxycycline per ID (initiated 01/18) -Check nasal MRSA swab, sputum culture, legionella ag, strep pneumo ag -symptomatic management -ID consult -Follow CBC, cultures -Monitor on telemetry/cont O2 monitoring #Acute hypoxic respiratory failure -secondary to recurrent pneumonia with ARDS -No worsening hypoxia. Continue 1-2L supplemental O2 to maintain oximetry >92% #HIV/AIDS -Last CD4 count 113, recent fungal pneumonia -Continue biktarvy -Increase bactrim to 1 tab DS BID (per ID 15-20mg/kg/day) -ID consult -complete course fluconazole #MS -stable, no exacerbation #Gerd -continue ppi #Tachycardia -pt reports chronic. on bb -conitinue metoprolol DVT prophylaxis- lovenox Full code Given patient's immunocompromised state with recently diagnosed HIV/AIDS and presentation with acute pneumonia and severe sepsis and given recent hospitalizations for pneumonia with rapid decompensation into ARDS, patient will likely need to be admitted for a minimum of 2 night inpatient stay for IV abx, expert consultations, and close monitoring to prevent cardiopulmonary decompensation and septic shock. Quality Stroke Does the patient have a stroke diagnosis?: No VTE Prior VTE?: No VTE Risk Level:: Medical - moderate - high VTE Device Contraindication: Treatment Not Indicated VTE Drug Contraindication: N/A - Med Ordered
[2023-01-18 21:02] LABS: Bacteria Urine None Seen (None Seen); UACC Culture Trigger YES
[2023-01-18 21:27] LABS: Procalcitonin 0.46 ng/mL
[2023-01-18] MEDS: Enoxaparin Sodium 40 MG/0.4 ML SYRINGE SUBCUT (21:54)
[2023-01-18] MEDS: busPIRone HCl 10 MG TABLET PO (21:54)
[2023-01-18] MEDS: DULoxetine HCl 60 MG CAPSULE.DR PO (21:54)
[2023-01-18] MEDS: Sulfamethox/Trimeth 800/160 TABLET 1 TAB PO (21:54)
[2023-01-18] MEDS: Metoprolol Succinate ER 50 MG TAB.ER.24H PO (21:54)
[2023-01-18] MEDS: Mirtazapine 30 MG TABLET PO (21:54)
[2023-01-18] MEDS: Baclofen 10 MG TABLET PO (21:55)
[2023-01-18 22:13] VITALS: BP 151/99; PULSE 109; RESP 22; TEMP 36.8; O2SAT 98
--- NOTE | 2023-01-18 22:15 | MHC.EDTECH ---
Hourly rounds and vitals completed,call glass within reach
[2023-01-19] VITALS (8 sets, daily range): BP systolic 118–160; BP diastolic 60–100; PULSE 94–135; RESP 16–33; TEMP 36–40; O2SAT 95–97; BMI 28.9
--- NOTE | 2023-01-19 01:14 | MHC.EDTECH ---
Hourly rounds and vitals completed,
[2023-01-19] MEDS: Acetaminophen 325 MG TABLET 650 MG PO ×2 (03:20→10:09)
[2023-01-19] MEDS: ondansetron HCL 4 MG/2 ML VIAL IVPUSH (03:35)
[2023-01-19] MEDS: cefTRIAXone sodium 1 GM in 0.9 % Sodium Chloride 50 ML IV (03:35)
--- NOTE | 2023-01-19 04:20 | MHC.EDTECH ---
Hourly rounds and vitals completed and call glass within reach.
[2023-01-19 05:05] LABS: Hemoglobin 7.2 g/dl (12.0-16.0); Mean Corpuscular HGB Conc 32.7 g/dl (31.0-35.0); Mean Corpuscular Hemoglobin 30.3 pg (27.0-33.0); Mean Corpuscular Volume 92.4 fL (80.0-98.0); Mean Platelet Volume 10.2 fL (9.4-12.3); Platelet Count 141 X10*3/uL (160-400); Red Blood Count 2.38 X10*6/uL (4.20-5.50)
[2023-01-19 05:06] LABS: White Blood Count 2.4 X10*3/uL (4.8-10.8)
[2023-01-19 05:21] LABS: Anion Gap 15 (12-20); Blood Urea Nitrogen 17 mg/dL (9-16); Calcium 8.8 mg/dL (8.4-10.2); Carbon Dioxide 23 mmol/L (22-29); Chloride 102 mmol/L (96-108); Creatinine Clr Calc Pharmacy 69.1; Estimated Glomerular Filt Rate 45; Glucose Random 89 mg/dL (60-115); Sodium 136 mmol/L (135-145)
[2023-01-19] MEDS: Metoprolol Succinate ER 50 MG TAB.ER.24H PO ×2 (07:50→20:15)
[2023-01-19] MEDS: busPIRone HCl 10 MG TABLET PO ×2 (07:51→20:16)
[2023-01-19] MEDS: Sulfamethox/Trimeth 800/160 TABLET 1 TAB PO ×2 (07:51→20:16)
[2023-01-19] MEDS: Fluconazole 100 MG TABLET 200 MG PO (07:51)
[2023-01-19] MEDS: DULoxetine HCl 60 MG CAPSULE.DR PO ×2 (07:52→20:16)
[2023-01-19] MEDS: predniSONE 20 MG TABLET 40 MG PO ×2 (08:10→16:33)
[2023-01-19] MEDS: Bictegrav/Emtricit/Tenofov Ala TABLET 1 TAB PO (08:10)
[2023-01-19] MEDS: Doxycycline Hyclate 100 MG in 0.9 % Sodium Chloride 250 ML 166.67 MG IV ×2 (08:11→20:04)
--- NOTE | 2023-01-19 09:32 | PC.NURSE ---
checked in on pt. pt asking if we can turn heat down, sts she's too hot. took pt oral temp, 98.5. felt pt head and arms, pt very warm to touch. also reporting 8/10 body aches. took rectal temp, 104.0. pt also noted to be tachy on monitor at 135. Opal Brody NP notified and aware. pt to be given prn tylenol for fever/pain. requested fluids for HR. awaiting orders. call glass within pt reach. rr even/unlabored. plan of care ongoing.
[2023-01-19] MEDS: 0.9 % Sodium Chloride 1,000 ML 999 ML IVCONT ×2 (10:10→12:46)
--- NOTE | 2023-01-19 10:15 | PC.NURSE ---
pt medicated per apr. pt reporting difficulty breathing. checked O2 sat. pt sating 90% on 2L NC. pt put in high fowlers and O2 increased to 4L. pt sating 91-04%.
--- NOTE | 2023-01-19 10:17 | PC.NURSE ---
pt encouraged to take sweat pants off to cool down. pt refused, sts she wants to keep them on because she gets intermittent chills. pt provided with ice packs.
--- NOTE | 2023-01-19 10:32 | MHC.CM.PN ---
PT ADMITTED, ON AIRBORNE PRECAUTIONS. CM ATTEMPTED TO REACH PT VIA T/C AT NUMBER LISTED [phone]. VM MESSAGE LEFT REQUESTING RETURN CALL
--- NOTE | 2023-01-19 11:32 | PC.NURSE ---
pt in nuclear medicine. pt to go up to 483 when complete.
[2023-01-19 11:58] LABS: MRSA Nasal PCR NEGATIVE (Negative); SA Nasal PCR NEGATIVE (Negative)
--- NOTE | 2023-01-19 12:01 | P.CONPL_ITS ---
History of Present Illness History of Present Illness Consult date: 01/19/23 Chief complaint: Pneumonia, severe sepsis, AIDS Narrative: This is an inpatient pulmonary consultation. The patient is a 32-year-old female with history of multiple sclerosis not currently on treatment, history of esophagitis, celiac disease, recently diagnosed HIV/aids on Biktarvy presented to the ED earlier today from PCP office for further evaluation of pneumonia. The patient has had multiple admissions in the last 2 months for pneumonia. She was admitted 12/03- 12/06 for pneumonia associated with COVID-19 and acute hypoxic respiratory failure. She was then again admitted to ICU from 12/13- 12/25 for multifocal pneumonia with ARDS requiring HFNC and prn bipap. During admission, was tested fgor HIV given worsening pneumonia which was found to be reactive. TB negative. CD4 count ultimately resulted at 113 (results after dc). She was ultimately transferred to [facility] for further treatment (records requested). There she completed course of antibiotics and was started on bactrim for PCP prophylaxis. She was also treated empirically with an antifungal medication. She was seen by ID and was started on Biktarvy. She was discharged home on Bactrim and fluconazole. Ultimately cultures did reveal a fungal pneumonia. She has follow up with Dr. Nicole in ID at [facility] on Sunday 01/21. Per the patient, following discharge, she was feeling much better. She was discharged on 1-2 L supplemental O2. However, about 6 days ago began developing nocturnal fevers up to 101.4 with associated chills/rigors. There is associated productive cough with yellow sputum production and nausea/vomiting. She reports intermittent shortness of breath palpitations as well as pleuritic chest pain. She reports no issues with p.o. intake. Denies any known sick contacts. He reports compliance with her Biktarvy. On arrival, patient afebrile but tachycardic to 128. She was continued on 2 L supplemental O2 maintaining oximetry around 97%. No hypotension. She has been intermittently tachypneic to 24. She is leukopenic a 2.4. I personally reviewed the CT scan of the chest demonstrating the micronodular densities in a random distribution in addition to treating body. The patient is having rigors and therefore there was suspicious for infectious process. Her TB test did come back negative during the last visit although she was significantly immunocompromised was difficult to assess. Were repeating at this time. Miliary TB is in the differential. The patient is currently in airborne precautions. Will plan for bronchoscopy tomorrow. Review of Systems 2 Review of Systems: General: No fevers, malaise, unintentional weight loss HEENT: No blurred vision, diplopia. No sore throat, nasal congestion, rhinorrhea, sinus pain, ear pain Cardiovascular: No chest pressure, palpitations, or leg edema Respiratory: +sob, +cough. No wheezing GI: +nausea, +vomiting. No abdominal pain, diarrhea : No dysuria, hematuria, increased urinary frequency MSK: No myalgia, back pain. +pleuritic chest pain Neuro: No headaches, weakness, paresthesias Skin: No rashes or lesions PMFSH Past Medical History Medical History HIV (human immunodeficiency virus infection) AIDS Vasovagal syncope Esophagitis Celiac disease Tachycardia Multiple sclerosis Social History Social History Household Members: Children Household Members Other:: son Housing: Apartment Do you presently have visiting nurse or other home services: No Alcohol intake: never Patient Tobacco Use Status: Former Tobacco user Quit Date: 11/24/2022 Smoked in Last 30 Days: No e-Cigarette/Vaping Use: Former Use Second Hand Smoke Exposure: No Use of substances other than those prescribed or required for medical reasons: No Substance Use Type: Marijuana Advance Directives: Yes Advance Directives on File: Yes Advance Directives Date on File: 12/28/22 Nutrition Risks: No Nutritional Risk Patient : No service: No Meds Allergies Allergy/AdvReac Type Severity Reaction Status Date / Time gluten Allergy Unknown Verified 12/03/22 12:50 Active Medications: Current Medications Acetaminophen (Acetaminophen 325 Mg Tablet) 650 mg PO Q6H PRN PRN Reason: Pain, Mild (Pain Scale 1-3) Last Admin: 01/19/23 10:09 Dose: 650 mg Baclofen (Baclofen 10 Mg Tablet) 10 mg PO BEDTIME NUBIA Last Admin: 01/18/23 21:55 Dose: 10 mg Baclofen (Baclofen 10 Mg Tablet) 10 mg PO BID PRN PRN Reason: Muscle Spasm Bictegravir/Emtricitabine/Tenofovir (Bictegrav/Emtricit/Tenofov Ala Tablet) 1 tab PO DAILY [facility] Last Admin: 01/19/23 08:10 Dose: 1 tab Buspirone HCl (Buspirone Hcl 10 Mg Tablet) 10 mg PO BID [facility] Last Admin: 01/19/23 07:51 Dose: 10 mg Duloxetine HCl (Duloxetine Hcl 60 Mg Capsule.) 60 mg PO BID [facility] Last Admin: 01/19/23 07:52 Dose: 60 mg Enoxaparin Sodium (Enoxaparin Sodium 40 Mg/0.4 Ml Syringe) 40 mg SUBCUT Q24H [facility] Last Admin: 01/18/23 21:54 Dose: 40 mg Ergocalciferol (Ergocalciferol (Vitamin D2) 1,250 Mcg Capsule) 1,250 mcg PO [facility] Fluconazole (Fluconazole 100 Mg Tablet) 200 mg PO DAILY [facility] Stop: 01/22/23 09:01 Last Admin: 01/19/23 07:51 Dose: 200 mg Guaifenesin (Guaifenesin 200 Mg/10 Ml 10 Ml Liquid) 10 ml PO Q4H PRN PRN Reason: Cough Ceftriaxone Sodium 1 gm/ (Sodium Chloride) 50 mls @ 100 mls/hr IV Q24H [facility] Last Infusion: 01/19/23 04:05 Dose: Infused Doxycycline Hyclate 100 mg/ (Sodium Chloride) 250 mls @ 166.67 mls/hr IV Q12H [facility] Last Infusion: 01/19/23 11:47 Dose: Infused Melatonin (Melatonin 3 Mg Tablet) 3 mg PO BEDTIME PRN PRN Reason: Insomnia Metoprolol Succinate (Metoprolol Succinate Er 50 Mg Tab.Er.24h) 50 mg PO BID [facility]; Protocol Last Admin: 01/19/23 07:50 Dose: 50 mg Mirtazapine (Mirtazapine 30 Mg Tablet) 30 mg PO BEDTIME [facility] Last Admin: 01/18/23 21:54 Dose: 30 mg Omeprazole (Omeprazole 20 Mg Capsule.) 20 mg PO BID@0630,1630 [facility] Last Admin: 01/19/23 10:13 Dose: Not Given Ondansetron HCl (Ondansetron Hcl 4 Mg/2 Ml Vial) 4 mg IVPUSH Q8H PRN PRN Reason: Nausea and Vomiting Last Admin: 01/19/23 03:35 Dose: 4 mg Prednisone (Prednisone 20 Mg Tablet) 40 mg PO BIDWM [facility] Stop: 01/19/23 17:01 Last Admin: 01/19/23 08:10 Dose: 40 mg Senna (Sennosides 8.6 Mg Tablet) 17.2 mg PO BEDTIME PRN PRN Reason: Constipation Sodium Chloride (0.9 % Sodium Chloride Flush 3 Ml Syringe) 3 ml IVFLUSH QSHIFT [facility] Last Admin: 01/19/23 08:59 Dose: Not Given Trimethoprim/Sulfamethoxazole (Sulfamethox/Trimeth 800/160 Tablet) 1 tab PO Q12H [facility] Last Admin: 01/19/23 07:51 Dose: 1 tab Home Medications Medication Instructions Recorded Confirmed Last Taken Type baclofen 10 mg tablet 10 mg PO BEDTIME Spasms 12/03/22 01/18/23 01/17/23 History buspirone 10 mg tablet 10 mg PO BID 12/03/22 01/18/23 01/18/23 History duloxetine 60 mg capsule,delayed 60 mg PO BID 12/03/22 01/18/23 01/18/23 History release metoprolol succinate 50 mg 50 mg PO BID 12/03/22 01/18/23 01/18/23 History tablet,extended release 24 hr mirtazapine 30 mg tablet 30 mg PO BEDTIME 12/03/22 01/18/23 01/17/23 History pantoprazole 40 mg tablet,delayed 40 mg PO BID 12/03/22 01/18/23 01/18/23 History release lisdexamfetamine 50 mg capsule 50 mg PO DAILY PRN ADHD 12/13/22 01/18/23 Unknown History (Raul) baclofen 10 mg tablet 10 mg PO BID PRN Muscle Spasm 01/18/23 01/18/23 Unknown History bictegravir 50 mg-emtricitabine 1 tab PO DAILY 01/18/23 01/18/23 01/18/23 History 200 mg-tenofovir alafenam 25 mg tablet (Biktarvy) ergocalciferol (vitamin D2) 1,250 1,250 mcg PO TH 01/18/23 01/18/23 01/13/23 History mcg (50,000 unit) capsule fluconazole 200 mg tablet 200 mg PO DAILY 01/18/23 01/18/23 01/18/23 History prednisone 20 mg tablet 20 mg PO DAILY 01/18/23 01/18/23 01/18/23 History sulfamethoxazole 400 1 tab PO DAILY 01/18/23 01/18/23 01/18/23 History mg-trimethoprim 80 mg tablet (Bactrim) Physical Exam 2 Vital Signs: Vital Signs: Last Vital Signs Temp 104 F H 01/19/23 09:27 Pulse 135 H 01/19/23 09:27 Resp 33 H 01/19/23 07:48 BP 152/100 H 01/19/23 07:48 Pulse Ox 95 01/19/23 04:20 O2 Del Method Nasal Cannula 01/19/23 07:48 O2 Flow Rate 2 01/19/23 07:48 Oxygen Flow Rate 1 01/18/23 16:28 BMI result Body Mass Index 30.0 Const: General: alert, awake and other (chills) Orientation/consciousness: patient oriented x3 HEENT: Head: Yes normal to inspection, Yes normocephalic and Yes atraumatic Eyes: General: appearance normal, both eyes and all related structures Neck: Neck: Yes normal visual inspection, Yes full ROM, Yes no meningeal signs and Yes supple Chest: Chest palpation & inspection: normal inspection of the chest Resp: Other: some rhonchi; no overt rales, wheezing; persistent increased work of breathing Effort & Inspection: normal respiratory effort Cardio: Rate: tachycardic Rhythm: regular rhythm GI: Inspection: Yes normal to inspection, No Abdominal wall edema and No distended Palpation (GI): Soft to palpation, not firm, nontender, no guarding and not rigid Skin: General skin exam: no rashes or lesions noted Neuro: General: patient oriented x3, moves all extremities, no meningeal signs and no focal motor deficits Extrem: General: Yes normal to inspection, Yes capillary refill normal and Yes no clubbing, cyanosis or edema Psych: Appearance: grossly normal Results Laboratory Findings 01/19/23 04:51 01/19/23 04:51 Abnormal lab findings: Abnormal Labs 01/18/23 01/18/23 01/19/23 16:46 20:07 04:51 WBC 2.4 L 2.4 L RBC 2.67 L 2.38 L Hgb 8.1 L 7.2 L Hct 24.9 L 22.0 L RDW 18.9 H 19.0 H Plt Count 145 L 141 L Sodium 131 L Carbon Dioxide 21 L BUN 19 H 17 H Creatinine 1.55 H Random Glucose 151 H Lactic Acid 3.6 H* Urine Protein 100 (2+) H Urine Blood Trace H Ur Leukocyte Esterase Trace H Urine RBC 6-10 H Urine WBC 11-20 H Microbiology: Microbiology 01/18/23 Unknown Urine clean catch - Urine ram top Urine Culture - Preliminary Culture too young to evaluate. Assessment and Plan (1) IRIS (immune reconstitution inflammatory syndrome): Status: Acute (2) AIDS: Status: Acute (3) Pneumonia: Qualifiers: Pneumonia type: due to unspecified organism Laterality: bilateral Lung location: unspecified part of lung Qualified Code(s): J18.9 - Pneumonia, unspecified organism Status: Acute (4) Bronchiolitis: Status: Acute (5) Acute respiratory failure with hypoxia: Status: Acute Plan respiratory viral panel Cryptoccocal, CMV serology, TB spot plan for bronchosocpy continue PO prednisone for the IRIS continue antimicrobial therapy Keep NPO after midnight and stop heprin products for bronchoscopy tomorrow Procedures Date of Service Date of Service: 01/19/23
--- NOTE | 2023-01-19 12:56 | HO.PM.IMPN ---
Subjective Subjective Date of Service: 01/19/23 Review of Systems Follow up pneumonia hypoxia, cough reported some nausea and vomiting Physical Exam Vital Signs: Vital Signs: Last Vital Signs Temp 96.9 F 01/19/23 12:33 Pulse 106 H 01/19/23 12:33 Resp 20 01/19/23 12:33 BP 129/87 01/19/23 12:33 Pulse Ox 95 01/19/23 12:33 O2 Del Method Nasal Cannula 01/19/23 12:33 O2 Flow Rate 2 01/19/23 12:33 Oxygen Flow Rate 1 01/18/23 16:28 BMI result Body Mass Index 30.0 Appearing in no acute distress lung sounds coarse heart regular rate rhythm, clear S1, S2 positive bowel sounds, abdomen is soft, nontender neuro patient is alert x3, no focal deficits Objective Data Active Medications Acetaminophen (Acetaminophen 325 Mg Tablet) 650 mg PO Q6H PRN PRN Reason: Pain, Mild (Pain Scale 1-3) Last Admin: 01/19/23 10:09 Dose: 650 mg Documented By: MATTHEW Baclofen (Baclofen 10 Mg Tablet) 10 mg PO BEDTIME [facility] Last Admin: 01/18/23 21:55 Dose: 10 mg Documented By: SHAHIDA Baclofen (Baclofen 10 Mg Tablet) 10 mg PO BID PRN PRN Reason: Muscle Spasm Bictegravir/Emtricitabine/Tenofovir (Bictegrav/Emtricit/Tenofov Ala Tablet) 1 tab PO DAILY [facility] Last Admin: 01/19/23 08:10 Dose: 1 tab Documented By: LITZY Buspirone HCl (Buspirone Hcl 10 Mg Tablet) 10 mg PO BID [facility] Last Admin: 01/19/23 07:51 Dose: 10 mg Documented By: LITZY Duloxetine HCl (Duloxetine Hcl 60 Mg Capsule.Dr) 60 mg PO BID [facility] Last Admin: 01/19/23 07:52 Dose: 60 mg Documented By: LITZY Enoxaparin Sodium (Enoxaparin Sodium 40 Mg/0.4 Ml Syringe) 40 mg SUBCUT Q24H [facility] Last Admin: 01/18/23 21:54 Dose: 40 mg Documented By: SHAHIDA Ergocalciferol (Ergocalciferol (Vitamin D2) 1,250 Mcg Capsule) 1,250 mcg PO [facility] Fluconazole (Fluconazole 100 Mg Tablet) 200 mg PO DAILY [facility] Stop: 01/22/23 09:01 Last Admin: 01/19/23 07:51 Dose: 200 mg Documented By: LITZY Guaifenesin (Guaifenesin 200 Mg/10 Ml 10 Ml Liquid) 10 ml PO Q4H PRN PRN Reason: Cough Ceftriaxone Sodium 1 gm/ (Sodium Chloride) 50 mls @ 100 mls/hr IV Q24H [facility] Last Infusion: 01/19/23 04:05 Dose: Infused Documented By: SHAHIDA Doxycycline Hyclate 100 mg/ (Sodium Chloride) 250 mls @ 166.67 mls/hr IV Q12H [facility] Last Infusion: 01/19/23 11:47 Dose: Infused Documented By: MATTHEW Sodium Chloride (Ns) 1,000 mls @ 125 mls/hr IVCONT .Q8H [facility] Melatonin (Melatonin 3 Mg Tablet) 3 mg PO BEDTIME PRN PRN Reason: Insomnia Metoprolol Succinate (Metoprolol Succinate Er 50 Mg Tab.Er.24h) 50 mg PO BID [facility]; Protocol Last Admin: 01/19/23 07:50 Dose: 50 mg Documented By: LITZY Mirtazapine (Mirtazapine 30 Mg Tablet) 30 mg PO BEDTIME [facility] Last Admin: 01/18/23 21:54 Dose: 30 mg Documented By: SHAHIDA Omeprazole (Omeprazole 20 Mg Capsule.Dr) 20 mg PO BID@0630,1630 [facility] Last Admin: 01/19/23 10:13 Dose: Not Given Documented By: MATTHEW Non-Admin Reason: Patient Refused Ondansetron HCl (Ondansetron Hcl 4 Mg/2 Ml Vial) 4 mg IVPUSH Q8H PRN PRN Reason: Nausea and Vomiting Last Admin: 01/19/23 03:35 Dose: 4 mg Documented By: SHAHIDA Prednisone (Prednisone 20 Mg Tablet) 40 mg PO BIDWM [facility] Stop: 01/19/23 17:01 Last Admin: 01/19/23 08:10 Dose: 40 mg Documented By: LITZY Senna (Sennosides 8.6 Mg Tablet) 17.2 mg PO BEDTIME PRN PRN Reason: Constipation Sodium Chloride (0.9 % Sodium Chloride Flush 3 Ml Syringe) 3 ml IVFLUSH QSHIFT [facility] Last Admin: 01/19/23 08:59 Dose: Not Given Documented By: MATTHEW Non-Admin Reason: Med Not Available Trimethoprim/Sulfamethoxazole (Sulfamethox/Trimeth 800/160 Tablet) 1 tab PO Q12H [facility] Last Admin: 01/19/23 07:51 Dose: 1 tab Documented By: LITZY Labs 01/19/23 04:51 01/19/23 12:36 Labs: Laboratory Results - last 24 hr 01/18/23 01/18/23 01/18/23 16:46 19:10 20:07 MCV 93.3 MCH 30.3 MCHC 32.5 RDW 18.9 H Plt Count 145 L MPV 10.3 Immature Gran % (Auto) Cancelled Neut % (Auto) Cancelled Lymph % (Auto) Cancelled [place] % (Auto) Cancelled Eos % (Auto) Cancelled Baso % (Auto) Cancelled Lymph # (Auto) Cancelled [place] # (Auto) Cancelled Eos # (Auto) Cancelled Baso # (Auto) Cancelled Abs Immat Gran (auto) Cancelled Absolute Neuts (auto) Cancelled Absolute Nucleated RBC 0.000 Nucleated RBC % (auto) 0.0 Neutrophils % (Manual) Not Reportable Abs Neuts (Manual) Not Reportable Platelet Estimate Not Reportable Plt Morphology Comment Not Reportable RBC Morphology Not Reportable Anion Gap 16 Estim Creat Clear Calc 59.8 Estimated GFR 38 Random Glucose 151 H Lactic Acid 3.6 H* Lactic Acid F/U @ 2Hr 1.6 Calcium 9.4 Total Bilirubin 0.1 AST 14 ALT 26 Alkaline Phosphatase 111 Total Protein 7.0 Albumin 3.6 Procalcitonin 0.46 Urine Color Yellow Urine Appearance Clear Urine pH 7.0 Ur Specific [place] 1.025 Urine Protein 100 (2+) H Urine Glucose (UA) Negative Urine Ketones Trace Urine Blood Trace H Urine Nitrite Negative Ur Leukocyte Esterase Trace H Urine RBC 6-10 H Urine WBC 11-20 H Ur Squamous Epith Cells 3-5 Urine Bacteria None Seen Hyaline Casts 11-20 Nasal Screen MRSA (PCR) NEGATIVE Nasal S. aureus Screen NEGATIVE Nasal MRSA/S.aureus Interp SEE NOTE 01/19/23 04:51 MCV 92.4 MCH 30.3 MCHC 32.7 RDW 19.0 H Plt Count 141 L MPV 10.2 Immature Gran % (Auto) Neut % (Auto) Lymph % (Auto) [place] % (Auto) Eos % (Auto) Baso % (Auto) Lymph # (Auto) [place] # (Auto) Eos # (Auto) Baso # (Auto) Abs Immat Gran (auto) Absolute Neuts (auto) Absolute Nucleated RBC 0.000 Nucleated RBC % (auto) 0.0 Neutrophils % (Manual) Abs Neuts (Manual) Platelet Estimate Plt Morphology Comment RBC Morphology Anion Gap 15 Estim Creat Clear Calc 69.1 Estimated GFR 45 Random Glucose 89 Lactic Acid Lactic Acid F/U @ 2Hr Calcium 8.8 D Total Bilirubin AST ALT Alkaline Phosphatase Total Protein Albumin Procalcitonin Urine Color Urine Appearance Urine pH Ur Specific [place] Urine Protein Urine Glucose (UA) Urine Ketones Urine Blood Urine Nitrite Ur Leukocyte Esterase Urine RBC Urine WBC Ur Squamous Epith Cells Urine Bacteria Hyaline Casts Nasal Screen MRSA (PCR) Nasal S. aureus Screen Nasal MRSA/S.aureus Interp Microbiology Microbiology Results: Microbiology 01/18/23 Unknown Urine Culture - Preliminary Urine clean catch - Urine ram top Culture too young to evaluate. Assessment and Plan (1) IRIS (immune reconstitution inflammatory syndrome): Status: Acute (2) Fever: Status: Acute Plan 32-year-old female with history of multiple sclerosis not currently on treatment, history of esophagitis, celiac disease, recently diagnosed HIV/aids on Biktarvy admitted for pneumonia with severe sepsis in immunocompromised patient. Pt with multiple admissions for pneumonia resulting in ARDS with recent discharge from [facility] for fungal pneumonia. Also found positive for HIV/AIDS. Acute hypoxic respiratory failure seconadary to Acute pneumonia with severe sepsis leukopenia 2.4, tachycardic, tachypneic, lactic acid 3.6. No hypotension or other end-organ damage. Lactic acidosis resolved following IVF with repeat 1.[address] showing worsening pna, reticulonodular, miliary appearance, ? miliary TB IV ceftriaxone and doxycycline per ID (initiated 01/18) nasal MRSA swab>NEG, sputum culture, legionella ag, strep pneumo ag, RPP pending ID consult pending Pulmonology consult> plan for bronchoscopy scheduled for tomorrow, NPO after midnight No worsening hypoxia. Continue 1-2L supplemental O2 to maintain oximetry >92% HIV/AIDS Last CD4 count 113 (11/11/23), recent fungal pneumonia treated with doc and women in 01/06 Continue biktarvy Increase bactrim to 1 tab DS BID (per ID 15-20mg/kg/day), prednisone 40mg BID ID consult pending complete course fluconazole CD4 count pending GPC bacteremia / GPC continue doxycycline possible contaminant Tachycardia VQ scan negative for PE IV fluids bolus given and started on Maintenance fluids pt reports chronic. continue metoprolol Normocytic anemia no acute blood loss likely complication of HIV Will check CBC in am, if hem <7 consider tx check occult stool GI consult pending MS stable, no exacerbation Gerd unable to take prilosec will start IV protonix DVT prophylaxis- lovenox Attending Dr. Hernandez Full code Given patient's immunocompromised state with recently diagnosed HIV/AIDS and presentation with acute pneumonia and severe sepsis and given recent hospitalizations for pneumonia with rapid decompensation into ARDS, continue inpatient stay for IV abx, expert consultations, and close monitoring to prevent cardiopulmonary decompensation and septic shock. Quality Stroke Does the patient have a stroke diagnosis?: No VTE Prior VTE?: No VTE Risk Level:: Medical - moderate - high VTE Device Contraindication: Treatment Not Indicated VTE Drug Contraindication: N/A - Med Ordered
[2023-01-19 12:58] LABS: Anion Gap 17 (12-20); Blood Urea Nitrogen 16 mg/dL (9-16); Calcium 8.9 mg/dL (8.4-10.2); Carbon Dioxide 22 mmol/L (22-29); Chloride 100 mmol/L (96-108); Estimated Glomerular Filt Rate 41; Glucose Random 189 mg/dL (60-115); Potassium 4.5 mmol/L (3.3-5.1); Sodium 134 mmol/L (135-145)
--- NOTE | 2023-01-19 13:28 | MHC.CM.PN ---
CM RECEIVED CALL BACK FROM PT, PT ADMITTED W/PNA, SEVERE SEPSIS, PT REPORTS SHE WAS DISCHARGED FROM [facility] FOR SN AND HOME PT, AND PT HAS NSG 2XWK AND PT 2XWK, PT REPORTS RETURNING TO ED D/T HAVING A FEVER AND THAT GOAL FOR DC WILL BE HOME W/RESUMP OF SERVICES, FAMILY FOR TRANSPRT. PT VERIFIES PCP AND HCP ON FILE CORRECT AND REPORTS SHE IS FULLY VAXED AGAINST COVID 19 EXCEPT THIS YEARS BOOSTER.
[2023-01-19 13:42] LABS: HCG Quantitative < 2 mIU/mL
[2023-01-19] MEDS: 0.9 % Sodium Chloride 1,000 ML 125 ML IVCONT ×2 (14:00→20:04)
[2023-01-19 15:01] LABS: Adenovirus PCR Not Detected (Not Detect.); Bordetella parapertussis PCR Not Detected (Not Detect.); Bordetella pertussis PCR Not Detected (Not Detect.); Chlamydia pneumoniae PCR Not Detected (Not Detect.); Coronavirus 229E PCR Not Detected (Not Detect.); Coronavirus HKU1 PCR Not Detected (Not Detect.); Coronavirus NL63 PCR Not Detected (Not Detect.); Coronavirus OC43 PCR Not Detected (Not Detect.); Human metapneumovirus PCR Not Detected (Not Detect.); Influenza A PCR Not Detected (Not Detect.); Influenza B PCR Not Detected (Not Detect.); Mycoplasma pneumoniae PCR Not Detected (Not Detect.); Parainfluenza 1 PCR Not Detected (Not Detect.); Parainfluenza 2 PCR Not Detected (Not Detect.); Parainfluenza 3 PCR Not Detected (Not Detect.); Parainfluenza 4 PCR Not Detected (Not Detect.); RSV PCR Not Detected (Not Detect.); Rhino/Enterovirus PCR Not Detected (Not Detect.); SARS-CoV-2 PCR Not Detected (Not Detect.)
--- NOTE | 2023-01-19 15:18 | PC.NURSE ---
Patient arrived to unit on stretcher approximately 1200 able to ambulate from stretcher to bed with steady gait per pt has been using cane at baseline. Oriented to room, call glass system and staff. A&OX4. RAYO to command 5/5 sensation intact, +pp bilat no edema noted. c/o headache per pt d/t hunger. Denies dizziness or vision changes pupils 5B. LS dim arrives on 4L via nasal cannula per pt breathing improved from previous returned to 2L satting mid to high 90's. NSR on tele. BS+X4 abdomen soft non-tender c/o mild nausea. Last BM per pt this am 12/6. IV fluids started per order with bolus. Nasal swab sent per order. Airborne precautions in place per order. Bed in lowest locked position call glass within reach. Will continue to monitor and report changes
--- NOTE | 2023-01-19 17:21 | W.PM.IDCN ---
History of Present Illness Data of Consult Service Date: 01/19/23 Requesting physician: Kye Vivas Primary Care Provider: Baldo Arreola MD HPI Reason for consult: AIDS,lung disease She presents to hospital with shortness of breath and cough. She was recently admitted here to ICU and transferred to [facility] per Dr Obrien from ICU for lung transplant evaluation given she is a young person with persistent respiratory failure. Her CT showed linear opacities,multifocal airspace disease. At that time of transfer,HIV initial screen reactive,but antibody pending. I have verbal report that is positive as well as CD4 count 113 by verbal report. She stayed at [facility] form 12/26-01/05. She had tests done including MRI w/o contrast showing scattered brain lesions ?MS. She had respiratory failure,esophagitis and SOFIYA as well as sinus tachycardia and mood disorder. She had had COVIC 11/24 and had cough after. On 12/13 she had shortness of breath requiring HFN On 12/15-12/19 she received Solumedrol,Vancomycin and Zosyn and HFNC /bi PAP. She was given 21 days Bactrim to finish orally and was on 2 liters discharge [facility]. PJP stain unsatisfactory sample and sent for PCR (pending). She also had Prednisone taper She received two weeks Diflucan. She also had ?mass or hematoma bladder She reports eye/retina exam unremarkable there. She alleges she caught HIV from her exhusband and her fiance knows and will get tested. She plans to move to [place] when better. Syphilis testing is negative. Review of Systems Review of Systems: Yes all other systems are reviewed and are negative Cardiovascular: Cardiovascular: Reports dyspnea Respiratory: Respiratory: Reports dyspnea PMFSH Past Medical History Medical History HIV (human immunodeficiency virus infection) AIDS Vasovagal syncope Esophagitis Celiac disease Tachycardia Multiple sclerosis Social History Social History Household Members: Children Household Members Other:: son Housing: Apartment Do you presently have visiting nurse or other home services: Yes Alcohol intake: never Patient Tobacco Use Status: Former Tobacco user Quit Date: 11/24/2022 Smoked in Last 30 Days: No e-Cigarette/Vaping Use: Former Use Second Hand Smoke Exposure: No Use of substances other than those prescribed or required for medical reasons: Yes Substance Use Type: Marijuana Currently Displaying Signs/Symptoms of Drug Intoxication Withdrawal: No Any prior treatment program specific to substance use: No Have you been hit, kicked, punched, or otherwise hurt by someone within the past year? If so, by whom?: No Do you feel safe in your current relationship?: Yes Is there a partner from a previous relationship who is making you feel unsafe now?: No Are you made to feel afraid or neglected: No Advance Directives: Yes Advance Directives on File: Yes Advance Directives Date on File: 12/28/22 Do you have thoughts of harming others: None Do you have a plan to hurt others: No Plan Recently lost weight without trying: No How much weight loss: Not applicable Eating poorly because of decreased appetite: No Nutrition screen score: 0 Nutrition Risks: No Nutritional Risk Patient : No : No Poor oral hygiene: No service: No Meds Allergies Allergy/AdvReac Type Severity Reaction Status Date / Time gluten Allergy Unknown Verified 12/03/22 12:50 Active Medications: Current Medications Acetaminophen (Acetaminophen 325 Mg Tablet) 650 mg PO Q6H PRN PRN Reason: Pain, Mild (Pain Scale 1-3) Last Admin: 01/19/23 10:09 Dose: 650 mg Baclofen (Baclofen 10 Mg Tablet) 10 mg PO BEDTIME [facility] Last Admin: 01/18/23 21:55 Dose: 10 mg Baclofen (Baclofen 10 Mg Tablet) 10 mg PO BID PRN PRN Reason: Muscle Spasm Bictegravir/Emtricitabine/Tenofovir (Bictegrav/Emtricit/Tenofov Ala Tablet) 1 tab PO DAILY [facility] Last Admin: 01/19/23 08:10 Dose: 1 tab Buspirone HCl (Buspirone Hcl 10 Mg Tablet) 10 mg PO BID [facility] Last Admin: 01/19/23 07:51 Dose: 10 mg Duloxetine HCl (Duloxetine Hcl 60 Mg Capsule.Dr) 60 mg PO BID [facility] Last Admin: 01/19/23 07:52 Dose: 60 mg Enoxaparin Sodium (Enoxaparin Sodium 40 Mg/0.4 Ml Syringe) 40 mg SUBCUT Q24H [facility] Last Admin: 01/18/23 21:54 Dose: 40 mg Ergocalciferol (Ergocalciferol (Vitamin D2) 1,250 Mcg Capsule) 1,250 mcg PO TH [facility] Fluconazole (Fluconazole 100 Mg Tablet) 200 mg PO DAILY [facility] Stop: 01/22/23 09:01 Last Admin: 01/19/23 07:51 Dose: 200 mg Guaifenesin (Guaifenesin 200 Mg/10 Ml 10 Ml Liquid) 10 ml PO Q4H PRN PRN Reason: Cough Ceftriaxone Sodium 1 gm/ (Sodium Chloride) 50 mls @ 100 mls/hr IV Q24H [facility] Last Infusion: 01/19/23 04:05 Dose: Infused Doxycycline Hyclate 100 mg/ (Sodium Chloride) 250 mls @ 166.67 mls/hr IV Q12H [facility] Last Infusion: 01/19/23 11:47 Dose: Infused Sodium Chloride (Ns) 1,000 mls @ 125 mls/hr IVCONT .Q8H [facility] Last Admin: 01/19/23 14:00 Dose: 125 mls/hr Melatonin (Melatonin 3 Mg Tablet) 3 mg PO BEDTIME PRN PRN Reason: Insomnia Metoprolol Succinate (Metoprolol Succinate Er 50 Mg Tab.Er.24h) 50 mg PO BID [facility]; Protocol Last Admin: 01/19/23 07:50 Dose: 50 mg Mirtazapine (Mirtazapine 30 Mg Tablet) 30 mg PO BEDTIME [facility] Last Admin: 01/18/23 21:54 Dose: 30 mg Ondansetron HCl (Ondansetron Hcl 4 Mg/2 Ml Vial) 4 mg IVPUSH Q8H PRN PRN Reason: Nausea and Vomiting Last Admin: 01/19/23 03:35 Dose: 4 mg Pantoprazole Sodium (Pantoprazole Sodium 40 Mg/10 Ml Vial) 40 mg IVPUSH 2100 [facility] Senna (Sennosides 8.6 Mg Tablet) 17.2 mg PO BEDTIME PRN PRN Reason: Constipation Sodium Chloride (0.9 % Sodium Chloride Flush 3 Ml Syringe) 3 ml IVFLUSH QSHIFT [facility] Last Admin: 01/19/23 15:28 Dose: Not Given Trimethoprim/Sulfamethoxazole (Sulfamethox/Trimeth 800/160 Tablet) 1 tab PO Q12H [facility] Last Admin: 01/19/23 07:51 Dose: 1 tab Home Medications Medication Instructions Recorded Confirmed Last Taken Type baclofen 10 mg tablet 10 mg PO BEDTIME Spasms 12/03/22 01/18/23 01/17/23 History buspirone 10 mg tablet 10 mg PO BID 12/03/22 01/18/23 01/18/23 History duloxetine 60 mg capsule,delayed 60 mg PO BID 12/03/22 01/18/23 01/18/23 History release metoprolol succinate 50 mg 50 mg PO BID 12/03/22 01/18/23 01/18/23 History tablet,extended release 24 hr mirtazapine 30 mg tablet 30 mg PO BEDTIME 12/03/22 01/18/23 01/17/23 History pantoprazole 40 mg tablet,delayed 40 mg PO BID 12/03/22 01/18/23 01/18/23 History release lisdexamfetamine 50 mg capsule 50 mg PO DAILY PRN ADHD 12/13/22 01/18/23 Unknown History (Raul) baclofen 10 mg tablet 10 mg PO BID PRN Muscle Spasm 01/18/23 01/18/23 Unknown History bictegravir 50 mg-emtricitabine 1 tab PO DAILY 01/18/23 01/18/23 01/18/23 History 200 mg-tenofovir alafenam 25 mg tablet (Biktarvy) ergocalciferol (vitamin D2) 1,250 1,250 mcg PO TH 01/18/23 01/18/23 01/13/23 History mcg (50,000 unit) capsule fluconazole 200 mg tablet 200 mg PO DAILY 01/18/23 01/18/23 01/18/23 History prednisone 20 mg tablet 20 mg PO DAILY 01/18/23 01/18/23 01/18/23 History sulfamethoxazole 400 1 tab PO DAILY 01/18/23 01/18/23 01/18/23 History mg-trimethoprim 80 mg tablet (Bactrim) Physical Exam Vital Signs: Vital Signs: Last Vital Signs Temp 98.3 F 01/19/23 15:57 Pulse 94 01/19/23 15:57 Resp 20 01/19/23 15:57 BP 118/60 01/19/23 15:57 Pulse Ox 97 01/19/23 15:57 O2 Del Method Nasal Cannula 01/19/23 15:57 O2 Flow Rate 2 01/19/23 15:57 Oxygen Flow Rate 1 01/18/23 16:28 BMI result Body Mass Index 28.9 Const: General: cooperative HEENT: Head: Yes normal to inspection Face and sinus: Yes normal facial exam Mouth: Normal oral and palatal mucosa present Teeth and gingiva: dentition normal Eyes: General: appearance normal, both eyes and all related structures Pupils: Equal, round and reactive pupils present Resp: Effort & Inspection: abnormal respiratory pattern Cardio: Rate: regular rate Rhythm: regular rhythm GI: Palpation (GI): Soft to palpation and nontender : General: Yes no CVA tenderness Back/Spine/Pelvis: Back: no CVA tenderness Skin: General skin exam: no rashes or lesions noted Neuro: General: moves all extremities Cranial nerves: Yes Equal, round and reactive pupils present Extrem: General: Yes normal to inspection Psych: Appearance: grossly normal Results Labs 01/19/23 04:51 01/19/23 12:36 Labs: Short CBC 01/19/23 Range/Units 04:51 WBC 2.4 L (4.8-10.8) X10*3/uL Hgb 7.2 L (12.0-16.0) g/dl Hct 22.0 L (37.0-47.0) % Plt Count 141 L (160-400) X10*3/uL BMP 01/19/23 01/19/23 04:51 12:36 Sodium 136 134 L Potassium 4.0 4.5 Chloride 102 100 Carbon Dioxide 23 22 BUN 17 H 16 Creatinine 1.34 1.47 H Calcium 8.8 D 8.9 Urine 01/18/23 Range/Units 20:07 Urine Color Yellow Urine Appearance Clear Urine pH 7.0 (5.0-9.0) Ur Specific [place] 1.025 (1.005-1.025) Urine Protein 100 (2+) H (Neg-Trace) mg/dL Urine Glucose (UA) Negative (Negative) mg/dL Microbiology Microbiology Results: Microbiology 01/18/23 19:10 Blood - Venous Blood Culture - Preliminary Prelim: GPC Gram Stain only 01/18/23 Unknown Urine clean catch - Urine ram top Urine Culture - Preliminary Culture too young to evaluate. Assessment and Plan (1) AIDS: Status: Acute (2) Pneumonia: Qualifiers: Laterality: bilateral Lung location: unspecified part of lung Pneumonia type: due to unspecified organism Qualified Code(s): J18.9 - Pneumonia, unspecified organism Status: Acute Plan There are many etiologies for respiratory syndrome. With possible brain lesions there is toxoplasmosis. There is also tuberculosis, PJP,,Legionella,mycobacterium other than TB,nocardia (also causes brain issues),fungus,CMV,herpes simplex ,zoster,malignancy or IRIS. Would continue treatment for PJP (total 21 days) with steroid taper. Continue Ceftriaxone and Doxycycline Continue fluconazole. Check cryptococcal antigen. Continue Biktarvy (started at [facility]) ,but possible hold if AFB positive. Recheck CD4 count and viral load and resistance panel. Consider CT scan of brain or MRI with contrast evaluate lesions (?toxoplasmosis), Bronchoscopy tomorrow for toxoplasmosis,PJP.fungus,AFB,Legionella,,CMV,Herpes simplex and zoster and cytology. Maintain respiratory isolation . May obtain three am sputum for AFB. Hepatitis B vaccine in future and check Hepatitis C and Tspot when off steroids. Bactrim prophylaxis DS daily when off treatment for PJP.
[2023-01-19 18:42] LABS: MRSA Nasal PCR NEGATIVE (Negative); SA Nasal PCR NEGATIVE (Negative)
[2023-01-19] MEDS: Pantoprazole Sodium 40 MG/10 ML VIAL IVPUSH (20:16)
[2023-01-19] MEDS: Enoxaparin Sodium 40 MG/0.4 ML SYRINGE SUBCUT (20:16)
[2023-01-19] MEDS: Baclofen 10 MG TABLET PO (20:16)
[2023-01-19] MEDS: Mirtazapine 30 MG TABLET PO (20:16)
[2023-01-20] VITALS (14 sets, daily range): BP systolic 111–167; BP diastolic 72–94; PULSE 87–127; RESP 16–24; TEMP 35.9–37.1; O2SAT 91–100
--- NOTE | 2023-01-20 02:27 | CONS_ITS ---
DATE OF SERVICE: 01/19/2023 REFERRING PHYSICIAN: Opal Brody NP REASON FOR CONSULTATION: Anemia and HIV infection. HISTORY OF PRESENT ILLNESS: The patient is a pleasant, 32-year-old woman who was admitted to the hospital after presenting to the emergency room from her doctor's office with fever and pneumonia. She has a history of recently diagnosed HIV infection and has been on HAART and was hospitalized with pneumonia in November and again in early December. She has been noted to be anemic with a hematocrit on admission of 24.9, which dropped to 22 today without any GI bleeding. She does have chronic reflux symptoms for which she is on high-dose proton pump inhibitor and is reporting good control of symptoms with the exception of some nausea and nonbloody vomiting the day before admission. She has not undergone endoscopy. She has no hematochezia or melena. She has no complaints of abdominal or rectal pain. Stool occult blood testing has been ordered. PAST MEDICAL HISTORY: 1. Pneumonia as above. 2. HIV/AIDS. 3. Celiac disease. CURRENT MEDICATIONS: Her current medication list is reviewed in the chart. ALLERGIES: GLUTEN. FAMILY HISTORY: This is reviewed with the patient and is noncontributory. SOCIAL HISTORY: There is no current tobacco, alcohol, or substance abuse. REVIEW OF SYSTEMS: SKIN: No pruritus. HEENT: Negative. CARDIOPULMONARY: No shortness of breath or chest pain. GASTROINTESTINAL: As above. GENITOURINARY: Negative. NEUROPSYCHIATRIC: Negative. PHYSICAL EXAMINATION: GENERAL: Shows a pleasant female, lying comfortably in bed. VITAL SIGNS: Reviewed in electronic medical record and are stable. SKIN: Anicteric. HEENT: Shows no scleral icterus. NECK: Without lymphadenopathy or thyromegaly. LUNGS: Clear. HEART: Shows a regular rate and rhythm. S1, S2. No murmur ABDOMEN: Soft without focal masses or tenderness. Bowel sounds are present. No organomegaly is noted. EXTREMITIES: Without edema. LABORATORY DATA: Reviewed. IMPRESSION: Anemia. She does not appear to have any active GI bleeding at this time. She does have chronic reflux symptoms, which seem generally well controlled on her current dose of proton pump inhibitor. I would recommend continuing this for her celiac disease. She should continue a gluten free diet. Thanks for asking me to see her. I will follow her in the hospital as needed. MD FACUNDO Prado/RENA / [phone]
[2023-01-20] MEDS: cefTRIAXone sodium 1 GM in 0.9 % Sodium Chloride 50 ML IV (03:27)
[2023-01-20] MEDS: 0.9 % Sodium Chloride 1,000 ML 125 ML IVCONT ×2 (03:30→11:52)
[2023-01-20] MEDS: Doxycycline Hyclate 100 MG in 0.9 % Sodium Chloride 250 ML 166.67 MG IV ×2 (07:51→19:55)
[2023-01-20] MEDS: Bictegrav/Emtricit/Tenofov Ala TABLET 1 TAB PO (07:54)
[2023-01-20] MEDS: busPIRone HCl 10 MG TABLET PO ×2 (07:55→20:00)
[2023-01-20] MEDS: DULoxetine HCl 60 MG CAPSULE.DR PO ×2 (07:55→20:00)
[2023-01-20] MEDS: Fluconazole 100 MG TABLET 200 MG PO (07:55)
[2023-01-20] MEDS: Metoprolol Succinate ER 50 MG TAB.ER.24H PO ×2 (07:55→20:00)
[2023-01-20] MEDS: Sulfamethox/Trimeth 800/160 TABLET 1 TAB PO ×2 (07:55→20:00)
[2023-01-20] MEDS: Ergocalciferol (Vitamin D2) 1,250 MCG CAPSULE 1250 MCG PO (08:03)
--- NOTE | 2023-01-20 08:58 | MHC.IC ---
TB PRECAUTIONS REQUIRED - Please check negative pressure every shift and document on the clipboard. Both doors must remain closed. N95s required.
[2023-01-20 09:00] LABS: Hematocrit 22.5 % (37.0-47.0); Hemoglobin 7.3 g/dl (12.0-16.0); Mean Corpuscular HGB Conc 32.4 g/dl (31.0-35.0); Mean Corpuscular Hemoglobin 30.4 pg (27.0-33.0); Mean Corpuscular Volume 93.8 fL (80.0-98.0); NRBC Pct Auto 0.5 /100WBC (0.0-0.2); Platelet Count 156 X10*3/uL (160-400); Red Cell Distribution Width 19.2 % (11.0-16.0); White Blood Count 4.1 X10*3/uL (4.8-10.8)
[2023-01-20 09:17] LABS: Anion Gap 15 (12-20); Blood Urea Nitrogen 15 mg/dL (9-16); Calcium 9.3 mg/dL (8.4-10.2); Carbon Dioxide 24 mmol/L (22-29); Chloride 107 mmol/L (96-108); Creatinine Clr Calc Pharmacy 79.9; Estimated Glomerular Filt Rate 55; Glucose Random 138 mg/dL (60-115); Potassium 4.5 mmol/L (3.3-5.1); Sodium 141 mmol/L (135-145)
--- NOTE | 2023-01-20 09:21 | MHC.SHP ---
Pre-Procedural Eval Section A Date of Service: 01/20/23 The patient is an INPATIENT: Yes Section B Chief Complaint: Pneumonia, severe sepsis, AIDS Allergies: Allergies Allergy/AdvReac Type Severity Reaction Status Date / Time gluten Allergy Unknown Verified 12/03/22 12:50 Plan I have reviewed the history and physical and performed a pertinent physical examination on my patient. No changes have occurred unless specified. Time Spent With Patient Time: Total time managing care of this patient today ____ minutes.
--- NOTE | 2023-01-20 10:11 | P.CONAN_ITS ---
[facility] Active Problems Active Problems: All Active Problems (Updated 01/19/23 @ 12:19 by Keron Brody MD) IRIS (immune reconstitution inflammatory syndrome) (Acute) Fever (Acute) Bronchiolitis (Acute) Severe sepsis (Acute) AIDS (Acute) Pneumonia (Acute) SOFIYA (acute kidney injury) (Acute) Pneumonia due to COVID-19 virus (Acute) Acute kidney injury (Acute) Acute respiratory failure with hypoxia (Acute) Pulmonary edema (Acute) ARDS (adult respiratory distress syndrome) (Acute) Past Medical History Medical History HIV (human immunodeficiency virus infection) AIDS Vasovagal syncope Esophagitis Celiac disease Tachycardia Multiple sclerosis Functional capacity: independent ambulation Family History Family history of problems with anesthesia: No Surgical History History of Problems with Anesthesia: No Social History Social History Household Members: Children Household Members Other:: son Housing: Apartment Do you presently have visiting nurse or other home services: Yes Alcohol intake: never Patient Tobacco Use Status: Former Tobacco user Quit Date: 11/24/2022 Smoked in Last 30 Days: No e-Cigarette/Vaping Use: Former Use Second Hand Smoke Exposure: No Use of substances other than those prescribed or required for medical reasons: Yes Substance Use Type: Marijuana Currently Displaying Signs/Symptoms of Drug Intoxication Withdrawal: No Any prior treatment program specific to substance use: No Have you been hit, kicked, punched, or otherwise hurt by someone within the past year? If so, by whom?: No Do you feel safe in your current relationship?: Yes Is there a partner from a previous relationship who is making you feel unsafe now?: No Are you made to feel afraid or neglected: No Advance Directives: Yes Advance Directives on File: Yes Advance Directives Date on File: 12/28/22 Do you have thoughts of harming others: None Do you have a plan to hurt others: No Plan Recently lost weight without trying: No How much weight loss: Not applicable Eating poorly because of decreased appetite: No Nutrition screen score: 0 Nutrition Risks: No Nutritional Risk Patient : No : No Poor oral hygiene: No service: No Meds Allergies Allergy/AdvReac Type Severity Reaction Status Date / Time gluten Allergy Unknown Verified 12/03/22 12:50 Active Medications: Current Medications Acetaminophen (Acetaminophen 325 Mg Tablet) 650 mg PO Q6H PRN PRN Reason: Pain, Mild (Pain Scale 1-3) Last Admin: 01/19/23 10:09 Dose: 650 mg Baclofen (Baclofen 10 Mg Tablet) 10 mg PO BEDTIME [facility] Last Admin: 01/19/23 20:16 Dose: 10 mg Baclofen (Baclofen 10 Mg Tablet) 10 mg PO BID PRN PRN Reason: Muscle Spasm Bictegravir/Emtricitabine/Tenofovir (Bictegrav/Emtricit/Tenofov Ala Tablet) 1 tab PO DAILY [facility] Last Admin: 01/20/23 07:54 Dose: 1 tab Buspirone HCl (Buspirone Hcl 10 Mg Tablet) 10 mg PO BID [facility] Last Admin: 01/20/23 07:55 Dose: 10 mg Duloxetine HCl (Duloxetine Hcl 60 Mg Capsule.Dr) 60 mg PO BID [facility] Last Admin: 01/20/23 07:55 Dose: 60 mg Enoxaparin Sodium (Enoxaparin Sodium 40 Mg/0.4 Ml Syringe) 40 mg SUBCUT Q24H [facility] Last Admin: 01/19/23 20:16 Dose: 40 mg Ergocalciferol (Ergocalciferol (Vitamin D2) 1,250 Mcg Capsule) 1,250 mcg PO TH [facility] Last Admin: 01/20/23 08:03 Dose: 1,250 mcg Fluconazole (Fluconazole 100 Mg Tablet) 200 mg PO DAILY [facility] Stop: 01/22/23 09:01 Last Admin: 01/20/23 07:55 Dose: 200 mg Guaifenesin (Guaifenesin 200 Mg/10 Ml 10 Ml Liquid) 10 ml PO Q4H PRN PRN Reason: Cough Ceftriaxone Sodium 1 gm/ (Sodium Chloride) 50 mls @ 100 mls/hr IV Q24H [facility] Last Infusion: 01/20/23 04:02 Dose: Infused Doxycycline Hyclate 100 mg/ (Sodium Chloride) 250 mls @ 166.67 mls/hr IV Q12H [facility] Last Infusion: 01/20/23 09:27 Dose: Infused Sodium Chloride (Ns) 1,000 mls @ 125 mls/hr IVCONT .Q8H [facility] Last Admin: 01/20/23 03:30 Dose: 125 mls/hr Melatonin (Melatonin 3 Mg Tablet) 3 mg PO BEDTIME PRN PRN Reason: Insomnia Metoprolol Succinate (Metoprolol Succinate Er 50 Mg Tab.Er.24h) 50 mg PO BID [facility]; Protocol Last Admin: 01/20/23 07:55 Dose: 50 mg Mirtazapine (Mirtazapine 30 Mg Tablet) 30 mg PO BEDTIME [facility] Last Admin: 01/19/23 20:16 Dose: 30 mg Ondansetron HCl (Ondansetron Hcl 4 Mg/2 Ml Vial) 4 mg IVPUSH Q8H PRN PRN Reason: Nausea and Vomiting Last Admin: 01/19/23 03:35 Dose: 4 mg Pantoprazole Sodium (Pantoprazole Sodium 40 Mg/10 Ml Vial) 40 mg IVPUSH 2100 [facility] Last Admin: 01/19/23 20:16 Dose: 40 mg Senna (Sennosides 8.6 Mg Tablet) 17.2 mg PO BEDTIME PRN PRN Reason: Constipation Sodium Chloride (0.9 % Sodium Chloride Flush 3 Ml Syringe) 3 ml IVFLUSH QSHIFT [facility] Last Admin: 01/20/23 09:11 Dose: Not Given Trimethoprim/Sulfamethoxazole (Sulfamethox/Trimeth 800/160 Tablet) 1 tab PO Q12H [facility] Last Admin: 01/20/23 07:55 Dose: 1 tab Home Medications Medication Instructions Recorded Confirmed Last Taken Type baclofen 10 mg tablet 10 mg PO BEDTIME Spasms 12/03/22 01/18/23 01/17/23 History buspirone 10 mg tablet 10 mg PO BID 12/03/22 01/18/23 01/18/23 History duloxetine 60 mg capsule,delayed 60 mg PO BID 12/03/22 01/18/23 01/18/23 History release metoprolol succinate 50 mg 50 mg PO BID 12/03/22 01/18/23 01/18/23 History tablet,extended release 24 hr mirtazapine 30 mg tablet 30 mg PO BEDTIME 12/03/22 01/18/23 01/17/23 History pantoprazole 40 mg tablet,delayed 40 mg PO BID 12/03/22 01/18/23 01/18/23 History release lisdexamfetamine 50 mg capsule 50 mg PO DAILY PRN ADHD 12/13/22 01/18/23 Unknown History (Raul) baclofen 10 mg tablet 10 mg PO BID PRN Muscle Spasm 01/18/23 01/18/23 Unknown History bictegravir 50 mg-emtricitabine 1 tab PO DAILY 01/18/23 01/18/23 01/18/23 History 200 mg-tenofovir alafenam 25 mg tablet (Biktarvy) ergocalciferol (vitamin D2) 1,250 1,250 mcg PO TH 01/18/23 01/18/23 01/13/23 History mcg (50,000 unit) capsule fluconazole 200 mg tablet 200 mg PO DAILY 01/18/23 01/18/23 01/18/23 History prednisone 20 mg tablet 20 mg PO DAILY 01/18/23 01/18/23 01/18/23 History sulfamethoxazole 400 1 tab PO DAILY 01/18/23 01/18/23 01/18/23 History mg-trimethoprim 80 mg tablet (Bactrim) Exam Height,Weight and Vital Signs: Height 5 ft 8 in Weight 86.3 kg Last Vital Signs Temp 97.8 F 01/20/23 07:40 Pulse 87 01/20/23 07:40 Resp 20 01/20/23 07:40 BP 119/79 01/20/23 07:40 Pulse Ox 92 01/20/23 07:40 O2 Del Method Nasal Cannula 01/20/23 07:40 O2 Flow Rate 2 01/20/23 03:28 Oxygen Flow Rate 1 01/18/23 16:28 Pertinent Lab Results Pertinent Lab Results: Laboratory Tests 01/18/23 01/18/23 01/18/23 16:46 19:10 20:07 WBC 2.4 L RBC 2.67 L Hgb 8.1 L Hct 24.9 L MCV 93.3 MCH 30.3 MCHC 32.5 RDW 18.9 H Plt Count 145 L MPV 10.3 Immature Gran % (Auto) Cancelled Neut % (Auto) Cancelled Lymph % (Auto) Cancelled [place] % (Auto) Cancelled Eos % (Auto) Cancelled Baso % (Auto) Cancelled Lymph # (Auto) Cancelled [place] # (Auto) Cancelled Eos # (Auto) Cancelled Baso # (Auto) Cancelled Abs Immat Gran (auto) Cancelled Absolute Neuts (auto) Cancelled Absolute Nucleated RBC 0.000 Nucleated RBC % (auto) 0.0 Neutrophils % (Manual) Not Reportable Abs Neuts (Manual) Not Reportable Platelet Estimate Not Reportable Plt Morphology Comment Not Reportable RBC Morphology Not Reportable Sodium 131 L Potassium 4.8 Chloride 99 Carbon Dioxide 21 L Anion Gap 16 BUN 19 H Creatinine 1.55 H Estim Creat Clear Calc 59.8 Estimated GFR 38 Random Glucose 151 H Lactic Acid 3.6 H* Lactic Acid F/U @ 2Hr 1.6 Calcium 9.4 Total Bilirubin 0.1 AST 14 ALT 26 Alkaline Phosphatase 111 Troponin I High Sens 12.2 D Total Protein 7.0 Albumin 3.6 Procalcitonin 0.46 Beta HCG, Quant Urine Color Yellow Urine Appearance Clear Urine pH 7.0 Ur Specific [place] 1.025 Urine Protein 100 (2+) H Urine Glucose (UA) Negative Urine Ketones Trace Urine Blood Trace H Urine Nitrite Negative Ur Leukocyte Esterase Trace H Urine RBC 6-10 H Urine WBC 11-20 H Ur Squamous Epith Cells 3-5 Urine Bacteria None Seen Hyaline Casts 11-20 Nasal Screen MRSA (PCR) NEGATIVE Nasal S. aureus Screen NEGATIVE Nasal MRSA/S.aureus Interp SEE NOTE Respiratory Panel [place] Adenovirus (Rapid PCR) B.pert (TEM-PCR) B.parapertussis DNA PCR C. pneumoniae DNA (PCR) Coronavirus OC43 (PCR) Coronavirus HKU1 (PCR) Coronavirus 229E (PCR) Coronavirus NL63 (PCR) Human Metapneumovir PCR Influenza A (RT-PCR) Influenza B (RT-PCR) M. pneumoniae (PCR) Parainfluenza 1 (PCR) Parainfluenza 2 (PCR) Parainfluenza 3 (PCR) Parainfluenza 4 (PCR) RSV (PCR) Entero/Rhino (PCR) SARS-CoV-2 RNA (RT-PCR) Cryptococcal Ag 01/19/23 01/19/23 01/19/23 04:51 12:36 13:00 WBC 2.4 L RBC 2.38 L Hgb 7.2 L Hct 22.0 L MCV 92.4 MCH 30.3 MCHC 32.7 RDW 19.0 H Plt Count 141 L MPV 10.2 Immature Gran % (Auto) Neut % (Auto) Lymph % (Auto) [place] % (Auto) Eos % (Auto) Baso % (Auto) Lymph # (Auto) [place] # (Auto) Eos # (Auto) Baso # (Auto) Abs Immat Gran (auto) Absolute Neuts (auto) Absolute Nucleated RBC 0.000 Nucleated RBC % (auto) 0.0 Neutrophils % (Manual) Abs Neuts (Manual) Platelet Estimate Plt Morphology Comment RBC Morphology Sodium 136 134 L Potassium 4.0 4.5 Chloride 102 100 Carbon Dioxide 23 22 Anion Gap 15 17 BUN 17 H 16 Creatinine 1.34 1.47 H Estim Creat Clear Calc 69.1 63.0 Estimated GFR 45 41 Random Glucose 89 189 H Lactic Acid Lactic Acid F/U @ 2Hr Calcium 8.8 D 8.9 Total Bilirubin AST ALT Alkaline Phosphatase Troponin I High Sens Total Protein Albumin Procalcitonin Beta HCG, Quant < 2 Urine Color Urine Appearance Urine pH Ur Specific [place] Urine Protein Urine Glucose (UA) Urine Ketones Urine Blood Urine Nitrite Ur Leukocyte Esterase Urine RBC Urine WBC Ur Squamous Epith Cells Urine Bacteria Hyaline Casts Nasal Screen MRSA (PCR) Nasal S. aureus Screen Nasal MRSA/S.aureus Interp Respiratory Panel [place] See Note Adenovirus (Rapid PCR) Not Detected B.pert (TEM-PCR) Not Detected B.parapertussis DNA PCR Not Detected C. pneumoniae DNA (PCR) Not Detected Coronavirus OC43 (PCR) Not Detected Coronavirus HKU1 (PCR) Not Detected Coronavirus 229E (PCR) Not Detected Coronavirus NL63 (PCR) Not Detected Human Metapneumovir PCR Not Detected Influenza A (RT-PCR) Not Detected Influenza B (RT-PCR) Not Detected M. pneumoniae (PCR) Not Detected Parainfluenza 1 (PCR) Not Detected Parainfluenza 2 (PCR) Not Detected Parainfluenza 3 (PCR) Not Detected Parainfluenza 4 (PCR) Not Detected RSV (PCR) Not Detected Entero/Rhino (PCR) Not Detected SARS-CoV-2 RNA (RT-PCR) Not Detected Cryptococcal Ag SEE NOTE 01/19/23 01/20/23 16:45 08:39 WBC 4.1 L RBC 2.40 L Hgb 7.3 L Hct 22.5 L MCV 93.8 MCH 30.4 MCHC 32.4 RDW 19.2 H Plt Count 156 L MPV 10.0 Immature Gran % (Auto) Neut % (Auto) Lymph % (Auto) [place] % (Auto) Eos % (Auto) Baso % (Auto) Lymph # (Auto) [place] # (Auto) Eos # (Auto) Baso # (Auto) Abs Immat Gran (auto) Absolute Neuts (auto) Absolute Nucleated RBC 0.020 H Nucleated RBC % (auto) 0.5 H Neutrophils % (Manual) Abs Neuts (Manual) Platelet Estimate Plt Morphology Comment RBC Morphology Sodium 141 Potassium 4.5 Chloride 107 Carbon Dioxide 24 Anion Gap 15 BUN 15 Creatinine 1.14 Estim Creat Clear Calc 79.9 Estimated GFR 55 Random Glucose 138 H Lactic Acid Lactic Acid F/U @ 2Hr Calcium 9.3 Total Bilirubin AST ALT Alkaline Phosphatase Troponin I High Sens Total Protein Albumin Procalcitonin Beta HCG, Quant Urine Color Urine Appearance Urine pH Ur Specific [place] Urine Protein Urine Glucose (UA) Urine Ketones Urine Blood Urine Nitrite Ur Leukocyte Esterase Urine RBC Urine WBC Ur Squamous Epith Cells Urine Bacteria Hyaline Casts Nasal Screen MRSA (PCR) NEGATIVE Nasal S. aureus Screen NEGATIVE Nasal MRSA/S.aureus Interp SEE NOTE Respiratory Panel [place] Adenovirus (Rapid PCR) B.pert (TEM-PCR) B.parapertussis DNA PCR C. pneumoniae DNA (PCR) Coronavirus OC43 (PCR) Coronavirus HKU1 (PCR) Coronavirus 229E (PCR) Coronavirus NL63 (PCR) Human Metapneumovir PCR Influenza A (RT-PCR) Influenza B (RT-PCR) M. pneumoniae (PCR) Parainfluenza 1 (PCR) Parainfluenza 2 (PCR) Parainfluenza 3 (PCR) Parainfluenza 4 (PCR) RSV (PCR) Entero/Rhino (PCR) SARS-CoV-2 RNA (RT-PCR) Cryptococcal Ag Airway Mallampati Class: III TM Dist: >3cm Neck ROM: Full Heart: RRR Lungs: CTA Assessment and Plan Assessment Anesthesia Assessment: Anesthesia Plan Discussed Final Anesthetic Review Family History of Problems with Anesthesia: No History of Problems with Anesthesia: No NPO: Yes ASA Class: III Final Preanesthetic Review: Meds/Allgs Chart Reviewed, Consent Obtained/Reviewed and Anes Risks/Benef Reviewed Patient Risk: Intermediate Procedure Risk: Low Anesthetic Plan Anesthetic Plan: GA Disposition: Standard PACU
--- NOTE | 2023-01-20 10:29 | MHC.CM.PN ---
per multidisciplinary rounds plan for bronch today and possible dc home tomorrow 01/21 w/resump of [facility] for SN/PT, cm will cont to follow dc needs.
[2023-01-20 11:03] LABS: Absolute CD3 Count 209 cells/uL (840-3060); Absolute CD4 Count 67 cells/uL (490-1740); Absolute CD8 Count 141 cells/uL (180-1170); Absolute Lymphocytes 418 cells/uL (850-3900); CD4 CD8 Ratio 0.47 (0.86-5.00); Percent CD3 Cells 50 % (57-85); Percent CD4 Cells 16 % (30-61); Percent CD8 Cells 34 % (12-42)
[2023-01-20] MEDS: Acetaminophen 1,000 MG/100 ML PIGGYBACK 400 MG IV (11:59)
--- NOTE | 2023-01-20 12:25 | PM.OP ---
Brief Operative Note Date of Service: 01/20/23 Pre-op diagnosis: pneumonia Post-op diagnosis: same Procedure: bronchosocpy with transbronchial biopsies, BAL, washings, brushings Surgeon: Keron Brody MD Anesthesia: GETA Was an [employer] Developer used for this Procedure?: No Estimated blood loss (mL): 1 Pathology: other (RUL transbronchial biopsies) Condition: stable Disposition: floor
[2023-01-20 13:14] LABS: CMV DNA PCR Qn Source BLOOD; CMV DNA Qn PCR NOT DETECTED Log IU/mL (NOT DETECTED); CMV DNA Qn Real Time PCR NOT DETECTED (NOT DETECTED)
--- NOTE | 2023-01-20 17:34 | HO.PM.IMPN ---
Subjective Subjective Date of Service: 01/20/23 Interval History: seen and examined this morning follow up for pneumonia pt reports feeling well this am, denies fever Review of Systems Review of Systems: Yes all other systems are reviewed and are negative Constitutional Constitutional: Denies chills and Denies fever(s) Physical Exam Vital Signs: Vital Signs: Last Vital Signs Temp 97.9 F 01/20/23 15:32 Pulse 93 01/20/23 15:32 Resp 18 01/20/23 15:32 BP 127/78 01/20/23 15:32 Pulse Ox 97 01/20/23 15:32 O2 Del Method Room Air 01/20/23 15:32 O2 Flow Rate 3 01/20/23 12:00 FiO2 28 01/20/23 10:50 Oxygen Flow Rate 3 01/20/23 10:22 BMI result Body Mass Index 28.9 Const: General: cooperative, comfortable, no acute distress, alert and awake Nutritional Appearance: overweight Orientation/consciousness: patient oriented x3 Resp: Effort & Inspection: normal respiratory effort, able to speak in complete sentences, no respiratory distress and no use of accessory muscles Cardio: Rate: regular rate Neuro: General: patient oriented x3 and moves all extremities Extrem: General: Yes no pedal edema Objective Data Active Medications Acetaminophen (Acetaminophen 325 Mg Tablet) 650 mg PO Q6H PRN PRN Reason: Pain, Mild (Pain Scale 1-3) Last Admin: 01/19/23 10:09 Dose: 650 mg Documented By: MATTHEW Baclofen (Baclofen 10 Mg Tablet) 10 mg PO BEDTIME [facility] Last Admin: 01/19/23 20:16 Dose: 10 mg Documented By: RODERICK Baclofen (Baclofen 10 Mg Tablet) 10 mg PO BID PRN PRN Reason: Muscle Spasm Bictegravir/Emtricitabine/Tenofovir (Bictegrav/Emtricit/Tenofov Ala Tablet) 1 tab PO DAILY [facility] Last Admin: 01/20/23 07:54 Dose: 1 tab Documented By: DEON Buspirone HCl (Buspirone Hcl 10 Mg Tablet) 10 mg PO BID [facility] [place] Last Admin: 01/20/23 07:55 Dose: 10 mg Documented By: DEON Duloxetine HCl (Duloxetine Hcl 60 Mg Capsule.Dr) 60 mg PO BID [facility] Last Admin: 01/20/23 07:55 Dose: 60 mg Documented By: DEON Enoxaparin Sodium (Enoxaparin Sodium 40 Mg/0.4 Ml Syringe) 40 mg SUBCUT Q24H [facility] [place] Last Admin: 01/19/23 20:16 Dose: 40 mg Documented By: RODERICK Ergocalciferol (Ergocalciferol (Vitamin D2) 1,250 Mcg Capsule) 1,250 mcg PO TH [facility] Last Admin: 01/20/23 08:03 Dose: 1,250 mcg Documented By: DEON Fentanyl (Fentanyl Citrate/Pf 100 Mcg/2 Ml Vial) 25 mcg IVPUSH Q5M PRN; Protocol PRN Reason: Pain, Moderate(Pain Scale 4-6) Fluconazole (Fluconazole 100 Mg Tablet) 200 mg PO DAILY [facility] Stop: 01/22/23 09:01 Last Admin: 01/20/23 07:55 Dose: 200 mg Documented By: DEON Guaifenesin (Guaifenesin 200 Mg/10 Ml 10 Ml Liquid) 10 ml PO Q4H PRN PRN Reason: Cough Ceftriaxone Sodium 1 gm/ (Sodium Chloride) 50 mls @ 100 mls/hr IV Q24H [facility] Last Infusion: 01/20/23 04:02 Dose: Infused Documented By: SHONA Doxycycline Hyclate 100 mg/ (Sodium Chloride) 250 mls @ 166.67 mls/hr IV Q12H [facility] [place] Last Infusion: 01/20/23 09:27 Dose: Infused Documented By: DEON Sodium Chloride (Ns) 1,000 mls @ 125 mls/hr IVCONT .Q8H [facility] Last Admin: 01/20/23 11:52 Dose: 125 mls/hr Documented By: DEON Melatonin (Melatonin 3 Mg Tablet) 3 mg PO BEDTIME PRN PRN Reason: Insomnia Metoprolol Succinate (Metoprolol Succinate Er 50 Mg Tab.Er.24h) 50 mg PO BID [facility]; Protocol Last Admin: 01/20/23 07:55 Dose: 50 mg Documented By: DEON Mirtazapine (Mirtazapine 30 Mg Tablet) 30 mg PO BEDTIME [facility] Last Admin: 01/19/23 20:16 Dose: 30 mg Documented By: RODERICK Ondansetron HCl (Ondansetron Hcl 4 Mg/2 Ml Vial) 4 mg IVPUSH Q8H PRN PRN Reason: Nausea and Vomiting Last Admin: 01/19/23 03:35 Dose: 4 mg Documented By: SHAHIDA Ondansetron HCl (Ondansetron Hcl 4 Mg/2 Ml Vial) 4 mg IVPUSH ONCE PRN PRN Reason: Nausea and Vomiting Pantoprazole Sodium (Pantoprazole Sodium 40 Mg/10 Ml Vial) 40 mg IVPUSH 2100 [facility] Last Admin: 01/19/23 20:16 Dose: 40 mg Documented By: RODERICK Senna (Sennosides 8.6 Mg Tablet) 17.2 mg PO BEDTIME PRN PRN Reason: Constipation Sodium Chloride (0.9 % Sodium Chloride Flush 3 Ml Syringe) 3 ml IVFLUSH QSHIFT [facility] Last Admin: 01/20/23 16:02 Dose: Not Given Documented By: RODERICK Non-Admin Reason: IV Running Trimethoprim/Sulfamethoxazole (Sulfamethox/Trimeth 800/160 Tablet) 1 tab PO Q12H [facility] Last Admin: 01/20/23 07:55 Dose: 1 tab Documented By: DEON Labs 01/20/23 08:39 01/20/23 08:39 Labs: Laboratory Results - last 24 hr 01/19/23 01/19/23 01/19/23 10:05 12:36 16:45 MCV MCH MCHC RDW Plt Count MPV Absolute Nucleated RBC Nucleated RBC % (auto) Anion Gap Estim Creat Clear Calc Estimated GFR Random Glucose Calcium Nasal Screen MRSA (PCR) NEGATIVE Nasal S. aureus Screen NEGATIVE Nasal MRSA/S.aureus Interp SEE NOTE Total Lymphocytes 418 L % CD3 Cells 50 L Absolute CD3 Count 209 L % CD4 Cells 16 L Absolute CD4 Count 67 L CD4/CD8 Ratio 0.47 L % CD8 Cells 34 Absolute CD8 Count 141 L CMV Specimen Source BLOOD CMV Qnt PCR IU/mL NOT DETECTED CMV Qnt PCR log IU/mL NOT DETECTED Cryptococcal Ag SEE NOTE 01/20/23 08:39 MCV 93.8 MCH 30.4 MCHC 32.4 RDW 19.2 H Plt Count 156 L MPV 10.0 Absolute Nucleated RBC 0.020 H Nucleated RBC % (auto) 0.5 H Anion Gap 15 Estim Creat Clear Calc 79.9 Estimated GFR 55 Random Glucose 138 H Calcium 9.3 Nasal Screen MRSA (PCR) Nasal S. aureus Screen Nasal MRSA/S.aureus Interp Total Lymphocytes % CD3 Cells Absolute CD3 Count % CD4 Cells Absolute CD4 Count CD4/CD8 Ratio % CD8 Cells Absolute CD8 Count CMV Specimen Source CMV Qnt PCR IU/mL CMV Qnt PCR log IU/mL Cryptococcal Ag Microbiology Microbiology Results: Microbiology 01/20/23 10:05 Gram Stain - Final Lung - Right Middle 01/20/23 10:05 Gram Stain - Final Washing - Wash 01/20/23 10:05 Gram Stain - Final Brushing - Left 01/18/23 Unknown Urine Culture - Final Urine clean catch - Urine ram top 01/18/23 19:10 Blood Culture - Final Blood - Venous Coag negative Staphylococcus 01/18/23 16:46 Blood Culture - Preliminary Blood - Venous No growth after 24 hours. Assessment and Plan (1) AIDS: Status: Acute (2) Pneumonia: Status: Acute Plan 32-year-old female with history of multiple sclerosis not currently on treatment, history of esophagitis, celiac disease, recently diagnosed HIV/aids on Biktarvy admitted for pneumonia with severe sepsis in immunocompromised patient. Pt with multiple admissions for pneumonia resulting in ARDS with recent discharge from [facility] for fungal pneumonia. Also found positive for HIV/AIDS. Acute hypoxic respiratory failure seconadary to Acute pneumonia with severe sepsis leukopenia 2.4, tachycardic, tachypneic, lactic acid 3.6. No hypotension or other end-organ damage. Lactic acidosis resolved following IVF with repeat 1.6. tachycardia and tachypnea resolved Chest CT showing worsening pna, reticulonodular, miliary appearance, ? miliary TB IV ceftriaxone and doxycycline per ID (initiated 01/18) nasal MRSA swab>NEG, sputum culture, legionella ag, strep pneumo ag, RPP negative Seen by ID, as below Pulmonology consult> plan for bronchoscopy today - follow BAL washings, transbronchial biopsy results Currently on room air continue respiratory isolation, am AFB sputum x 3 HIV/AIDS Last CD4 count 113 (12/25/22), recent fungal pneumonia treated with [facility] in 01/06 Continue biktarvy seen by ID : Increase bactrim to 1 tab DS BID (per ID 15-20mg/kg/day) and treat for PJP for 21 days with steroid taper, complete course fluconazole; check HCV and tspot when off steroids, bactrim prophylaxis daily when off treatment for PJP ((PJP stain unsatisfactory sample and sent for PCR (pending)) continue prednisone for IRIS per respiratory GPC bacteremia 1/2 GPC - final coag negative staph. probable contaminant Tachycardia VQ scan negative for PE IV fluids bolus given and started on Maintenance fluids pt reports chronic. continue metoprolol Normocytic anemia no acute blood loss likely complication of HIV Will check CBC in am, if hem <7 consider tx check occult stool seen by GI - no further GI work up indicated at this time MS stable, no exacerbation Gerd unable to take prilosec will start IV protonix DVT prophylaxis- lovenox Attending Dr. Hernandez Full code Given patient's immunocompromised state with recently diagnosed HIV/AIDS and presentation with acute pneumonia and severe sepsis and given recent hospitalizations for pneumonia with rapid decompensation into ARDS, continue inpatient stay for IV abx, expert consultations, and close monitoring to prevent cardiopulmonary decompensation and septic shock. Quality Stroke Does the patient have a stroke diagnosis?: No VTE Prior VTE?: No VTE Risk Level:: Medical - moderate - high VTE Device Contraindication: Treatment Not Indicated VTE Drug Contraindication: N/A - Med Ordered
[2023-01-20] MEDS: Enoxaparin Sodium 40 MG/0.4 ML SYRINGE SUBCUT (20:00)
[2023-01-20] MEDS: Pantoprazole Sodium 40 MG/10 ML VIAL IVPUSH (20:00)
[2023-01-20] MEDS: Mirtazapine 30 MG TABLET PO (20:00)
[2023-01-20] MEDS: Baclofen 10 MG TABLET PO (20:01)
--- NOTE | 2023-01-20 23:09 | OP_ITS ---
DATE OF SERVICE: 01/20/2023 SURGEON: Keron Brody MD PREOPERATIVE DIAGNOSIS: Pneumonia. POSTOPERATIVE DIAGNOSIS: PROCEDURE PERFORMED: Bronchoscopy with transbronchial biopsies, bronchoalveolar lavage, bronchial washings, and brushings. ESTIMATED BLOOD LOSS: COMPLICATIONS: ANESTHESIA: General endotracheal anesthesia provided. ASSISTANTS: SPECIMENS: ASA: 3. POSTOPERATIVE DIAGNOSES: Pneumonia, rule out tuberculosis in immunocompromising conditions. PROCEDURE IN DETAIL: After the patient was adequately sedated, a flexible digital bronchoscope was inserted via the ET tube to the level of the main adrián. The airways actually look completely normal, normal buccal mucosa without any endobronchial lesions or masses or any ulcerations. No evidence of any viral-looking lesions of the airways, which is reassuring. No evidence of any secretions whatsoever. The bronchoscope was navigated to the right middle lobe where a BAL was done with 50 mL of normal saline recovering back around 30 without any evidence of any mucous plugs. The bronchoscope was navigated then to the left upper lobe. Where a microscopic brush was introduced into the left upper lobe area. The mucosa was friable and would have a little oozing of blood but minimal. Good hemostasis spontaneously. Next, using normal saline, bronchial washings were collected throughout all the airways bilaterally up to the subsegmental level. Again, no evidence of any endobronchial lesions or masses noted. Patient tolerated that well. There were some small plugs noted but otherwise clear. The bronchoscope was then navigated to the right upper lobe using forceps. Transbronchial biopsies were done. Three attempts were done and 3 specimens were collected. The patient did have some bleeding which was minimal. At that point though her oxygen dropped and the bronchoscope was then removed corrected. It was noted that the patient had some air leak around the tube and most likely that the cuff was deflating. Additional air was placed into cuff and then the oxygen then slowly increased back to the high 90s. At that point, based on the fact that she is already saturating, had a lot of interventions, I opted on just doing a quick airway survey and completing the procedure. We did not get the biopsies for culture, but at this point, I think, we did collect enough information already. So once we reevaluated the airways, she was having little oozing from the right upper lobe as far as bleeding minimal. Still gave her the epinephrine for complete hemostasis, and she tolerated that well with no evidence of any active bleeding at the end of the procedure. Airways were clear, and the bronchoscope was then removed. A total endoscopic time approximately 20 minutes. The patient tolerated the procedure well. Vital signs were stable throughout the procedure. Chest x-ray without any evidence of any complications. No evidence of any pneumothorax. The patient is going back to the floor. NEWSWRITER: None. MD YOSELIN Rodriguez/RENA / [phone]
[2023-01-21] VITALS (9 sets, daily range): BP systolic 130–152; BP diastolic 75–96; PULSE 80–108; RESP 16–99; TEMP 36.2–37.6; O2SAT 92–100
[2023-01-21] MEDS: cefTRIAXone sodium 1 GM in 0.9 % Sodium Chloride 50 ML IV (04:37)
[2023-01-21 07:12] LABS: Hematocrit 21.2 % (37.0-47.0); Mean Corpuscular HGB Conc 32.5 g/dl (31.0-35.0); Mean Corpuscular Hemoglobin 30.7 pg (27.0-33.0); Mean Corpuscular Volume 94.2 fL (80.0-98.0); Mean Platelet Volume 10.1 fL (9.4-12.3); Platelet Count 190 X10*3/uL (160-400); Red Blood Count 2.25 X10*6/uL (4.20-5.50); Red Cell Distribution Width 19.7 % (11.0-16.0); White Blood Count 5.3 X10*3/uL (4.8-10.8)
[2023-01-21 07:23] LABS: Hemoglobin 6.9 g/dl (12.0-16.0)
[2023-01-21] MEDS: Sodium Chloride 3 % Inhalation 15 ML VIAL.NEB INHALE (08:29)
[2023-01-21] MEDS: Fluconazole 100 MG TABLET 200 MG PO (09:00)
[2023-01-21] MEDS: predniSONE 20 MG TABLET 40 MG PO (09:00)
[2023-01-21] MEDS: Doxycycline Monohydrate 100 MG CAPSULE PO ×2 (09:00→20:40)
[2023-01-21] MEDS: Sulfamethox/Trimeth 800/160 TABLET 1 TAB PO ×2 (09:00→20:40)
[2023-01-21] MEDS: Bictegrav/Emtricit/Tenofov Ala TABLET 1 TAB PO (09:00)
[2023-01-21] MEDS: DULoxetine HCl 60 MG CAPSULE.DR PO ×2 (09:01→20:40)
[2023-01-21] MEDS: busPIRone HCl 10 MG TABLET PO ×2 (09:01→20:40)
[2023-01-21] MEDS: Metoprolol Succinate ER 50 MG TAB.ER.24H PO ×2 (09:01→20:40)
[2023-01-21] MEDS: 0.9 % Sodium Chloride Flush 3 ML SYRINGE IVFLUSH ×2 (09:03→20:40)
[2023-01-21] MEDS: Acetaminophen 325 MG TABLET 650 MG PO ×2 (11:06→14:26)
--- NOTE | 2023-01-21 11:34 | MHC.CM.PN ---
EMR REVIEWED, BRONCHOSCOPY DONE YESTERDAY, MULTIPLE CULTURES PENDING, PER HOSPITALIST PT WILL REMAIN INPT THROUGH [facility], [facility] UPDATED AND CM WILL CONT TO FOLLOW DC NEEDS.
--- NOTE | 2023-01-21 12:20 | P.PNPL_ITS ---
Subjective Subjective Date of Service: 01/21/23 Interval history: The patient was seen on exam. She is status post bronchoscopy. She tolerated the procedure well. She did have 1 episode of desaturation during the procedure by likely due to a cuff leak. Post bronchoscopy she did require a little bit of oxygen. Her airways were completely clear without any secretions or lesions. The patient did have biopsies done BAL washings and brushings. The results are all still pending. Clinically the patient is feeling better she has not had any fevers. She is still on oxygen. Objective Data Labs 01/21/23 06:38 01/20/23 08:39 Labs: Laboratory Results - last 24 hr 01/19/23 01/21/23 01/21/23 12:36 06:38 08:59 WBC 5.3 RBC 2.25 L Hgb 6.9 L* Hct 21.2 L MCV 94.2 MCH 30.7 MCHC 32.5 RDW 19.7 H Plt Count 190 MPV 10.1 Absolute Nucleated RBC 0.050 H Nucleated RBC % (auto) 1.0 H Smear Path Review SEE NOTE CMV Specimen Source BLOOD CMV Qnt PCR IU/mL NOT DETECTED CMV Qnt PCR log IU/mL NOT DETECTED Blood Type A Negative Antibody Screen NEGATIVE Crossmatch See Detail Microbiology Microbiology Results: Microbiology 01/20/23 10:05 Washing - Wash Gram Stain - Final 01/20/23 10:05 Washing - Wash Routine Culture - Preliminary No growth to date. 01/20/23 10:05 Brushing - Left Gram Stain - Final 01/20/23 10:05 Brushing - Left Routine Culture - Preliminary No growth to date. 01/20/23 10:05 Lung - Right Middle Gram Stain - Final 01/20/23 10:05 Lung - Right Middle Routine Culture - Preliminary No growth to date. 01/18/23 16:46 Blood - Venous Blood Culture - Preliminary No growth after 48 hours. 01/18/23 Unknown Urine clean catch - Urine ram top Urine Culture - Final 01/18/23 19:10 Blood - Venous Blood Culture - Final Coag negative Staphylococcus Review of Systems Review of Systems Yes all other systems are reviewed and are negative Cardiovascular: Reports dyspnea Respiratory: Reports dyspnea and Denies wheezing Gastrointestinal: Reports no additional gastrointestinal complaints Musculoskeletal: Reports no additional musculoskeletal complaints Reports system reviewed and no additional complaints, except as documented Hematologic/Lymphatic: Denies easy bleeding and Denies easy bruising Allergic/Immunologic: Denies wheezing Physical Exam 2 Vital Signs: Vital Signs: Last Vital Signs Temp 99.7 F 01/21/23 11:17 Pulse 108 H 01/21/23 11:17 Resp 20 01/21/23 11:17 BP 131/75 01/21/23 11:17 Pulse Ox 97 01/21/23 11:17 O2 Del Method Nasal Cannula 01/21/23 11:17 O2 Flow Rate 3 01/21/23 11:17 FiO2 28 01/20/23 10:50 Oxygen Flow Rate 3 01/20/23 10:22 BMI result Body Mass Index 28.9 Const: General: alert, awake and other (chills) Orientation/consciousness: patient oriented x3 HEENT: Head: Yes normal to inspection, Yes normocephalic and Yes atraumatic Eyes: General: appearance normal, both eyes and all related structures Neck: Neck: Yes normal visual inspection, Yes full ROM, Yes no meningeal signs and Yes supple Chest: Chest palpation & inspection: normal inspection of the chest Resp: Other: some rhonchi; no overt rales, wheezing; persistent increased work of breathing Effort & Inspection: normal respiratory effort Cardio: Rate: tachycardic Rhythm: regular rhythm GI: Inspection: Yes normal to inspection, No Abdominal wall edema and No distended Palpation (GI): Soft to palpation, not firm, nontender, no guarding and not rigid Skin: General skin exam: no rashes or lesions noted Neuro: General: patient oriented x3, moves all extremities, no meningeal signs and no focal motor deficits Extrem: General: Yes normal to inspection, Yes capillary refill normal and Yes no clubbing, cyanosis or edema Psych: Appearance: grossly normal Procedures Date of Service Date of Service: 01/21/23 Assessment and Plan Assessment and plan (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 Progress Note: Quality Stroke Does the patient have a stroke diagnosis?: No
[2023-01-21 12:27] LABS: TS Negative Control Passed; TS Panel A 0; TS Panel B 0; TS Positive Control Passed; TSpotTB Negative (Negative)
[2023-01-21] MEDS: Baclofen 10 MG TABLET PO ×2 (15:05→20:40)
--- NOTE | 2023-01-21 15:35 | HO.POSTANES ---
Post Anesthesia Evaluation Post Anesthesia Evaluation Date of Service: 01/21/23 Vital Signs: Vital Signs Temp Pulse Resp BP Pulse Ox O2 Del Method O2 Flow Rate 01/21/23 15:16 97.5 F 103 H 16 135/92 H 01/21/23 14:56 97.5 F 102 H 16 138/92 H 01/21/23 11:17 99.7 F 108 H 20 131/75 97 Nasal Cannula 3 01/21/23 08:29 86 18 01/21/23 07:27 97.3 F 92 20 149/77 H 92 Nasal Cannula 1.5 01/21/23 04:00 97.6 F 100 20 130/82 97 Nasal Cannula 2 Anesthesia: General Mental Status: Awake Pain Control: Satisfactory Nausea/Vomiting: None Hydration: Adequate Anesthesia-Related Issues: No Anes. Related Issues
--- NOTE | 2023-01-21 16:15 | HO.PM.IMPN ---
Subjective Subjective Date of Service: 01/21/23 Interval History: seen and examined this morning follow up for respiratory failure feeling good today, no fever or chills; no sob Review of Systems Review of Systems: Yes all other systems are reviewed and are negative Constitutional Constitutional: Denies chills and Denies fever(s) Cardiovascular Cardiovascular: Denies chest pain and Denies dyspnea Respiratory Respiratory: Denies dyspnea Gastrointestinal Gastrointestinal: Denies abdominal pain Physical Exam Vital Signs: Vital Signs: Last Vital Signs Temp 97.5 F 01/21/23 15:16 Pulse 103 H 01/21/23 15:16 Resp 16 01/21/23 15:16 BP 135/92 H 01/21/23 15:16 Pulse Ox 97 01/21/23 11:17 O2 Del Method Nasal Cannula 01/21/23 11:17 O2 Flow Rate 3 01/21/23 11:17 FiO2 28 01/20/23 10:50 Oxygen Flow Rate 3 01/20/23 10:22 BMI result Body Mass Index 28.9 Const: General: cooperative, comfortable, no acute distress, alert and awake Nutritional Appearance: overweight Orientation/consciousness: patient oriented x3 Resp: Effort & Inspection: normal respiratory effort, able to speak in complete sentences, no respiratory distress and no use of accessory muscles Cardio: Rate: tachycardic GI: Inspection: No distended Palpation (GI): Soft to palpation and nontender Neuro: General: patient oriented x3, moves all extremities and CN's II-XI intact bilaterally Objective Data Active Medications Acetaminophen (Acetaminophen 325 Mg Tablet) 650 mg PO Q6H PRN PRN Reason: Pain, Mild (Pain Scale 1-3) Last Admin: 01/21/23 11:06 Dose: 650 mg Documented By: DEON Baclofen (Baclofen 10 Mg Tablet) 10 mg PO BEDTIME [facility] Last Admin: 01/20/23 20:01 Dose: 10 mg Documented By: RODERICK Baclofen (Baclofen 10 Mg Tablet) 10 mg PO BID PRN PRN Reason: Muscle Spasm Last Admin: 01/21/23 15:05 Dose: 10 mg Documented By: DEON Bictegravir/Emtricitabine/Tenofovir (Bictegrav/Emtricit/Tenofov Ala Tablet) 1 tab PO DAILY [facility] Last Admin: 01/21/23 09:00 Dose: 1 tab Documented By: DEON Buspirone HCl (Buspirone Hcl 10 Mg Tablet) 10 mg PO BID [facility] Last Admin: 01/21/23 09:01 Dose: 10 mg Documented By: DEON Doxycycline Monohydrate (Doxycycline Monohydrate 100 Mg Capsule) 100 mg PO Q12H [facility] Last Admin: 01/21/23 09:00 Dose: 100 mg Documented By: DEON Duloxetine HCl (Duloxetine Hcl 60 Mg Capsule.Dr) 60 mg PO BID [facility] Last Admin: 01/21/23 09:01 Dose: 60 mg Documented By: DEON Enoxaparin Sodium (Enoxaparin Sodium 40 Mg/0.4 Ml Syringe) 40 mg SUBCUT Q24H [facility] Last Admin: 01/20/23 20:00 Dose: 40 mg Documented By: RODERICK Ergocalciferol (Ergocalciferol (Vitamin D2) 1,250 Mcg Capsule) 1,250 mcg PO TH [facility] Last Admin: 01/20/23 08:03 Dose: 1,250 mcg Documented By: DEON Fluconazole (Fluconazole 100 Mg Tablet) 200 mg PO DAILY [facility] Stop: 01/22/23 09:01 Last Admin: 01/21/23 09:00 Dose: 200 mg Documented By: DEON Guaifenesin (Guaifenesin 200 Mg/10 Ml 10 Ml Liquid) 10 ml PO Q4H PRN PRN Reason: Cough Ceftriaxone Sodium 1 gm/ (Sodium Chloride) 50 mls @ 100 mls/hr IV Q24H [facility] Last Infusion: 01/21/23 05:51 Dose: Infused Documented By: ДМИТРИЙ Melatonin (Melatonin 3 Mg Tablet) 3 mg PO BEDTIME PRN PRN Reason: Insomnia Metoprolol Succinate (Metoprolol Succinate Er 50 Mg Tab.Er.24h) 50 mg PO BID [facility]; Protocol Last Admin: 01/21/23 09:01 Dose: 50 mg Documented By: DEON Mirtazapine (Mirtazapine 30 Mg Tablet) 30 mg PO BEDTIME [facility] Last Admin: 01/20/23 20:00 Dose: 30 mg Documented By: RODERICK Ondansetron HCl (Ondansetron Hcl 4 Mg/2 Ml Vial) 4 mg IVPUSH Q8H PRN PRN Reason: Nausea and Vomiting Last Admin: 01/19/23 03:35 Dose: 4 mg Documented By: HSAHIDA Ondansetron HCl (Ondansetron Hcl 4 Mg/2 Ml Vial) 4 mg IVPUSH ONCE PRN PRN Reason: Nausea and Vomiting Pantoprazole Sodium (Pantoprazole Sodium 40 Mg/10 Ml Vial) 40 mg IVPUSH 2100 [facility] Last Admin: 01/20/23 20:00 Dose: 40 mg Documented By: RODERICK Prednisone (Prednisone 20 Mg Tablet) 40 mg PO DAILY [facility] Last Admin: 01/21/23 09:00 Dose: 40 mg Documented By: DEON Senna (Sennosides 8.6 Mg Tablet) 17.2 mg PO BEDTIME PRN PRN Reason: Constipation Sodium Chloride (0.9 % Sodium Chloride Flush 3 Ml Syringe) 3 ml IVFLUSH QSHIFT [facility] Last Admin: 01/21/23 09:03 Dose: 3 ml Documented By: DEON Trimethoprim/Sulfamethoxazole (Sulfamethox/Trimeth 800/160 Tablet) 1 tab PO Q12H [facility] Last Admin: 01/21/23 09:00 Dose: 1 tab Documented By: DEON Labs 01/21/23 06:38 01/20/23 08:39 Labs: Laboratory Results - last 24 hr 01/19/23 01/21/23 01/21/23 10:05 06:38 08:59 MCV 94.2 MCH 30.7 MCHC 32.5 RDW 19.7 H Plt Count 190 MPV 10.1 Absolute Nucleated RBC 0.050 H Nucleated RBC % (auto) 1.0 H Smear Path Review SEE NOTE Lymphocyte Subset Cmmnt TNP TB Test (T-Spot) Com Negative TB Test Nil Control Passed TB Test Panel A 0 TB Test Panel B 0 TB Test Positive Cntrl Passed Blood Type A Negative Antibody Screen NEGATIVE Crossmatch See Detail Microbiology Microbiology Results: Microbiology 01/20/23 10:05 Gram Stain - Final Washing - Wash Routine Culture - Preliminary No growth to date. 01/20/23 10:05 Gram Stain - Final Brushing - Left Routine Culture - Preliminary No growth to date. 01/20/23 10:05 Gram Stain - Final Lung - Right Middle Routine Culture - Preliminary No growth to date. 01/18/23 16:46 Blood Culture - Preliminary Blood - Venous No growth after 48 hours. Assessment and Plan (1) AIDS: Status: Acute Plan 32-year-old female with history of multiple sclerosis not currently on treatment, history of esophagitis, celiac disease, recently diagnosed HIV/aids on Biktarvy admitted for pneumonia with severe sepsis in immunocompromised patient. Pt with multiple admissions for pneumonia resulting in ARDS with recent discharge from [facility] for fungal pneumonia. Also found positive for HIV/AIDS. Acute hypoxic respiratory failure seconadary to Acute pneumonia with severe sepsis met sepsis on admission. Lactic acidosis resolved following IVF with repeat 1.6. tachypnea resolved, tachycardia is chronic recent fungal pneumonia treated with [facility], 01/06 - complete course of fluconazole Chest CT showing worsening pna, reticulonodular, miliary appearance, ? miliary TB given underlying HIV/AIDS other causes being ruled out as well continue IV ceftriaxone and doxycycline (initiated 01/18) nasal MRSA swab NEG, RPP negative legionella ag, strep pneumo ag, CMV, HSV, PJP pending Pulmonology consult> s/p bronchoscopy 01/20 follow BAL washings, transbronchial biopsy results: thus far gram stain and culture negative, fungal culture pending, AFB pending cryptococcal antigen negative, tspot negative but rec to continue respiratory isolation, until results of bronchial washings result continue has completed prednisone taper from [facility] per d/c paperwork from pt, pulm rec to continue prednisone for now due to IRIS HIV/AIDS Last CD4 count 67 Continue biktarvy seen by ID : Increase bactrim to 1 tab DS BID (per ID 15-20mg/kg/day) for now - transition to Bactrim DS daily on discharge check HCV and tspot when off steroids CT brain negative for toxoplasmosis outpatient follow up with ID GPC bacteremia / GPC - final coag negative staph. probable contaminant Tachycardia VQ scan negative for PE pt reports chronic. continue metoprolol Normocytic anemia no acute blood loss likely complication of HIV Will check CBC in am, if hem <7 consider tx check occult stool seen by GI - no further GI work up indicated at this time MS stable, no exacerbation Gerd unable to take prilosec will start IV protonix DVT prophylaxis- lovenox Attending Dr. Hernandez Full code Given patient's immunocompromised state with recently diagnosed HIV/AIDS and presentation with acute pneumonia and severe sepsis and given recent hospitalizations for pneumonia with rapid decompensation into ARDS, continue inpatient stay for IV abx, expert consultations, and close monitoring to prevent cardiopulmonary decompensation and septic shock. Quality Stroke Does the patient have a stroke diagnosis?: No VTE Prior VTE?: No VTE Risk Level:: Medical - moderate - high VTE Device Contraindication: Treatment Not Indicated VTE Drug Contraindication: N/A - Med Ordered
[2023-01-21] MEDS: Mirtazapine 30 MG TABLET PO (20:40)
[2023-01-21] MEDS: Enoxaparin Sodium 40 MG/0.4 ML SYRINGE SUBCUT (20:40)
[2023-01-21] MEDS: Pantoprazole Sodium 40 MG/10 ML VIAL IVPUSH (20:40)
[2023-01-21 23:27] LABS: Strep Pneumo Ag urine Not Detected (Not Detected)
[2023-01-22] VITALS (7 sets, daily range): BP systolic 137–145; BP diastolic 73–94; PULSE 90–100; RESP 16–20; TEMP 35.9–37.3; O2SAT 92–100
[2023-01-22] MEDS: cefTRIAXone sodium 1 GM in 0.9 % Sodium Chloride 50 ML IV (04:50)
[2023-01-22] MEDS: Fluconazole 100 MG TABLET 200 MG PO (08:01)
[2023-01-22] MEDS: Sulfamethox/Trimeth 800/160 TABLET 1 TAB PO ×2 (08:02→22:25)
[2023-01-22] MEDS: Baclofen 10 MG TABLET PO ×2 (08:02→22:24)
[2023-01-22] MEDS: Metoprolol Succinate ER 50 MG TAB.ER.24H PO ×2 (08:02→22:24)
[2023-01-22] MEDS: predniSONE 20 MG TABLET 40 MG PO (08:02)
[2023-01-22] MEDS: Doxycycline Monohydrate 100 MG CAPSULE PO ×2 (08:02→22:24)
[2023-01-22] MEDS: DULoxetine HCl 60 MG CAPSULE.DR PO ×2 (08:02→22:24)
[2023-01-22] MEDS: Bictegrav/Emtricit/Tenofov Ala TABLET 1 TAB PO (08:03)
[2023-01-22] MEDS: Acetaminophen 325 MG TABLET 650 MG PO (08:03)
[2023-01-22] MEDS: 0.9 % Sodium Chloride Flush 3 ML SYRINGE IVFLUSH ×2 (08:03→22:25)
[2023-01-22] MEDS: busPIRone HCl 10 MG TABLET PO ×2 (08:03→22:24)
[2023-01-22 08:38] LABS: Hematocrit 26.7 % (37.0-47.0); Hemoglobin 8.8 g/dl (12.0-16.0); Platelet Count 253 X10*3/uL (160-400); Red Blood Count 2.84 X10*6/uL (4.20-5.50); Red Cell Distribution Width 19.1 % (11.0-16.0); White Blood Count 8.3 X10*3/uL (4.8-10.8)
[2023-01-22 08:44] LABS: NRBC Pct Auto 2.6 /100WBC (0.0-0.2)
--- NOTE | 2023-01-22 11:16 | HO.PM.IMPN ---
Subjective Subjective Date of Service: 01/22/23 Interval History: follow up for respiratory failure feeling good today, no fever or chills; no sob Review of Systems Review of Systems: Yes all other systems are reviewed and are negative Constitutional Constitutional: Denies chills and Denies fever(s) Cardiovascular Cardiovascular: Denies chest pain and Denies dyspnea Respiratory Respiratory: Denies dyspnea Gastrointestinal Gastrointestinal: Denies abdominal pain Physical Exam Vital Signs: Vital Signs: Last Vital Signs Temp 99.2 F 01/22/23 07:32 Pulse 100 01/22/23 07:32 Resp 17 01/22/23 07:32 BP 137/81 01/22/23 07:32 Pulse Ox 99 01/22/23 10:22 O2 Del Method Nasal Cannula 01/22/23 10:22 O2 Flow Rate 2 01/22/23 07:32 FiO2 28 01/20/23 10:50 Oxygen Flow Rate 2 01/22/23 10:22 BMI result Body Mass Index 28.9 Appearing in no acute distress lung sounds are clear to auscultation heart regular rate rhythm, clear S1, S2 positive bowel sounds, abdomen is soft, nontender neuro patient is alert x3, no focal deficits Objective Data Active Medications Acetaminophen (Acetaminophen 325 Mg Tablet) 650 mg PO Q6H PRN PRN Reason: Pain, Mild (Pain Scale 1-3) Last Admin: 01/22/23 08:03 Dose: 650 mg Documented By: FRANKIE Baclofen (Baclofen 10 Mg Tablet) 10 mg PO BEDTIME [facility] Last Admin: 01/21/23 20:40 Dose: 10 mg Documented By: МАРИНА Baclofen (Baclofen 10 Mg Tablet) 10 mg PO BID PRN PRN Reason: Muscle Spasm Last Admin: 01/22/23 08:02 Dose: 10 mg Documented By: FRANKIE Bictegravir/Emtricitabine/Tenofovir (Bictegrav/Emtricit/Tenofov Ala Tablet) 1 tab PO DAILY [facility] Last Admin: 01/22/23 08:03 Dose: 1 tab Documented By: FRANKIE Buspirone HCl (Buspirone Hcl 10 Mg Tablet) 10 mg PO BID [facility] Last Admin: 01/22/23 08:03 Dose: 10 mg Documented By: FRANKIE Doxycycline Monohydrate (Doxycycline Monohydrate 100 Mg Capsule) 100 mg PO Q12H [facility] Last Admin: 01/22/23 08:02 Dose: 100 mg Documented By: FRANKIE Duloxetine HCl (Duloxetine Hcl 60 Mg Capsule.Dr) 60 mg PO BID [facility] Last Admin: 01/22/23 08:02 Dose: 60 mg Documented By: FRANKIE Enoxaparin Sodium (Enoxaparin Sodium 40 Mg/0.4 Ml Syringe) 40 mg SUBCUT Q24H [facility] Last Admin: 01/21/23 20:40 Dose: 40 mg Documented By: МАРИНА Ergocalciferol (Ergocalciferol (Vitamin D2) 1,250 Mcg Capsule) 1,250 mcg PO TH [facility] Last Admin: 01/20/23 08:03 Dose: 1,250 mcg Documented By: DEON Guaifenesin (Guaifenesin 200 Mg/10 Ml 10 Ml Liquid) 10 ml PO Q4H PRN PRN Reason: Cough Ceftriaxone Sodium 1 gm/ (Sodium Chloride) 50 mls @ 100 mls/hr IV Q24H [facility] Last Infusion: 01/22/23 06:01 Dose: Infused Documented By: МАРИНА Melatonin (Melatonin 3 Mg Tablet) 3 mg PO BEDTIME PRN PRN Reason: Insomnia Metoprolol Succinate (Metoprolol Succinate Er 50 Mg Tab.Er.24h) 50 mg PO BID [facility]; Protocol Last Admin: 01/22/23 08:02 Dose: 50 mg Documented By: FRANKIE Mirtazapine (Mirtazapine 30 Mg Tablet) 30 mg PO BEDTIME [facility] Last Admin: 01/21/23 20:40 Dose: 30 mg Documented By: МАРИНА Ondansetron HCl (Ondansetron Hcl 4 Mg/2 Ml Vial) 4 mg IVPUSH Q8H PRN PRN Reason: Nausea and Vomiting Last Admin: 01/19/23 03:35 Dose: 4 mg Documented By: SHAHIDA Ondansetron HCl (Ondansetron Hcl 4 Mg/2 Ml Vial) 4 mg IVPUSH ONCE PRN PRN Reason: Nausea and Vomiting Pantoprazole Sodium (Pantoprazole Sodium 40 Mg/10 Ml Vial) 40 mg IVPUSH 2100 [facility] Last Admin: 01/21/23 20:40 Dose: 40 mg Documented By: МАРИНА Prednisone (Prednisone 20 Mg Tablet) 40 mg PO DAILY [facility] Last Admin: 01/22/23 08:02 Dose: 40 mg Documented By: FRANKIE Senna (Sennosides 8.6 Mg Tablet) 17.2 mg PO BEDTIME PRN PRN Reason: Constipation Sodium Chloride (0.9 % Sodium Chloride Flush 3 Ml Syringe) 3 ml IVFLUSH QSHIFT [facility] Last Admin: 01/22/23 08:03 Dose: 3 ml Documented By: FRANKIE Trimethoprim/Sulfamethoxazole (Sulfamethox/Trimeth 800/160 Tablet) 1 tab PO Q12H [facility] Last Admin: 01/22/23 08:02 Dose: 1 tab Documented By: FRANKIE Labs 01/22/23 08:14 01/20/23 08:39 Labs: Laboratory Results - last 24 hr 01/18/23 01/19/23 01/21/23 20:06 10:05 08:59 MCV MCH MCHC RDW Plt Count MPV Absolute Nucleated RBC Nucleated RBC % (auto) Lymphocyte Subset Cmmnt TNP Ur Strep pneumoniae Ag Not Detected TB Test (T-Spot) Com Negative TB Test Nil Control Passed TB Test Panel A 0 TB Test Panel B 0 TB Test Positive Cntrl Passed Blood Type A Negative Antibody Screen NEGATIVE Crossmatch See Detail 01/22/23 08:14 MCV 94.0 MCH 31.0 MCHC 33.0 RDW 19.1 H Plt Count 253 D MPV 10.0 Absolute Nucleated RBC 0.220 H Nucleated RBC % (auto) 2.6 H Lymphocyte Subset Cmmnt Ur Strep pneumoniae Ag TB Test (T-Spot) Com TB Test Nil Control TB Test Panel A TB Test Panel B TB Test Positive Cntrl Blood Type Antibody Screen Crossmatch Microbiology Microbiology Results: Microbiology 01/20/23 10:05 Gram Stain - Final Washing - Wash Routine Culture - Final No growth after 2 days 01/20/23 10:05 Gram Stain - Final Lung - Right Middle Routine Culture - Final No growth after 2 days 01/20/23 10:05 Gram Stain - Final Brushing - Left Routine Culture - Final No growth after 2 days Assessment and Plan (1) AIDS: Status: Acute Plan 32-year-old female with history of multiple sclerosis not currently on treatment, history of esophagitis, celiac disease, recently diagnosed HIV/aids on Biktarvy admitted for pneumonia with severe sepsis in immunocompromised patient. Pt with multiple admissions for pneumonia resulting in ARDS with recent discharge from [facility] for fungal pneumonia. Also found positive for HIV/AIDS. Acute hypoxic respiratory failure seconadary to Acute pneumonia with severe sepsis met sepsis on admission. Lactic acidosis resolved following IVF with repeat 1.6. tachypnea resolved, tachycardia is chronic recent fungal pneumonia treated with [facility], 01/06 - complete course of fluconazole Chest CT showing worsening pna, reticulonodular, miliary appearance, ? miliary TB given underlying HIV/AIDS other causes being ruled out as well continue IV ceftriaxone and doxycycline (initiated 01/18) nasal MRSA swab NEG, RPP negative legionella ag, strep pneumo ag, CMV, HSV, PJP pending Pulmonology consult> s/p bronchoscopy 01/20 follow BAL washings, transbronchial biopsy results: thus far gram stain and culture negative, fungal culture pending, AFB pending cryptococcal antigen negative, tspot negative but rec to continue respiratory isolation, until results of bronchial washings result continue has completed prednisone taper from [facility] per d/c paperwork from pt, pulm rec to continue prednisone for now due to IRIS HIV/AIDS Last CD4 count 67 Continue biktarvy seen by ID : Increase bactrim to 1 tab DS BID (per ID 15-20mg/kg/day) for now - transition to Bactrim DS daily on discharge check HCV and tspot when off steroids CT brain negative for toxoplasmosis outpatient follow up with ID GPC bacteremia / GPC - final coag negative staph. probable contaminant Tachycardia VQ scan negative for PE pt reports chronic. continue metoprolol Normocytic anemia no acute blood loss likely complication of HIV Will check CBC in am, if hem <7 consider tx check occult stool seen by GI - no further GI work up indicated at this time MS stable, no exacerbation Gerd unable to take prilosec will start IV protonix DVT prophylaxis- lovenox Attending Dr. Vivas Full code Given patient's immunocompromised state with recently diagnosed HIV/AIDS and presentation with acute pneumonia and severe sepsis and given recent hospitalizations for pneumonia with rapid decompensation into ARDS, continue inpatient stay for IV abx, expert consultations, and close monitoring to prevent cardiopulmonary decompensation and septic shock. Quality Stroke Does the patient have a stroke diagnosis?: No VTE Prior VTE?: No VTE Risk Level:: Medical - moderate - high VTE Device Contraindication: Treatment Not Indicated VTE Drug Contraindication: N/A - Med Ordered
[2023-01-22] MEDS: Pantoprazole Sodium 40 MG/10 ML VIAL IVPUSH (22:24)
[2023-01-22] MEDS: Mirtazapine 30 MG TABLET PO (22:24)
[2023-01-22] MEDS: Enoxaparin Sodium 40 MG/0.4 ML SYRINGE SUBCUT (22:25)
[2023-01-23] VITALS (9 sets, daily range): BP systolic 120–186; BP diastolic 72–106; PULSE 90–113; RESP 17–20; TEMP 36.2–37.1; O2SAT 94–98
--- NOTE | 2023-01-23 03:00 | MHC.PIE ---
P.5 BEAT VTACH I.PT HAD 5 BEAT VTACH,ASYMPTOMATIC,ASLEEP.DR STONER UPDATED.NO NEW ORDERS E.CONT TO MONITOR.
[2023-01-23] MEDS: cefTRIAXone sodium 1 GM in 0.9 % Sodium Chloride 50 ML IV (05:12)
[2023-01-23] MEDS: Acetaminophen 325 MG TABLET 650 MG PO (05:20)
[2023-01-23] MEDS: Baclofen 10 MG TABLET PO ×2 (08:27→20:10)
[2023-01-23] MEDS: Bictegrav/Emtricit/Tenofov Ala TABLET 1 TAB PO (08:27)
[2023-01-23] MEDS: Doxycycline Monohydrate 100 MG CAPSULE PO ×2 (08:27→20:10)
[2023-01-23] MEDS: Metoprolol Succinate ER 50 MG TAB.ER.24H PO ×2 (08:27→20:10)
[2023-01-23] MEDS: busPIRone HCl 10 MG TABLET PO ×2 (08:28→20:10)
[2023-01-23] MEDS: Sulfamethox/Trimeth 800/160 TABLET 1 TAB PO ×2 (08:28→20:10)
[2023-01-23] MEDS: predniSONE 20 MG TABLET 40 MG PO (08:28)
[2023-01-23] MEDS: DULoxetine HCl 60 MG CAPSULE.DR PO ×2 (08:28→20:10)
[2023-01-23] MEDS: 0.9 % Sodium Chloride Flush 3 ML SYRINGE IVFLUSH ×2 (08:28→20:10)
--- NOTE | 2023-01-23 11:35 | P.PNIM_ITS ---
Subjective Subjective Date of Service: 01/23/23 Interval History: follow up for respiratory failure feeling good today, no fever or chills; no sob Review of Systems Review of Systems: Yes all other systems are reviewed and are negative Constitutional Constitutional: Denies chills and Denies fever(s) Cardiovascular Cardiovascular: Denies chest pain and Denies dyspnea Respiratory Respiratory: Denies dyspnea Gastrointestinal Gastrointestinal: Denies abdominal pain Physical Exam 2 Vital Signs: Vital Signs: Last Vital Signs Temp 97.2 F 01/23/23 11:31 Pulse 100 01/23/23 11:31 Resp 18 01/23/23 11:31 BP 148/72 H 01/23/23 11:31 Pulse Ox 96 01/23/23 11:31 O2 Del Method Nasal Cannula 01/23/23 11:31 O2 Flow Rate 96 01/23/23 11:31 FiO2 28 01/20/23 10:50 Oxygen Flow Rate 3 01/23/23 10:00 BMI result Body Mass Index 28.9 Appearing in no acute distress lung sounds are clear to auscultation heart regular rate rhythm, clear S1, S2 positive bowel sounds, abdomen is soft, nontender neuro patient is alert x3, no focal deficits Objective Data Active Medications Acetaminophen (Acetaminophen 325 Mg Tablet) 650 mg PO Q6H PRN PRN Reason: Pain, Mild (Pain Scale 1-3) Last Admin: 01/23/23 05:20 Dose: 650 mg Documented By: VITRO Baclofen (Baclofen 10 Mg Tablet) 10 mg PO BEDTIME [facility] Last Admin: 01/22/23 22:24 Dose: 10 mg Documented By: МАРИНА Baclofen (Baclofen 10 Mg Tablet) 10 mg PO BID PRN PRN Reason: Muscle Spasm Last Admin: 01/23/23 08:27 Dose: 10 mg Documented By: FRANKIE Bictegravir/Emtricitabine/Tenofovir (Bictegrav/Emtricit/Tenofov Ala Tablet) 1 tab PO DAILY [facility] Last Admin: 01/23/23 08:27 Dose: 1 tab Documented By: FRANKIE Buspirone HCl (Buspirone Hcl 10 Mg Tablet) 10 mg PO BID [facility] Last Admin: 01/23/23 08:28 Dose: 10 mg Documented By: FRANKIE Doxycycline Monohydrate (Doxycycline Monohydrate 100 Mg Capsule) 100 mg PO Q12H [facility] Last Admin: 12/10/23 08:27 Dose: 100 mg Documented By: FRANKIE Duloxetine HCl (Duloxetine Hcl 60 Mg Capsule.Dr) 60 mg PO BID [facility] Last Admin: 01/23/23 08:28 Dose: 60 mg Documented By: FRANKIE Enoxaparin Sodium (Enoxaparin Sodium 40 Mg/0.4 Ml Syringe) 40 mg SUBCUT Q24H [facility] Last Admin: 01/22/23 22:25 Dose: 40 mg Documented By: МАРИНА Ergocalciferol (Ergocalciferol (Vitamin D2) 1,250 Mcg Capsule) 1,250 mcg PO TH [facility] Last Admin: 01/20/23 08:03 Dose: 1,250 mcg Documented By: DEON Guaifenesin (Guaifenesin 200 Mg/10 Ml 10 Ml Liquid) 10 ml PO Q4H PRN PRN Reason: Cough Ceftriaxone Sodium 1 gm/ (Sodium Chloride) 50 mls @ 100 mls/hr IV Q24H [facility] Last Infusion: 01/23/23 06:04 Dose: Infused Documented By: VITOR Melatonin (Melatonin 3 Mg Tablet) 3 mg PO BEDTIME PRN PRN Reason: Insomnia Metoprolol Succinate (Metoprolol Succinate Er 50 Mg Tab.Er.24h) 50 mg PO BID [facility]; Protocol Last Admin: 01/23/23 08:27 Dose: 50 mg Documented By: FRANKIE Mirtazapine (Mirtazapine 30 Mg Tablet) 30 mg PO BEDTIME [facility] Last Admin: 01/22/23 22:24 Dose: 30 mg Documented By: МАРИНА Ondansetron HCl (Ondansetron Hcl 4 Mg/2 Ml Vial) 4 mg IVPUSH Q8H PRN PRN Reason: Nausea and Vomiting Last Admin: 01/19/23 03:35 Dose: 4 mg Documented By: SHAHIDA Ondansetron HCl (Ondansetron Hcl 4 Mg/2 Ml Vial) 4 mg IVPUSH ONCE PRN PRN Reason: Nausea and Vomiting Pantoprazole Sodium (Pantoprazole Sodium 40 Mg/10 Ml Vial) 40 mg IVPUSH 2100 [facility] Last Admin: 01/22/23 22:24 Dose: 40 mg Documented By: МАРИНА Prednisone (Prednisone 20 Mg Tablet) 40 mg PO DAILY [facility] Last Admin: 01/23/23 08:28 Dose: 40 mg Documented By: FRANKIE Senna (Sennosides 8.6 Mg Tablet) 17.2 mg PO BEDTIME PRN PRN Reason: Constipation Sodium Chloride (0.9 % Sodium Chloride Flush 3 Ml Syringe) 3 ml IVFLUSH QSHIFT [facility] Last Admin: 01/23/23 08:28 Dose: 3 ml Documented By: FRANKIE Trimethoprim/Sulfamethoxazole (Sulfamethox/Trimeth 800/160 Tablet) 1 tab PO Q12H [facility] Last Admin: 01/23/23 08:28 Dose: 1 tab Documented By: FRANKIE Labs 01/22/23 08:14 01/20/23 08:39 Microbiology Microbiology Results: Microbiology 01/20/23 10:05 Gram Stain - Final Washing - Wash Routine Culture - Final No growth after 2 days 01/20/23 10:05 Gram Stain - Final Lung - Right Middle Routine Culture - Final No growth after 2 days 01/20/23 10:05 Gram Stain - Final Brushing - Left Routine Culture - Final No growth after 2 days Assessment and Plan (1) AIDS: Status: Acute Plan 32-year-old female with history of multiple sclerosis not currently on treatment, history of esophagitis, celiac disease, recently diagnosed HIV/aids on Biktarvy admitted for pneumonia with severe sepsis in immunocompromised patient. Pt with multiple admissions for pneumonia resulting in ARDS with recent discharge from [facility] for fungal pneumonia. Also found positive for HIV/AIDS. Acute hypoxic respiratory failure seconadary to Acute pneumonia with severe sepsis recent fungal pneumonia treated with [facility], 01/06 - complete course of fluconazole Chest CT showing worsening pna, reticulonodular, miliary appearance, ? miliary TB continue IV ceftriaxone and doxycycline (initiated 01/18) nasal MRSA swab NEG, RPP negative legionella ag, strep pneumo ag, CMV, HSV, PJP pending Pulmonology consult> s/p bronchoscopy 01/20 follow BAL washings, transbronchial biopsy results: thus far gram stain and culture negative, fungal culture pending, AFB pending cryptococcal antigen negative, tspot negative but rec to continue respiratory isolation, until results of bronchial washings result continue has completed prednisone taper from [facility] per d/c paperwork from pt, pulm rec to continue prednisone for now due to IRIS HIV/AIDS Last CD4 count 67 Continue biktarvy seen by ID :continue bactrim 1 tab DS BID (per ID 15-20mg/kg/day) for now - transition to Bactrim DS daily on discharge check HCV and tspot when off steroids CT brain negative for toxoplasmosis outpatient follow up with ID GPC bacteremia 1/2 GPC - final coag negative staph. probable contaminant Tachycardia VQ scan negative for PE pt reports chronic. continue metoprolol Normocytic anemia no acute blood loss likely complication of HIV seen by GI - no further GI work up indicated at this time MS stable, no exacerbation Gerd unable to take prilosec IV protonix DVT prophylaxis- lovenox Attending Dr. Vivas Full code Given patient's immunocompromised state with recently diagnosed HIV/AIDS and presentation with acute pneumonia and severe sepsis and given recent hospitalizations for pneumonia with rapid decompensation into ARDS, continue inpatient stay for IV abx, expert consultations, and close monitoring to prevent cardiopulmonary decompensation and septic shock. Quality Stroke Does the patient have a stroke diagnosis?: No VTE Prior VTE?: No VTE Risk Level:: Medical - moderate - high VTE Device Contraindication: Treatment Not Indicated VTE Drug Contraindication: N/A - Med Ordered
[2023-01-23] MEDS: Pantoprazole Sodium 40 MG/10 ML VIAL IVPUSH (20:09)
[2023-01-23] MEDS: Enoxaparin Sodium 40 MG/0.4 ML SYRINGE SUBCUT (20:10)
[2023-01-23] MEDS: Mirtazapine 30 MG TABLET PO (20:10)
[2023-01-24] VITALS (8 sets, daily range): BP systolic 129–153; BP diastolic 74–91; PULSE 85–113; RESP 15–20; TEMP 36.1–37.6; O2SAT 91–97
[2023-01-24] MEDS: cefTRIAXone sodium 1 GM in 0.9 % Sodium Chloride 50 ML IV (05:29)
--- NOTE | 2023-01-24 08:40 | MHC.CM.PN ---
EMR REVIEWED, PER HOSPIATLIST PT TO BE MEDICALLY CLEARED PENDING LABS, NOT LIKELY TO RETURN TODAY, ANTIC PT WILL DC W/[facility] W[facility]FAMILY FOR TRANSPORT, CM WILL CONT TO FOLLOW DC NEEDS.
[2023-01-24] MEDS: predniSONE 20 MG TABLET 40 MG PO (09:05)
[2023-01-24] MEDS: busPIRone HCl 10 MG TABLET PO ×2 (09:05→21:42)
[2023-01-24] MEDS: DULoxetine HCl 60 MG CAPSULE.DR PO ×2 (09:05→21:42)
[2023-01-24] MEDS: Sulfamethox/Trimeth 800/160 TABLET 1 TAB PO ×2 (09:05→21:42)
[2023-01-24] MEDS: Metoprolol Succinate ER 50 MG TAB.ER.24H PO ×2 (09:05→21:41)
[2023-01-24] MEDS: Doxycycline Monohydrate 100 MG CAPSULE PO ×2 (09:05→21:41)
[2023-01-24] MEDS: Bictegrav/Emtricit/Tenofov Ala TABLET 1 TAB PO (09:05)
[2023-01-24] MEDS: 0.9 % Sodium Chloride Flush 3 ML SYRINGE IVFLUSH ×2 (09:05→14:04)
--- NOTE | 2023-01-24 09:09 | P.CDIM_ITS ---
PROVIDER RESPONSE TEXT: To clarify, the appropriate diagnosis supported by the clinical indicators: Acute QUERY TEXT: PHYSICIAN'S DOCUMENTATION REQUEST Date of Query: 01/24/2023 08:30 AM EST Patient Name: NEHA FITZPATRICK Admit Date: 01/19/2023 Dear Opal Brody, A review of the medical record indicates additional documentation may be needed. Please review below and update the documentation accordingly. Clinical indicators: Progress notes-Plan: met sepsis on admission. Lactic acidosis resolved following IVF with repeat 1.6 tachypnea resolved, tachycardia is chronic. LA 3.6 Clarify which of the following accurately represents the acuity of the Lactic acidosis: Acute Acute on chronic Other (explain) Clinically unable to determine (explain) Thank you, Rosalina Arreola, CCS, CDIS Use of terms such as suspected, likely, concern for, or probable (associated with a specific diagnosi s that is being evaluated, monitored, or treated as if it exists) are acceptable and can be coded in the inpatient se tting, when documented at the time of discharge. Please use your independent medical judgment in providing your response. THIS QUERY IS PART OF THE PERMANENT MEDICAL RECORD
--- NOTE | 2023-01-24 09:19 | P.PNIM_ITS ---
Subjective Subjective Date of Service: 01/24/23 Interval History: follow up for respiratory failure feeling good today, no fever or chills; no sob Review of Systems Review of Systems: Yes all other systems are reviewed and are negative Constitutional Constitutional: Denies chills and Denies fever(s) Cardiovascular Cardiovascular: Denies chest pain and Denies dyspnea Respiratory Respiratory: Denies dyspnea Gastrointestinal Gastrointestinal: Denies abdominal pain Physical Exam 2 Vital Signs: Vital Signs: Last Vital Signs Temp 98.2 F 01/24/23 07:48 Pulse 85 01/24/23 07:48 Resp 15 01/24/23 07:48 BP 153/91 H 01/24/23 07:48 Pulse Ox 97 01/24/23 07:48 O2 Del Method Room Air 01/24/23 07:48 O2 Flow Rate 2 01/24/23 03:10 FiO2 28 01/20/23 10:50 Oxygen Flow Rate 3 01/23/23 10:00 BMI result Body Mass Index 28.9 Appearing in no acute distress lung sounds are clear to auscultation heart regular rate rhythm, clear S1, S2 positive bowel sounds, abdomen is soft, nontender neuro patient is alert x3, no focal deficits Objective Data Active Medications Acetaminophen (Acetaminophen 325 Mg Tablet) 650 mg PO Q6H PRN PRN Reason: Pain, Mild (Pain Scale 1-3) Last Admin: 01/23/23 05:20 Dose: 650 mg Documented By: VITOR Baclofen (Baclofen 10 Mg Tablet) 10 mg PO BEDTIME [facility] Last Admin: 01/23/23 20:10 Dose: 10 mg Documented By: CHUCKY Baclofen (Baclofen 10 Mg Tablet) 10 mg PO BID PRN PRN Reason: Muscle Spasm Last Admin: 01/23/23 08:27 Dose: 10 mg Documented By: FRANKIE Bictegravir/Emtricitabine/Tenofovir (Bictegrav/Emtricit/Tenofov Ala Tablet) 1 tab PO DAILY [facility] Last Admin: 01/24/23 09:05 Dose: 1 tab Documented By: DIEGO Buspirone HCl (Buspirone Hcl 10 Mg Tablet) 10 mg PO BID [facility] Last Admin: 01/24/23 09:05 Dose: 10 mg Documented By: DIEGO Doxycycline Monohydrate (Doxycycline Monohydrate 100 Mg Capsule) 100 mg PO Q12H [facility] Last Admin: 01/24/23 09:05 Dose: 100 mg Documented By: DIEGO Duloxetine HCl (Duloxetine Hcl 60 Mg Capsule.) 60 mg PO BID [facility] Last Admin: 01/24/23 09:05 Dose: 60 mg Documented By: DIEGO Enoxaparin Sodium (Enoxaparin Sodium 40 Mg/0.4 Ml Syringe) 40 mg SUBCUT Q24H [facility] Last Admin: 01/23/23 20:10 Dose: 40 mg Documented By: CHUCKY Ergocalciferol (Ergocalciferol (Vitamin D2) 1,250 Mcg Capsule) 1,250 mcg PO TH [facility] Last Admin: 01/20/23 08:03 Dose: 1,250 mcg Documented By: DEON Guaifenesin (Guaifenesin 200 Mg/10 Ml 10 Ml Liquid) 10 ml PO Q4H PRN PRN Reason: Cough Ceftriaxone Sodium 1 gm/ (Sodium Chloride) 50 mls @ 100 mls/hr IV Q24H [facility] Last Infusion: 01/24/23 06:19 Dose: Infused Documented By: CHUCKY Melatonin (Melatonin 3 Mg Tablet) 3 mg PO BEDTIME PRN PRN Reason: Insomnia Metoprolol Succinate (Metoprolol Succinate Er 50 Mg Tab.Er.24h) 50 mg PO BID [facility]; Protocol Last Admin: 01/24/23 09:05 Dose: 50 mg Documented By: DIEGO Mirtazapine (Mirtazapine 30 Mg Tablet) 30 mg PO BEDTIME [facility] Last Admin: 01/23/23 20:10 Dose: 30 mg Documented By: CHUCKY Ondansetron HCl (Ondansetron Hcl 4 Mg/2 Ml Vial) 4 mg IVPUSH Q8H PRN PRN Reason: Nausea and Vomiting Last Admin: 01/19/23 03:35 Dose: 4 mg Documented By: SHAHIDA Ondansetron HCl (Ondansetron Hcl 4 Mg/2 Ml Vial) 4 mg IVPUSH ONCE PRN PRN Reason: Nausea and Vomiting Pantoprazole Sodium (Pantoprazole Sodium 40 Mg/10 Ml Vial) 40 mg IVPUSH 2100 [facility] Last Admin: 01/23/23 20:09 Dose: 40 mg Documented By: CHUCKY Prednisone (Prednisone 20 Mg Tablet) 40 mg PO DAILY [facility] Last Admin: 01/24/23 09:05 Dose: 40 mg Documented By: DIEGO Senna (Sennosides 8.6 Mg Tablet) 17.2 mg PO BEDTIME PRN PRN Reason: Constipation Sodium Chloride (0.9 % Sodium Chloride Flush 3 Ml Syringe) 3 ml IVFLUSH QSHIFT [facility] Last Admin: 01/24/23 09:05 Dose: 3 ml Documented By: DIEGO Trimethoprim/Sulfamethoxazole (Sulfamethox/Trimeth 800/160 Tablet) 1 tab PO Q12H [facility] Last Admin: 01/24/23 09:05 Dose: 1 tab Documented By: DIEGO Labs 01/22/23 08:14 01/20/23 08:39 Labs: Laboratory Results - last 24 hr 01/20/23 10:05 Ref Lab Test Result SEE NOTE Microbiology Microbiology Results: Microbiology 01/18/23 16:46 Blood Culture - Final Blood - Venous No growth after 5 days. Assessment and Plan (1) AIDS: Status: Acute Plan 32-year-old female with history of multiple sclerosis not currently on treatment, history of esophagitis, celiac disease, recently diagnosed HIV/aids on Biktarvy admitted for pneumonia with severe sepsis in immunocompromised patient. Pt with multiple admissions for pneumonia resulting in ARDS with recent discharge from [facility] for fungal pneumonia. Also found positive for HIV/AIDS. Acute hypoxic respiratory failure seconadary to Acute pneumonia with severe sepsis recent fungal pneumonia treated with [facility], 01/06 - complete course of fluconazole Chest CT showing worsening pna, reticulonodular, miliary appearance, ? miliary TB continue IV ceftriaxone and doxycycline (initiated 01/18) nasal MRSA swab NEG, RPP negative legionella ag, strep pneumo ag, CMV, HSV, PJP pending Pulmonology consult> s/p bronchoscopy 01/20 follow BAL washings, transbronchial biopsy results: thus far gram stain and culture negative, fungal culture pending, AFB pending cryptococcal antigen negative, tspot negative but rec to continue respiratory isolation, until results of bronchial washings result continue has completed prednisone taper from [facility] per d/c paperwork from pt, pulm rec to continue prednisone for now due to IRIS HIV/AIDS Last CD4 count 67 Continue biktarvy seen by ID :continue bactrim 1 tab DS BID (per ID 15-20mg/kg/day) for now - transition to Bactrim DS daily on discharge check HCV and tspot when off steroids CT brain negative for toxoplasmosis outpatient follow up with ID GPC bacteremia 1/2 GPC - final coag negative staph. probable contaminant Tachycardia VQ scan negative for PE pt reports chronic. continue metoprolol Normocytic anemia no acute blood loss likely complication of HIV seen by GI - no further GI work up indicated at this time MS stable, no exacerbation Gerd unable to take prilosec IV protonix DVT prophylaxis- lovenox Attending Dr. Hernandez Full code Given patient's immunocompromised state with recently diagnosed HIV/AIDS and presentation with acute pneumonia and severe sepsis and given recent hospitalizations for pneumonia with rapid decompensation into ARDS, continue inpatient stay for IV abx, expert consultations, and close monitoring to prevent cardiopulmonary decompensation and septic shock. Quality Stroke Does the patient have a stroke diagnosis?: No VTE Prior VTE?: No VTE Risk Level:: Medical - moderate - high VTE Device Contraindication: Treatment Not Indicated VTE Drug Contraindication: N/A - Med Ordered
[2023-01-24] MEDS: Acetaminophen 325 MG TABLET 650 MG PO (14:02)
[2023-01-24] MEDS: Baclofen 10 MG TABLET PO (21:41)
[2023-01-24] MEDS: Mirtazapine 30 MG TABLET PO (21:41)
[2023-01-24] MEDS: Pantoprazole Sodium 40 MG/10 ML VIAL IVPUSH (21:41)
[2023-01-24] MEDS: Enoxaparin Sodium 40 MG/0.4 ML SYRINGE SUBCUT (21:41)
[2023-01-25 04:00] VITALS: BP 129/82; PULSE 100; RESP 20; TEMP 36; O2SAT 96
[2023-01-25] MEDS: cefTRIAXone sodium 1 GM in 0.9 % Sodium Chloride 50 ML IV (04:25)
[2023-01-25 07:36] VITALS: BP 149/104; PULSE 102; RESP 20; TEMP 36.1; O2SAT 96
[2023-01-25 09:03] LABS: Hematocrit 29.8 % (37.0-47.0); Hemoglobin 9.6 g/dl (12.0-16.0); Mean Corpuscular HGB Conc 32.2 g/dl (31.0-35.0); Mean Corpuscular Hemoglobin 30.6 pg (27.0-33.0); Mean Corpuscular Volume 94.9 fL (80.0-98.0); Mean Platelet Volume 10.6 fL (9.4-12.3); NRBC Pct Auto 0.1 /100WBC (0.0-0.2); Platelet Count 293 X10*3/uL (160-400); Red Blood Count 3.14 X10*6/uL (4.20-5.50); Red Cell Distribution Width 20.1 % (11.0-16.0); White Blood Count 13.8 X10*3/uL (4.8-10.8)
[2023-01-25 09:20] LABS: Anion Gap 15 (12-20); Blood Urea Nitrogen 25 mg/dL (9-16); Calcium 9.3 mg/dL (8.4-10.2); Carbon Dioxide 24 mmol/L (22-29); Chloride 104 mmol/L (96-108); Creatinine Clr Calc Pharmacy 89.3; Estimated Glomerular Filt Rate > 60; Glucose Random 98 mg/dL (60-115); Potassium 4.1 mmol/L (3.3-5.1); Sodium 139 mmol/L (135-145)
[2023-01-25] MEDS: Bictegrav/Emtricit/Tenofov Ala TABLET 1 TAB PO (09:22)
[2023-01-25] MEDS: Sulfamethox/Trimeth 800/160 TABLET 1 TAB PO (09:22)
[2023-01-25] MEDS: busPIRone HCl 10 MG TABLET PO (09:22)
[2023-01-25] MEDS: 0.9 % Sodium Chloride Flush 3 ML SYRINGE IVFLUSH (09:22)
[2023-01-25] MEDS: DULoxetine HCl 60 MG CAPSULE.DR PO (09:22)
[2023-01-25] MEDS: Doxycycline Monohydrate 100 MG CAPSULE PO (09:22)
[2023-01-25] MEDS: Metoprolol Succinate ER 50 MG TAB.ER.24H PO (09:22)
[2023-01-25] MEDS: predniSONE 20 MG TABLET 40 MG PO (09:22)
[2023-01-25 10:00] VITALS: O2SAT 97
[2023-01-25 10:16] LABS: Band Neutrophils Percent 4 % (3-5); Eosinophils Absolute Manual 0.3 X10*3/uL (0.0-0.4); Eosinophils Percent Manual 2 % (0-4); Lymphocytes Absolute Manual 0.8 X10*3/uL (1.2-4.9); Lymphocytes Percent Manual 6 % (20-40); Metamyelocytes Absolute 0.7 X10*3/uL; Metamyelocytes Percent 5 %; Monocytes Absolute Manual 0.4 X10*3/uL (0.1-1.2); Monocytes Percent Manual 3 % (2-11); Neutrophils Absolute Manual 11.6 X10*3/uL (2.0-8.3); Neutrophils Percent Manual 80 % (45-73)
[2023-01-25 10:24] LABS: RBC Morphology NOTED
[2023-01-25 10:25] LABS: Burr Cells 1+ (0-2) /OIF; Hypochromasia 1+ (5-14) /OIF; Macrocytosis 1+ (5-14) /OIF; Microcytosis 1+ (5-14) /OIF; Polychromasia 1+ (0-2) /OIF; Spherocytes 1+ (0-2) /OIF
[2023-01-25 10:26] LABS: Platelet Estimate NORMAL (NORMAL); Platelet Morphology Comment NORMAL
[2023-01-25 12:00] VITALS: BP 149/101; PULSE 113; RESP 20; TEMP 36.1; O2SAT 97
--- NOTE | 2023-01-25 13:19 | MHC.CM.PN ---
PER HOSPITALIST PT TO BE MEDICALLY CLEARED FOR DC [facility], PT WILL ARRANGE HER OWN TRANSPORT
--- NOTE | 2023-01-25 13:34 | PM.DS ---
DS: Providers Provider Date of Service: 01/25/23 Date of admission: 01/18/23 20:42 Primary care physician: Baldo Arreola MD Consults: 01/18/23 19:38 Consult to Infectious Diseases Stat Consulting Provider: ERIC FAULKNER Reason for consultation: AIDS patient with pneumonia 01/19/23 07:32 Consult to Pulmonology Routine Consulting Provider: [facility] Pulmonology Services Reason for consultation: possible miliary TB 01/19/23 13:09 Consult to Gastroenterology Routine Consulting Provider: Jovanni Waldron Reason for consultation: anemia, HIV 01/19/23 13:30 Consult to Infectious Diseases Routine Consulting Provider: [facility] Infectious Disease Reason for consultation: HIV, PNA DS: Diagnosis Discharge Diagnosis (1) AIDS: Status: Acute DS: Summary Hospital Course Hospital Course: History and physical as per admitting provider. 32-year-old female with history of multiple sclerosis not currently on treatment, history of esophagitis, celiac disease, recently diagnosed HIV/aids on Biktarvy presented to the ED earlier today from PCP office for further evaluation of pneumonia. The patient has had multiple admissions in the last 2 months for pneumonia. She was admitted 12/03- 12/06 for pneumonia associated with COVID-19 and acute hypoxic respiratory failure. She was then again admitted to ICU from 12/13-12/25 for multifocal pneumonia with ARDS requiring HFNC and prn bipap. During admission, was tested fgor HIV given worsening pneumonia which was found to be reactive. TB negative. CD4 count ultimately resulted at 113 (results after dc). She was ultimately transferred to [facility] for further treatment (records requested). There she completed course of antibiotics and was started on bactrim for PCP prophylaxis. She was also treated empirically with an antifungal medication. She was seen by ID and was started on Biktarvy. She was discharged home on Bactrim and fluconazole. Ultimately cultures did reveal a fungal pneumonia. She has follow up with Dr. Nicole in ID at [facility] on Sunday 01/21. Per the patient, following discharge, she was feeling much better. She was discharged on 1-2 L supplemental O2. However, about 6 days ago began developing nocturnal fevers up to 101.4 with associated chills/rigors. There is associated productive cough with yellow sputum production and nausea/vomiting. She reports intermittent shortness of breath palpitations as well as pleuritic chest pain. She reports no issues with p.o. intake. Denies any known sick contacts. He reports compliance with her Biktarvy. On arrival, patient afebrile but tachycardic to 128. She was continued on 2 L supplemental O2 maintaining oximetry around 97%. No hypotension. She has been intermittently tachypneic to 24. She is leukopenic a 2.4. Differential unavailable at this time. Creatinine 1.55, baseline around 1.36, BUN 19. Sodium 131, electrolytes otherwise normal. Glucose 151. Initial lactic acid 3.6, repeat 1.6. Hepatic function within normal limits. Troponin 12.2. Procalcitonin pending. Urinalysis unremarkable. Nasal MRSA screen pending CXR shows increased reticular nodular markings in the bilateral upper lobes, differential to include pneumonia versus pneumoconiosis. In the ED, received 100 mg IV doxycycline, 1 g cefepime, and 1 L IV NS. Case was discussed by ED provider with ID recommending admission with IV ceftriaxone, doxycycline, and Bactrim dose at 15-20 milligrams/kilogram per day. 32-year-old woman treated for PJP pneumonia and possible iris. She initially came in hypoxic and was treated with oxygen therapy. Started on ceftriaxone, doxycycline, Bactrim weight based and prednisone. She had a bronchoscopy as per pulmonology with samples, fungal washing was negative, Gram stain was negative, acid-fast bacilli cultures smear, direct acid-fast bacilli smear both pending. CMV culture, pneumocystis PCR both pending. Respiratory pathogen panel negative, nasal MRSA swab negative, T spot, cryptococcal antigen negative.. Initial chest x-ray had showed interstitial lung disease bilaterally more prominent than previous study. During the course of the hospitalization the patient has significantly improved and is not requiring oxygen and no fevers developed. Plan is to continue a total of 21 days of Bactrim, prednisone taper. She should follow-up with the Infectious Disease provider outpatient for HIV management, she can also see the [facility] [employer] consultant as needed for any respiratory issues. She has a history chronic tachycardia, V/Q scan was obtained during his hospitalization and was negative for pulmonary embolus she remains on a beta-tana for this. Of note she was recently treated for fungal pneumonia at [facility] completed a course of fluconazole. Patient will continue on Biktarvy for HIV, CD4 count [address] negative for toxoplasmosis. Patient was encouraged to follow-up at a good HIV Clinic, take her medications as prescribed/daily, eat well and exercise. Patient stated plans of moving to [place] in 2 months. At this time she is safe for discharge patient is in agreement. GERD. Continue Protonix Multiple sclerosis. Stable. No exacerbation during hospitalization Normocytic anemia. No acute blood loss likely secondary to HIV, seen evaluated by Gastroenterology with no further recommendation for GI workup Time Attestation Discharge coordination time: Greater than 30 minutes Quality: Safe Use of Opioids Does Pt have an Active Cancer Diagnosis on the Problem List?: No Quality: Stroke Does the patient have a stroke diagnosis?: No Physical Exam Vital Signs: Vital Signs: Last Vital Signs Temp 97.0 F 01/25/23 12:00 Pulse 113 H 01/25/23 12:00 Resp 20 01/25/23 12:00 BP 149/101 H 01/25/23 12:00 Pulse Ox 97 01/25/23 12:00 O2 Del Method Room Air 01/25/23 12:00 O2 Flow Rate 1 01/25/23 04:00 FiO2 28 01/20/23 10:50 Oxygen Flow Rate 2 01/24/23 10:00 BMI result Body Mass Index 28.9 Appearing in no acute distress head is normocephalic atraumatic eyes pupils are PERRLA sclera is anicteric mouth throat mucous membranes are intact and moist neck is supple no lymphadenopathy, no JVD noted lung sounds are clear to auscultation heart regular rate rhythm, clear S1, S2 positive bowel sounds, abdomen is soft, nontender neuro patient is alert x3, no focal deficits DS: Data Data Completed and Pending Completed studies during hospitalization [Text1]: Pending at discharge 01/20/23 10:13 Surgical [PTH] Stat 01/20/23 10:46 Cytology [PTH] Stat Procedures Assistance with Respiratory Ventilation, Less than 24 Consecutive Hours, Continuous Positive Airway Pressure (12/13/22) Introduction of Vasopressor into Peripheral Vein, Percutaneous Approach (12/13/22) Labs on day of discharge: Laboratory Results - last 24 hr 01/20/23 01/25/23 10:05 08:19 WBC 13.8 H RBC 3.14 L Hgb 9.6 L Hct 29.8 L MCV 94.9 MCH 30.6 MCHC 32.2 RDW 20.1 H Plt Count 293 MPV 10.6 Immature Gran % (Auto) Cancelled Neut % (Auto) Cancelled Lymph % (Auto) Cancelled [place] % (Auto) Cancelled Eos % (Auto) Cancelled Baso % (Auto) Cancelled Lymph # (Auto) Cancelled [place] # (Auto) Cancelled Eos # (Auto) Cancelled Baso # (Auto) Cancelled Abs Immat Gran (auto) Cancelled Absolute Neuts (auto) Cancelled Absolute Nucleated RBC 0.020 H Nucleated RBC % (auto) 0.1 Neutrophils % (Manual) 80 H Band Neutrophils % 4 Lymphocytes % (Manual) 6 L Monocytes % (Manual) 3 Eosinophils % (Manual) 2 Metamyelocytes % 5 Abs Neuts (Manual) 11.6 H Lymphocytes # (Manual) 0.8 L Monocytes # (Manual) 0.4 Eosinophils # (Manual) 0.3 Metamyelocytes # 0.7 Platelet Estimate NORMAL Plt Morphology Comment NORMAL RBC Morphology NOTED Polychromasia 1+ (0-2) Hypochromasia 1+ (5-14) Microcytosis 1+ (5-14) Macrocytosis 1+ (5-14) Spherocytes 1+ (0-2) [place] Cells 1+ (0-2) Sodium 139 Potassium 4.1 Chloride 104 Carbon Dioxide 24 Anion Gap 15 BUN 25 H Creatinine 1.02 Estim Creat Clear Calc 89.3 Estimated GFR > 60 Random Glucose 98 Calcium 9.3 Ref Lab Test Result SEE NOTE Preliminary micro results at discharge 01/20/23 10:05 Fungal Identification - Preliminary Washing - Wash No growth to date. 01/20/23 10:05 Fungal Identification - Preliminary Brushing - Left No growth to date. 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 SOFIYA next tachycardia, chronic Referrals: [facility] [Outside] - 1 Day (RESUMPTION OF HALF-WAY AND HOME PT) ERIC FAULKNER MD [Physician] - 1 Week Baldo Arreola MD [Primary Care Provider] - 1 Week Keron Brody MD [Physician] - None (as needed) Discharge Medications: New sulfamethoxazole-trimethoprim 800-160 mg tablet 1 tab PO Q12H Qty: 30 0RF prednisone 10 mg tablet See Taper PO DIRECTED Qty: 30 0RF Taper: Prednisone 40 mg daily for 3 Days and 0 Hour 30 mg daily for 3 Days and 0 Hour 20 mg daily for 3 Days and 0 Hour 10 mg daily for 3 Days and 0 Hour Rx Instructions: see taper instructions Continued metoprolol succinate 50 mg tablet extended release 24 hr 50 mg PO BID baclofen 10 mg tablet 10 mg PO BEDTIME pantoprazole 40 mg tablet,delayed release (DR/EC) 40 mg PO BID mirtazapine 30 mg tablet 30 mg PO BEDTIME buspirone 10 mg tablet 10 mg PO BID duloxetine 60 mg capsule,delayed release(DR/EC) 60 mg PO BID lisdexamfetamine [Vyvanse] 50 mg capsule 50 mg PO DAILY PRN (Reason: ADHD) fluconazole 200 mg Tablet 200 mg PO DAILY Rx Instructions: X 16 DAYS, FINISH 01/22/23 baclofen 10 mg tablet 10 mg PO BID PRN (Reason: Muscle Spasm) ergocalciferol (vitamin D2) 1,250 mcg (50,000 unit) Capsule 1,250 mcg PO TH Biktarvy 50-200-25 mg Tablet 1 tab PO DAILY Discontinued sulfamethoxazole-trimethoprim [Bactrim] 400-80 mg Tablet 1 tab PO DAILY prednisone 20 mg Tablet 20 mg PO DAILY Rx Instructions: FINISH ON 01/20/23 Discharge Orders: Discharge Order (Routine); Ordered 01/25/23 Ordered By: Opal Brody Diet: Advance to usual diet Activity on Discharge: As tolerated Stand Alone Forms: Patient Portal Discharge page Care Plan Goals: you will be on a prednisone taper, take as prescribed Complete course of Bactrim, total 21 days Health Concerns: Acute hypoxic respiratory failure 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
[2023-01-26 15:23] LABS: CMV Culture Source NG
[2023-01-27 15:04] LABS: Pneumocystis jir Ql PCR DETECTED; Pneumocystis jir source BW
== END 2023-01-25 14:39 | disposition home health service (06) | DRG 890 ==
LOC: HO.ED 19:42 → HO.EDOVER 21:03 → HO.IMC 01-19 10:54
PROVIDERS: Anesthesiology; Hospitalist; Nurse Practitioner; Physician Assistant Medical; Registered Nurse Emergency; Admitting Provider Physician Assistant; Emergency Provider Student in an Organized Health Care Education/Training Program; PCP Internal Medicine; Visit Provider Nurse Practitioner Acute Care
PROC: 0BJ08ZZ Inspection of Tracheobronchial Tree, Via Natural or Artificial Opening Endoscopic (ICD-10-PCS; CPT 31622; principal; 2023-01-20 09:10)
DX: A41.9 Sepsis, unspecified organism (principal); B20 Human immunodeficiency virus [HIV] disease; B59 Pneumocystosis; R65.20 Severe sepsis without septic shock; J96.01 Acute respiratory failure with hypoxia; N17.9 Acute kidney failure, unspecified; D63.8 Anemia in other chronic diseases classified elsewhere; E86.0 Dehydration; K21.9 Gastro-esophageal reflux disease without esophagitis; R00.0 Tachycardia, unspecified; K90.0 Celiac disease; G35 Multiple sclerosis; Z87.891 Personal history of nicotine dependence; Z79.899 Other long term (current) drug therapy
CPT/HCPCS: 36415; 70460; 71045; 71046; 71250; 78580; 80048; 80053; 81001; 83605; 84145; 84484; 84702; 85007; 85025; 85027; 86359; 86360; 86403; 86481; 86850; 86900; 86901; 86923; 87040; 87070; 87086; 87102; 87106; 87116; 87147; 87205; 87206; 87255; 87497; 87633; 87640; 87641; 87798; 87899; 88112; 88305; 93005; 94640; 99285; A9540; C9113; J0131; J0171; J0692; J0696; J1100; J1650; J1920; J2250; J2405; J2704; J3010; P9016

== ENCOUNTER → 2023-01-18 16:32 | Outpatient (BNV) | payer MEDICAID, SELFPAY | PROVIDERS: Admitting Provider Physician Assistant; Emergency Provider Student in an Organized Health Care Education/Training Program; PCP Internal Medicine; Visit Provider Internal Medicine | DX: R00.0 Tachycardia, unspecified (principal) | CPT/HCPCS: 93010 ==

== ENCOUNTER → 2023-01-18 20:42 | Outpatient (BNV) | payer MEDICAID, SELFPAY | PROVIDERS: Admitting Provider Physician Assistant; Emergency Provider Student in an Organized Health Care Education/Training Program; PCP Internal Medicine; Visit Provider Nurse Practitioner Acute Care | DX: B20 Human immunodeficiency virus [HIV] disease (principal) | CPT/HCPCS: 99223; 99232; 99239 ==

== ENCOUNTER → 2023-01-18 20:42 | Outpatient (BNV) | payer MEDICAID, SELFPAY | PROVIDERS: Admitting Provider Physician Assistant; Emergency Provider Student in an Organized Health Care Education/Training Program; PCP Internal Medicine; Visit Provider Internal Medicine | DX: B20 Human immunodeficiency virus [HIV] disease (principal); J18.9 Pneumonia, unspecified organism | CPT/HCPCS: 99222 ==

== ENCOUNTER → 2023-01-18 20:42 | Outpatient (BNV) | payer MEDICAID, SELFPAY | PROVIDERS: Admitting Provider Physician Assistant; Emergency Provider Student in an Organized Health Care Education/Training Program; PCP Internal Medicine; Visit Provider Hospitalist | DX: B20 Human immunodeficiency virus [HIV] disease (principal); J18.9 Pneumonia, unspecified organism; J21.9 Acute bronchiolitis, unspecified; J96.01 Acute respiratory failure with hypoxia | CPT/HCPCS: 31623; 31624; 31628; 99223; 99233 ==

== ENCOUNTER 2023-01-31 10:40 | Outpatient (REF) | payer MEDICAID, SELFPAY ==
--- NOTE | ~2023-01-31 | US_ITS ---
EXAMINATION: US RETROPERITONEAL LIMITED (RENAL ONLY) CLINICAL INFORMATION: Adverse effect of sulfonamides. Acute kidney injury. COMPARISON: CT abdomen and pelvis with contrast dated 12/13/2022. TECHNIQUE: Real-time imaging of the kidneys. FINDINGS: RIGHT KIDNEY: 10.2 x 5.0 x 5.5 cm (SAG x AP x TRV). The kidney is normal in size, contour, and echogenicity. Renal cortical thickness is normal. No calculi or focal parenchymal lesions. No hydronephrosis. LEFT KIDNEY: 9.8 x 5.7 x 5.7 cm (SAG x AP x TRV). The kidney is normal in size, contour, and echogenicity. Renal cortical thickness is normal. No calculi or focal parenchymal lesions. No hydronephrosis. US/US renal BI IMPRESSION: Unremarkable examination of bilateral kidneys.
== END 2023-01-31 10:41 | disposition home or self-care (01) ==
LOC: HO.US 10:40
PROVIDERS: PCP Internal Medicine; Visit Provider Internal Medicine
DX: T37.0X5A Adverse effect of sulfonamides, initial encounter (principal)
CPT/HCPCS: 76775